=== PATIENT | female | born 1935 | race Caucasian/White ===

== ENCOUNTER 2020-07-05 23:05 | Inpatient (IN) | payer MEDICARE, SELFPAY ==
[2020-07-11 05:00] VITALS: BMI 34.4
[2020-07-12] VITALS (9 sets, daily range): BP systolic 122–130; BP diastolic 47–83; PULSE 73–87; RESP 12–17; TEMP 36.8–37.1; O2SAT 93–99
[2020-07-12] MEDS: HYDROmorphone HCl 1 MG/ML SYRINGE IVPUSH ×5 (00:20→18:45)
[2020-07-12] MEDS: Levothyroxine Sodium 150 MCG TABLET PO (05:44)
[2020-07-12 05:48] LABS: MANUAL DIFF FLAG NO
[2020-07-12 05:50] LABS: Basophils Percent Auto 0.3 % (0-2); Eosinophils Absolute Auto 0.2 X10*3/uL (0.0-0.4); Eosinophils Percent Auto 2.3 % (0-4); Hematocrit 24.6 % (37-47); Hemoglobin 7.5 g/dl (12.0-16.0); Imm Gran Abs Auto 0.03 X10*3/uL (0.00-0.03); Imm Gran Pct Auto 0.5 % (0.0-0.4); Lymphocytes Absolute Auto 1.3 X10*3/uL (1.2-4.9); Lymphocytes Percent Auto 19.7 % (20-40); Mean Corpuscular HGB Conc 30.5 g/dl (31.0-35.0); Mean Corpuscular Hemoglobin 27.9 pg (27.0-33.0); Mean Corpuscular Volume 91.4 fL (80-98); Mean Platelet Volume 8.3 fL (9.4-12.3); Monocytes Absolute Auto 0.7 X10*3/uL (0.1-1.2); Monocytes Percent Auto 10.7 % (2-11); Neutrophils Absolute Auto 4.3 X10*3/uL (2.0-8.3); Neutrophils Percent Auto 66.5 % (45-73); Platelet Count 199 X10*3/uL (160-400); Red Blood Count 2.69 X10*6/uL (4.20-5.50); Red Cell Distribution Width 14.3 % (11.0-16.0); White Blood Count 6.5 X10*3/uL (4.8-10.8)
--- NOTE | 2020-07-12 06:09 | PC.NURSE ---
Pt A&Ox4, vague/forgetful at times, easily re-oriented. Afebrile. NSR on tele, HR 70-80s. At approx 2300, PAF on tele, HR 130s. Pt denied any S/S. Converted back to NSR on own. SBP WNL. Pain improving per pt to RLE. Medicated per emar. DSG to RLE C/D/I. Repositioned on L side for comfort. Inct of urine. Bathed this AM. On air loss bed.
[2020-07-12 06:16] LABS: Anion Gap 10 (12-20); Blood Urea Nitrogen 17 mg/dL (9-16); Calcium 7.9 mg/dL (8.4-10.2); Carbon Dioxide 28 mmol/L (22-29); Chloride 101 mmol/L (96-108); Creatinine Clr Calc Pharmacy 51.9; Estimated Glomerular Filt Rate 57; Glucose Fasting 94 mg/dL (60-99); Sodium 135 mmol/L (135-145)
[2020-07-12] MEDS: 0.9 % Sodium Chloride Flush 3 ML SYRINGE 2 ML IVFLUSH ×2 (07:27→14:27)
[2020-07-12 07:44] LABS: Glucose, Whole Blood 90 mg/dL (60-115)
[2020-07-12] MEDS: Ferrous Sulfate 324 MG TABLET.DR PO ×2 (09:36→17:35)
[2020-07-12] MEDS: Amiodarone HCL 200 MG TABLET PO (09:37)
[2020-07-12] MEDS: Apixaban 5 MG TABLET PO ×2 (09:38→21:52)
[2020-07-12] MEDS: Gabapentin 100 MG CAPSULE PO ×2 (09:38→21:51)
[2020-07-12] MEDS: Lidocaine 4 % Patch ADH..PATCH 1 PATCH TRANSDERMA (09:39)
[2020-07-12] MEDS: polyethylene glycoL 3350 17 GM POWD.PACK PO (09:39)
[2020-07-12] MEDS: Docusate Sodium 100 MG CAPSULE PO (09:39)
--- NOTE | 2020-07-12 09:49 | P.PNIM_ITS ---
Subjective Subjective Date of Service: 07/12/20 Interval History: RLE still present but improved after increase in dilaudid Cardiovascular Cardiovascular: Reports no additional cardiovascular complaints Respiratory Respiratory: Reports no additional respiratory complaints Physical Exam Vital Signs and I&O and Narrative: Vital Signs and I&O: Vital Signs Temp 98.5 F 07/12/20 07:38 Pulse 87 07/12/20 09:37 Resp 17 07/12/20 07:38 BP 127/83 07/12/20 09:37 Pulse Ox 96 07/12/20 07:38 Intake & Output 07/11/20 07/12/20 07/12/20 18:59 06:59 18:59 Intake Total 120 / 120 0 / 0 Balance 120 / 120 0 / 0 Intake: Intake, Oral Phan unt 120 / 120 0 / 0 Other: Number of Incont inent Voids 1 Body Mass Index 34.4 Const: General: no acute distress and alert Orientation/consciousness: patient oriented x3 Resp: Auscultation: clear to auscultation bilaterally Cardio: Heart sounds: S1 normal heart sound present and S2 normal heart sound present GI: Palpation (GI): nontender Neuro: General: patient oriented x3 Psych: Affect: normal affect Objective Data Current Medications Generic Name Dose Route Start Last Admin Trade Name Freq PRN Reason Stop Dose Admin Acetaminophen 650 mg 07/12/20 00:00 Acetaminophen 325 Mg Tablet PO Q6H PRN Pain, Moderate (Pain Scale 4-6 Amiodarone HCl 200 mg 07/12/20 09:00 07/12/20 09:37 Amiodarone Hcl 200 Mg Tablet PO 200 mg DAILY LISANDRA Administration Apixaban 5 mg 07/12/20 09:00 07/12/20 09:38 Apixaban 5 Mg Tablet PO 5 mg BID LISANDRA Administration Bisacodyl 10 mg 07/12/20 00:00 Bisacodyl 10 Mg Supp.Rect WI Q3D PRN Constipation Docusate Sodium 100 mg 07/12/20 09:00 07/12/20 09:39 Docusate Sodium 100 Mg Capsule PO 100 mg DAILY LISANDRA Administration Ferrous Sulfate 324 mg 07/12/20 08:30 07/12/20 09:36 Ferrous Sulfate 324 Mg Tablet.Dr PO 324 mg BIDPC LISANDRA Administration Gabapentin 100 mg 07/12/20 09:00 07/12/20 09:38 Gabapentin 100 Mg Capsule PO 100 mg BID LISANDRA Administration Hydromorphone HCl 1 mg 07/12/20 00:00 07/12/20 07:26 Hydromorphone Hcl 1 Mg/Ml Syringe IVPUSH 1 mg Q3H PRN Administration Pain, Severe (Pain Scale 7-10) Meropenem 1 gm/ Sodium 100 mls @ 100 mls/hr 07/12/20 11:00 Chloride IV Q12H LISANDRA Levothyroxine Sodium 150 mcg 07/12/20 06:00 07/12/20 05:44 Levothyroxine Sodium 150 Mcg Tablet PO 150 mcg DAILY@0600 [facility] Administration Lidocaine 1 patch 07/12/20 09:00 07/12/20 09:39 Lidocaine 4 % Patch Adh..Patch TRANSDERMA 1 patch DAILY [facility] Administration Protocol Magnesium Hydroxide 30 ml 07/12/20 00:00 Milk Of Magnesia 30 Ml Oral.Susp PO DAILY PRN Constipation Oxycodone HCl 7.5 mg 07/12/20 00:00 Oxycodone Hcl Immed Release 5 Mg Tablet PO Q4H PRN Pain, Severe (Pain Scale 7-10) Oxycodone HCl 5 mg 07/12/20 00:00 Oxycodone Hcl Immed Release 5 Mg Tablet PO Q4H PRN Pain, Moderate (Pain Scale 4-6 Pharmacy Consult 1 each 07/11/20 05:52 Consult Rx Vancomycin Dosing MISCELLANE 07/18/20 05:51 DAILY PRN Consult order Polyethylene Glycol 17 gm 07/12/20 09:00 07/12/20 09:39 Polyethylene Glycol 3350 17 Gm Powd.Pack PO 17 gm DAILY [facility] Administration Senna 8.6 mg 07/12/20 00:00 Sennosides 8.6 Mg Tablet PO BEDTIME PRN Constipation Sodium Chloride 2 ml 07/12/20 00:00 07/12/20 07:27 0.9 % Sodium Chloride Flush 3 Ml Syringe IVFLUSH 2 ml QSHIFT [facility] Administration Labs CBC & Chem 7: 07/12/20 05:35 07/12/20 05:35 Labs: Laboratory Results - last 24 hr 07/12/20 07/12/20 07/12/20 05:35 05:35 07:33 MCV 91.4 MCH 27.9 MCHC 30.5 L RDW 14.3 Plt Count 199 MPV 8.3 L Immature Gran % (Auto) 0.5 H Neut % (Auto) 66.5 Lymph % (Auto) 19.7 L [place] % (Auto) 10.7 Eos % (Auto) 2.3 Baso % (Auto) 0.3 Neut # (Auto) 4.3 Lymph # (Auto) 1.3 [place] # (Auto) 0.7 Eos # (Auto) 0.2 Baso # (Auto) 0.0 Abs Immat Gran (auto) 0.03 Absolute Nucleated RBC 0.000 Nucleated RBC % (auto) 0.0 Anion Gap 10 L Estim Creat Clear Calc 51.9 Estimated GFR 57 POC Glucose 90 Fasting Glucose 94 Calcium 7.9 L
[2020-07-12] MEDS: oxyCODONE HCl Immed Release 5 MG TABLET 7.5 MG PO ×2 (10:55→17:53)
[2020-07-12 11:35] LABS: Glucose, Whole Blood 110 mg/dL (60-115)
--- NOTE | 2020-07-12 12:24 | PM.EVENT ---
Assessment & Plan Assessment & Plan (1) Septic shock: Code(s): A41.9 - Sepsis, unspecified organism; R65.21 - Severe sepsis with septic shock Category: Medical (2) Urinary tract infection due to Proteus: Code(s): N39.0 - Urinary tract infection, site not specified; B96.4 - Proteus (mirabilis) (morganii) as the cause of diseases classified elsewhere Category: Medical (3) PVD (peripheral vascular disease): Comment: full consult dictated. It does not appear to be an acute vascular event. Appears to be more neurologic in nature. We will peripherally follow with you Code(s): I73.9 - Peripheral vascular disease, unspecified Category: Medical (4) Paroxysmal atrial fibrillation: Code(s): I48.0 - Paroxysmal atrial fibrillation Category: Medical
--- NOTE | 2020-07-12 12:47 | MHC.CM.PN ---
Patient remains in ICU. Per Dr Vigil, discharge is not anticipated today. Anticipate patient will return to [facility] with a PICC via [facility] when medically stable. Continue to monitor for d/c needs.
[2020-07-12 17:02] LABS: Glucose, Whole Blood 88 mg/dL (60-115)
--- NOTE | 2020-07-12 18:05 | PC.NURSE ---
S/E [id number]: AFEBRILE. VSS. INTENSE PAIN (7-9 OUT OF 10) TO RIGHT LEG THROUGHOUT THE DAY, MANAGED WITH ROTATION OF PRN DILAUDID IV AND OXYCODONE PO. Q2H REPO, PILLOWS, BARRIER CREAM, AND WEDGES. DR. COPE BEDSIDE TO ASSESS.
[2020-07-12] MEDS: oxyCODONE HCl Immed Release 5 MG TABLET PO (21:51)
[2020-07-12 22:03] LABS: Glucose, Whole Blood 90 mg/dL (60-115)
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
[2020-07-13] VITALS (11 sets, daily range): BP systolic 117–157; BP diastolic 43–69; PULSE 72–82; RESP 13–22; TEMP 36.7–37.1; O2SAT 95–99; BMI 34.2
[2020-07-13] MEDS: HYDROmorphone HCl 1 MG/ML SYRINGE IVPUSH ×3 (00:20→22:41)
[2020-07-13] MEDS: 0.9 % Sodium Chloride Flush 3 ML SYRINGE 2 ML IVFLUSH ×3 (00:22→15:47)
[2020-07-13] MEDS: Levothyroxine Sodium 150 MCG TABLET PO (05:25)
[2020-07-13] MEDS: oxyCODONE HCl Immed Release 5 MG TABLET PO ×3 (05:25→21:54)
[2020-07-13 06:26] LABS: MANUAL DIFF FLAG NO
[2020-07-13 06:31] LABS: Basophils Percent Auto 0.3 % (0-2); Eosinophils Absolute Auto 0.2 X10*3/uL (0.0-0.4); Eosinophils Percent Auto 2.1 % (0-4); Hematocrit 24.3 % (37-47); Hemoglobin 7.4 g/dl (12.0-16.0); Imm Gran Abs Auto 0.02 X10*3/uL (0.00-0.03); Imm Gran Pct Auto 0.3 % (0.0-0.4); Lymphocytes Absolute Auto 1.1 X10*3/uL (1.2-4.9); Lymphocytes Percent Auto 14.9 % (20-40); Mean Corpuscular HGB Conc 30.5 g/dl (31.0-35.0); Mean Corpuscular Hemoglobin 27.6 pg (27.0-33.0); Mean Corpuscular Volume 90.7 fL (80-98); Mean Platelet Volume 8.9 fL (9.4-12.3); Monocytes Absolute Auto 0.7 X10*3/uL (0.1-1.2); Monocytes Percent Auto 9.6 % (2-11); Neutrophils Absolute Auto 5.2 X10*3/uL (2.0-8.3); Neutrophils Percent Auto 72.8 % (45-73); Platelet Count 233 X10*3/uL (160-400); Red Blood Count 2.68 X10*6/uL (4.20-5.50); Red Cell Distribution Width 14.2 % (11.0-16.0); White Blood Count 7.2 X10*3/uL (4.8-10.8)
[2020-07-13 07:03] LABS: Anion Gap 10 (12-20); Blood Urea Nitrogen 18 mg/dL (9-16); Calcium 7.8 mg/dL (8.4-10.2); Carbon Dioxide 27 mmol/L (22-29); Chloride 101 mmol/L (96-108); Creatinine Clr Calc Pharmacy 53.4; Estimated Glomerular Filt Rate 60; Glucose Fasting 88 mg/dL (60-99); Sodium 134 mmol/L (135-145)
[2020-07-13 07:34] LABS: Glucose, Whole Blood 94 mg/dL (60-115)
[2020-07-13] MEDS: Lidocaine 4 % Patch ADH..PATCH 1 PATCH TRANSDERMA (09:03)
[2020-07-13] MEDS: polyethylene glycoL 3350 17 GM POWD.PACK PO (09:03)
[2020-07-13] MEDS: Apixaban 5 MG TABLET PO ×2 (09:04→20:18)
[2020-07-13] MEDS: Docusate Sodium 100 MG CAPSULE PO (09:04)
[2020-07-13] MEDS: Ferrous Sulfate 324 MG TABLET.DR PO ×2 (09:04→18:14)
[2020-07-13] MEDS: Gabapentin 100 MG CAPSULE PO ×2 (09:04→20:18)
[2020-07-13] MEDS: Amiodarone HCL 200 MG TABLET PO (09:05)
[2020-07-13] MEDS: Acetaminophen 325 MG TABLET 650 MG PO (09:50)
--- NOTE | 2020-07-13 11:34 | MHC.CLN ---
F/U PO INTAKE IMPROVED TO 75% (07/12-07/13) DIET Rx: 1800 2GM NA LOW K+ LOW PHOS-APPROPRIATE WILL RE-START JOHANN TO PROMOTE WOUND HEALING FOLLOWING
[2020-07-13 12:14] LABS: Glucose, Whole Blood 86 mg/dL (60-115)
--- NOTE | 2020-07-13 12:17 | HO.PM.IMPN ---
Subjective Subjective Date of Service: 07/12/20 Interval History: RLE still present but improved after increase in dilaudid (07/12/20 note) Physical Exam Vital Signs and I&O and Narrative: Vital Signs and I&O: Vital Signs Temp 98.7 F 07/13/20 08:00 Pulse 82 07/13/20 11:07 Resp 14 07/13/20 08:00 BP 136/43 L 07/13/20 11:07 Pulse Ox 96 07/13/20 08:00 Intake & Output 07/12/20 07/13/20 07/13/20 18:59 06:59 18:59 Intake Total 820 / 1040 220 / 1040 120 / 120 Output Total 100 / 100 Balance 720 / 940 220 / 940 120 / 120 Urine Output (Aver age ml/kg/hr) 0.09 0.09 0.09 Weight 96.162 kg Intake: Intake, Oral [facility] unt 720 / 840 120 / 840 120 / 120 Intake, IV Amoun t 100 / 200 100 / 200 Meropenem 1 gm In 0.9 % Sodium 100 / 200 100 / 200 Chloride 100 m l @ 100 mls/hr IV Q12H [facility] Rx#:H [id number] Output: Output, Urine Am ount 100 / 100 Other: Breakfast % Eate n 100% 75% Lunch % Eaten 100% Dinner % Eaten 75% Number of Incont inent Voids 1 2 Urine Bedpan Urine Color Concentrated Pale Yellow Body Mass Index 34.2 Const: General: no acute distress and alert Orientation/consciousness: patient oriented x3 Resp: Auscultation: clear to auscultation bilaterally Cardio: Heart sounds: S1 normal heart sound present and S2 normal heart sound present GI: Palpation (GI): nontender Neuro: General: patient oriented x3 Psych: Affect: normal affect Objective Data Current Medications Generic Name Dose Route Start Last Admin Trade Name Freq PRN Reason Stop Dose Admin Acetaminophen 650 mg 07/12/20 00:00 07/13/20 09:50 Acetaminophen 325 Mg Tablet PO 650 mg Q6H PRN Administration Pain, Moderate (Pain Scale 4-6 Amiodarone HCl 200 mg 07/12/20 09:00 07/13/20 09:05 Amiodarone Hcl 200 Mg Tablet PO 200 mg DAILY LISANDRA Administration Apixaban 5 mg 07/12/20 09:00 07/13/20 09:04 Apixaban 5 Mg Tablet PO 5 mg BID LISANDRA Administration Bisacodyl 10 mg 07/12/20 00:00 Bisacodyl 10 Mg Supp.Rect [place] Q3D PRN Constipation Docusate Sodium 100 mg 07/12/20 09:00 07/13/20 09:04 Docusate Sodium 100 Mg Capsule PO 100 mg DAILY LISANDRA Administration Ferrous Sulfate 324 mg 07/12/20 08:30 07/13/20 09:04 Ferrous Sulfate 324 Mg Tablet.Dr PO 324 mg BIDPC LISANDRA Administration Gabapentin 100 mg 07/12/20 09:00 07/13/20 09:04 Gabapentin 100 Mg Capsule PO 100 mg BID [facility] Administration Hydromorphone HCl 1 mg 07/12/20 00:00 07/13/20 09:50 Hydromorphone Hcl 1 Mg/Ml Syringe IVPUSH 1 mg Q3H PRN Administration Pain, Severe (Pain Scale 7-10) Hydromorphone HCl 2 mg 07/13/20 11:14 Hydromorphone Hcl 2 Mg Tablet PO Q3H PRN pain Meropenem 1 gm/ Sodium 100 mls @ 100 mls/hr 07/12/20 11:00 07/13/20 11:11 Chloride IV 100 mls/hr Q12H [facility] Administration Levothyroxine Sodium 150 mcg 07/12/20 06:00 07/13/20 05:25 Levothyroxine Sodium 150 Mcg Tablet PO 150 mcg DAILY@0600 [facility] Administration Lidocaine 1 patch 07/12/20 09:00 07/13/20 09:03 Lidocaine 4 % Patch Adh..Patch TRANSDERMA 1 patch DAILY [facility] Administration Protocol Magnesium Hydroxide 30 ml 07/12/20 00:00 Milk Of Magnesia 30 Ml Oral.Susp PO DAILY PRN Constipation Oxycodone HCl 7.5 mg 07/12/20 00:00 07/12/20 17:53 Oxycodone Hcl Immed Release 5 Mg Tablet PO 7.5 mg Q4H PRN Administration Pain, Severe (Pain Scale 7-10) Oxycodone HCl 5 mg 07/12/20 00:00 07/13/20 09:13 Oxycodone Hcl Immed Release 5 Mg Tablet PO 5 mg Q4H PRN Administration Pain, Moderate (Pain Scale 4-6 Pharmacy Consult 1 each 07/11/20 05:52 Consult Rx Vancomycin Dosing MISCELLANE 07/18/20 05:51 DAILY PRN Consult order Polyethylene Glycol 17 gm 07/12/20 09:00 07/13/20 09:03 Polyethylene Glycol 3350 17 Gm Powd.Pack PO 17 gm DAILY LISANDRA Administration Senna 8.6 mg 07/12/20 00:00 Sennosides 8.6 Mg Tablet PO BEDTIME PRN Constipation Sodium Chloride 2 ml 07/12/20 00:00 07/13/20 09:03 0.9 % Sodium Chloride Flush 3 Ml Syringe IVFLUSH 2 ml QSHIFT LISANDRA Administration Labs CBC & Chem 7: 07/13/20 05:40 07/13/20 05:40 Labs: Laboratory Results - last 24 hr 07/12/20 07/12/20 07/13/20 16:58 21:59 05:40 MCV 90.7 MCH 27.6 MCHC 30.5 L RDW 14.2 Plt Count 233 MPV 8.9 L Immature Gran % (Auto) 0.3 Neut % (Auto) 72.8 Lymph % (Auto) 14.9 L [place] % (Auto) 9.6 Eos % (Auto) 2.1 Baso % (Auto) 0.3 Neut # (Auto) 5.2 Lymph # (Auto) 1.1 L [place] # (Auto) 0.7 Eos # (Auto) 0.2 Baso # (Auto) 0.0 Abs Immat Gran (auto) 0.02 Absolute Nucleated RBC 0.000 Nucleated RBC % (auto) 0.0 Anion Gap Estim Creat Clear Calc Estimated GFR POC Glucose 88 90 Fasting Glucose Calcium 07/13/20 07/13/20 07/13/20 05:40 07:31 12:10 MCV MCH MCHC RDW Plt Count MPV Immature Gran % (Auto) Neut % (Auto) Lymph % (Auto) [place] % (Auto) Eos % (Auto) Baso % (Auto) Neut # (Auto) Lymph # (Auto) [place] # (Auto) Eos # (Auto) Baso # (Auto) Abs Immat Gran (auto) Absolute Nucleated RBC Nucleated RBC % (auto) Anion Gap 10 L Estim Creat Clear Calc 53.4 Estimated GFR 60 POC Glucose 94 86 Fasting Glucose 88 Calcium 7.8 L Assessment and Plan (1) Septic shock: Status: Acute (2) Urinary tract infection due to Proteus: Status: Acute (3) PVD (peripheral vascular disease): Problem details: full consult dictated. It does not appear to be an acute vascular event. Appears to be more neurologic in nature. 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 septic shock poa due to Proteus ESBL UTI septic shock resolved Continue treatment with meropenem D 04/24 s/p PICC line severe RLE pain increased dilaudid to 1mg q3h prn, has improved pain, was able to sleep venous us negative for dvt, arterial duplex positive for PVD vascular appreciated, no intervention, pain likely radicular Acute kidney injury Hyperkalemia Had 1 urgent dialysis session at time of presentation Dialysis catheter removed Resolved Paroxysmal atrial fibrillation now sinus rhythm, started on amiodarone with good response Continue amiodarone Continue Eliquis Right-sided weakness Chronic Related to previous spinal cord tumor resection To go back to rehab facility Right lower extremity wound follow up wound care, vascular chronic anemia - likely inflammatory Hemoglobin has been stable between 7 and 8 Has low iron stores Start iron supplement p.o. DVT PPX Eliquis
--- NOTE | 2020-07-13 12:20 | HO.PM.IMPN ---
Subjective Subjective Date of Service: 07/13/20 Interval History: pain improved Physical Exam Vital Signs and I&O and Narrative: Vital Signs and I&O: Vital Signs Temp 98.7 F 07/13/20 08:00 Pulse 82 07/13/20 11:07 Resp 14 07/13/20 08:00 BP 136/43 L 07/13/20 11:07 Pulse Ox 96 07/13/20 08:00 Intake & Output 07/12/20 07/13/20 07/13/20 18:59 06:59 18:59 Intake Total 820 / 1040 220 / 1040 220 / 220 Output Total 100 / 100 Balance 720 / 940 220 / 940 220 / 220 Urine Output (Aver age ml/kg/hr) 0.09 0.09 0.09 Weight 96.162 kg Intake: Intake, Oral Phan unt 720 / 840 120 / 840 120 / 120 Intake, IV Amoun t 100 / 200 100 / 200 100 / 100 Meropenem 1 gm In 0.9 % Sodium 100 / 200 100 / 200 100 / 100 Chloride 100 m l @ 100 mls/hr IV Q12H [facility] Rx#:H [id number] Output: Output, Urine Am ount 100 / 100 Other: Breakfast % Eate n 100% 75% Lunch % Eaten 100% Dinner % Eaten 75% Number of Incont inent Voids 1 2 Urine Bedpan Urine Color Concentrated Pale Yellow Body Mass Index 34.2 Const: General: no acute distress and alert Orientation/consciousness: patient oriented x3 Resp: Auscultation: clear to auscultation bilaterally Cardio: Heart sounds: S1 normal heart sound present and S2 normal heart sound present GI: Palpation (GI): nontender Neuro: General: patient oriented x3 Psych: Affect: normal affect Objective Data Current Medications Generic Name Dose Route Start Last Admin Trade Name Freq PRN Reason Stop Dose Admin Acetaminophen 650 mg 07/12/20 00:00 07/13/20 09:50 Acetaminophen 325 Mg Tablet PO 650 mg Q6H PRN Administration Pain, Moderate (Pain Scale 4-6 Amiodarone HCl 200 mg 07/12/20 09:00 07/13/20 09:05 Amiodarone Hcl 200 Mg Tablet PO 200 mg DAILY LISANDRA Administration Apixaban 5 mg 07/12/20 09:00 07/13/20 09:04 Apixaban 5 Mg Tablet PO 5 mg BID LISANDRA Administration Bisacodyl 10 mg 07/12/20 00:00 Bisacodyl 10 Mg Supp.Rect TN Q3D PRN Constipation Docusate Sodium 100 mg 07/12/20 09:00 07/13/20 09:04 Docusate Sodium 100 Mg Capsule PO 100 mg DAILY LISANDRA Administration Ferrous Sulfate 324 mg 07/12/20 08:30 07/13/20 09:04 Ferrous Sulfate 324 Mg Tablet.Dr PO 324 mg BIDPC LISANDRA Administration Gabapentin 100 mg 07/12/20 09:00 07/13/20 09:04 Gabapentin 100 Mg Capsule PO 100 mg BID [facility] Administration Hydromorphone HCl 1 mg 07/12/20 00:00 07/13/20 09:50 Hydromorphone Hcl 1 Mg/Ml Syringe IVPUSH 1 mg Q3H PRN Administration Pain, Severe (Pain Scale 7-10) Hydromorphone HCl 2 mg 07/13/20 11:14 Hydromorphone Hcl 2 Mg Tablet PO Q3H PRN pain Meropenem 1 gm/ Sodium 100 mls @ 100 mls/hr 07/12/20 11:00 07/13/20 12:18 Chloride IV Infused Q12H [facility] Infusion Levothyroxine Sodium 150 mcg 07/12/20 06:00 07/13/20 05:25 Levothyroxine Sodium 150 Mcg Tablet PO 150 mcg DAILY@0600 [facility] Administration Lidocaine 1 patch 07/12/20 09:00 07/13/20 09:03 Lidocaine 4 % Patch Adh..Patch TRANSDERMA 1 patch DAILY [facility] Administration Protocol Magnesium Hydroxide 30 ml 07/12/20 00:00 Milk Of Magnesia 30 Ml Oral.Susp PO DAILY PRN Constipation Oxycodone HCl 7.5 mg 07/12/20 00:00 07/12/20 17:53 Oxycodone Hcl Immed Release 5 Mg Tablet PO 7.5 mg Q4H PRN Administration Pain, Severe (Pain Scale 7-10) Oxycodone HCl 5 mg 07/12/20 00:00 07/13/20 09:13 Oxycodone Hcl Immed Release 5 Mg Tablet PO 5 mg Q4H PRN Administration Pain, Moderate (Pain Scale 4-6 Pharmacy Consult 1 each 07/11/20 05:52 Consult Rx Vancomycin Dosing MISCELLANE 07/18/20 05:51 DAILY PRN Consult order Polyethylene Glycol 17 gm 07/12/20 09:00 07/13/20 09:03 Polyethylene Glycol 3350 17 Gm Powd.Pack PO 17 gm DAILY LISANDRA Administration Senna 8.6 mg 07/12/20 00:00 Sennosides 8.6 Mg Tablet PO BEDTIME PRN Constipation Sodium Chloride 2 ml 07/12/20 00:00 07/13/20 09:03 0.9 % Sodium Chloride Flush 3 Ml Syringe IVFLUSH 2 ml QSHIFT LISANDRA Administration Labs CBC & Chem 7: 07/13/20 05:40 07/13/20 05:40 Labs: Laboratory Results - last 24 hr 07/12/20 07/12/20 07/13/20 16:58 21:59 05:40 MCV 90.7 MCH 27.6 MCHC 30.5 L RDW 14.2 Plt Count 233 MPV 8.9 L Immature Gran % (Auto) 0.3 Neut % (Auto) 72.8 Lymph % (Auto) 14.9 L [place] % (Auto) 9.6 Eos % (Auto) 2.1 Baso % (Auto) 0.3 Neut # (Auto) 5.2 Lymph # (Auto) 1.1 L [place] # (Auto) 0.7 Eos # (Auto) 0.2 Baso # (Auto) 0.0 Abs Immat Gran (auto) 0.02 Absolute Nucleated RBC 0.000 Nucleated RBC % (auto) 0.0 Anion Gap Estim Creat Clear Calc Estimated GFR POC Glucose 88 90 Fasting Glucose Calcium 07/13/20 07/13/20 07/13/20 05:40 07:31 12:10 MCV MCH MCHC RDW Plt Count MPV Immature Gran % (Auto) Neut % (Auto) Lymph % (Auto) [place] % (Auto) Eos % (Auto) Baso % (Auto) Neut # (Auto) Lymph # (Auto) [place] # (Auto) Eos # (Auto) Baso # (Auto) Abs Immat Gran (auto) Absolute Nucleated RBC Nucleated RBC % (auto) Anion Gap 10 L Estim Creat Clear Calc 53.4 Estimated GFR 60 POC Glucose 94 86 Fasting Glucose 88 Calcium 7.8 L Assessment and Plan (1) Septic shock: Status: Acute (2) Urinary tract infection due to Proteus: Status: Acute (3) PVD (peripheral vascular disease): Problem details: full consult dictated. It does not appear to be an acute vascular event. Appears to be more neurologic in nature. 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 septic shock poa due to Proteus ESBL UTI septic shock resolved Continue treatment with meropenem D 05/25 s/p PICC line severe RLE pain increased dilaudid to 1mg q3h prn, has improved pain, was able to sleep will try to stick to po only to test outpatient regiment venous us negative for dvt, arterial duplex positive for PVD vascular appreciated, no intervention, pain likely radicular will have surgery eval wounds for possible debridement Acute kidney injury Hyperkalemia Had 1 urgent dialysis session at time of presentation Dialysis catheter removed Resolved Paroxysmal atrial fibrillation now sinus rhythm, started on amiodarone with good response Continue amiodarone Continue Eliquis Right-sided weakness Chronic Related to previous spinal cord tumor resection To go back to rehab facility Right lower extremity wound follow up wound care, vascular chronic anemia - likely inflammatory Hemoglobin has been stable between 7 and 8 Has low iron stores Start iron supplement p.o. DVT PPX Eliquis
--- NOTE | 2020-07-13 12:33 | MHC.CM.ED ---
Patient remains in the ICU. Discharge not anticipated today. Fransico gonzalez. Continue to monitor for d/c needs.
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
[2020-07-13] MEDS: HYDROmorphone HCl 2 MG TABLET PO ×2 (13:52→20:19)
[2020-07-13 17:05] LABS: Glucose, Whole Blood 85 mg/dL (60-115)
--- NOTE | 2020-07-13 18:36 | PC.NURSE ---
S/E [id number]: AFEBRILE. VSS. WORKED WITH PHYSICAL THERAPY TODAY. OOB TO HURD CHAIR. RIGHT LEG DRESSING CHANGED X 2. SURGICAL CONSULT CALLED AND MD BEDSIDE FOR EVAL, SEE SURGICAL NOTE. PRN IV DILAUDID TO BE USED FOR DRESSING CHANGE ONLY PER MD. FAMILY UPDATED BY THIS RN.
--- NOTE | 2020-07-13 20:52 | PC.NURSE ---
perirectal area reddened. right foot in air boot. dsg right lower leg intact. right pedal pulse grossly diminished and located with dopplar
[2020-07-13 22:13] LABS: Glucose, Whole Blood 75 mg/dL (60-115)
[2020-07-14] MEDS: 0.9 % Sodium Chloride Flush 3 ML SYRINGE 2 ML IVFLUSH ×2 (01:23→01:24)
[2020-07-14] MEDS: oxyCODONE HCl Immed Release 5 MG TABLET 7.5 MG PO (02:20)
--- NOTE | 2020-07-14 03:42 | PC.NURSE ---
initially at the start of the shift, pt recumbent in jaimes chair. pt returned to bed with great nursing effort. she is mildly anxious. her sensorium is intact. she has generalized weakness of her lower extremities more so.in the right leg. the right foot is slightly rotated inward and the leg is resistant to rom. foot pulses grossly diminished in right foot. pulses pedal and post tibial pulses located with dopplar. right pedal pulses is faint and difficult to obtain. right foot is warm. pt has experienced pain management issues in which she has c/o of 10/10 right leg pain. as of this time she has been medicated with the following medications oxycodone 5 mg po X1/oxycodone 7.5 mg po x1/dilaudid 2 mg po x1/dilaudid 1 mg ivp x1. at this juncture, pt is asleep and snoring. her complexion is pale. she has pitting edema of her lower legs and pelvis. she has a deep tissue injury the sole of right foot. right lower leg dsg dry/intact. resp effort is regular unlabored. breath sounds cta/diminished. heart s1s2. hemodynamically stable. ecg displays sr. abdomen obese/soft/nontender. incontinent of urine. purewick device placed.
[2020-07-14 04:00] VITALS: BP 160/51; PULSE 84; RESP 14; O2SAT 97
[2020-07-14 05:25] LABS: MANUAL DIFF FLAG NO
[2020-07-14 05:28] LABS: Basophils Percent Auto 0.2 % (0-2); Eosinophils Absolute Auto 0.1 X10*3/uL (0.0-0.4); Hematocrit 23.7 % (37-47); Hemoglobin 7.4 g/dl (12.0-16.0); Imm Gran Abs Auto 0.02 X10*3/uL (0.00-0.03); Imm Gran Pct Auto 0.3 % (0.0-0.4); Lymphocytes Percent Auto 16.3 % (20-40); Mean Corpuscular HGB Conc 31.2 g/dl (31.0-35.0); Mean Corpuscular Hemoglobin 28.6 pg (27.0-33.0); Mean Corpuscular Volume 91.5 fL (80-98); Mean Platelet Volume 8.8 fL (9.4-12.3); Monocytes Absolute Auto 0.6 X10*3/uL (0.1-1.2); Monocytes Percent Auto 9.9 % (2-11); Neutrophils Absolute Auto 4.6 X10*3/uL (2.0-8.3); Neutrophils Percent Auto 71.3 % (45-73); Platelet Count 232 X10*3/uL (160-400); Red Blood Count 2.59 X10*6/uL (4.20-5.50); Red Cell Distribution Width 14.2 % (11.0-16.0); White Blood Count 6.4 X10*3/uL (4.8-10.8)
[2020-07-14 05:49] LABS: Anion Gap 11 (12-20); Blood Urea Nitrogen 20 mg/dL (9-16); Calcium 7.7 mg/dL (8.4-10.2); Carbon Dioxide 26 mmol/L (22-29); Chloride 101 mmol/L (96-108); Creatinine Clr Calc Pharmacy 57.9; Estimated Glomerular Filt Rate > 60; Glucose Fasting 89 mg/dL (60-99); Potassium 3.8 mmol/l (3.3-5.1); Sodium 134 mmol/L (135-145)
[2020-07-14 06:00] VITALS: BMI 35.2
[2020-07-14] MEDS: Levothyroxine Sodium 150 MCG TABLET PO (06:35)
[2020-07-14 06:42] VITALS: BP 117/54; PULSE 78; RESP 20; TEMP 36.7; O2SAT 98
[2020-07-14 08:00] VITALS: BP 132/62; PULSE 74; RESP 20; TEMP 36.2; O2SAT 96
[2020-07-14 08:18] LABS: Glucose, Whole Blood 87 mg/dL (60-115)
[2020-07-14] MEDS: Lidocaine 4 % Patch ADH..PATCH 1 PATCH TRANSDERMA (10:03)
[2020-07-14] MEDS: Apixaban 5 MG TABLET PO (10:09)
[2020-07-14] MEDS: Docusate Sodium 100 MG CAPSULE PO (10:09)
[2020-07-14] MEDS: Gabapentin 100 MG CAPSULE PO (10:09)
[2020-07-14] MEDS: polyethylene glycoL 3350 17 GM POWD.PACK PO (10:09)
[2020-07-14] MEDS: HYDROmorphone HCl 2 MG TABLET PO ×2 (10:10→15:18)
[2020-07-14] MEDS: Ferrous Sulfate 324 MG TABLET.DR PO (10:10)
[2020-07-14] MEDS: Amiodarone HCL 200 MG TABLET PO (10:10)
[2020-07-14 11:25] VITALS: RESP 16
[2020-07-14 11:30] LABS: Glucose, Whole Blood 89 mg/dL (60-115)
[2020-07-14 11:39] VITALS: BP 139/62; PULSE 78; RESP 18; TEMP 36.4; O2SAT 99
--- NOTE | 2020-07-14 11:55 | PM.DS ---
DS: Providers Provider Date of admission: 07/05/20 23:05 Primary care physician: Caio Peck MD Consults: 07/11/20 13:28 Consult to Vascular Surgery Routine Consulting Provider: Michael Rosario Reason for consultation: concern for PVD Has provider been notified: Yes 07/12/20 06:30 Consult to Infectious Diseases Routine Consulting Provider: Ludy King Reason for consultation: New meropenem order 07/13/20 09:39 Consult to General Surgery [place]ine Consulting [place] [facility] [place] [facility] Reason for consultation: leg wounds DS: Diagnosis Discharge Diagnosis (1) Ulcer of right lower leg: Status: Acute (2) Septic shock: Status: Acute (3) Urinary tract infection due to Proteus: Status: Acute (4) PVD (peripheral vascular disease): Status: Acute Problem details: full consult dictated. It does not appear to be an acute vascular event. Appears to be more neurologic in nature. We will peripherally follow with you (5) Paroxysmal atrial fibrillation: Status: Acute (6) ROQUE (acute kidney injury): Status: Acute (7) Hyperkalemia: Status: Acute (8) Radiculopathy: Status: Acute DS: Summary Hospital Course Hospital Course: patient was admitted to ICU for septic shock due to ESBL Proteus UTI she was given carbapenem and sepsis resolved. PICC line was placed and patient will complete 14 days total of carbapenem at nursing [facility]. Course was complicated by severe acute kidney injury with hyperkalemia. Patient required 1 session of hemodialysis. At time of discharge patient's renal function has returned to normal. There are no plans to continue hemodialysis. Patient was also evaluated for right lower extremity wounds. She was seen by wound care, general surgery, vascular surgery. There is currently no indication for debridement. No signs of active infection. She does have some peripheral vascular disease but wounds are mostly from venous stasis. Plan is to continue with local care and follow up outpatient with vascular surgery. Patient does have severe radicular pain. This is generally well controlled at rest but makes it difficult for her to ambulate. She will be started on MS Contin and continue on p.o. Dilaudid as needed. Pain regimen should be adjusted as needed. Course was also complicated by atrial fibrillation. She was started on amiodarone and continued on Eliquis. patient is now feeling better will be discharged to [facility]. Time Spent with Patient Time attestation: Total time spent providing and/or coordinating discharge services: Physical Exam Vital Signs and I&O and Narrative: Vital Signs and I&O: Vital Signs Temp 97.6 F 07/14/20 11:39 Pulse 78 07/14/20 11:39 Resp 18 07/14/20 11:39 BP 139/62 07/14/20 11:39 Pulse Ox 99 07/14/20 11:39 Intake & Output 07/13/20 07/14/20 07/14/20 18:59 06:59 18:59 Intake Total 460 / 920 460 / 920 350 / 350 Balance 460 / 920 460 / 920 350 / 350 Weight 98.883 kg Intake: Intake, Oral Phan unt 360 / 720 360 / 720 350 / 350 Intake, IV Amoun t 100 / 200 100 / 200 Meropenem 1 gm In 0.9 % Sodium 100 / 200 100 / 200 Chloride 100 m l @ 100 mls/hr IV Q12H [facility] Rx#:H [id number] Other: Meal Refused No NPO No Breakfast % Eate n 75% 100% Lunch % Eaten 100% Number of Incont inent Voids 1 1 Number of Unmeas ured Voids 3 Body Mass Index 35.2 Const: General: cooperative, no acute distress and alert Orientation/consciousness: patient oriented x3 Resp: Auscultation: clear to auscultation bilaterally Cardio: Heart sounds: S1 normal heart sound present and S2 normal heart sound present GI: Palpation (GI): nontender Neuro: General: patient oriented x3 Extrem: Other: There is mild deep pink discoloration of the right lower leg extending from the level of the ankle to about 2/[address] to the knee with associated nonpitting edema. There is patchy epithelial loss along the medial and posterior aspect of the right lower leg with associated moderate tenderness. The right foot is warm and capillary refill at the level of the toes is normal but pedal pulses are not palpable. There is discoloration of the subcutaneous tissues of the posteromedial aspect of the heel consistent with pressure injury. Psych: Affect: normal affect DS: Data Data Completed and Pending Labs on day of discharge: Labs from last 24 hours 07/14/20 07/14/20 07/14/20 11:24 07:24 05:13 WBC RBC Hgb Hct MCV MCH MCHC RDW Plt Count MPV Immature Gran % (Auto) Neut % (Auto) Lymph % (Auto) [place] % (Auto) Eos % (Auto) Baso % (Auto) Neut # (Auto) Lymph # (Auto) [place] # (Auto) Eos # (Auto) Baso # (Auto) Abs Immat Gran (auto) Absolute Nucleated RBC Nucleated RBC % (auto) Sodium 134 L Potassium 3.8 Chloride 101 Carbon Dioxide 26 Anion Gap 11 L BUN 20 H Creatinine 0.83 Estim Creat Clear Calc 57.9 Estimated GFR > 60 POC Glucose 89 87 Fasting Glucose 89 Calcium 7.7 L 07/14/20 07/13/20 07/13/20 05:13 22:08 17:02 WBC 6.4 RBC 2.59 L Hgb 7.4 L Hct 23.7 L MCV 91.5 MCH 28.6 MCHC 31.2 RDW 14.2 Plt Count 232 MPV 8.8 L Immature Gran % (Auto) 0.3 Neut % (Auto) 71.3 Lymph % (Auto) 16.3 L [place] % (Auto) 9.9 Eos % (Auto) 2.0 Baso % (Auto) 0.2 Neut # (Auto) 4.6 Lymph # (Auto) 1.0 L [place] # (Auto) 0.6 Eos # (Auto) 0.1 Baso # (Auto) 0.0 Abs Immat Gran (auto) 0.02 Absolute Nucleated RBC 0.000 Nucleated RBC % (auto) 0.0 Sodium Potassium Chloride Carbon Dioxide Anion Gap BUN Creatinine Estim Creat Clear Calc Estimated GFR POC Glucose 75 85 Fasting Glucose Calcium 07/13/20 12:10 WBC RBC Hgb Hct MCV MCH MCHC RDW Plt Count MPV Immature Gran % (Auto) Neut % (Auto) Lymph % (Auto) [place] % (Auto) Eos % (Auto) Baso % (Auto) Neut # (Auto) Lymph # (Auto) [place] # (Auto) Eos # (Auto) Baso # (Auto) Abs Immat Gran (auto) Absolute Nucleated RBC Nucleated RBC % (auto) Sodium Potassium Chloride Carbon Dioxide Anion Gap BUN Creatinine Estim Creat Clear Calc Estimated GFR POC Glucose 86 Fasting Glucose Calcium Discharge Plan Discharge Patient Disposition: Xfer SNF Referrals: MICHELLE MANUEL [Other] (PT WILL DISCHARGE BACK TO [facility] AT 4PM VIA BLS ) Caio Peck MD [Primary Care Provider] - Discharge Medications: New ertapenem 1 gram recon soln 1 g IV Q24H Qty: 5 RF: 0 morphine [MS Contin] 15 mg tablet extended release 15 mg PO Q12H Qty: 30 RF: 0 hydromorphone [Dilaudid] 4 mg tablet 4 mg PO Q6H PRN (Reason: pain) Qty: 30 RF: 0 amiodarone 200 mg Tablet 200 mg PO DAILY Qty: 30 RF: 0 Continued cyanocobalamin (vitamin B-12) [Vitamin B-12] 1,000 mcg Tablet 1,000 mcg PO DAILY RF: 0 citalopram [Celexa] 20 mg Tablet 20 mg PO DAILY RF: 0 bisacodyl [Dulcolax (bisacodyl)] 10 mg Suppository 10 mg IA Q3D PRN (Reason: Constipation) RF: 0 levothyroxine [Synthroid] 150 mcg Tablet 150 mcg PO DAILY RF: 0 docusate sodium [Colace] 100 mg Capsule 100 mg PO DAILY RF: 0 gabapentin [Neurontin] 300 mg Capsule 300 mg PO DAILY@1400 RF: 0 gabapentin [Neurontin] 100 mg Capsule 100 mg PO BID RF: 0 Lactobacillus acidophilus [Acidophilus] Capsule 2,000 mmu cells PO BID RF: 0 Eliquis 5 mg Tablet 5 mg PO BID RF: 0 sennosides [senna] 8.6 mg Tablet 8.6 mg PO BEDTIME PRN (Reason: Constipation) RF: 0 polyethylene glycol 3350 [Miralax] 17 gram Powder In Packet 17 g PO DAILY RF: 0 lidocaine [LMX 4] 4 % Cream 1 applic TOPICAL TU@1000 RF: 0 magnesium hydroxide [Milk of Magnesia] 400 mg/5 mL Suspension 30 ml PO DAILY PRN (Reason: Constipation) RF: 0 calcium carbonate 600 mg calcium (1,500 mg) Tablet 600 mg PO BID RF: 0 cholecalciferol (vitamin D3) 25 mcg (1,000 unit) Tablet 25 mcg PO DAILY RF: 0 Discontinued ertapenem [Invanz] 1 gram Recon Soln 1 g IM Q24H RF: 0 oxycodone 5 mg Capsule 2.5 mg PO Q4H PRN (Reason: Pain (Scale Score 4-6)) RF: 0 oxycodone 7.5 mg Tablet, Oral Only 7.5 mg PO Q4H PRN (Reason: Severe Pain (Scale Score 7-10)) RF: 0 oxycodone 7.5 mg Tablet, Oral Only 7.5 mg PO TU@1000 RF: 0 Discharge Orders: Discharge Order (Routine); Ordered 07/14/20 Ordered By: Ankit Vigil Activity on Discharge: As tolerated Visit Report Forms: Patient Portal Discharge page Care Plan Goals: pain control, wound care Health Concerns: UTI, PVD, venous ulcers, back pain Plan of Treatment: 5 more days of ertapenem, wound care, follow up vascular, adjust pain meds as needed
--- NOTE | 2020-07-14 11:58 | MHC.CM.PN ---
PT WILL DISCHARGE BACK TO [facility] AT 1600 HOURS TODAY VIA BLS
--- NOTE | 2020-07-14 12:26 | MHC.CM.PN ---
Pt will return to [facility] to continue STR today at 1600 hours via BLS. CM contacted pts daughter/HCP, Samantha Saenz ([phone]) who is agreeable to DC plan and time. Second IMM delivered
[2020-07-14] MEDS: Cyanocobalamin (Vitamin B-12) 1,000 MCG TABLET 1000 MCG PO (13:26)
--- NOTE | 2020-07-14 14:17 | PC.NURSE ---
SE AFEBRILE, VSS OOB TO RECLINER VIA AGUSTÍN LIFT. ATE WELL. NO BM INCONTINENT OF URINE. DRESSING TO LLE CHANGED, DISCUSSED WITH SEN MANUEL. PRN DILAUDID GIVEN FOR LEG PAIN. PICC LINE WNL, FLUSHES WITH EASE.
--- NOTE | 2020-07-14 15:08 | PC.NURSE ---
REPORT CALLED TO ROB AT [facility]. PT TO TRANSFER AT 4PM
[2020-07-18 07:27] LABS: Glucose, Whole Blood 75 mg/dL (60-115)
== END 2020-07-14 16:45 | disposition skilled nursing facility (03) | DRG 871 ==
LOC: HO.ICU 07-14 05:45 → HO.IMC 07-14 05:56
PROVIDERS: Admitting Provider Internal Medicine Pulmonary Disease; PCP Family Medicine; Visit Provider Internal Medicine
DX: A41.4 Sepsis due to anaerobes (principal); R65.21 Severe sepsis with septic shock; N39.0 Urinary tract infection, site not specified; N17.9 Acute kidney failure, unspecified; Z16.12 Extended spectrum beta lactamase (ESBL) resistance; G81.91 Hemiplegia, unspecified affecting right dominant side; E87.5 Hyperkalemia; N18.9 Chronic kidney disease, unspecified; B96.4 Proteus (mirabilis) (morganii) as the cause of diseases classified elsewhere; I12.9 Hypertensive chronic kidney disease with stage 1 through stage 4 chronic kidney disease, or unspecified chronic kidney disease; I48.0 Paroxysmal atrial fibrillation; D63.1 Anemia in chronic kidney disease; I70.235 Atherosclerosis of native arteries of right leg with ulceration of other part of foot; L97.512 Non-pressure chronic ulcer of other part of right foot with fat layer exposed; Z99.3 Dependence on wheelchair; Z79.01 Long term (current) use of anticoagulants; Z79.890 Hormone replacement therapy; Z79.891 Long term (current) use of opiate analgesic; Z79.899 Other long term (current) drug therapy
CPT/HCPCS: 36415; 36573; 70450; 71045; 72131; 74176; 80048; 80051; 80076; 81001; 82040; 82550; 82565; 82803; 82947; 83540; 83550; 83605; 83735; 84100; 84484; 84520; 85025; 85027; 85610; 85730; 87040; 87077; 87088; 87186; 90999; 93005; 93926; 93971; 96361; 96365; 96366; 96375; 97110; 97112; 97163; 99291; 99292; C1751; J0282; J0461; J0610; J1170; J1335; J2185; J2370; J3010; J3370; J3475; P9047

== ENCOUNTER 2020-07-16 07:15 | Outpatient (REF) | payer SELFPAY ==
[2020-07-16 07:22] LABS: MANUAL DIFF FLAG NO
[2020-07-16 07:52] LABS: Basophils Percent Auto 0.6 % (0-2); Eosinophils Percent Auto 3.3 % (0-4); Hematocrit 23.8 % (37-47); Hemoglobin 7.2 g/dl (12.0-16.0); Imm Gran Abs Auto 0.02 X10*3/uL (0.00-0.03); Imm Gran Pct Auto 0.4 % (0.0-0.4); Lymphocytes Percent Auto 26.3 % (20-40); Mean Corpuscular HGB Conc 30.3 g/dl (31.0-35.0); Mean Corpuscular Volume 92.6 fL (80-98); Mean Platelet Volume 9.3 fL (9.4-12.3); Monocytes Percent Auto 13.1 % (2-11); Neutrophils Absolute Auto 2.9 X10*3/uL (2.0-8.3); Neutrophils Percent Auto 56.3 % (45-73); Platelet Count 314 X10*3/uL (160-400); Red Blood Count 2.57 X10*6/uL (4.20-5.50); Red Cell Distribution Width 14.4 % (11.0-16.0); White Blood Count 5.2 X10*3/uL (4.8-10.8)
[2020-07-16 07:53] LABS: Eosinophils Absolute Auto 0.2 X10*3/uL (0.0-0.4); Lymphocytes Absolute Auto 1.4 X10*3/uL (1.2-4.9); Monocytes Absolute Auto 0.7 X10*3/uL (0.1-1.2)
[2020-07-16 08:31] LABS: Alanine Aminotransferase 11 U/L (0-31); Albumin Level 2.6 g/dL (3.5-5.0); Alkaline Phosphatase 61 U/L (39-117); Anion Gap 11 (12-20); Aspartate Amino Transferase 14 U/L (5-31); Bilirubin Total 0.4 mg/dL (0.0-1.0); Blood Urea Nitrogen 15 mg/dL (9-16); Calcium 8.1 mg/dL (8.4-10.2); Carbon Dioxide 29 mmol/L (22-29); Chloride 103 mmol/L (96-108); Estimated Glomerular Filt Rate > 60; Glucose Random 75 mg/dL (60-115); Potassium 4.2 mmol/l (3.3-5.1); Sodium 139 mmol/L (135-145); Total Protein 4.8 g/dL (6.5-8.0)
== END 2020-07-16 07:16 | disposition home or self-care (01) ==
LOC: HO.MMNH1L 07:15
PROVIDERS: Visit Provider Family Medicine
DX: I10 Essential (primary) hypertension (principal); A41.9 Sepsis, unspecified organism; I73.9 Peripheral vascular disease, unspecified
CPT/HCPCS: 36415; 80053; 85025

== ENCOUNTER 2020-08-09 06:56 | Outpatient (REF) | payer SELFPAY ==
[2020-08-09 07:46] LABS: Glucose Urine UA NEG (NEG); Leukocyte Esterase Urine TRACE (NEG); Nitrite Urine NEG (NEG); Urine Blood TRACE (NEG); Urine Ketones NEG (NEG); Urine Protein TRACE MG/DL (NEG-TRACE)
[2020-08-09 07:47] LABS: Appearance Urine CLOUDY; Color Urine YELLOW
[2020-08-09 08:39] LABS: Bacteria Urine 3+ /LPF; Squamous Epithelial Cell Urine 1+ /LPF
== END 2020-08-09 06:57 | disposition home or self-care (01) ==
LOC: HO.MMNH3L 06:56
PROVIDERS: Visit Provider Family Medicine
DX: N17.9 Acute kidney failure, unspecified (principal); E11.21 Type 2 diabetes mellitus with diabetic nephropathy; N39.0 Urinary tract infection, site not specified
CPT/HCPCS: 81001; 81003; 87086; 87088; 87186

== ENCOUNTER 2020-10-08 | Outpatient (REF) | payer MEDICARE, SELFPAY ==
[2020-10-08 07:01] LABS: Hematocrit 27.4 % (37-47); Hemoglobin 8.3 g/dl (12.0-16.0); Mean Corpuscular HGB Conc 30.3 g/dl (31.0-35.0); Mean Corpuscular Hemoglobin 25.5 pg (27.0-33.0); Mean Corpuscular Volume 84.3 fL (80-98); Mean Platelet Volume 10.3 fL (9.4-12.3); Platelet Count 281 X10*3/uL (160-400); Red Blood Count 3.25 X10*6/uL (4.20-5.50); Red Cell Distribution Width 15.8 % (11.0-16.0); White Blood Count 5.9 X10*3/uL (4.8-10.8)
[2020-10-08 07:10] LABS: Anion Gap 11 (12-20); Blood Urea Nitrogen 23 mg/dL (9-16); Calcium 8.4 mg/dL (8.4-10.2); Carbon Dioxide 30 mmol/L (22-29); Chloride 102 mmol/L (96-108); Estimated Glomerular Filt Rate 42; Glucose Random 90 mg/dL (60-115); Potassium 4.3 mmol/l (3.3-5.1); Sodium 139 mmol/L (135-145)
== END 2020-10-08 00:01 | disposition home or self-care (01) ==
LOC: HO.MMNH1L
PROVIDERS: Visit Provider Family Medicine
DX: N17.9 Acute kidney failure, unspecified (principal); E87.1 Hypo-osmolality and hyponatremia; E11.21 Type 2 diabetes mellitus with diabetic nephropathy
CPT/HCPCS: 36415; 80048; 85027

== ENCOUNTER 2020-10-15 | Outpatient (REF) | payer MEDICARE, SELFPAY ==
[2020-10-15 07:56] LABS: Hematocrit 27.3 % (37-47); Hemoglobin 7.9 g/dl (12.0-16.0); Mean Corpuscular HGB Conc 28.9 g/dl (31.0-35.0); Mean Corpuscular Hemoglobin 24.8 pg (27.0-33.0); Mean Corpuscular Volume 85.6 fL (80-98); Mean Platelet Volume 10.4 fL (9.4-12.3); Platelet Count 320 X10*3/uL (160-400); Red Blood Count 3.19 X10*6/uL (4.20-5.50); Red Cell Distribution Width 15.9 % (11.0-16.0); White Blood Count 5.6 X10*3/uL (4.8-10.8)
[2020-10-15 08:28] LABS: Anion Gap 10 (12-20); Blood Urea Nitrogen 15 mg/dL (9-16); Calcium 8.1 mg/dL (8.4-10.2); Carbon Dioxide 33 mmol/L (22-29); Chloride 99 mmol/L (96-108); Estimated Glomerular Filt Rate 55; Glucose Random 82 mg/dL (60-115); Potassium 4.1 mmol/l (3.3-5.1); Sodium 138 mmol/L (135-145)
== END 2020-10-15 00:01 ==
LOC: HO.MMNH1L
PROVIDERS: Visit Provider Family Medicine
DX: N17.9 Acute kidney failure, unspecified (principal); E87.1 Hypo-osmolality and hyponatremia; E11.21 Type 2 diabetes mellitus with diabetic nephropathy
CPT/HCPCS: 36415; 80048; 85027

== ENCOUNTER 2020-10-22 | Outpatient (REF) | payer MEDICARE, SELFPAY ==
[2020-10-22 07:37] LABS: Hematocrit 28.3 % (37-47); Hemoglobin 8.3 g/dl (12.0-16.0); Mean Corpuscular HGB Conc 29.3 g/dl (31.0-35.0); Mean Corpuscular Hemoglobin 25.2 pg (27.0-33.0); Mean Platelet Volume 9.7 fL (9.4-12.3); Platelet Count 420 X10*3/uL (160-400); Red Blood Count 3.29 X10*6/uL (4.20-5.50); Red Cell Distribution Width 16.4 % (11.0-16.0); White Blood Count 5.6 X10*3/uL (4.8-10.8)
[2020-10-22 07:57] LABS: Anion Gap 12 (12-20); Blood Urea Nitrogen 16 mg/dL (9-16); Calcium 8.4 mg/dL (8.4-10.2); Carbon Dioxide 32 mmol/L (22-29); Chloride 101 mmol/L (96-108); Estimated Glomerular Filt Rate 55; Glucose Random 82 mg/dL (60-115); Potassium 4.4 mmol/l (3.3-5.1); Sodium 141 mmol/L (135-145)
== END 2020-10-22 00:01 ==
LOC: HO.MMNH1L
PROVIDERS: Visit Provider Family Medicine
DX: N17.9 Acute kidney failure, unspecified (principal); E87.1 Hypo-osmolality and hyponatremia; E11.21 Type 2 diabetes mellitus with diabetic nephropathy
CPT/HCPCS: 36415; 80048; 85027

== ENCOUNTER → 2020-10-23 11:29 | Outpatient (BNVA) | payer MEDICARE, SELFPAY | PROVIDERS: PCP Family Medicine; Visit Provider Surgery Vascular Surgery | DX: I73.9 Peripheral vascular disease, unspecified (principal) | CPT/HCPCS: 99212 ==

== ENCOUNTER 2020-10-29 | Outpatient (REF) | payer MEDICARE, SELFPAY ==
[2020-10-29 07:48] LABS: Hematocrit 27.1 % (37-47); Mean Corpuscular HGB Conc 29.5 g/dl (31.0-35.0); Mean Corpuscular Hemoglobin 25.2 pg (27.0-33.0); Mean Corpuscular Volume 85.5 fL (80-98); Mean Platelet Volume 9.9 fL (9.4-12.3); Platelet Count 325 X10*3/uL (160-400); Red Blood Count 3.17 X10*6/uL (4.20-5.50); Red Cell Distribution Width 16.9 % (11.0-16.0); White Blood Count 6.1 X10*3/uL (4.8-10.8)
[2020-10-29 07:56] LABS: Anion Gap 11 (12-20); Blood Urea Nitrogen 26 mg/dL (9-16); Calcium 8.1 mg/dL (8.4-10.2); Carbon Dioxide 29 mmol/L (22-29); Chloride 102 mmol/L (96-108); Estimated Glomerular Filt Rate 52; Glucose Random 92 mg/dL (60-115); Potassium 3.9 mmol/l (3.3-5.1); Sodium 138 mmol/L (135-145)
== END 2020-10-29 00:01 | disposition home or self-care (01) ==
LOC: HO.MMNH1L
PROVIDERS: Visit Provider Family Medicine
DX: N17.9 Acute kidney failure, unspecified (principal); E87.1 Hypo-osmolality and hyponatremia; E11.21 Type 2 diabetes mellitus with diabetic nephropathy
CPT/HCPCS: 36415; 80048; 85027

== ENCOUNTER 2020-10-30 14:09 | Outpatient (REF) | payer MEDICARE, SELFPAY ==
--- NOTE | 2020-10-30 14:14 | US_ITS ---
EXAMINATION: NONINVASIVE ASSESSMENT OF THE ARTERIES OF BOTH LOWER EXTREMITIES WITH ANKLE PRESSURE MEASUREMENTS, ANKLE BRACHIAL INDICES, PVR MEASUREMENTS AND BILATERAL LOWER EXTREMITY DUPLEX. CLINICAL INFORMATION: TECHNIQUE: Ankle pressure measurements, ankle brachial indices and PVR tracings were obtained of the lower extremity arterial system bilaterally. In addition, duplex Doppler techniques with wave form analysis and measurement of velocities in the common femoral, profunda femoral, superficial femoral, popliteal and tibial arteries was performed. The study was performed only at rest. COMPARISON: None FINDINGS: NONINVASIVE ASSESSMENT OF THE ARTERIES OF BOTH LOWER EXTREMITIES WITH ABIs: RIGHT LEG: Right ankle-brachial index: Unable to be obtained due to overlying dressing. Right ankle pressures: Not obtained PVR (ankle): Not obtained LEFT LEG: Ankle-brachial index: 1.46 Pressures: PT Not obtained DP 200 PVR (ankle): Abnormal KOFFI Reference: - >0.97-1.25 = normal - no significant arterial disease - 0.75-0.96 = mild peripheral arterial disease - 0.5-0.74 = moderate peripheral arterial disease - <0.50 = severe peripheral arterial disease BILATERAL LOWER EXTREMITY DUPLEX ULTRASOUND: RIGHT LEG: Common femoral artery: 143 cm/s, Diastolic flow reversal: Yes Profunda femoris artery: 213 cm/s, Diastolic flow reversal: Yes Superficial femoral artery (proximal): 134 cm/s, Diastolic flow reversal: Yes Superficial femoral artery (mid): 156 cm/s, Diastolic flow reversal: No Superficial femoral artery (distal): 182 cm/s, Diastolic flow reversal: No Popliteal artery: 115 cm/s, Diastolic flow reversal: No Posterior tibial artery: 42 cm/s, Diastolic flow reversal: No LEFT LEG: Common femoral artery: 41 cm/s, Diastolic flow reversal: Yes Profunda femoris artery: 62 cm/s, Diastolic flow reversal: No Superficial femoral artery (proximal): 98 cm/s, Diastolic flow reversal: No Superficial femoral artery (mid): 123 cm/s, Diastolic flow reversal: Yes Superficial femoral artery (distal): 11 cm/s, Diastolic flow reversal: Yes Popliteal artery: 152 cm/s, Diastolic flow reversal: No Posterior tibial artery: 59 cm/s, Diastolic flow reversal: No US/US arterial duplex LE BI IMPRESSION: RIGHT LEG: KOFFI not obtained due to overlying dressing. Moderate mid/distal SFA stenosis and severe popliteal stenosis. LEFT LEG: Mild common femoral and popliteal stenosis. Consider CTA runoff for further evaluation if clinically indicated.
== END 2020-10-30 14:10 | disposition home or self-care (01) ==
LOC: HO.US 14:09
PROVIDERS: Visit Provider Surgery Vascular Surgery
DX: I70.213 Atherosclerosis of native arteries of extremities with intermittent claudication, bilateral legs (principal)
CPT/HCPCS: 93923; 93925

== ENCOUNTER → 2020-11-01 13:26 | Outpatient (BNVA) | payer MEDICARE, SELFPAY | PROVIDERS: PCP Family Medicine; Visit Provider Surgery Vascular Surgery | DX: I73.9 Peripheral vascular disease, unspecified (principal) | CPT/HCPCS: 99212 ==

== ENCOUNTER 2020-11-05 | Outpatient (REF) | payer MEDICARE, SELFPAY ==
[2020-11-05 07:38] LABS: Hematocrit 27.9 % (37-47); Hemoglobin 8.2 g/dl (12.0-16.0); Mean Corpuscular HGB Conc 29.4 g/dl (31.0-35.0); Mean Corpuscular Hemoglobin 25.2 pg (27.0-33.0); Mean Corpuscular Volume 85.6 fL (80-98); Mean Platelet Volume 10.7 fL (9.4-12.3); Platelet Count 287 X10*3/uL (160-400); Red Blood Count 3.26 X10*6/uL (4.20-5.50); Red Cell Distribution Width 17.3 % (11.0-16.0); White Blood Count 5.3 X10*3/uL (4.8-10.8)
[2020-11-05 08:05] LABS: Anion Gap 11 (12-20); Blood Urea Nitrogen 19 mg/dL (9-16); Calcium 8.2 mg/dL (8.4-10.2); Carbon Dioxide 30 mmol/L (22-29); Chloride 102 mmol/L (96-108); Estimated Glomerular Filt Rate 55; Glucose Random 84 mg/dL (60-115); Potassium 3.9 mmol/l (3.3-5.1); Sodium 139 mmol/L (135-145)
== END 2020-11-05 00:01 | disposition home or self-care (01) ==
LOC: HO.MMNH1L
PROVIDERS: Visit Provider Family Medicine
DX: Z13.89 Encounter for screening for other disorder (principal)
CPT/HCPCS: 36415; 80048; 85027

== ENCOUNTER 2020-11-05 11:19 | Inpatient (IN) | payer MEDICARE, SELFPAY ==
[2020-11-05 07:39] VITALS: BMI 28.6
[2020-11-05 08:10] LABS: MANUAL DIFF FLAG NO
[2020-11-05 08:11] VITALS: BP 127/65; PULSE 68; RESP 18; TEMP 36.8; O2SAT 98
[2020-11-05 08:15] LABS: Basophils Percent Auto 0.4 % (0-2); Eosinophils Absolute Auto 0.2 X10*3/uL (0.0-0.4); Eosinophils Percent Auto 3.4 % (0-4); Hematocrit 29.5 % (37-47); Hemoglobin 8.7 g/dl (12.0-16.0); Imm Gran Abs Auto 0.01 X10*3/uL (0.00-0.03); Imm Gran Pct Auto 0.2 % (0.0-0.4); Lymphocytes Absolute Auto 1.6 X10*3/uL (1.2-4.9); Mean Corpuscular HGB Conc 29.5 g/dl (31.0-35.0); Mean Corpuscular Hemoglobin 25.4 pg (27.0-33.0); Mean Platelet Volume 10.3 fL (9.4-12.3); Monocytes Absolute Auto 0.5 X10*3/uL (0.1-1.2); Monocytes Percent Auto 9.4 % (2-11); Neutrophils Absolute Auto 2.9 X10*3/uL (2.0-8.3); Neutrophils Percent Auto 55.6 % (45-73); Platelet Count 315 X10*3/uL (160-400); Red Blood Count 3.43 X10*6/uL (4.20-5.50); Red Cell Distribution Width 17.4 % (11.0-16.0); White Blood Count 5.2 X10*3/uL (4.8-10.8)
[2020-11-05 08:19] LABS: INTERNATIONAL NORM RATIO 1.4 (0.9-1.1); Prothrombin Time 16.5 SEC (10.8-13.0)
[2020-11-05 08:47] LABS: Anion Gap 11 (12-20); Blood Urea Nitrogen 19 mg/dL (9-16); Calcium 8.4 mg/dL (8.4-10.2); Carbon Dioxide 30 mmol/L (22-29); Chloride 101 mmol/L (96-108); Creatinine Clr Calc Pharmacy 46.4; Estimated Glomerular Filt Rate 54; Glucose Random 93 mg/dL (60-115); Potassium 4.3 mmol/l (3.3-5.1); Sodium 138 mmol/L (135-145)
[2020-11-05] MEDS: iohexoL 300 MG/ML 100 ML INFUS..BTL 150 ML IV (11:48)
[2020-11-05] MEDS: Lidocaine HCl 1 % MPF 5 ML VIAL 10 ML SUBCUT (11:49)
[2020-11-05] MEDS: oxyCODONE HCl Immed Release 5 MG TABLET PO ×2 (13:07→19:41)
[2020-11-05] MEDS: Acetaminophen 325 MG TABLET 650 MG PO ×2 (13:08→19:41)
--- NOTE | 2020-11-05 13:26 | OP_ITS ---
SURGEON: Michael Rosario MD INDICATIONS: Niru is an 85-year-old female, who had a long medical history, had been in the hospital for [facility] in June, has had a nonhealing ulcer of that right foot and then been treated at a facility. She now presents to us for endovascular intervention. Risks, benefits, and complications of the procedure were discussed in detail with the patient and the patient's daughter, they understood and consented. PREOPERATIVE DIAGNOSIS: POSTOPERATIVE DIAGNOSIS: PROCEDURE PERFORMED: ESTIMATED BLOOD LOSS: Minimal. COMPLICATIONS: ANESTHESIA: Local with moderate conscious sedation performed by va for a total of 84 minutes. ASSISTANTS: SPECIMENS: None. PREPROCEDURE DIAGNOSIS: Atherosclerosis with nonhealing right lower extremity ulceration. POSTPROCEDURE DIAGNOSIS: Atherosclerosis with nonhealing right lower extremity ulceration. PROCEDURES PERFORMED: 1. Ultrasound-guided left common femoral access. 2. Aortogram with right lower extremity runoff. 3. Angioplasty of right popliteal artery. DESCRIPTION OF PROCEDURE: The patient was brought to the angiography suite, prior to which a time-out was called for patient identification and site verification. Bilateral groins were prepped and draped in standard surgical fashion. Under ultrasound guidance, left common femoral was accessed with micropuncture needle, wire, and subsequently 4-Danish sheath. Flush catheter was brought up to the level of the renals. Aortogram was then undertaken. We then brought it down to the iliacs. Iliacs were subsequently imaged and we brought the catheter up and over into the right SFA, through which runoff study was then undertaken. Once this was accomplished, we identified a total occlusion at the P1 to P2 segment of the popliteal. It took some manipulation, but we went through with a 0.035 Glidewire Advantage. We subsequently had to downsize to 0.014 Glidewire Advantage and we were able to traverse this lesion. We confirmed this true lumen with a 0.018 catheter. We then inserted a 0.018 wire to maintain location and we then upsized to 0.035 catheter and subsequently am 0.035 wire. Once this was in place, we placed an up-and-over 6-Danish sheath, 5000 units of systemic heparin was administered. After 5 minutes of circulation time, we angioplastied the right lower extremity with a 5 x 100 balloon, required 2 subsequent insufflations. We then brought in a drug-coated balloon, which was a 5 x 150 drug-coated balloon. This was brought into position and under 3 minutes and insufflated for a total of 3 minutes in duration. Once this was accomplished, completion angiogram demonstrated excellent result. Catheter, wire, sheath were brought to the ipsilateral side. StarClose closure device was then deployed. At the end of the case, sponge, needle, and instrument counts were correct. The patient tolerated the procedure well, returned to Recovery with stable vitals. DRAINS: None. MD KRISTIE Liao/RANDELL / [id number]
[2020-11-05 13:33] LABS: COVID-19 Test Negative (Negative)
--- NOTE | 2020-11-05 14:51 | HP_ITS ---
DATE OF SERVICE: 11/05/2020 REASON FOR ADMISSION: 1. Nonhealing right heel ulcer. 2. Intractable pain. HISTORY OF PRESENT ILLNESS: An 85-year-old female well known to us from a prior admission from June to July of 2020. At that time, she was admitted for acute hyperkalemia, had undergone emergent dialysis, was in the ICU for an extended period of time. She actually recovered fairly nicely from that point. She was then at rehab facility and she presented as an outpatient for evaluation regarding her nonhealing ulcer. She was found to have significant peripheral vascular disease. She underwent endovascular intervention. The heel ulcer was noted to have an odor to it and she was in a fair amount of pain. The decision was subsequently made to admit her. PAST MEDICAL HISTORY: Significant for prior history of renal failure, cellulitis of the right lower extremity, dysphagia, hypothyroidism, major depressive disorder, muscle wasting and atrophy, urinary retention, hypertension, hyperlipidemia, malignant neoplasm of the frontal lobe, prior spinal tumor and neuromuscular dysfunction. PAST SURGICAL HISTORY: Tumor resection. MEDICATION LIST: Reviewed per nursing MAR. ALLERGIES: ALLOPURINOL, PANTOPRAZOLE, PRAVASTATIN, ROSUVASTATIN, AND SIMVASTATIN. SOCIAL HISTORY: Nonsmoker, nondrinker in a rehab facility. FAMILY HISTORY: No history of advanced coronary artery disease or peripheral vascular disease. REVIEW OF SYSTEMS: 13-point review was performed. At the current time, denies any headache, dizziness, nausea, vomiting, diarrhea, or shortness of breath. She does have this continued right lower extremity pain. Post endovascular intervention, she continues to have pain, but it does appear to improve somewhat. PHYSICAL EXAMINATION: VITAL SIGNS: Afebrile, vitals stable. HEAD AND NECK: Demonstrates no bruits. CHEST: Moving air bilaterally. CARDIAC: Positive for S1 and S2. ABDOMEN: Soft. UPPER EXTREMITIES: Good radial and ulnar pulses. LOWER EXTREMITIES: DP signals. NEUROLOGIC: II through XII grossly intact. PSYCH: Mood and affect appear within normal limits. SKIN: Bilateral heel ulceration, right side significant necrotic tissue with foul odor and some cellulitis associated with it. IMAGING: Angiographic images were re-reviewed and did have a plasty of the popliteal that appears to be fairly good. IMPRESSION: Peripheral vascular disease with nonhealing ulcer. There is concern of infection of that heel. I have started her on Ancef. In addition, she has intractable pain. We will try to get that in better control as this may be more neurologic in nature. She will be admitted to the medical floor subsequently treated. I have requested Orthopedics' assistance in her care in addition to medicine team evaluation. I have started her on Ancef. In addition, we will restart anticoagulation once she is stable from a procedural standpoint. She may require debridement of that right foot within the next few days. Thank you for the assistance of the other teams. MD KRISTIE Liao/RANDELL / [phone]
[2020-11-05 15:07] VITALS: BP 140/63; PULSE 67; RESP 18; TEMP 37.2; O2SAT 98
--- NOTE | 2020-11-05 16:11 | PM.IMCN ---
History of Present Illness Data of Consult Service Date: 11/05/20 Requesting physician: Michael Rosario Primary Care Provider: Unknown Physician HPI Reason for consult: Medical management This is an 85-year-old female history of atrial fibrillation, peripheral vascular disease with nonhealing right foot wound. She has been following with Dr. Rosario as an outpatient. Today she presented for endovascular intervention and was noted to have an odor to her heel ulcer and therefore the decision was made to admit her to the hospital. The hospitalists were asked to see her in consultation for medical management. The patient is resting in bed comfortably in no acute distress. She reports increasing pain in her leg and foot. Review of Systems Review of Systems: Yes all other systems are reviewed and are negative Constitutional: Constitutional: Denies chills and Denies fever(s) Cardiovascular: Cardiovascular: Denies chest pain Respiratory: Respiratory: Denies cough Gastrointestinal: Gastrointestinal: Denies abdominal pain [facility] Medical History (Updated 11/05/20 @ 16:44 by MICHAEL Bay) Chronic indwelling Velez catheter Frequent falls Hypothyroidism Kidney failure Muscular atrophy Paroxysmal atrial fibrillation PVD (peripheral vascular disease) Spinal cord tumor UTI (urinary tract infection) Surgical History History of appendectomy History of hysterectomy Social History Housing: Correction Do you presently have visiting nurse or other home services: No Smoking Status: Never smoker Use of substances other than those prescribed or required for medical reasons: No Have you been hit, kicked, punched, or otherwise hurt by someone within the past year? If so, by whom?: No Do you feel safe in your current relationship?: Yes Is there a partner from a previous relationship who is making you feel unsafe now?: No Are you made to feel afraid or neglected: No Advance Directives: Yes Advance Directives Information Provided: Yes Advance Directives on File: No Advance Directives Date on File: 10/14/03 Do you have thoughts of harming others: None Do you have a plan to hurt others: No Plan Recently lost weight without trying: Yes Meds Allergies Allergy/AdvReac Type Severity Reaction Status Date / Time No Known Allergies Allergy Verified 11/01/20 13:35 Home Medications Medication Instructions Recorded Confirmed Type bisacodyl [Dulcolax (bisacodyl)] 10 mg [place] Q3D PRN 07/11/20 11/05/20 History calcium carbonate 600 mg PO BID 07/11/20 11/05/20 History cholecalciferol (vitamin D3) 25 mcg PO DAILY 07/11/20 11/05/20 History citalopram [Celexa] 20 mg PO DAILY 07/11/20 11/05/20 History cyanocobalamin (vitamin B-12) 1,000 mcg PO DAILY 07/11/20 11/05/20 History [Vitamin B-12] docusate sodium [Colace] 100 mg PO DAILY 07/11/20 11/05/20 History gabapentin [Neurontin] 100 mg PO BID 07/11/20 11/05/20 History gabapentin [Neurontin] 300 mg PO DAILY@1400 07/11/20 11/05/20 History levothyroxine [Synthroid] 150 mcg PO DAILY@0630 07/11/20 11/05/20 History polyethylene glycol 3350 [Miralax] 17 g PO DAILY 07/11/20 11/05/20 History sennosides [senna] 8.6 mg PO BEDTIME 07/11/20 11/05/20 History baclofen 10 mg tablet 5 mg PO BID 10/23/20 11/05/20 History acetaminophen 650 mg PO Q6H PRN 11/05/20 11/05/20 History apixaban 5 mg PO BID 11/05/20 11/05/20 History cadexomer iodine [Iodosorb] 1 ea TOPICAL DAILY 11/05/20 11/05/20 History fluticasone propionate [Flonase] 1 spray INTRANASAL BID 11/05/20 11/05/20 History hydromorphone [Dilaudid] 4 mg PO DAILY PRN 11/05/20 11/05/20 History hydromorphone [Dilaudid] 4 mg PO Q12H PRN 11/05/20 11/05/20 History magnesium hydroxide [Milk of 30 ml PO Q24H PRN 11/05/20 11/05/20 History Magnesia] sodium phosphates [Fleet Enema] 118 ml NJ Q72H PRN 11/05/20 11/05/20 History Physical Exam Vital Signs and Narrative: Vital Signs: Last Vital Signs Temp 98.9 F 11/05/20 15:07 Pulse 67 11/05/20 15:07 Resp 18 11/05/20 15:07 BP 140/63 H 11/05/20 15:07 Pulse Ox 98 11/05/20 15:07 Body Mass Index 28.6 Const: Other: hard of hearing General: alert and awake Nutritional Appearance: well nourished Orientation/consciousness: patient oriented x3 HENMT: Head: Yes normocephalic and Yes atraumatic Eyes: Sclerae: sclerae normal Chest: Chest palpation & inspection: normal inspection of the chest Resp: Effort & Inspection: normal respiratory effort and no respiratory distress Auscultation: clear to auscultation bilaterally Cardio: Rate: regular rate Rhythm: regular rhythm GI: Palpation (GI): Soft to palpation and nontender Skin: General skin exam: no rashes or lesions noted Neuro: General: patient oriented x3 Cranial nerves: Yes CN's II-XII intact bilaterally and Yes Bilaterally intact EOM present Extrem: Other: right heel with stage 3-4 ulcer, malodorous Results Labs CBC and Chem 7: 11/05/20 07:54 11/05/20 07:54 Labs: Laboratory Results - last 24 hr 11/05/20 11/05/20 11/05/20 07:54 07:54 07:54 MCV 86.0 MCH 25.4 L MCHC 29.5 L RDW 17.4 H Plt Count 315 MPV 10.3 Immature Gran % (Auto) 0.2 Neut % (Auto) 55.6 Lymph % (Auto) 31.0 [place] % (Auto) 9.4 Eos % (Auto) 3.4 Baso % (Auto) 0.4 Lymph # (Auto) 1.6 [place] # (Auto) 0.5 Eos # (Auto) 0.2 Baso # (Auto) 0.0 Abs Immat Gran (auto) 0.01 Absolute Neuts (auto) 2.9 Absolute Nucleated RBC 0.000 Nucleated RBC % (auto) 0.0 PT 16.5 H INR 1.4 H APTT 41.0 H Anion Gap 11 L Estim Creat Clear Calc 46.4 Estimated GFR 54 Random Glucose 93 Calcium 8.4 COVID-19 ([facility]) COVID-19 Clin Com 01/25/21 12:51 MCV MCH MCHC RDW Plt Count MPV Immature Gran % (Auto) Neut % (Auto) Lymph % (Auto) [place] % (Auto) Eos % (Auto) Baso % (Auto) Lymph # (Auto) [place] # (Auto) Eos # (Auto) Baso # (Auto) Abs Immat Gran (auto) Absolute Neuts (auto) Absolute Nucleated RBC Nucleated RBC % (auto) PT INR APTT Anion Gap Estim Creat Clear Calc Estimated GFR Random Glucose Calcium COVID-19 ([facility]) Negative COVID-19 Clin Com See Note Assessment and Plan (1) Paroxysmal atrial fibrillation: Status: Acute Is an 85-year-old female with history of peripheral vascular disease and nonhealing right foot ulcer admitted for further management right foot ulcer on ancef no sepsis management per vascular surgery Atrial fibrillation Resume Anticoagulation when safe from surgical perspective Continue amiodarone Mood Continue Celexa anemia h/h at baseline chronic pain on gabapendin home pain meds on hold while on IV narcotics continue bowel regimen Hypothyroidism Continue Synthroid Thank you for allowing us to participate in the care of this patient. we will follow along with you This case was discussed with Dr. Vigil
[2020-11-05 19:00] VITALS: BP 125/60; PULSE 68; RESP 16; TEMP 36.9; O2SAT 97
[2020-11-05] MEDS: Sodium Chloride 0.45 % 1,000 ML 80 ML IVCONT (19:36)
[2020-11-05] MEDS: Gabapentin 100 MG CAPSULE PO (19:41)
[2020-11-05] MEDS: Sennosides 8.6 MG TABLET PO (19:43)
[2020-11-05] MEDS: Fluticasone Propionate Nasal 16 GM SPRAY 1 SPRAY NOSTRIL-B (20:30)
[2020-11-05 23:00] VITALS: BP 141/62; PULSE 61; RESP 18; TEMP 36.4; O2SAT 98
[2020-11-06] VITALS (7 sets, daily range): BP systolic 120–147; BP diastolic 57–82; PULSE 63–71; RESP 16–19; TEMP 36.4–36.9; O2SAT 96–100; BMI 28.6
--- NOTE | 2020-11-06 | XR_ITS ---
EXAMINATION: XR HIP, RIGHT CLINICAL INFORMATION: Right hip pain. COMPARISON: None TECHNIQUE: Two views of the right hip. FINDINGS: Mild right hip degenerative joint changes are seen. There is no acute fracture or dislocation. The right hemipelvis is intact. The soft tissues are unremarkable. Moderate to severe arteriosclerosis is seen. Residual oral contrast is seen within the urinary bladder. XR/XR hip RT w PEL1V IMPRESSION: Mild right hip osteoarthritis. No acute fracture.
[2020-11-06] MEDS: Levothyroxine Sodium 150 MCG TABLET PO (05:41)
[2020-11-06 06:18] LABS: MANUAL DIFF FLAG NO
[2020-11-06 06:49] LABS: Basophils Percent Auto 0.5 % (0-2); Eosinophils Absolute Auto 0.2 X10*3/uL (0.0-0.4); Eosinophils Percent Auto 3.4 % (0-4); Hematocrit 28.3 % (37-47); Hemoglobin 8.2 g/dl (12.0-16.0); Imm Gran Abs Auto 0.02 X10*3/uL (0.00-0.03); Imm Gran Pct Auto 0.4 % (0.0-0.4); Lymphocytes Absolute Auto 1.3 X10*3/uL (1.2-4.9); Lymphocytes Percent Auto 22.8 % (20-40); Mean Corpuscular Hemoglobin 25.2 pg (27.0-33.0); Mean Corpuscular Volume 86.8 fL (80-98); Mean Platelet Volume 10.3 fL (9.4-12.3); Monocytes Absolute Auto 0.5 X10*3/uL (0.1-1.2); Monocytes Percent Auto 9.4 % (2-11); Neutrophils Absolute Auto 3.5 X10*3/uL (2.0-8.3); Neutrophils Percent Auto 63.5 % (45-73); Platelet Count 262 X10*3/uL (160-400); Red Blood Count 3.26 X10*6/uL (4.20-5.50); Red Cell Distribution Width 17.4 % (11.0-16.0); White Blood Count 5.5 X10*3/uL (4.8-10.8)
[2020-11-06 06:51] LABS: Anion Gap 12 (12-20); Blood Urea Nitrogen 21 mg/dL (9-16); Calcium 8.3 mg/dL (8.4-10.2); Carbon Dioxide 27 mmol/L (22-29); Chloride 103 mmol/L (96-108); Estimated Glomerular Filt Rate 59; Glucose Random 94 mg/dL (60-115); Potassium 3.6 mmol/l (3.3-5.1); Sodium 138 mmol/L (135-145)
[2020-11-06 07:00] LABS: INTERNATIONAL NORM RATIO 1.2 (0.9-1.1); Prothrombin Time 13.7 SEC (10.8-13.0)
[2020-11-06] MEDS: Escitalopram Oxalate 10 MG TABLET PO (09:40)
[2020-11-06] MEDS: Cholecalciferol (Vitamin D3) 25 MCG TABLET PO (09:41)
[2020-11-06] MEDS: Amiodarone HCL 200 MG TABLET PO (09:41)
[2020-11-06] MEDS: 0.9 % Sodium Chloride Flush 3 ML SYRINGE IVFLUSH ×3 (09:41→21:40)
[2020-11-06] MEDS: Cyanocobalamin (Vitamin B-12) 1,000 MCG TABLET 1000 MCG PO (09:41)
[2020-11-06] MEDS: Fluticasone Propionate Nasal 16 GM SPRAY 1 SPRAY NOSTRIL-B (09:42)
[2020-11-06] MEDS: Acetaminophen 325 MG TABLET 650 MG PO (10:25)
[2020-11-06] MEDS: oxyCODONE HCl Immed Release 5 MG TABLET PO ×3 (10:25→20:08)
--- NOTE | 2020-11-06 12:35 | MHC.CM.PN ---
PER DAUGHTER PT IS ACTIVE WITH [facility] FOR WOUND CARE AND RECEIVES P4 TO 5 DAY A WEEK [employer] [facility]RU [facility] PT ALSO SES A WOUND DR AT [facility] DC PLAN IS HOME WITH RESUMPTION OF SAME PT TO BE TRANSSPORTED HOME BY FAMILY
--- NOTE | 2020-11-06 13:17 | P.PNVS_ITS ---
Subjective Subjective Date of Service: 11/06/20 Patient reports: no new complaints, feels better and pain is less Interval history: 85-year-old female who is postprocedure day 1 status post endovascular intervention. She was admitted due to intractable pain and foul odor from the right heel ulcer. She had undergone right lower extremity SFA and popliteal plasty with a drug coated balloon. Appears to be doing significantly better. She states that she has been able to move her feet which she was unable to do in the past. Pain has decreased since admission. She is tolerating a diet. In much better spirits today. Physical Exam Vital Signs: Vital Signs: Last Vital Signs Temp 98.4 F 11/06/20 11:00 Pulse 66 11/06/20 11:00 Resp 18 11/06/20 11:00 BP 120/60 11/06/20 11:00 Pulse Ox 100 11/06/20 11:00 Body Mass Index 28.6 Const: General: cooperative, healthy appearing and no acute distress Orientation/consciousness: oriented to person, oriented to place and oriented to time HENMT: Head: Yes normal to inspection Neck: Carotids: no bruits Chest: Chest palpation & inspection: normal inspection of the chest Resp: Effort & Inspection: normal respiratory effort and able to speak in complete sentences Auscultation: clear to auscultation bilaterally Cardio: Rate: regular rate Heart sounds: S1 normal heart sound present and S2 normal heart sound present Peripheral pulses: dorsalis pedis present (Bilateral DP signals) GI: Inspection: Yes normal to inspection Skin: General skin exam: no rashes or lesions noted Wounds: wounds noted (Right and left heel) Neuro: General: oriented to person, oriented to place, oriented to time and CN's II-XI intact bilaterally Extrem: General: Yes normal to inspection, Yes full ROM and Yes no clubbing, cyanosis or edema Psych: Appearance: grossly normal and well kempt Speech and movement: Normal speech and movement present Affect: normal affect Progress Note: A&P Assessment and plan (1) PAD (peripheral artery disease): Status: Acute Assessment and Plan: Patient has done extremely well status post endovascular intervention. Will restart apixaban tonight. Continue local wound care and antibiotics for now. She may need debridement of that right heel. Will continue medical management for now. Await Ortho eval. Thank you to the hospitalist team for their assistance in this patient's care. Fall Risk Details Current Medications: Current Medications Generic Name Dose Route Start Last Admin Trade Name Freq PRN Reason Stop Dose Admin Acetaminophen 650 mg 11/05/20 11:21 11/06/20 10:25 Acetaminophen 325 Mg Tablet PO 650 mg Q6H PRN Administration Pain, Mild (Pain Scale 1-3) Amiodarone HCl 200 mg 11/06/20 09:00 11/06/20 09:41 Amiodarone Hcl 200 Mg Tablet PO 200 mg DAILY LISANDRA Administration Apixaban 5 mg 11/06/20 21:00 Apixaban 5 Mg Tablet PO BID LISANDRA Bisacodyl 10 mg 11/05/20 16:02 Bisacodyl 10 Mg Supp.Rect OR Q3D PRN Constipation Calcium Carbonate 500 mg 11/05/20 21:00 11/06/20 09:41 Calcium Carbonate 500 Mg Tablet PO 500 mg BID LISANDRA Administration Cyanocobalamin 1,000 mcg 11/06/20 09:00 11/06/20 09:41 Cyanocobalamin (Vitamin B-12) 1,000 Mcg Tablet PO 1,000 mcg DAILY [facility] Administration Docusate Sodium 100 mg 11/06/20 09:00 11/06/20 09:42 Docusate Sodium 100 Mg Capsule PO Not Given DAILY [facility] Escitalopram Oxalate 10 mg 11/06/20 09:00 11/06/20 09:40 Escitalopram Oxalate 10 Mg Tablet PO 10 mg DAILY [facility] Administration Fluticasone Propionate 1 spray 11/05/20 21:00 11/06/20 09:42 Fluticasone Propionate Nasal 16 Gm [place] NOSTRIL-B 1 spray BID [facility] Administration Gabapentin 100 mg 11/05/20 21:00 11/06/20 09:42 Gabapentin 100 Mg Capsule PO Not Given BID LISANDRA Gabapentin 300 mg 11/06/20 14:00 Gabapentin 300 Mg Capsule PO DAILY@1400 [facility] Cefazolin Sodium 1 gm/ Sodium 50 mls @ 100 mls/hr 11/05/20 11:30 11/06/20 13:12 Chloride IV Infused Q8H [facility] Infusion Levothyroxine Sodium 150 mcg 11/06/20 06:30 11/06/20 05:41 Levothyroxine Sodium 150 Mcg Tablet PO 150 mcg DAILY@0630 [facility] Administration Magnesium Hydroxide 30 ml 11/05/20 16:02 Milk Of Magnesia 30 Ml Oral.Susp PO Q24H PRN Constipation Morphine Sulfate 2 mg 11/05/20 11:21 Morphine Sulfate 2 Mg/Ml Cartridge IVPUSH Q4H PRN Pain, Severe (Pain Scale 7-10) Oxycodone HCl 5 mg 11/05/20 11:21 11/06/20 10:25 Oxycodone Hcl Immed Release 5 Mg Tablet PO 5 mg Q4H PRN Administration Pain, Moderate (Pain Scale 4-6 Polyethylene Glycol 17 gm 11/06/20 09:00 11/06/20 09:42 Polyethylene Glycol 3350 17 Gm Powd.Pack PO Not Given DAILY LISANDRA Senna 8.6 mg 11/05/20 21:00 11/05/20 19:43 Sennosides 8.6 Mg Tablet PO 8.6 mg BEDTIME LISANDRA Administration Sodium Chloride 3 ml 11/05/20 16:00 11/06/20 09:41 0.9 % Sodium Chloride Flush 3 Ml Syringe IVFLUSH 3 ml QSHIFT LISANDRA Administration Vitamin D 25 mcg 11/06/20 09:00 11/06/20 09:41 Cholecalciferol (Vitamin D3) 25 Mcg Tablet PO 25 mcg DAILY LISANDRA Administration Time Spent With Patient Time: Total time spent is greater than 50% in coordination of care (as documented) at patient's floor/unit and/or counseling patient: Time with patient: 25 - 35 minutes
--- NOTE | 2020-11-06 14:59 | P.PNIM_ITS ---
Subjective Subjective Date of Service: 11/06/20 Interval History: Patient seen and examined at bedside, Patient reported pain in foot Constitutional Constitutional: Denies chills and Denies fever(s) Cardiovascular Cardiovascular: Denies chest pain Respiratory Respiratory: Denies cough Gastrointestinal Gastrointestinal: Denies abdominal pain Physical Exam Vital Signs: Vital Signs: Last Vital Signs Temp 98.4 F 11/06/20 11:00 Pulse 66 11/06/20 11:00 Resp 18 11/06/20 11:00 BP 120/60 11/06/20 11:00 Pulse Ox 100 11/06/20 11:00 Body Mass Index 28.6 Const: General: alert and awake Nutritional Appearance: well nourished Orientation/consciousness: patient oriented x3 HENMT: Head: Yes normocephalic and Yes atraumatic Eyes: Sclerae: sclerae normal Chest: Chest palpation & inspection: normal inspection of the chest Resp: Effort & Inspection: normal respiratory effort and no respiratory distress Auscultation: clear to auscultation bilaterally Cardio: Rate: regular rate Rhythm: regular rhythm GI: Palpation (GI): Soft to palpation and nontender Skin: General skin exam: no rashes or lesions noted Neuro: General: patient oriented x3 Cranial nerves: Yes CN's II-XII intact bilaterally and Yes Bilaterally intact EOM present Extrem: Other: right heel with stage 3-4 ulcer, malodorous Objective Data Current Medications Generic Name Dose Route Start Last Admin Trade Name Freq PRN Reason Stop Dose Admin Acetaminophen 650 mg 11/05/20 11:21 11/06/20 10:25 Acetaminophen 325 Mg Tablet PO 650 mg Q6H PRN Administration Pain, Mild (Pain Scale 1-3) Amiodarone HCl 200 mg 11/06/20 09:00 11/06/20 09:41 Amiodarone Hcl 200 Mg Tablet PO 200 mg DAILY LISANDRA Administration Apixaban 5 mg 11/06/20 21:00 Apixaban 5 Mg Tablet PO BID LISANDRA Bisacodyl 10 mg 11/05/20 16:02 Bisacodyl 10 Mg Supp.Rect NE Q3D PRN Constipation Calcium Carbonate 500 mg 11/05/20 21:00 11/06/20 09:41 Calcium Carbonate 500 Mg Tablet PO 500 mg BID LISANDRA Administration Cyanocobalamin 1,000 mcg 11/06/20 09:00 11/06/20 09:41 Cyanocobalamin (Vitamin B-12) 1,000 Mcg Tablet PO 1,000 mcg DAILY [facility] Administration Docusate Sodium 100 mg 11/06/20 09:00 11/06/20 09:42 Docusate Sodium 100 Mg Capsule PO Not Given DAILY [facility] Escitalopram Oxalate 10 mg 11/06/20 09:00 11/06/20 09:40 Escitalopram Oxalate 10 Mg Tablet PO 10 mg DAILY [facility] Administration Fluticasone Propionate 1 spray 11/05/20 21:00 11/06/20 09:42 Fluticasone Propionate Nasal 16 Gm [place] NOSTRIL-B 1 spray BID [facility] Administration Gabapentin 100 mg 11/05/20 21:00 11/06/20 09:42 Gabapentin 100 Mg Capsule PO Not Given BID [facility] Gabapentin 300 mg 11/06/20 14:00 11/06/20 13:37 Gabapentin 300 Mg Capsule PO Not Given DAILY@1400 [facility] Cefazolin Sodium 1 gm/ Sodium 50 mls @ 100 mls/hr 11/05/20 11:30 11/06/20 13:12 Chloride IV Infused Q8H [facility] Infusion Levothyroxine Sodium 150 mcg 11/06/20 06:30 11/06/20 05:41 Levothyroxine Sodium 150 Mcg Tablet PO 150 mcg DAILY@0630 [facility] Administration Magnesium Hydroxide 30 ml 11/05/20 16:02 Milk Of Magnesia 30 Ml Oral.Susp PO Q24H PRN Constipation Morphine Sulfate 2 mg 11/05/20 11:21 Morphine Sulfate 2 Mg/Ml Cartridge IVPUSH Q4H PRN Pain, Severe (Pain Scale 7-10) Oxycodone HCl 5 mg 11/05/20 11:21 11/06/20 10:25 Oxycodone Hcl Immed Release 5 Mg Tablet PO 5 mg Q4H PRN Administration Pain, Moderate (Pain Scale 4-6 Polyethylene Glycol 17 gm 11/06/20 09:00 11/06/20 09:42 Polyethylene Glycol 3350 17 Gm Powd.Pack PO Not Given DAILY [facility] Senna 8.6 mg 11/05/20 21:00 11/05/20 19:43 Sennosides 8.6 Mg Tablet PO 8.6 mg BEDTIME LISANDRA Administration Sodium Chloride 3 ml 11/05/20 16:00 11/06/20 09:41 0.9 % Sodium Chloride Flush 3 Ml Syringe IVFLUSH 3 ml QSHIFT [facility] Administration Vitamin D 25 mcg 11/06/20 09:00 11/06/20 09:41 Cholecalciferol (Vitamin D3) 25 Mcg Tablet PO 25 mcg DAILY LISANDRA Administration Labs CBC & Chem 7: 11/06/20 06:08 11/06/20 06:08 Assessment and Plan (1) Paroxysmal atrial fibrillation: Status: Acute Assessment and Plan: Is an 85-year-old female with history of peripheral vascular disease and nonhealing right foot ulcer admitted for further management right foot ulcer Continue ancef management per vascular surgery Atrial fibrillation Continue amiodarone Eliquis restarted Mood Continue Celexa anemia h/h at baseline chronic pain on gabapendin home pain meds on hold while on IV narcotics continue bowel regimen Hypothyroidism Continue Synthroid DVT prophylaxis Eliquis
--- NOTE | 2020-11-06 15:04 | MHC.CM.PN ---
received call from ebonie espinoza stating that pt left there facility on nov [address]s appt they are waiting to hear from family to see if they will be holding the bed privately
--- NOTE | 2020-11-06 15:31 | MHC.CM.PN ---
CLARIFIED WITH PTS DAUGHTER THAT PT WAS FROM [facility] WHERE SHE HAS BEEN FOR 6 MONTHS ,THE PLAN IS TO RETURN TO [facility] WHEN SHE IS MDCD FROM [facility] [place] ,THE SERVICES MENTIONED WHERE SERCVIES SHE HAD PRIOR TO ADMISSION TO [facility]
--- NOTE | 2020-11-06 16:06 | PM.CNOR ---
History of Present Illness HPI Consult date: 11/06/20 Chief complaint: peripheral vascular disease Narrative: 85 yo female who is currently being treated by Dr Rosario for vascular disease. She states over the past few days she has had pain in the right hip and feels it is due to being inactive and laying on her left side. She states the pain is along the lateral side of her hip. No pain in the joint. She states she has been able to move with hip joint without problems. Denies fever or chills. Review of Systems Review of Systems: Yes all other systems are reviewed and are negative [facility] Past Medical History Medical History (Updated 11/06/20 @ 16:43 by Bryan Hummel PA-C) Chronic indwelling Velez catheter Frequent falls Hypothyroidism Kidney failure Muscular atrophy Paroxysmal atrial fibrillation PVD (peripheral vascular disease) Spinal cord tumor UTI (urinary tract infection) Surgical History Surgical History History of appendectomy History of hysterectomy Social History Social History Housing: [facility] Do you presently have visiting nurse or other home services: No Smoking Status: Never smoker Use of substances other than those prescribed or required for medical reasons: No Currently Displaying Signs/Symptoms of Drug Intoxication Withdrawal: No Have you been hit, kicked, punched, or otherwise hurt by someone within the past year? If so, by whom?: No Do you feel safe in your current relationship?: Yes Is there a partner from a previous relationship who is making you feel unsafe now?: No Are you made to feel afraid or neglected: No Advance Directives: Yes Advance Directives Information Provided: Yes Advance Directives on File: No Advance Directives Date on File: 10/14/03 Do you have thoughts of harming others: None Do you have a plan to hurt others: No Plan Recently lost weight without trying: Yes service: No Meds Allergies Allergy/AdvReac Type Severity Reaction Status Date / Time No Known Allergies Allergy Verified 11/01/20 13:35 Home Medications Medication Instructions Recorded Confirmed Type bisacodyl [Dulcolax (bisacodyl)] 10 mg [place] Q3D PRN 07/11/20 11/05/20 History calcium carbonate 600 mg PO BID 07/11/20 11/05/20 History cholecalciferol (vitamin D3) 25 mcg PO DAILY 07/11/20 11/05/20 History citalopram [Celexa] 20 mg PO DAILY 07/11/20 11/05/20 History cyanocobalamin (vitamin B-12) 1,000 mcg PO DAILY 07/11/20 11/05/20 History [Vitamin B-12] docusate sodium [Colace] 100 mg PO DAILY 07/11/20 11/05/20 History gabapentin [Neurontin] 100 mg PO BID 07/11/20 11/05/20 History gabapentin [Neurontin] 300 mg PO DAILY@1400 07/11/20 11/05/20 History levothyroxine [Synthroid] 150 mcg PO DAILY@0630 07/11/20 11/05/20 History polyethylene glycol 3350 [Miralax] 17 g PO DAILY 07/11/20 11/05/20 History sennosides [senna] 8.6 mg PO BEDTIME 07/11/20 11/05/20 History baclofen 10 mg tablet 5 mg PO BID 10/23/20 11/05/20 History acetaminophen 650 mg PO Q6H PRN 11/05/20 11/05/20 History apixaban 5 mg PO BID 11/05/20 11/05/20 History cadexomer iodine [Iodosorb] 1 ea TOPICAL DAILY 11/05/20 11/05/20 History fluticasone propionate [Flonase] 1 spray INTRANASAL BID 11/05/20 11/05/20 History hydromorphone [Dilaudid] 4 mg PO DAILY PRN 11/05/20 11/05/20 History hydromorphone [Dilaudid] 4 mg PO Q12H PRN 11/05/20 11/05/20 History magnesium hydroxide [Milk of 30 ml PO Q24H PRN 11/05/20 11/05/20 History Magnesia] sodium phosphates [Fleet Enema] 118 ml [place] Q72H PRN 11/05/20 11/05/20 History Physical Exam Vital Signs: Vital Signs: Last Vital Signs Temp 98.4 F 11/06/20 11:00 Pulse 66 11/06/20 11:00 Resp 18 11/06/20 11:00 BP 120/60 11/06/20 11:00 Pulse Ox 100 11/06/20 11:00 Body Mass Index 28.6 Extrem: Other: Right hip skin intact, no open wounds. No redness. No swelling. No tederness along the anterior hip / groin. Tenderness along the trochanteric bursa which extends along the IT band. No pain iwth movement of the hip. Right knee, no erythema or joint effusion Xrays of the right hip: negative for any type of acute of chronic abnormalities. Results Labs Result Diagrams: 11/06/20 06:08 11/06/20 06:08 Labs: Abnormal lab results 11/06/20 11/06/20 11/06/20 Range/Units 06:08 06:08 06:08 RBC 3.26 L (4.20-5.50) X10*6/uL Hgb 8.2 L (12.0-16.0) g/dl Hct 28.3 L (37-47) % MCH 25.2 L (27.0-33.0) pg MCHC 29.0 L (31.0-35.0) g/dl RDW 17.4 H (11.0-16.0) % PT 13.7 H (10.8-13.0) SEC INR 1.2 H (0.9-1.1) BUN 21 H (9-16) mg/dL Calcium 8.3 L (8.4-10.2) mg/dL H & H 11/05/20 11/06/20 Range/Units 07:54 06:08 Hgb 8.7 L 8.2 L (12.0-16.0) g/dl Hct 29.5 L 28.3 L (37-47) % Coagulation 11/05/20 11/06/20 Range/Units 07:54 06:08 INR 1.4 H 1.2 H (0.9-1.1) All other labs normal. Assessment and Plan (1) Bursitis of right hip: Status: Acute 85 yo female with right hip pain. No concerns for acute abnormalities or infective process, no OA. Likely bursitis from deconditioned status. Recommend PT for stretching and strength. F/u prn.
[2020-11-06] MEDS: Apixaban 5 MG TABLET PO (21:39)
[2020-11-06] MEDS: Sennosides 8.6 MG TABLET PO (21:39)
[2020-11-07] MEDS: oxyCODONE HCl Immed Release 5 MG TABLET PO ×2 (01:33→08:45)
[2020-11-07 03:00] VITALS: BP 149/64; PULSE 70; RESP 18; TEMP 37.2; O2SAT 98
[2020-11-07] MEDS: Levothyroxine Sodium 150 MCG TABLET PO (05:33)
[2020-11-07 07:00] VITALS: BP 146/52; PULSE 67; RESP 18; TEMP 36.2; O2SAT 95
[2020-11-07] MEDS: Amiodarone HCL 200 MG TABLET PO (08:44)
[2020-11-07] MEDS: Apixaban 5 MG TABLET PO ×2 (08:44→21:05)
[2020-11-07] MEDS: Cyanocobalamin (Vitamin B-12) 1,000 MCG TABLET 1000 MCG PO (08:44)
[2020-11-07] MEDS: Acetaminophen 325 MG TABLET 650 MG PO (08:44)
[2020-11-07] MEDS: Docusate Sodium 100 MG CAPSULE PO (08:44)
[2020-11-07] MEDS: Cholecalciferol (Vitamin D3) 25 MCG TABLET PO (08:45)
[2020-11-07] MEDS: Escitalopram Oxalate 10 MG TABLET PO (08:45)
[2020-11-07] MEDS: polyethylene glycoL 3350 17 GM POWD.PACK PO (08:45)
[2020-11-07] MEDS: 0.9 % Sodium Chloride Flush 3 ML SYRINGE IVFLUSH ×2 (08:48→17:34)
[2020-11-07 11:00] VITALS: BP 129/59; PULSE 72; RESP 18; TEMP 36.6; O2SAT 98
--- NOTE | 2020-11-07 11:32 | HO.VASCPN ---
Subjective Subjective Date of Service: 11/07/20 Patient reports: no new complaints, feels better and pain is less Interval history: Patient is status post right lower extremity endovascular intervention. Pain appears to be better controlled. She continues to have a right heel ulceration. In general feels better and appears to be in better spirits. She reports that she was able to get our D since night's rest. She continues to have a fair amount right leg pain but not different than previous radiculopathy that is well-known. Physical Exam Vital Signs: Vital Signs: Last Vital Signs Temp 97.9 F 11/07/20 11:00 Pulse 72 11/07/20 11:00 Resp 18 11/07/20 11:00 BP 129/59 L 11/07/20 11:00 Pulse Ox 98 11/07/20 11:00 Body Mass Index 28.6 Const: General: cooperative, healthy appearing and no acute distress Orientation/consciousness: oriented to person, oriented to place and oriented to time HENMT: Head: Yes normal to inspection Neck: Carotids: no bruits Chest: Chest palpation & inspection: normal inspection of the chest Resp: Effort & Inspection: normal respiratory effort and able to speak in complete sentences Auscultation: clear to auscultation bilaterally Cardio: Rate: regular rate Heart sounds: S1 normal heart sound present and S2 normal heart sound present GI: Inspection: Yes normal to inspection Skin: General skin exam: no rashes or lesions noted Wounds: wounds noted (Right heel) Neuro: General: oriented to person, oriented to place, oriented to time and CN's II-XI intact bilaterally Extrem: General: Yes normal to inspection, Yes full ROM and Yes no clubbing, cyanosis or edema Psych: Appearance: grossly normal and well kempt Speech and movement: Normal speech and movement present Affect: normal affect Progress Note: A&P Assessment and plan (1) PAD (peripheral artery disease): Status: Acute Assessment and Plan: Patient is doing well status post right lower extremity endovascular intervention. Will plan for right heel debridement. Risks benefits complications of the procedure discussed in detail with patient. She is in agreement. Thank you for the hospitalist team for their assistance in her care. In addition appreciate Orthopedics evaluation as well. Fall Risk Details Current Medications: Current Medications Generic Name Dose Route Start Last Admin Trade Name Freq PRN Reason Stop Dose Admin Acetaminophen 650 mg 11/05/20 11:21 11/07/20 08:44 Acetaminophen 325 Mg Tablet PO 650 mg Q6H PRN Administration Pain, Mild (Pain Scale 1-3) Amiodarone HCl 200 mg 11/06/20 09:00 11/07/20 08:44 Amiodarone Hcl 200 Mg Tablet PO 200 mg DAILY LISANDRA Administration Apixaban 5 mg 11/06/20 21:00 11/07/20 08:44 Apixaban 5 Mg Tablet PO 5 mg BID [facility] Administration Bisacodyl 10 mg 11/05/20 16:02 Bisacodyl 10 Mg Supp.Rect [place] Q3D PRN Constipation Calcium Carbonate 500 mg 11/05/20 21:00 11/07/20 08:44 Calcium Carbonate 500 Mg Tablet PO 500 mg BID [facility] Administration Cyanocobalamin 1,000 mcg 11/06/20 09:00 11/07/20 08:44 Cyanocobalamin (Vitamin B-12) 1,000 Mcg Tablet PO 1,000 mcg DAILY [facility] Administration Docusate Sodium 100 mg 11/06/20 09:00 11/07/20 08:44 Docusate Sodium 100 Mg Capsule PO 100 mg DAILY [facility] Administration Escitalopram Oxalate 10 mg 11/06/20 09:00 11/07/20 08:45 Escitalopram Oxalate 10 Mg Tablet PO 10 mg DAILY [facility] Administration Fluticasone Propionate 1 spray 11/05/20 21:00 11/07/20 08:45 Fluticasone Propionate Nasal 16 Gm [place] NOSTRIL-B Not Given BID LISANDRA Gabapentin 100 mg 11/05/20 21:00 11/07/20 08:45 Gabapentin 100 Mg Capsule PO Not Given BID [facility] Gabapentin 300 mg 11/06/20 14:00 11/07/20 11:08 Gabapentin 300 Mg Capsule PO Not Given DAILY@1400 [facility] Cefazolin Sodium 1 gm/ Sodium 50 mls @ 100 mls/hr 11/05/20 11:30 11/07/20 11:08 Chloride IV 100 mls/hr Q8H [facility] Administration Levothyroxine Sodium 150 mcg 11/06/20 06:30 11/07/20 05:33 Levothyroxine Sodium 150 Mcg Tablet PO 150 mcg DAILY@0630 [facility] Administration Magnesium Hydroxide 30 ml 11/05/20 16:02 Milk Of Magnesia 30 Ml Oral.Susp PO Q24H PRN Constipation Morphine Sulfate 2 mg 11/05/20 11:21 Morphine Sulfate 2 Mg/Ml Cartridge IVPUSH Q4H PRN Pain, Severe (Pain Scale 7-10) Oxycodone HCl 5 mg 11/05/20 11:21 11/07/20 08:45 Oxycodone Hcl Immed Release 5 Mg Tablet PO 5 mg Q4H PRN Administration Pain, Moderate (Pain Scale 4-6 Polyethylene Glycol 17 gm 11/06/20 09:00 11/07/20 08:45 Polyethylene Glycol 3350 17 Gm Powd.Pack PO 17 gm DAILY LISANDRA Administration Senna 8.6 mg 11/05/20 21:00 11/06/20 21:39 Sennosides 8.6 Mg Tablet PO 8.6 mg BEDTIME LISANDRA Administration Sodium Chloride 3 ml 11/05/20 16:00 11/07/20 08:48 0.9 % Sodium Chloride Flush 3 Ml Syringe IVFLUSH 3 ml QSHIFT LISANDRA Administration Vitamin D 25 mcg 11/06/20 09:00 11/07/20 08:45 Cholecalciferol (Vitamin D3) 25 Mcg Tablet PO 25 mcg DAILY LISANDRA Administration Time Spent With Patient Time: Total time spent is greater than 50% in coordination of care (as documented) at patient's floor/unit and/or counseling patient: Time with patient: 15 - 24 minutes
--- NOTE | 2020-11-07 14:33 | HO.PM.IMPN ---
Subjective Subjective Date of Service: 11/07/20 Interval History: seen and examined this AM pain overall better ROS General - no fevers or chills Cardiovascular - no chest pain Respiratory - no shortness of breath or cough Abdominal- no abdominal pain, nausea, vomiting, diarrhea Physical Exam Vital Signs: Vital Signs: Last Vital Signs Temp 97.9 F 11/07/20 11:00 Pulse 72 11/07/20 11:00 Resp 18 11/07/20 11:00 BP 129/59 L 11/07/20 11:00 Pulse Ox 98 11/07/20 11:00 Body Mass Index 28.6 Const: Other: General - no acute distress, appears comfortable Cardiovascular - regular rate and rhythm, S1-S2 Lungs - normal respiratory effort, clear to auscultation bilaterally, no wheezing Abdomen - soft, nontender, no rebound or guarding Extremities - no edema bilaterally Neuro - awake and alert, no focal deficits Skin - RLE heel in dressing Objective Data Current Medications Generic Name Dose Route Start Last Admin Trade Name Freq PRN Reason Stop Dose Admin Acetaminophen 650 mg 11/05/20 11:21 11/07/20 08:44 Acetaminophen 325 Mg Tablet PO 650 mg Q6H PRN Administration Pain, Mild (Pain Scale 1-3) Amiodarone HCl 200 mg 11/06/20 09:00 11/07/20 08:44 Amiodarone Hcl 200 Mg Tablet PO 200 mg DAILY LISANDRA Administration Apixaban 5 mg 11/06/20 21:00 11/07/20 08:44 Apixaban 5 Mg Tablet PO 5 mg BID LISANDRA Administration Bisacodyl 10 mg 11/05/20 16:02 Bisacodyl 10 Mg Supp.Rect [place] Q3D PRN Constipation Calcium Carbonate 500 mg 11/05/20 21:00 11/07/20 08:44 Calcium Carbonate 500 Mg Tablet PO 500 mg BID LISANDRA Administration Cyanocobalamin 1,000 mcg 11/06/20 09:00 11/07/20 08:44 Cyanocobalamin (Vitamin B-12) 1,000 Mcg Tablet PO 1,000 mcg DAILY LISANDRA Administration Docusate Sodium 100 mg 11/06/20 09:00 11/07/20 08:44 Docusate Sodium 100 Mg Capsule PO 100 mg DAILY LISANDRA Administration Escitalopram Oxalate 10 mg 11/06/20 09:00 11/07/20 08:45 Escitalopram Oxalate 10 Mg Tablet PO 10 mg DAILY LISANDRA Administration Fluticasone Propionate 1 spray 11/05/20 21:00 11/07/20 08:45 Fluticasone Propionate Nasal 16 Gm [place] NOSTRIL-B Not Given BID [facility] Gabapentin 100 mg 11/05/20 21:00 11/07/20 08:45 Gabapentin 100 Mg Capsule PO Not Given BID [facility] Gabapentin 300 mg 11/06/20 14:00 11/07/20 11:08 Gabapentin 300 Mg Capsule PO Not Given DAILY@1400 [facility] Cefazolin Sodium 1 gm/ Sodium 50 mls @ 100 mls/hr 11/05/20 11:30 11/07/20 12:28 Chloride IV Infused Q8H [facility] Infusion Levothyroxine Sodium 150 mcg 11/06/20 06:30 11/07/20 05:33 Levothyroxine Sodium 150 Mcg Tablet PO 150 mcg DAILY@0630 [facility] Administration Magnesium Hydroxide 30 ml 11/05/20 16:02 Milk Of Magnesia 30 Ml Oral.Susp PO Q24H PRN Constipation Morphine Sulfate 2 mg 11/05/20 11:21 Morphine Sulfate 2 Mg/Ml Cartridge IVPUSH Q4H PRN Pain, Severe (Pain Scale 7-10) Oxycodone HCl 5 mg 11/05/20 11:21 11/07/20 08:45 Oxycodone Hcl Immed Release 5 Mg Tablet PO 5 mg Q4H PRN Administration Pain, Moderate (Pain Scale 4-6 Polyethylene Glycol 17 gm 11/06/20 09:00 11/07/20 08:45 Polyethylene Glycol 3350 17 Gm Powd.Pack PO 17 gm DAILY [facility] Administration Senna 8.6 mg 11/05/20 21:00 11/06/20 21:39 Sennosides 8.6 Mg Tablet PO 8.6 mg BEDTIME [facility] Administration Sodium Chloride 3 ml 11/05/20 16:00 11/07/20 08:48 0.9 % Sodium Chloride Flush 3 Ml Syringe IVFLUSH 3 ml QSHIFT [facility] Administration Vitamin D 25 mcg 11/06/20 09:00 11/07/20 08:45 Cholecalciferol (Vitamin D3) 25 Mcg Tablet PO 25 mcg DAILY [facility] Administration Labs CBC & Chem 7: 11/06/20 06:08 11/06/20 06:08 Assessment and Plan (1) Ulcer of right lower leg: Status: Acute Assessment and Plan: This is a an 85-year-old female with history of peripheral vascular disease and nonhealing right foot ulcer admitted for further management 1. R foot ulcer empiric ancef plan for debridement tomorrow -- to change antibiotics accordingly after this 2. Atrial fibrillation Continue amiodarone Eliquis 3. Mood Continue Celexa 4. anemia h/h at baseline 5. chronic pain on gabapendin home pain meds on hold while on IV narcotics continue bowel regimen 6. Hypothyroidism Continue Synthroid DVT prophylaxis Eliquis
[2020-11-07 15:00] VITALS: BP 118/50; PULSE 67; RESP 20; TEMP 36.6; O2SAT 97
[2020-11-07 19:00] VITALS: BP 108/53; PULSE 74; RESP 18; TEMP 37.1; O2SAT 96
[2020-11-07] MEDS: Morphine Sulfate 2 MG/ML CARTRIDGE IVPUSH (21:03)
[2020-11-07] MEDS: Sennosides 8.6 MG TABLET PO (21:03)
[2020-11-07] MEDS: Gabapentin 100 MG CAPSULE PO (21:03)
[2020-11-07 23:00] VITALS: BP 149/55; PULSE 75; RESP 18; TEMP 36.9; O2SAT 95
[2020-11-08] VITALS (13 sets, daily range): BP systolic 107–152; BP diastolic 40–65; PULSE 67–75; RESP 12–19; TEMP 36.3–37.6; O2SAT 95–99
[2020-11-08] MEDS: 0.9 % Sodium Chloride Flush 3 ML SYRINGE IVFLUSH ×3 (00:45→14:43)
[2020-11-08] MEDS: Morphine Sulfate 2 MG/ML CARTRIDGE IVPUSH ×3 (04:44→20:55)
[2020-11-08] MEDS: Amiodarone HCL 200 MG TABLET PO (08:45)
[2020-11-08] MEDS: Fluticasone Propionate Nasal 16 GM SPRAY 1 SPRAY NOSTRIL-B (09:00)
--- NOTE | 2020-11-08 11:44 | HO.ANESPROP2 ---
[facility] Past Medical History Medical History Chronic indwelling Velez catheter Frequent falls Hypothyroidism Kidney failure Muscular atrophy Paroxysmal atrial fibrillation PVD (peripheral vascular disease) Spinal cord tumor UTI (urinary tract infection) Surgical History Surgical History History of appendectomy History of hysterectomy Social History Social History Housing: Residential Smoking Status: Never smoker Advance Directives Date on File: 10/14/03 service: No Meds Allergies Allergy/AdvReac Type Severity Reaction Status Date / Time No Known Allergies Allergy Verified 11/01/20 13:35 Home Medications Medication Instructions Recorded Confirmed Type bisacodyl [Dulcolax (bisacodyl)] 10 mg [place] Q3D PRN 07/11/20 11/05/20 History calcium carbonate 600 mg PO BID 07/11/20 11/05/20 History cholecalciferol (vitamin D3) 25 mcg PO DAILY 07/11/20 11/05/20 History citalopram [Celexa] 20 mg PO DAILY 07/11/20 11/05/20 History cyanocobalamin (vitamin B-12) 1,000 mcg PO DAILY 07/11/20 11/05/20 History [Vitamin B-12] docusate sodium [Colace] 100 mg PO DAILY 07/11/20 11/05/20 History gabapentin [Neurontin] 100 mg PO BID 07/11/20 11/05/20 History gabapentin [Neurontin] 300 mg PO DAILY@1400 07/11/20 11/05/20 History levothyroxine [Synthroid] 150 mcg PO DAILY@0630 07/11/20 11/05/20 History polyethylene glycol 3350 [Miralax] 17 g PO DAILY 07/11/20 11/05/20 History sennosides [senna] 8.6 mg PO BEDTIME 07/11/20 11/05/20 History baclofen 10 mg tablet 5 mg PO BID 10/23/20 11/05/20 History acetaminophen 650 mg PO Q6H PRN 11/05/20 11/05/20 History apixaban 5 mg PO BID 11/05/20 11/05/20 History cadexomer iodine [Iodosorb] 1 ea TOPICAL DAILY 11/05/20 11/05/20 History fluticasone propionate [Flonase] 1 spray INTRANASAL BID 11/05/20 11/05/20 History hydromorphone [Dilaudid] 4 mg PO DAILY PRN 11/05/20 11/05/20 History hydromorphone [Dilaudid] 4 mg PO Q12H PRN 11/05/20 11/05/20 History magnesium hydroxide [Milk of 30 ml PO Q24H PRN 11/05/20 11/05/20 History Magnesia] sodium phosphates [Fleet Enema] 118 ml SD Q72H PRN 11/05/20 11/05/20 History Exam Exam Date and Time: November 08, 2020 1144 Height,Weight and Vital Signs: Height 5 ft 7 in Weight 83.007 kg Last Vital Signs Temp 99.7 F 11/08/20 11:16 Pulse 68 11/08/20 11:16 Resp 16 11/08/20 11:16 BP 141/62 H 11/08/20 11:16 Pulse Ox 97 11/08/20 11:16 Pertinent Lab Results Pertinent Lab Results: Laboratory Tests 11/05/20 11/05/20 11/05/20 07:54 07:54 07:54 WBC 5.2 RBC 3.43 L Hgb 8.7 L Hct 29.5 L MCV 86.0 MCH 25.4 L MCHC 29.5 L RDW 17.4 H Plt Count 315 MPV 10.3 Immature Gran % (Auto) 0.2 Neut % (Auto) 55.6 Lymph % (Auto) 31.0 [place] % (Auto) 9.4 Eos % (Auto) 3.4 Baso % (Auto) 0.4 Lymph # (Auto) 1.6 [place] # (Auto) 0.5 Eos # (Auto) 0.2 Baso # (Auto) 0.0 Abs Immat Gran (auto) 0.01 Absolute Neuts (auto) 2.9 Absolute Nucleated RBC 0.000 Nucleated RBC % (auto) 0.0 PT 16.5 H INR 1.4 H APTT 41.0 H Sodium 138 Potassium 4.3 Chloride 101 Carbon Dioxide 30 H Anion Gap 11 L BUN 19 H Creatinine 0.98 Estim Creat Clear Calc 46.4 Estimated GFR 54 Random Glucose 93 Calcium 8.4 COVID-19 ([facility]) COVID-19 Clin Com 11/05/20 11/06/20 11/06/20 12:51 06:08 06:08 WBC 5.5 RBC 3.26 L Hgb 8.2 L Hct 28.3 L MCV 86.8 MCH 25.2 L MCHC 29.0 L RDW 17.4 H Plt Count 262 MPV 10.3 Immature Gran % (Auto) 0.4 Neut % (Auto) 63.5 Lymph % (Auto) 22.8 [place] % (Auto) 9.4 Eos % (Auto) 3.4 Baso % (Auto) 0.5 Lymph # (Auto) 1.3 [place] # (Auto) 0.5 Eos # (Auto) 0.2 Baso # (Auto) 0.0 Abs Immat Gran (auto) 0.02 Absolute Neuts (auto) 3.5 Absolute Nucleated RBC 0.000 Nucleated RBC % (auto) 0.0 PT 13.7 H INR 1.2 H APTT Sodium Potassium Chloride Carbon Dioxide Anion Gap BUN Creatinine Estim Creat Clear Calc Estimated GFR Random Glucose Calcium COVID-19 ([facility]) Negative COVID-19 Clin Com See Note 11/06/20 06:08 WBC RBC Hgb Hct MCV MCH MCHC RDW Plt Count MPV Immature Gran % (Auto) Neut % (Auto) Lymph % (Auto) [place] % (Auto) Eos % (Auto) Baso % (Auto) Lymph # (Auto) [place] # (Auto) Eos # (Auto) Baso # (Auto) Abs Immat Gran (auto) Absolute Neuts (auto) Absolute Nucleated RBC Nucleated RBC % (auto) PT INR APTT Sodium 138 Potassium 3.6 Chloride 103 Carbon Dioxide 27 Anion Gap 12 BUN 21 H Creatinine 0.91 Estim Creat Clear Calc 50.0 Estimated GFR 59 Random Glucose 94 Calcium 8.3 L COVID-19 ([facility]) COVID-19 Clin Com Airway Mallampati Class: II Neck ROM: Limited Denture: Upper Loose/Missing/Broken Teeth: Upper Heart: RRR Lungs: CTA Assessment and Plan Assessment Anesthesia Assessment: Anesthesia Plan Discussed and Chart Reviewed Final Anesthetic Review NPO: Yes ASA Class: III Final Preanesthetic Review: Meds/Allgs Chart Reviewed, Consent Obtained/Reviewed and Anes Risks/Benef Reviewed Patient Risk: Intermediate Procedure Risk: Low Anesthetic Plan Anesthetic Plan: GA Disposition: Standard PACU
[2020-11-08] MEDS: 0.9 % Sodium Chloride 500 ML 20 ML IVCONT (12:08)
--- NOTE | 2020-11-08 13:24 | PM.OP ---
Brief Operative Note Date of Service: 11/08/20 Pre-op diagnosis: Nonhealing right heel ulcer Post-op diagnosis: same Procedure: Right heel debridement and placement of wound VAC Surgeon: Michael Rosario MD Anesthesia: GLMA Estimated blood loss (mL): 10 Pathology: none sent Condition: stable Disposition: PACU
--- NOTE | 2020-11-08 13:34 | W.PM.OPN ---
Operative Note Operative Note Date of Service: 11/08/20 Narrative: Preoperative diagnosis: Nonhealing right heel ulceration Postoperative diagnosis: Same Procedure: 1. Excisional debridement of right heel into muscle 2. Wound VAC placement Surgeon: Marlene Pediatric Oncologist: None Anesthesia: General Specimens: None Drains: None Estimated blood loss: Minimal Indications: 85-year-old female with history of peripheral vascular disease has a nonhealing right heel ulceration. It has necrosis and foul odor associated with it. She has undergone endovascular intervention. She is now for debridement. Risks benefits complications were discussed in detail with the patient she understood and consented. Procedure in detail: Patient was taken to the operating room prior to which timeout was called for patient identification and site verification. right heel was prepped and draped in the standard surgical fashion. Using 15 blade Metzenbaum scissors and pickups this was debrided. An excisional debridement was done and we went into muscle. Preprocedure measurement was 5 x 5.5 x 0.2 cm, postprocedure measurement was 5.2 x 5.7 x 0.2 cm. Once this was accomplished adequate hemostasis was achieved with electrocautery. Wound was irrigated thoroughly. Wound VAC was placed on continuous with negative 125 mm of mercury. Patient was returned to recovery with stable vitals.
--- NOTE | 2020-11-08 13:38 | MHC.CM.PN ---
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
--- NOTE | 2020-11-08 13:50 | HO.PM.IMPN ---
Subjective Subjective Date of Service: 11/08/20 Interval History: seen and examined this AM prior to OR feels the same, had severe pain yesterday evening but controlled this AM ROS General - no fevers or chills Cardiovascular - no chest pain Respiratory - no shortness of breath or cough Abdominal- no abdominal pain, nausea, vomiting, diarrhea Physical Exam Vital Signs: Vital Signs: Last Vital Signs Temp 97.8 F 11/08/20 13:05 Pulse 68 11/08/20 13:20 Resp 16 11/08/20 13:20 BP 143/56 H 11/08/20 13:20 Pulse Ox 96 11/08/20 13:20 Body Mass Index 28.6 Const: Other: General - no acute distress, appears comfortable Cardiovascular - regular rate and rhythm, S1-S2 Lungs - normal respiratory effort, clear to auscultation bilaterally, no wheezing Abdomen - soft, nontender, no rebound or guarding Extremities - no edema bilaterally Neuro - awake and alert, no focal deficits Skin - RLE heel in dressing Objective Data Current Medications Generic Name Dose Route Start Last Admin Trade Name Freq PRN Reason Stop Dose Admin Acetaminophen 650 mg 11/05/20 11:21 11/07/20 08:44 Acetaminophen 325 Mg Tablet PO 650 mg Q6H PRN Administration Pain, Mild (Pain Scale 1-3) Amiodarone HCl 200 mg 11/06/20 09:00 11/08/20 08:45 Amiodarone Hcl 200 Mg Tablet PO 200 mg DAILY [facility] Administration Apixaban 5 mg 11/06/20 21:00 11/08/20 08:46 Apixaban 5 Mg Tablet PO Not Given BID LISANDRA Bisacodyl 10 mg 11/05/20 16:02 Bisacodyl 10 Mg Supp.Rect SD Q3D PRN Constipation Calcium Carbonate 500 mg 11/05/20 21:00 11/08/20 08:46 Calcium Carbonate 500 Mg Tablet PO Not Given BID [facility] Cyanocobalamin 1,000 mcg 11/06/20 09:00 11/08/20 08:46 Cyanocobalamin (Vitamin B-12) 1,000 Mcg Tablet PO Not Given DAILY [facility] Docusate Sodium 100 mg 11/06/20 09:00 11/08/20 08:46 Docusate Sodium 100 Mg Capsule PO Not Given DAILY [facility] Escitalopram Oxalate 10 mg 11/06/20 09:00 11/08/20 08:46 Escitalopram Oxalate 10 Mg Tablet PO Not Given DAILY [facility] Fentanyl 25 mcg 11/08/20 11:59 Fentanyl Citrate/Pf 100 Mcg/2 Ml Vial IVPUSH Q5M PRN Pain, Moderate (Pain Scale 4-6 Fluticasone Propionate 1 spray 11/05/20 21:00 11/08/20 09:00 Fluticasone Propionate Nasal 16 Gm [place] NOSTRIL-B 1 spray BID LISANDRA Administration Gabapentin 100 mg 11/05/20 21:00 11/08/20 08:46 Gabapentin 100 Mg Capsule PO Not Given BID [facility] Gabapentin 300 mg 11/06/20 14:00 11/07/20 11:08 Gabapentin 300 Mg Capsule PO Not Given DAILY@1400 [facility] Cefazolin Sodium 1 gm/ Sodium 50 mls @ 100 mls/hr 11/05/20 11:30 11/08/20 11:45 Chloride IV 100 mls/hr Q8H LISANDRA Administration Sodium Chloride 500 mls @ 20 mls/hr 11/08/20 12:00 11/08/20 12:08 Ns IVCONT 20 mls/hr .Q24H LISANDRA Administration Levothyroxine Sodium 150 mcg 11/06/20 06:30 11/08/20 06:08 Levothyroxine Sodium 150 Mcg Tablet PO Not Given DAILY@0630 [facility] Magnesium Hydroxide 30 ml 11/05/20 16:02 Milk Of Magnesia 30 Ml Oral.Susp PO Q24H PRN Constipation Morphine Sulfate 2 mg 11/05/20 11:21 11/08/20 09:00 Morphine Sulfate 2 Mg/Ml Cartridge IVPUSH 2 mg Q4H PRN Administration Pain, Severe (Pain Scale 7-10) Oxycodone HCl 5 mg 11/05/20 11:21 11/07/20 08:45 Oxycodone Hcl Immed Release 5 Mg Tablet PO 5 mg Q4H PRN Administration Pain, Moderate (Pain Scale 4-6 Oxycodone HCl 5 mg 11/08/20 11:59 Oxycodone Hcl Immed Release 5 Mg Tablet PO ONCE PRN Pain, Severe (Pain Scale 7-10) Polyethylene Glycol 17 gm 11/06/20 09:00 11/08/20 09:07 Polyethylene Glycol 3350 17 Gm Powd.Pack PO Not Given DAILY [facility] Senna 8.6 mg 11/05/20 21:00 11/07/20 21:03 Sennosides 8.6 Mg Tablet PO 8.6 mg BEDTIME LISANDRA Administration Sodium Chloride 3 ml 11/05/20 16:00 11/08/20 08:46 0.9 % Sodium Chloride Flush 3 Ml Syringe IVFLUSH 3 ml QSHIFT LISANDRA Administration Vitamin D 25 mcg 11/06/20 09:00 11/08/20 08:46 Cholecalciferol (Vitamin D3) 25 Mcg Tablet PO Not Given DAILY [facility] Labs CBC & Chem 7: 11/06/20 06:08 11/06/20 06:08 Assessment and Plan (1) Ulcer of right lower leg: Status: Acute Assessment and Plan: This is a an 85-year-old female with history of peripheral vascular disease and nonhealing right foot ulcer admitted for further management 1. R foot ulcer empiric ancef plan for I&D in the OR today. antibiotics TBD pending OR findings - ? need for broader coverage 2. Atrial fibrillation Continue amiodarone Eliquis 3. Mood Continue Celexa 4. anemia h/h at baseline 5. chronic pain on gabapendin home pain meds on hold while on IV narcotics continue bowel regimen 6. Hypothyroidism Continue Synthroid DVT prophylaxis Eliquis will follow along
[2020-11-08] MEDS: Apixaban 5 MG TABLET PO (20:47)
[2020-11-08] MEDS: Gabapentin 100 MG CAPSULE PO (20:47)
[2020-11-08] MEDS: Sennosides 8.6 MG TABLET PO (20:47)
[2020-11-09] VITALS (7 sets, daily range): BP systolic 121–155; BP diastolic 48–70; PULSE 62–78; RESP 15–19; TEMP 36.4–37; O2SAT 97–100
[2020-11-09] MEDS: 0.9 % Sodium Chloride Flush 3 ML SYRINGE IVFLUSH ×4 (01:01→21:15)
[2020-11-09] MEDS: Levothyroxine Sodium 150 MCG TABLET PO (05:46)
[2020-11-09] MEDS: Escitalopram Oxalate 10 MG TABLET PO (08:50)
[2020-11-09] MEDS: Cholecalciferol (Vitamin D3) 25 MCG TABLET PO (08:51)
[2020-11-09] MEDS: Apixaban 5 MG TABLET PO ×2 (08:51→21:14)
[2020-11-09] MEDS: Docusate Sodium 100 MG CAPSULE PO (08:51)
[2020-11-09] MEDS: Morphine Sulfate 2 MG/ML CARTRIDGE IVPUSH ×3 (08:51→21:14)
[2020-11-09] MEDS: Amiodarone HCL 200 MG TABLET PO (08:51)
[2020-11-09] MEDS: polyethylene glycoL 3350 17 GM POWD.PACK PO (08:52)
[2020-11-09] MEDS: Fluticasone Propionate Nasal 16 GM SPRAY 1 SPRAY NOSTRIL-B ×2 (08:54→21:23)
[2020-11-09] MEDS: Cyanocobalamin (Vitamin B-12) 1,000 MCG TABLET 1000 MCG PO (08:58)
--- NOTE | 2020-11-09 08:58 | HO.VASCPN ---
Subjective Subjective Date of Service: 11/09/20 Patient reports: no new complaints, feels better and pain is less Interval history: Patient is postop day 1 status post right heel debridement and wound VAC placement. Earlier this week she had endovascular intervention with good results. It appears that her pain in the right lower extremity has improved somewhat. She is tolerating a diet. Her only complaint this morning was constipation. Overnight apparently wound VAC lost suction and Tegaderm was used for reinforcement. Other than that was having no significant issues. In general in good spirits this morning Physical Exam Vital Signs: Vital Signs: Last Vital Signs Temp 98.6 F 11/09/20 07:00 Pulse 71 11/09/20 07:00 Resp 18 11/09/20 07:00 BP 155/65 H 11/09/20 07:00 Pulse Ox 97 11/09/20 07:00 Body Mass Index 28.6 Const: General: cooperative, healthy appearing and no acute distress Orientation/consciousness: oriented to person, oriented to place and oriented to time HENMT: Head: Yes normal to inspection Neck: Carotids: no bruits Chest: Chest palpation & inspection: normal inspection of the chest Resp: Effort & Inspection: normal respiratory effort and able to speak in complete sentences Auscultation: clear to auscultation bilaterally Cardio: Rate: regular rate Heart sounds: S1 normal heart sound present and S2 normal heart sound present GI: Inspection: Yes normal to inspection Skin: General skin exam: no rashes or lesions noted Wounds: wounds noted (Right heel wound VAC intact) Neuro: General: oriented to person, oriented to place, oriented to time and CN's II-XI intact bilaterally Extrem: General: Yes normal to inspection, Yes full ROM and Yes no clubbing, cyanosis or edema Psych: Appearance: grossly normal and well kempt Speech and movement: Normal speech and movement present Affect: normal affect Progress Note: A&P Assessment and plan (1) Ulcer of right lower leg: Status: Acute Assessment and Plan: Patient appears to be doing significantly better. Will plan for dressing change and VAC removal on Thursday. Will maintain antibiotics for now as there was significant necrotic material in that right heel. If stable possible discharge to rehab on Thursday. Plan was discussed with patient and she is in agreement. Also discussed with the hospitalist team as well. Thank you for allowing us to assist in this patient's care. Fall Risk Details Current Medications: Current Medications Generic Name Dose Route Start Last Admin Trade Name Freq PRN Reason Stop Dose Admin Acetaminophen 650 mg 11/05/20 11:21 11/07/20 08:44 Acetaminophen 325 Mg Tablet PO 650 mg Q6H PRN Administration Pain, Mild (Pain Scale 1-3) Amiodarone HCl 200 mg 11/06/20 09:00 11/09/20 08:51 Amiodarone Hcl 200 Mg Tablet PO 200 mg DAILY [facility] Administration Apixaban 5 mg 11/06/20 21:00 11/09/20 08:51 Apixaban 5 Mg Tablet PO 5 mg BID LISANDRA Administration Bisacodyl 10 mg 11/05/20 16:02 Bisacodyl 10 Mg Supp.Rect [place] Q3D PRN Constipation Calcium Carbonate 500 mg 11/05/20 21:00 11/09/20 08:51 Calcium Carbonate 500 Mg Tablet PO 500 mg BID [facility] Administration Cyanocobalamin 1,000 mcg 11/06/20 09:00 11/08/20 08:46 Cyanocobalamin (Vitamin B-12) 1,000 Mcg Tablet PO Not Given DAILY [facility] Docusate Sodium 100 mg 11/06/20 09:00 11/09/20 08:51 Docusate Sodium 100 Mg Capsule PO 100 mg DAILY [facility] Administration Escitalopram Oxalate 10 mg 11/06/20 09:00 11/09/20 08:50 Escitalopram Oxalate 10 Mg Tablet PO 10 mg DAILY [facility] Administration Fentanyl 25 mcg 11/08/20 11:59 Fentanyl Citrate/Pf 100 Mcg/2 Ml Vial IVPUSH Q5M PRN Pain, Moderate (Pain Scale 4-6 Fluticasone Propionate 1 spray 11/05/20 21:00 11/09/20 08:54 Fluticasone Propionate Nasal 16 Gm [place] NOSTRIL-B 1 spray BID [facility] Administration Gabapentin 100 mg 11/05/20 21:00 11/09/20 08:57 Gabapentin 100 Mg Capsule PO Not Given BID [facility] Gabapentin 300 mg 11/06/20 14:00 11/08/20 14:46 Gabapentin 300 Mg Capsule PO Not Given DAILY@1400 [facility] Cefazolin Sodium 1 gm/ Sodium 50 mls @ 100 mls/hr 11/05/20 11:30 11/09/20 04:55 Chloride IV Infused Q8H [facility] Infusion Sodium Chloride 500 mls @ 20 mls/hr 11/08/20 12:00 11/08/20 12:08 Ns IVCONT 20 mls/hr .Q24H LISANDRA Administration Levothyroxine Sodium 150 mcg 11/06/20 06:30 11/09/20 05:46 Levothyroxine Sodium 150 Mcg Tablet PO 150 mcg DAILY@0630 [facility] Administration Magnesium Hydroxide 30 ml 11/05/20 16:02 Milk Of Magnesia 30 Ml Oral.Susp PO Q24H PRN Constipation Morphine Sulfate 2 mg 11/05/20 11:21 11/09/20 08:51 Morphine Sulfate 2 Mg/Ml Cartridge IVPUSH 2 mg Q4H PRN Administration Pain, Severe (Pain Scale 7-10) Oxycodone HCl 5 mg 11/05/20 11:21 11/07/20 08:45 Oxycodone Hcl Immed Release 5 Mg Tablet PO 5 mg Q4H PRN Administration Pain, Moderate (Pain Scale 4-6 Oxycodone HCl 5 mg 11/08/20 11:59 Oxycodone Hcl Immed Release 5 Mg Tablet PO ONCE PRN Pain, Severe (Pain Scale 7-10) Polyethylene Glycol 17 gm 11/06/20 09:00 11/09/20 08:52 Polyethylene Glycol 3350 17 Gm Powd.Pack PO 17 gm DAILY [facility] Administration Senna 8.6 mg 11/05/20 21:00 11/08/20 20:47 Sennosides 8.6 Mg Tablet PO 8.6 mg BEDTIME LISANDRA Administration Sodium Chloride 3 ml 11/05/20 16:00 11/09/20 08:52 0.9 % Sodium Chloride Flush 3 Ml Syringe IVFLUSH 3 ml QSHIFT LISANDRA Administration Vitamin D 25 mcg 11/06/20 09:00 11/09/20 08:51 Cholecalciferol (Vitamin D3) 25 Mcg Tablet PO 25 mcg DAILY [facility]AN[facility]A Administration Time Spent With Patient Time: Total time spent is greater than 50% in coordination of care (as documented) at patient's floor/unit and/or counseling patient: Time with patient: 15 - 24 minutes
--- NOTE | 2020-11-09 09:26 | HO.POSTANES ---
Post Anesthesia Evaluation Post Anesthesia Evaluation Vital Signs: Vital Signs Temp Pulse Resp BP Pulse Ox 11/09/20 07:00 98.6 F 71 18 155/65 H 97 11/09/20 03:00 97.6 F 78 19 142/70 H 97 11/08/20 23:00 98.4 F 67 18 133/64 97 Anesthesia: General Mental Status: Awake Pain Control: Satisfactory Nausea/Vomiting: None Hydration: Adequate Anesthesia-Related Issues: No Anes. Related Issues
--- NOTE | 2020-11-09 12:08 | HO.PM.IMPN ---
Subjective Subjective Date of Service: 11/09/20 Interval History: seen and examined this AM foot pain stable reports constipation ROS General - no fevers or chills Cardiovascular - no chest pain Respiratory - no shortness of breath or cough Abdominal- no abdominal pain, nausea, vomiting, diarrhea Physical Exam Vital Signs: Vital Signs: Last Vital Signs Temp 98.1 F 11/09/20 11:00 Pulse 71 11/09/20 11:00 Resp 18 11/09/20 11:00 BP 130/63 11/09/20 11:00 Pulse Ox 99 11/09/20 11:00 Body Mass Index 28.6 Const: Other: General - no acute distress, appears comfortable Cardiovascular - regular rate and rhythm, S1-S2 Lungs - normal respiratory effort, clear to auscultation bilaterally, no wheezing Abdomen - soft, nontender, no rebound or guarding Extremities - no edema bilaterally Neuro - awake and alert, no focal deficits Skin - RLE wound vac in place Objective Data Current Medications Generic Name Dose Route Start Last Admin Trade Name Freq PRN Reason Stop Dose Admin Acetaminophen 650 mg 11/05/20 11:21 11/07/20 08:44 Acetaminophen 325 Mg Tablet PO 650 mg Q6H PRN Administration Pain, Mild (Pain Scale 1-3) Amiodarone HCl 200 mg 11/06/20 09:00 11/09/20 08:51 Amiodarone Hcl 200 Mg Tablet PO 200 mg DAILY [facility]AN[facility]A Administration Apixaban 5 mg 11/06/20 21:00 11/09/20 08:51 Apixaban 5 Mg Tablet PO 5 mg BID LISANDRA Administration Bisacodyl 10 mg 11/05/20 16:02 Bisacodyl 10 Mg Supp.Rect SC Q3D PRN Constipation Calcium Carbonate 500 mg 11/05/20 21:00 11/09/20 08:51 Calcium Carbonate 500 Mg Tablet PO 500 mg BID LISANDRA Administration Cyanocobalamin 1,000 mcg 11/06/20 09:00 11/09/20 08:58 Cyanocobalamin (Vitamin B-12) 1,000 Mcg Tablet PO 1,000 mcg DAILY [facility]AN[facility]A Administration Docusate Sodium 100 mg 11/06/20 09:00 11/09/20 08:51 Docusate Sodium 100 Mg Capsule PO 100 mg DAILY [facility] Administration Escitalopram Oxalate 10 mg 11/06/20 09:00 11/09/20 08:50 Escitalopram Oxalate 10 Mg Tablet PO 10 mg DAILY [facility] Administration Fentanyl 25 mcg 11/08/20 11:59 Fentanyl Citrate/Pf 100 Mcg/2 Ml Vial IVPUSH Q5M PRN Pain, Moderate (Pain Scale 4-6 Fluticasone Propionate 1 spray 11/05/20 21:00 11/09/20 08:54 Fluticasone Propionate Nasal 16 Gm [place] NOSTRIL-B 1 spray BID LISANDRA Administration Gabapentin 100 mg 11/05/20 21:00 11/09/20 08:57 Gabapentin 100 Mg Capsule PO Not Given BID LISANDRA Gabapentin 300 mg 11/06/20 14:00 11/08/20 14:46 Gabapentin 300 Mg Capsule PO Not Given DAILY@1400 [facility] Cefazolin Sodium 1 gm/ Sodium 50 mls @ 100 mls/hr 11/05/20 11:30 11/09/20 11:36 Chloride IV 100 mls/hr Q8H LISANDRA Administration Sodium Chloride 500 mls @ 20 mls/hr 11/08/20 12:00 11/08/20 12:08 Ns IVCONT 20 mls/hr .Q24H LISANDRA Administration Levothyroxine Sodium 150 mcg 11/06/20 06:30 11/09/20 05:46 Levothyroxine Sodium 150 Mcg Tablet PO 150 mcg DAILY@0630 [facility] Administration Magnesium Hydroxide 30 ml 11/05/20 16:02 Milk Of Magnesia 30 Ml Oral.Susp PO Q24H PRN Constipation Morphine Sulfate 2 mg 11/05/20 11:21 11/09/20 08:51 Morphine Sulfate 2 Mg/Ml Cartridge IVPUSH 2 mg Q4H PRN Administration Pain, Severe (Pain Scale 7-10) Oxycodone HCl 5 mg 11/05/20 11:21 11/07/20 08:45 Oxycodone Hcl Immed Release 5 Mg Tablet PO 5 mg Q4H PRN Administration Pain, Moderate (Pain Scale 4-6 Oxycodone HCl 5 mg 11/08/20 11:59 Oxycodone Hcl Immed Release 5 Mg Tablet PO ONCE PRN Pain, Severe (Pain Scale 7-10) Polyethylene Glycol 17 gm 11/06/20 09:00 11/09/20 08:52 Polyethylene Glycol 3350 17 Gm Powd.Pack PO 17 gm DAILY [facility] Administration Senna 8.6 mg 11/05/20 21:00 11/08/20 20:47 Sennosides 8.6 Mg Tablet PO 8.6 mg BEDTIME LISANDRA Administration Sodium Chloride 3 ml 11/05/20 16:00 11/09/20 08:52 0.9 % Sodium Chloride Flush 3 Ml Syringe IVFLUSH 3 ml QSHIFT LISANDRA Administration Vitamin D 25 mcg 11/06/20 09:00 11/09/20 08:51 Cholecalciferol (Vitamin D3) 25 Mcg Tablet PO 25 mcg DAILY [facility] Administration Labs CBC & Chem 7: 11/06/20 06:08 11/06/20 06:08 Assessment and Plan (1) Ulcer of right lower leg: Status: Acute Assessment and Plan: This is a an 85-year-old female with history of peripheral vascular disease and nonhealing right foot ulcer admitted for further management 1. R foot infected ulcer kefzol cultures negative to date wound vac 2. Atrial fibrillation Continue amiodarone Eliquis 3. Mood Continue Celexa 4. anemia h/h at baseline 5. chronic pain on gabapendin home pain meds on hold while on IV narcotics continue bowel regimen 6. Hypothyroidism Continue Synthroid DVT prophylaxis Eliquis will follow along
--- NOTE | 2020-11-09 13:05 | MHC.CM.PN ---
Addendum entered by Zora Miranda 11/09/20 13:28: ,WITH UPDATE, TELEPHONE CALL TO PATIENTS DAUGHTER MARYCARMEN MOTT Original Note: NURSE COLLAR TURNER NOTE ELECTRONIC MEDICAL RECORD REVIEWED ALONG WITH CASE DISCUSSED WITH STAFF NURSE. PER VASCULAR SURGEON PATIENT WITH [employer] WOUND VAC IN PLACE ON RIGHT HEEL AT THIS TIME IT IS NOT SURE WHETHER SHE WILL BE DISCHARGED WITH THIS OR NOT, AND PLANS TO REMAIN IN THE HOSPITAL AND BE MONITORED TILL THURSDAY ., PER DOCUMENTATION PATIENT WITH LEFT HEEL WOUND TYPE PRESSURE INJURY STAGE 111 WITH FOAM DRESSING APPLIED ON 11/08 WENT TO THE FOR SURGICAL DEBRIDEMENT OF RIGHT HEEL AND PLACEMENT OF WOUND VAC RIGHT HEEL STAGE 4 PATIENT IS ON A AIR LOSS BED , OXYGEN NEEDED , RECEIVING IV MORPHINE Q4HRS PRN AND TRANSITIONING TO [facility] OXYCODONE HCL IR DISCHARGE PLAN TO RETURN BACK TO THE [facility] WHERE SHE RESIDES (PER SURGEON NOT SURE IF PATIENT WILL NEED WOUND VAC AT DISCHARGE OR NOT , ANTICIPATE HERE IN THE HOSPITAL THROUGH THE WEEKEND TRANSPORTATION [facility]IA [facility]
[2020-11-09] MEDS: Sennosides 8.6 MG TABLET PO (21:14)
[2020-11-10 03:00] VITALS: BP 132/74; PULSE 69; RESP 16; TEMP 36.6; O2SAT 94
[2020-11-10] MEDS: Morphine Sulfate 2 MG/ML CARTRIDGE IVPUSH ×3 (03:25→20:10)
[2020-11-10] MEDS: Levothyroxine Sodium 150 MCG TABLET PO (06:34)
[2020-11-10 07:00] VITALS: BP 168/71; PULSE 68; RESP 17; TEMP 35.9; O2SAT 97
--- NOTE | 2020-11-10 08:53 | P.PNIM_ITS ---
Subjective Subjective Date of Service: 11/10/20 Interval History: seen and examined this AM pain better still reports constipation ROS General - no fevers or chills Cardiovascular - no chest pain Respiratory - no shortness of breath or cough Abdominal- no abdominal pain, nausea, vomiting, diarrhea; +constipatoin Physical Exam Vital Signs: Vital Signs: Last Vital Signs Temp 96.7 F L 11/10/20 07:00 Pulse 68 11/10/20 07:00 Resp 17 11/10/20 07:00 BP 168/71 H 11/10/20 07:00 Pulse Ox 97 11/10/20 07:00 Body Mass Index 28.6 Const: Other: General - no acute distress, appears comfortable Cardiovascular - regular rate and rhythm, S1-S2 Lungs - normal respiratory effort, clear to auscultation bilaterally, no wheezing Abdomen - soft, nontender, no rebound or guarding Extremities - no edema bilaterally Neuro - awake and alert, no focal deficits Skin - RLE wound vac in place Objective Data Current Medications Generic Name Dose Route Start Last Admin Trade Name Freq PRN Reason Stop Dose Admin Acetaminophen 650 mg 11/05/20 11:21 11/07/20 08:44 Acetaminophen 325 Mg Tablet PO 650 mg Q6H PRN Administration Pain, Mild (Pain Scale 1-3) Amiodarone HCl 200 mg 11/06/20 09:00 11/09/20 08:51 Amiodarone Hcl 200 Mg Tablet PO 200 mg DAILY [facility] Administration Apixaban 5 mg 11/06/20 21:00 11/09/20 21:14 Apixaban 5 Mg Tablet PO 5 mg BID LISANDRA Administration Bisacodyl 10 mg 11/05/20 16:02 Bisacodyl 10 Mg Supp.Rect [place] Q3D PRN Constipation Calcium Carbonate 500 mg 11/05/20 21:00 11/09/20 21:14 Calcium Carbonate 500 Mg Tablet PO 500 mg BID LISANDRA Administration Cyanocobalamin 1,000 mcg 11/06/20 09:00 11/09/20 08:58 Cyanocobalamin (Vitamin B-12) 1,000 Mcg Tablet PO 1,000 mcg DAILY [facility] Administration Docusate Sodium 100 mg 11/06/20 09:00 11/09/20 08:51 Docusate Sodium 100 Mg Capsule PO 100 mg DAILY [facility] Administration Escitalopram Oxalate 10 mg 11/06/20 09:00 11/09/20 08:50 Escitalopram Oxalate 10 Mg Tablet PO 10 mg DAILY [facility] Administration Fentanyl 25 mcg 11/08/20 11:59 Fentanyl Citrate/Pf 100 Mcg/2 Ml Vial IVPUSH Q5M PRN Pain, Moderate (Pain Scale 4-6 Fluticasone Propionate 1 spray 11/05/20 21:00 11/09/20 21:23 Fluticasone Propionate Nasal 16 Gm [place] NOSTRIL-B 1 spray BID LISANDRA Administration Gabapentin 100 mg 11/05/20 21:00 11/10/20 03:13 Gabapentin 100 Mg Capsule PO Not Given BID LISANDRA Gabapentin 300 mg 11/06/20 14:00 11/09/20 14:56 Gabapentin 300 Mg Capsule PO Not Given DAILY@1400 [facility] Cefazolin Sodium 1 gm/ Sodium 50 mls @ 100 mls/hr 11/05/20 11:30 11/10/20 04:01 Chloride IV Infused Q8H [facility] Infusion Lactulose 20 gm 11/10/20 08:49 Lactulose 20 Gm/30 Ml Solution PO 11/10/20 08:50 ONCE ONE Levothyroxine Sodium 150 mcg 11/06/20 06:30 11/10/20 06:34 Levothyroxine Sodium 150 Mcg Tablet PO 150 mcg DAILY@0630 [facility] Administration Magnesium Hydroxide 30 ml 11/05/20 16:02 Milk Of Magnesia 30 Ml Oral.Susp PO Q24H PRN Constipation Morphine Sulfate 2 mg 11/05/20 11:21 11/10/20 03:25 Morphine Sulfate 2 Mg/Ml Cartridge IVPUSH 2 mg Q4H PRN Administration Pain, Severe (Pain Scale 7-10) Oxycodone HCl 5 mg 11/05/20 11:21 11/07/20 08:45 Oxycodone Hcl Immed Release 5 Mg Tablet PO 5 mg Q4H PRN Administration Pain, Moderate (Pain Scale 4-6 Oxycodone HCl 5 mg 11/08/20 11:59 Oxycodone Hcl Immed Release 5 Mg Tablet PO ONCE PRN Pain, Severe (Pain Scale 7-10) Polyethylene Glycol 17 gm 11/06/20 09:00 11/09/20 08:52 Polyethylene Glycol 3350 17 Gm Powd.Pack PO 17 gm DAILY [facility] Administration Senna 8.6 mg 11/05/20 21:00 11/09/20 21:14 Sennosides 8.6 Mg Tablet PO 8.6 mg BEDTIME LISANDRA Administration Sodium Chloride 3 ml 11/05/20 16:00 11/09/20 21:15 0.9 % Sodium Chloride Flush 3 Ml Syringe IVFLUSH 3 ml QSHIFT LISANDRA Administration Vitamin D 25 mcg 11/06/20 09:00 11/09/20 08:51 Cholecalciferol (Vitamin D3) 25 Mcg Tablet PO 25 mcg DAILY [facility] Administration Labs CBC & Chem 7: 11/06/20 06:08 11/06/20 06:08 Assessment and Plan (1) Ulcer of right lower leg: Status: Acute Assessment and Plan: This is a an 85-year-old female with history of peripheral vascular disease and nonhealing right foot ulcer admitted for further management 1. R foot infected ulcer kefzol cultures negative to date wound vac 2. Atrial fibrillation Continue amiodarone Eliquis 3. Mood Continue Celexa 4. anemia h/h at baseline 5. chronic pain on gabapendin home pain meds on hold while on IV narcotics continue bowel regimen 6. Hypothyroidism Continue Synthroid 7. constipation bowel regime DVT prophylaxis Eliquis
[2020-11-10] MEDS: Docusate Sodium 100 MG CAPSULE PO (10:27)
[2020-11-10] MEDS: Escitalopram Oxalate 10 MG TABLET PO (10:27)
[2020-11-10] MEDS: 0.9 % Sodium Chloride Flush 3 ML SYRINGE IVFLUSH ×3 (10:27→20:25)
[2020-11-10] MEDS: Lactulose 20 GM/30 ML SOLUTION PO (10:27)
[2020-11-10] MEDS: Apixaban 5 MG TABLET PO ×2 (10:28→20:10)
[2020-11-10] MEDS: Amiodarone HCL 200 MG TABLET PO (10:28)
[2020-11-10] MEDS: Cyanocobalamin (Vitamin B-12) 1,000 MCG TABLET 1000 MCG PO (10:28)
[2020-11-10] MEDS: polyethylene glycoL 3350 17 GM POWD.PACK PO (10:29)
[2020-11-10] MEDS: Cholecalciferol (Vitamin D3) 25 MCG TABLET PO (10:29)
[2020-11-10 11:00] VITALS: BP 169/80; PULSE 65; RESP 17; TEMP 36.6; O2SAT 100
[2020-11-10 15:00] VITALS: BP 163/79; PULSE 66; RESP 16; TEMP 36.8; O2SAT 100
[2020-11-10 19:00] VITALS: BP 169/82; PULSE 69; RESP 18; TEMP 36.4; O2SAT 98
[2020-11-10] MEDS: Sennosides 8.6 MG TABLET PO (20:10)
[2020-11-10] MEDS: Fluticasone Propionate Nasal 16 GM SPRAY 1 SPRAY NOSTRIL-B (20:10)
[2020-11-10] MEDS: oxyCODONE HCl Immed Release 5 MG TABLET PO (21:57)
[2020-11-10 23:00] VITALS: BP 141/68; PULSE 71; RESP 16; TEMP 36.6; O2SAT 100
[2020-11-11] VITALS (7 sets, daily range): BP systolic 119–163; BP diastolic 61–94; PULSE 66–70; RESP 16–18; TEMP 36–37.1; O2SAT 96–100
[2020-11-11] MEDS: Morphine Sulfate 2 MG/ML CARTRIDGE IVPUSH ×2 (00:34→21:57)
[2020-11-11] MEDS: Levothyroxine Sodium 150 MCG TABLET PO (06:28)
[2020-11-11] MEDS: Apixaban 5 MG TABLET PO ×2 (08:15→20:30)
[2020-11-11] MEDS: Cyanocobalamin (Vitamin B-12) 1,000 MCG TABLET 1000 MCG PO (08:15)
[2020-11-11] MEDS: Cholecalciferol (Vitamin D3) 25 MCG TABLET PO (08:15)
[2020-11-11] MEDS: oxyCODONE HCl Immed Release 5 MG TABLET PO ×3 (08:15→20:31)
[2020-11-11] MEDS: Docusate Sodium 100 MG CAPSULE PO (08:15)
[2020-11-11] MEDS: Amiodarone HCL 200 MG TABLET PO (08:15)
[2020-11-11] MEDS: Escitalopram Oxalate 10 MG TABLET PO (08:15)
[2020-11-11] MEDS: 0.9 % Sodium Chloride Flush 3 ML SYRINGE IVFLUSH ×3 (08:16→22:58)
[2020-11-11] MEDS: Fluticasone Propionate Nasal 16 GM SPRAY 1 SPRAY NOSTRIL-B ×2 (08:18→21:00)
--- NOTE | 2020-11-11 11:30 | HO.PM.IMPN ---
Subjective Subjective Date of Service: 11/11/20 Interval History: seen and examined this AM feeling well no constipation, moved hes bowels ROS General - no fevers or chills Cardiovascular - no chest pain Respiratory - no shortness of breath or cough Abdominal- no abdominal pain, nausea, vomiting, diarrhea; +constipatoin Physical Exam Vital Signs: Vital Signs: Last Vital Signs Temp 96.9 F 11/11/20 07:00 Pulse 66 11/11/20 08:15 Resp 18 11/11/20 07:00 BP 140/66 H 11/11/20 08:15 Pulse Ox 100 11/11/20 07:00 Body Mass Index 28.6 Const: Other: General - no acute distress, appears comfortable Cardiovascular - regular rate and rhythm, S1-S2 Lungs - normal respiratory effort, clear to auscultation bilaterally, no wheezing Abdomen - soft, nontender, no rebound or guarding Extremities - no edema bilaterally Neuro - awake and alert, no focal deficits Skin - RLE wound vac in place Objective Data Current Medications Generic Name Dose Route Start Last Admin Trade Name Danieq PRN Reason Stop Dose Admin Acetaminophen 650 mg 11/05/20 11:21 11/07/20 08:44 Acetaminophen 325 Mg Tablet PO 650 mg Q6H PRN Administration Pain, Mild (Pain Scale 1-3) Amiodarone HCl 200 mg 11/06/20 09:00 11/11/20 08:15 Amiodarone Hcl 200 Mg Tablet PO 200 mg DAILY LISANDRA Administration Apixaban 5 mg 11/06/20 21:00 11/11/20 08:15 Apixaban 5 Mg Tablet PO 5 mg BID LISANDRA Administration Bisacodyl 10 mg 11/05/20 16:02 Bisacodyl 10 Mg Supp.Rect MO Q3D PRN Constipation Calcium Carbonate 500 mg 11/05/20 21:00 11/11/20 08:15 Calcium Carbonate 500 Mg Tablet PO 500 mg BID LISANDRA Administration Cyanocobalamin 1,000 mcg 11/06/20 09:00 11/11/20 08:15 Cyanocobalamin (Vitamin B-12) 1,000 Mcg Tablet PO 1,000 mcg DAILY LISANDRA Administration Docusate Sodium 100 mg 11/06/20 09:00 11/11/20 08:15 Docusate Sodium 100 Mg Capsule PO 100 mg DAILY LISANDRA Administration Escitalopram Oxalate 10 mg 11/06/20 09:00 11/11/20 08:15 Escitalopram Oxalate 10 Mg Tablet PO 10 mg DAILY [facility] Administration Fluticasone Propionate 1 spray 11/05/20 21:00 11/11/20 08:18 Fluticasone Propionate Nasal 16 Gm [place] NOSTRIL-B 1 spray BID LISANDRA Administration Gabapentin 100 mg 11/05/20 21:00 11/11/20 08:14 Gabapentin 100 Mg Capsule PO Not Given BID LISANDRA Gabapentin 300 mg 11/06/20 14:00 11/10/20 13:13 Gabapentin 300 Mg Capsule PO Not Given DAILY@1400 [facility] Cefazolin Sodium 1 gm/ Sodium 50 mls @ 100 mls/hr 11/05/20 11:30 11/11/20 11:11 Chloride IV 100 mls/hr Q8H LISANDRA Administration Levothyroxine Sodium 150 mcg 11/06/20 06:30 11/11/20 06:28 Levothyroxine Sodium 150 Mcg Tablet PO 150 mcg DAILY@0630 [facility] Administration Magnesium Hydroxide 30 ml 11/05/20 16:02 Milk Of Magnesia 30 Ml Oral.Susp PO Q24H PRN Constipation Morphine Sulfate 2 mg 11/10/20 13:22 11/11/20 00:34 Morphine Sulfate 2 Mg/Ml Cartridge IVPUSH 2 mg Q4H PRN Administration Pain, Severe (Pain Scale 7-10) Oxycodone HCl 5 mg 11/10/20 13:21 11/11/20 08:15 Oxycodone Hcl Immed Release 5 Mg Tablet PO 5 mg Q4H PRN Administration Pain, Moderate (Pain Scale 4-6 Polyethylene Glycol 17 gm 11/06/20 09:00 11/11/20 08:15 Polyethylene Glycol 3350 17 Gm Powd.Pack PO Not Given DAILY [facility] Senna 8.6 mg 11/05/20 21:00 11/10/20 20:10 Sennosides 8.6 Mg Tablet PO 8.6 mg BEDTIME [facility] Administration Sodium Chloride 3 ml 11/05/20 16:00 11/11/20 08:16 0.9 % Sodium Chloride Flush 3 Ml Syringe IVFLUSH 3 ml QSHIFT [facility] Administration Vitamin D 25 mcg 11/06/20 09:00 11/11/20 08:15 Cholecalciferol (Vitamin D3) 25 Mcg Tablet PO 25 mcg DAILY [facility] Administration Labs CBC & Chem 7: 11/06/20 06:08 11/06/20 06:08 Assessment and Plan (1) Ulcer of right lower leg: Status: Acute Assessment and Plan: This is a an 85-year-old female with history of peripheral vascular disease and nonhealing right foot ulcer admitted for further management 1. R foot infected ulcer kefzol - can do keflex / doxy upon d/c cultures negative to date wound vac remainder of mgmt per vascular 2. Atrial fibrillation Continue amiodarone Eliquis 3. Mood Continue Celexa 4. anemia h/h at baseline 5. chronic pain on gabapendin home pain meds on hold while on IV narcotics continue bowel regimen 6. Hypothyroidism Continue Synthroid 7. constipation bowel regime DVT prophylaxis Eliquis will follow as needed
[2020-11-11] MEDS: Sennosides 8.6 MG TABLET PO (20:30)
[2020-11-12] VITALS (7 sets, daily range): BP systolic 139–159; BP diastolic 51–80; PULSE 66–71; RESP 16–20; TEMP 35.9–36.8; O2SAT 95–99
[2020-11-12] MEDS: Levothyroxine Sodium 150 MCG TABLET PO (06:09)
[2020-11-12] MEDS: Apixaban 5 MG TABLET PO ×2 (09:31→21:15)
[2020-11-12] MEDS: Cholecalciferol (Vitamin D3) 25 MCG TABLET PO (09:31)
[2020-11-12] MEDS: Cyanocobalamin (Vitamin B-12) 1,000 MCG TABLET 1000 MCG PO (09:32)
[2020-11-12] MEDS: oxyCODONE HCl Immed Release 5 MG TABLET PO ×3 (09:32→18:39)
[2020-11-12] MEDS: Escitalopram Oxalate 10 MG TABLET PO (09:32)
[2020-11-12] MEDS: Amiodarone HCL 200 MG TABLET PO (09:32)
[2020-11-12] MEDS: 0.9 % Sodium Chloride Flush 3 ML SYRINGE IVFLUSH ×3 (09:33→21:15)
[2020-11-12] MEDS: Fluticasone Propionate Nasal 16 GM SPRAY 1 SPRAY NOSTRIL-B ×2 (09:38→21:16)
--- NOTE | 2020-11-12 12:00 | P.PNIM_ITS ---
Subjective Subjective Date of Service: 11/12/20 Interval History: seen and examined this AM feels good ROS General - no fevers or chills Cardiovascular - no chest pain Respiratory - no shortness of breath or cough Abdominal- no abdominal pain, nausea, vomiting, diarrhea; +constipatoin Physical Exam Vital Signs: Vital Signs: Last Vital Signs Temp 96.8 F 11/12/20 11:37 Pulse 67 11/12/20 11:37 Resp 19 11/12/20 11:37 BP 155/70 H 11/12/20 11:37 Pulse Ox 96 11/12/20 11:37 Body Mass Index 28.6 Const: Other: General - no acute distress, appears comfortable Cardiovascular - regular rate and rhythm, S1-S2 Lungs - normal respiratory effort, clear to auscultation bilaterally, no wheezing Abdomen - soft, nontender, no rebound or guarding Extremities - no edema bilaterally Neuro - awake and alert, no focal deficits Skin - RLE wound vac in place Objective Data Current Medications Generic Name Dose Route Start Last Admin Trade Name Freq PRN Reason Stop Dose Admin Acetaminophen 650 mg 11/05/20 11:21 11/07/20 08:44 Acetaminophen 325 Mg Tablet PO 650 mg Q6H PRN Administration Pain, Mild (Pain Scale 1-3) Amiodarone HCl 200 mg 11/06/20 09:00 11/12/20 09:32 Amiodarone Hcl 200 Mg Tablet PO 200 mg DAILY LISANDRA Administration Apixaban 5 mg 11/06/20 21:00 11/12/20 09:31 Apixaban 5 Mg Tablet PO 5 mg BID LISANDRA Administration Bisacodyl 10 mg 11/05/20 16:02 Bisacodyl 10 Mg Supp.Rect [place] Q3D PRN Constipation Calcium Carbonate 500 mg 11/05/20 21:00 11/12/20 09:31 Calcium Carbonate 500 Mg Tablet PO 500 mg BID LISANDRA Administration Cyanocobalamin 1,000 mcg 11/06/20 09:00 11/12/20 09:32 Cyanocobalamin (Vitamin B-12) 1,000 Mcg Tablet PO 1,000 mcg DAILY LISANDRA Administration Docusate Sodium 100 mg 11/06/20 09:00 11/12/20 09:34 Docusate Sodium 100 Mg Capsule PO Not Given DAILY LISANDRA Escitalopram Oxalate 10 mg 11/06/20 09:00 11/12/20 09:32 Escitalopram Oxalate 10 Mg Tablet PO 10 mg DAILY [facility] Administration Fluticasone Propionate 1 spray 11/05/20 21:00 11/12/20 09:38 Fluticasone Propionate Nasal 16 Gm [place] NOSTRIL-B 1 spray BID LISANDRA Administration Gabapentin 100 mg 11/05/20 21:00 11/12/20 09:35 Gabapentin 100 Mg Capsule PO Not Given BID LISANDRA Gabapentin 300 mg 11/06/20 14:00 11/11/20 13:39 Gabapentin 300 Mg Capsule PO Not Given DAILY@1400 [facility] Levothyroxine Sodium 150 mcg 11/06/20 06:30 11/12/20 06:09 Levothyroxine Sodium 150 Mcg Tablet PO 150 mcg DAILY@0630 [facility] Administration Magnesium Hydroxide 30 ml 11/05/20 16:02 Milk Of Magnesia 30 Ml Oral.Susp PO Q24H PRN Constipation Morphine Sulfate 2 mg 11/10/20 13:22 11/11/20 21:57 Morphine Sulfate 2 Mg/Ml Cartridge IVPUSH 2 mg Q4H PRN Administration Pain, Severe (Pain Scale 7-10) Oxycodone HCl 5 mg 11/10/20 13:21 11/12/20 09:32 Oxycodone Hcl Immed Release 5 Mg Tablet PO 5 mg Q4H PRN Administration Pain, Moderate (Pain Scale 4-6 Polyethylene Glycol 17 gm 11/06/20 09:00 11/12/20 09:34 Polyethylene Glycol 3350 17 Gm Powd.Pack PO Not Given DAILY [facility] Senna 8.6 mg 11/05/20 21:00 11/11/20 20:30 Sennosides 8.6 Mg Tablet PO 8.6 mg BEDTIME [facility] Administration Sodium Chloride 3 ml 11/05/20 16:00 11/12/20 09:33 0.9 % Sodium Chloride Flush 3 Ml Syringe IVFLUSH 3 ml QSHIFT [facility] Administration Vitamin D 25 mcg 11/06/20 09:00 11/12/20 09:31 Cholecalciferol (Vitamin D3) 25 Mcg Tablet PO 25 mcg DAILY [facility] Administration Labs CBC & Chem 7: 11/06/20 06:08 11/06/20 06:08 Assessment and Plan (1) Ulcer of right lower leg: Status: Acute Assessment and Plan: This is a an 85-year-old female with history of peripheral vascular disease and nonhealing right foot ulcer admitted for further management 1. R foot infected ulcer can change to keflex/doxy for another 7-10d upon d/c cultures negative to date wound vac remainder of mgmt per vascular 2. Atrial fibrillation Continue amiodarone Eliquis 3. Mood Continue Celexa 4. anemia h/h at baseline 5. chronic pain on gabapendin home pain meds on hold while on IV narcotics continue bowel regimen 6. Hypothyroidism Continue Synthroid 7. constipation bowel regime DVT prophylaxis Eliquis medically stable, will sign off. please reconsult if needed. thank you.
--- NOTE | 2020-11-12 14:02 | MHC.CM.NN ---
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 patient is to have her wound dressing changed and anticipate remova of the wound vac per documentation , also plan is to tchange iv antibiotics to oral ., posible return back to [facility] today or tomorrow discharge garcía return to [facility] half-way faciltiy and to be transprted via [facility] when discharged
--- NOTE | 2020-11-12 15:34 | MHC.CLN ---
F/U 75-100% PO DIET RX: REGULAR-APPROPRIATE RECOMMEND RESTARTING JOHANN AND ENSURE TO SUPPORT WOUND HEALING FOLLOWING
--- NOTE | 2020-11-12 17:37 | HO.VASCPN ---
Subjective Subjective Date of Service: 11/12/20 Patient reports: no new complaints and feels better Interval history: Patient seen and examined. No events over the weekend. In general feels in good spirits. Pain very well controlled. No issues. Is eager to be transferred back to the rehab facility. Physical Exam Vital Signs: Vital Signs: Last Vital Signs Temp 97.3 F 11/12/20 15:58 Pulse 67 11/12/20 15:58 Resp 20 11/12/20 15:58 BP 139/61 11/12/20 15:58 Pulse Ox 99 11/12/20 15:58 Body Mass Index 28.6 Const: General: cooperative, healthy appearing and no acute distress Orientation/consciousness: oriented to person, oriented to place and oriented to time HENMT: Head: Yes normal to inspection Neck: Carotids: no bruits Chest: Chest palpation & inspection: normal inspection of the chest Resp: Effort & Inspection: normal respiratory effort and able to speak in complete sentences Auscultation: clear to auscultation bilaterally Cardio: Rate: regular rate Heart sounds: S1 normal heart sound present and S2 normal heart sound present GI: Inspection: Yes normal to inspection Skin: General skin exam: no rashes or lesions noted Wounds: wounds noted (Right heel wound VAC intact) Neuro: General: oriented to person, oriented to place, oriented to time and CN's II-XI intact bilaterally Extrem: General: Yes normal to inspection, Yes full ROM and Yes no clubbing, cyanosis or edema Psych: Appearance: grossly normal and well kempt Speech and movement: Normal speech and movement present Affect: normal affect Progress Note: A&P Assessment and plan (1) Ulcer of right lower leg: Status: Acute Assessment and Plan: Patient doing extremely well with wound VAC. Will plan for dressing change for tomorrow. If it appears to be doing relatively well will plan for transfer to rehab facility weather permitting. Continue antibiotics for now. We will reassess need tomorrow as we change dressing. Thank you to the hospitalist teams for their assistance in her care. Fall Risk Details Current Medications: Current Medications Generic Name Dose Route Start Last Admin Trade Name Freq PRN Reason Stop Dose Admin Acetaminophen 650 mg 11/05/20 11:21 11/07/20 08:44 Acetaminophen 325 Mg Tablet PO 650 mg Q6H PRN Administration Pain, Mild (Pain Scale 1-3) Amiodarone HCl 200 mg 11/06/20 09:00 11/12/20 09:32 Amiodarone Hcl 200 Mg Tablet PO 200 mg DAILY [facility] Administration Apixaban 5 mg 11/06/20 21:00 11/12/20 09:31 Apixaban 5 Mg Tablet PO 5 mg BID [facility] Administration Bisacodyl 10 mg 11/05/20 16:02 Bisacodyl 10 Mg Supp.Rect NE Q3D PRN Constipation Calcium Carbonate 500 mg 11/05/20 21:00 11/12/20 09:31 Calcium Carbonate 500 Mg Tablet PO 500 mg BID [facility] Administration Cyanocobalamin 1,000 mcg 11/06/20 09:00 11/12/20 09:32 Cyanocobalamin (Vitamin B-12) 1,000 Mcg Tablet PO 1,000 mcg DAILY [facility] Administration Docusate Sodium 100 mg 11/06/20 09:00 11/12/20 09:34 Docusate Sodium 100 Mg Capsule PO Not Given DAILY [facility] Escitalopram Oxalate 10 mg 11/06/20 09:00 11/12/20 09:32 Escitalopram Oxalate 10 Mg Tablet PO 10 mg DAILY [facility] Administration Fluticasone Propionate 1 spray 11/05/20 21:00 11/12/20 09:38 Fluticasone Propionate Nasal 16 Gm [place] NOSTRIL-B 1 spray BID [facility] Administration Gabapentin 100 mg 11/05/20 21:00 11/12/20 09:35 Gabapentin 100 Mg Capsule PO Not Given BID [facility] Gabapentin 300 mg 11/06/20 14:00 11/12/20 13:33 Gabapentin 300 Mg Capsule PO Not Given DAILY@1400 [facility] Levothyroxine Sodium 150 mcg 11/06/20 06:30 11/12/20 06:09 Levothyroxine Sodium 150 Mcg Tablet PO 150 mcg DAILY@0630 [facility] Administration Magnesium Hydroxide 30 ml 11/05/20 16:02 Milk Of Magnesia 30 Ml Oral.Susp PO Q24H PRN Constipation Morphine Sulfate 2 mg 11/10/20 13:22 11/11/20 21:57 Morphine Sulfate 2 Mg/Ml Cartridge IVPUSH 2 mg Q4H PRN Administration Pain, Severe (Pain Scale 7-10) Oxycodone HCl 5 mg 11/10/20 13:21 11/12/20 13:39 Oxycodone Hcl Immed Release 5 Mg Tablet PO 5 mg Q4H PRN Administration Pain, Moderate (Pain Scale 4-6 Polyethylene Glycol 17 gm 11/06/20 09:00 11/12/20 09:34 Polyethylene Glycol 3350 17 Gm Powd.Pack PO Not Given DAILY LISANDRA Senna 8.6 mg 11/05/20 21:00 11/11/20 20:30 Sennosides 8.6 Mg Tablet PO 8.6 mg BEDTIME LISANDRA Administration Sodium Chloride 3 ml 11/05/20 16:00 11/12/20 09:33 0.9 % Sodium Chloride Flush 3 Ml Syringe IVFLUSH 3 ml QSHIFT LISANDRA Administration Vitamin D 25 mcg 11/06/20 09:00 11/12/20 09:31 Cholecalciferol (Vitamin D3) 25 Mcg Tablet PO 25 mcg DAILY LISANDRA Administration Time Spent With Patient Time: Total time spent is greater than 50% in coordination of care (as documented) at patient's floor/unit and/or counseling patient: Time with patient: 15 - 24 minutes
[2020-11-12] MEDS: Gabapentin 100 MG CAPSULE PO (21:15)
[2020-11-12] MEDS: Sennosides 8.6 MG TABLET PO (21:15)
[2020-11-13 03:28] VITALS: BP 155/67; PULSE 67; RESP 18; TEMP 36.8; O2SAT 96
[2020-11-13] MEDS: Levothyroxine Sodium 150 MCG TABLET PO (05:37)
[2020-11-13 07:59] VITALS: BP 170/78; PULSE 69; RESP 18; TEMP 37.2; O2SAT 97
--- NOTE | 2020-11-13 10:04 | PM.DS ---
DS: Providers Provider Date of Service: 11/13/20 Date of admission: 11/05/20 11:19 Primary care physician: Unknown Physician Consults: 11/05/20 11:21 Consult to Hospitalist Routine Consulting Provider: Hospitalist Reason for consultation: med management DS: Diagnosis Discharge Diagnosis (1) Ulcer of right lower leg: Status: Acute DS: Medications Discharge Medications Home Medications: Home Medications Medication Instructions Recorded Confirmed bisacodyl [Dulcolax (bisacodyl)] 10 mg [place] Q3D PRN 07/11/20 11/05/20 calcium carbonate 600 mg PO BID 07/11/20 11/05/20 cholecalciferol (vitamin D3) 25 mcg PO DAILY 07/11/20 11/05/20 citalopram [Celexa] 20 mg PO DAILY 07/11/20 11/05/20 cyanocobalamin (vitamin B-12) 1,000 mcg PO DAILY 07/11/20 11/05/20 [Vitamin B-12] docusate sodium [Colace] 100 mg PO DAILY 07/11/20 11/05/20 gabapentin [Neurontin] 100 mg PO BID 07/11/20 11/05/20 gabapentin [Neurontin] 300 mg PO DAILY@1400 07/11/20 11/05/20 levothyroxine [Synthroid] 150 mcg PO DAILY@0630 07/11/20 11/05/20 polyethylene glycol 3350 [Miralax] 17 g PO DAILY 07/11/20 11/05/20 sennosides [senna] 8.6 mg PO BEDTIME 07/11/20 11/05/20 baclofen 10 mg tablet 5 mg PO BID 10/23/20 11/05/20 Fleet Enema 118 ml MA Q72H PRN 11/05/20 11/05/20 Iodosorb 1 ea TOPICAL DAILY 11/05/20 11/05/20 acetaminophen 650 mg PO Q6H PRN 11/05/20 11/05/20 apixaban 5 mg PO BID 11/05/20 11/05/20 fluticasone propionate 1 spray INTRANASAL BID 11/05/20 11/05/20 hydromorphone [Dilaudid] 4 mg PO DAILY PRN 11/05/20 11/05/20 hydromorphone [Dilaudid] 4 mg PO Q12H PRN 11/05/20 11/05/20 magnesium hydroxide [Milk of 30 ml PO Q24H PRN 11/05/20 11/05/20 Magnesia] Previous Rx's Medication Instructions Recorded amiodarone 200 mg PO DAILY #30 tab 07/14/20 DS: Summary Hospital Course Hospital Course: Patient underwent right lower extremity popliteal angioplasty on 11/05 as an elective outpatient. Upon admission it was noted that she had an odor and discharge on the right heel. She was admitted and subsequently started on antibiotics. She underwent local wound care. She was subsequently debrided in the operating room and had a wound VAC placed. She has done well relative to that. There was also concern regarding her pain. She had an orthopedic consult which only noted bursitis. 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 Right heel dressing was changed and wound VAC was removed. It was looking extremely clean and bleeding extremely well. She was stable for discharge. Time Spent with Patient Time attestation: Total time spent providing and/or coordinating discharge services: Discharge coordination time: Greater than 30 minutes Physical Exam Vital Signs: Vital Signs: Last Vital Signs Temp 98.9 F 11/13/20 07:59 Pulse 69 11/13/20 07:59 Resp 18 11/13/20 07:59 BP 170/78 H 11/13/20 07:59 Pulse Ox 97 11/13/20 07:59 Body Mass Index 28.6 Const: General: cooperative, healthy appearing and no acute distress Orientation/consciousness: oriented to person, oriented to place and oriented to time HENMT: Head: Yes normal to inspection Neck: Carotids: no bruits Chest: Chest palpation & inspection: normal inspection of the chest Resp: Effort & Inspection: normal respiratory effort and able to speak in complete sentences Auscultation: clear to auscultation bilaterally Cardio: Rate: regular rate Heart sounds: S1 normal heart sound present and S2 normal heart sound present GI: Inspection: Yes normal to inspection Skin: General skin exam: no rashes or lesions noted Wounds: wounds noted (Right heel, left heel, right pretibial) Neuro: General: oriented to person, oriented to place, oriented to time and CN's II-XI intact bilaterally Extrem: General: Yes normal to inspection, Yes full ROM and Yes no clubbing, cyanosis or edema Psych: Appearance: grossly normal and well kempt Speech and movement: Normal speech and movement present Affect: normal affect DS: Data Data Completed and Pending Completed studies during hospitalization [Text1]: Procedures Insertion of Infusion Device into Superior Vena Cava, Percutaneous Approach (07/05/20) Introduction of Vasopressor into Peripheral Vein, Percutaneous Approach (07/05/20) Performance of Urinary Filtration, Intermittent, Less than 6 Hours Per Day (07/05/20) Ultrasonography of Superior Vena Cava, Guidance (07/05/20) Labs on day of discharge: Laboratory Tests 11/05/20 11/05/20 11/05/20 07:54 07:54 07:54 WBC 5.2 RBC 3.43 L Hgb 8.7 L Hct 29.5 L MCV 86.0 MCH 25.4 L MCHC 29.5 L RDW 17.4 H Plt Count 315 MPV 10.3 Immature Gran % (Auto) 0.2 Neut % (Auto) 55.6 Lymph % (Auto) 31.0 [place] % (Auto) 9.4 Eos % (Auto) 3.4 Baso % (Auto) 0.4 Lymph # (Auto) 1.6 [place] # (Auto) 0.5 Eos # (Auto) 0.2 Baso # (Auto) 0.0 Abs Immat Gran (auto) 0.01 Absolute Neuts (auto) 2.9 Absolute Nucleated RBC 0.000 Nucleated RBC % (auto) 0.0 PT 16.5 H INR 1.4 H APTT 41.0 H Sodium 138 Potassium 4.3 Chloride 101 Carbon Dioxide 30 H Anion Gap 11 L BUN 19 H Creatinine 0.98 Estim Creat Clear Calc 46.4 Estimated GFR 54 Random Glucose 93 Calcium 8.4 COVID-19 ([facility]) COVID-19 Clin Com 11/05/20 11/06/20 11/06/20 12:51 06:08 06:08 WBC 5.5 RBC 3.26 L Hgb 8.2 L Hct 28.3 L MCV 86.8 MCH 25.2 L MCHC 29.0 L RDW 17.4 H Plt Count 262 MPV 10.3 Immature Gran % (Auto) 0.4 Neut % (Auto) 63.5 Lymph % (Auto) 22.8 [place] % (Auto) 9.4 Eos % (Auto) 3.4 Baso % (Auto) 0.5 Lymph # (Auto) 1.3 [place] # (Auto) 0.5 Eos # (Auto) 0.2 Baso # (Auto) 0.0 Abs Immat Gran (auto) 0.02 Absolute Neuts (auto) 3.5 Absolute Nucleated RBC 0.000 Nucleated RBC % (auto) 0.0 PT 13.7 H INR 1.2 H APTT Sodium Potassium Chloride Carbon Dioxide Anion Gap BUN Creatinine Estim Creat Clear Calc Estimated GFR Random Glucose Calcium COVID-19 ([facility]) Negative COVID-19 Clin Com See Note 11/06/20 06:08 WBC RBC Hgb Hct MCV MCH MCHC RDW Plt Count MPV Immature Gran % (Auto) Neut % (Auto) Lymph % (Auto) [place] % (Auto) Eos % (Auto) Baso % (Auto) Lymph # (Auto) [place] # (Auto) Eos # (Auto) Baso # (Auto) Abs Immat Gran (auto) Absolute Neuts (auto) Absolute Nucleated RBC Nucleated RBC % (auto) PT INR APTT Sodium 138 Potassium 3.6 Chloride 103 Carbon Dioxide 27 Anion Gap 12 BUN 21 H Creatinine 0.91 Estim Creat Clear Calc 50.0 Estimated GFR 59 Random Glucose 94 Calcium 8.3 L COVID-19 ([facility]) COVID-19 Clin Com Discharge Plan Discharge Patient Disposition: Xfer SNF Referrals: [facility] [Outside] - 1 Day (DISCHARGED TO [facility] WHERE PATIENT RESIDED TO BE TRANSFERRED VIA [facility] ) Physician,Unknown [Primary Care Provider] - Discharge Medications: Continued cyanocobalamin (vitamin B-12) [Vitamin B-12] 1,000 mcg Tablet 1,000 mcg PO DAILY RF: 0 citalopram [Celexa] 20 mg Tablet 20 mg PO DAILY RF: 0 bisacodyl [Dulcolax (bisacodyl)] 10 mg Suppository 10 mg MA Q3D PRN (Reason: Constipation) RF: 0 levothyroxine [Synthroid] 150 mcg Tablet 150 mcg PO DAILY@0630 RF: 0 docusate sodium [Colace] 100 mg Capsule 100 mg PO DAILY RF: 0 gabapentin [Neurontin] 300 mg Capsule 300 mg PO DAILY@1400 RF: 0 gabapentin [Neurontin] 100 mg Capsule 100 mg PO BID RF: 0 sennosides [senna] 8.6 mg Tablet 8.6 mg PO BEDTIME RF: 0 polyethylene glycol 3350 [Miralax] 17 gram Powder In Packet 17 g PO DAILY RF: 0 calcium carbonate 600 mg calcium (1,500 mg) Tablet 600 mg PO BID RF: 0 cholecalciferol (vitamin D3) 25 mcg (1,000 unit) Tablet 25 mcg PO DAILY RF: 0 amiodarone 200 mg Tablet 200 mg PO DAILY Qty: 30 RF: 0 Iodosorb 0.9 % Gel 1 ea TOPICAL DAILY RF: 0 fluticasone propionate 50 mcg/actuation [place],Suspension 1 spray INTRANASAL BID RF: 0 apixaban 5 mg Tablet 5 mg PO BID RF: 0 acetaminophen 325 mg Tablet 650 mg PO Q6H PRN (Reason: Pain (Scale Score 4-6)) RF: 0 hydromorphone [Dilaudid] 4 mg tablet 4 mg PO Q12H PRN (Reason: Pain (Scale Score 7-10)) RF: 0 magnesium hydroxide [Milk of Magnesia] 400 mg/5 mL Suspension 30 ml PO Q24H PRN (Reason: Constipation) RF: 0 Fleet Enema 19-7 gram/118 mL Enema 118 ml MA Q72H PRN (Reason: Constipation) RF: 0 hydromorphone [Dilaudid] 4 mg Tablet 4 mg PO DAILY PRN (Reason: wound MD visit) RF: 0 Discharge Orders: Discharge Order (Routine); Ordered 11/13/20 Ordered By: Michael Rosario Diet: regular diet Activity on Discharge: As tolerated Stand Alone Forms: Patient Portal Discharge page Activity Restrictions/Additional Instructions: 1.Please continue local wound care per Dr. Barajas 2.Wound care includes foam dressings to bilateral heel with Kerlix wrap right pretibial surface will need xeroform with Kerlix wrap this is to be changed daily. 3. Please obtain air loss mattress Care Plan Goals: Heal right leg ulcer Health Concerns: Peripheral vascular disease Plan of Treatment: Status post endovascular intervention, surveillance follow-up Local wound care per facility
[2020-11-13] MEDS: Cholecalciferol (Vitamin D3) 25 MCG TABLET PO (10:14)
[2020-11-13] MEDS: Escitalopram Oxalate 10 MG TABLET PO (10:14)
[2020-11-13] MEDS: Docusate Sodium 100 MG CAPSULE PO (10:14)
[2020-11-13 10:15] VITALS: BP 170/78; PULSE 69
[2020-11-13] MEDS: Amiodarone HCL 200 MG TABLET PO (10:15)
[2020-11-13] MEDS: polyethylene glycoL 3350 17 GM POWD.PACK PO (10:15)
[2020-11-13] MEDS: Apixaban 5 MG TABLET PO (10:15)
[2020-11-13] MEDS: Cyanocobalamin (Vitamin B-12) 1,000 MCG TABLET 1000 MCG PO (10:15)
[2020-11-13] MEDS: oxyCODONE HCl Immed Release 5 MG TABLET PO ×2 (10:21→14:11)
[2020-11-13] MEDS: 0.9 % Sodium Chloride Flush 3 ML SYRINGE IVFLUSH (10:22)
[2020-11-13] MEDS: Fluticasone Propionate Nasal 16 GM SPRAY 1 SPRAY NOSTRIL-B (10:22)
[2020-11-13 12:00] VITALS: BP 150/68; PULSE 65; RESP 18; TEMP 36.9; O2SAT 100
--- NOTE | 2020-11-13 12:20 | MHC.CM.PN ---
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 electronic medical record reviewed along with case discussed on multiple disciplinary rounds case discussed with staff nurse , on multiple disciplinary meeting, and vascuar patient dressing changed and wound vac removed , patient to be discharged back [facility] discharge plan [facility] 2pm via [facility] goi surgeon, informed patient of discharge and time and also call to her daughter terrell armos [phone] all paperwork completed and staff nurse and unti social secretary aware confirmation of transport time with liason at [facility] and [facility] updat imm given 11/12/20
--- NOTE | 2020-11-13 12:30 | HO.PM.IMPN ---
Subjective Subjective Date of Service: 11/13/20 Interval History: Seen in f/u for med consult, doing well and has no acute complaint ROS General - no fevers or chills Cardiovascular - no chest pain Respiratory - no shortness of breath or cough Abdominal- no abdominal pain, nausea, vomiting, diarrhea; +constipatoin Physical Exam Vital Signs: Vital Signs: Last Vital Signs Temp 98.4 F 11/13/20 12:00 Pulse 65 11/13/20 12:00 Resp 18 11/13/20 12:00 BP 150/68 H 11/13/20 12:00 Pulse Ox 100 11/13/20 12:00 Body Mass Index 28.6 Const: Other: General - no acute distress, appears comfortable Cardiovascular - regular rate and rhythm, S1-S2 Lungs - normal respiratory effort, clear to auscultation bilaterally, no wheezing Abdomen - soft, nontender, no rebound or guarding Extremities - no edema bilaterally Neuro - awake and alert, no focal deficits Skin - RLE wound vac in place Objective Data Current Medications Generic Name Dose Route Start Last Admin Trade Name Danieq PRN Reason Stop Dose Admin Acetaminophen 650 mg 11/05/20 11:21 11/07/20 08:44 Acetaminophen 325 Mg Tablet PO 650 mg Q6H PRN Administration Pain, Mild (Pain Scale 1-3) Amiodarone HCl 200 mg 11/06/20 09:00 11/13/20 10:15 Amiodarone Hcl 200 Mg Tablet PO 200 mg DAILY LISANDRA Administration Apixaban 5 mg 11/06/20 21:00 11/13/20 10:15 Apixaban 5 Mg Tablet PO 5 mg BID LISANDRA Administration Bisacodyl 10 mg 11/05/20 16:02 Bisacodyl 10 Mg Supp.Rect [place] Q3D PRN Constipation Calcium Carbonate 500 mg 11/05/20 21:00 11/13/20 10:14 Calcium Carbonate 500 Mg Tablet PO 500 mg BID LISANDRA Administration Cyanocobalamin 1,000 mcg 11/06/20 09:00 11/13/20 10:15 Cyanocobalamin (Vitamin B-12) 1,000 Mcg Tablet PO 1,000 mcg DAILY LISANDRA Administration Docusate Sodium 100 mg 11/06/20 09:00 11/13/20 10:14 Docusate Sodium 100 Mg Capsule PO 100 mg DAILY LISANDRA Administration Escitalopram Oxalate 10 mg 11/06/20 09:00 11/13/20 10:14 Escitalopram Oxalate 10 Mg Tablet PO 10 mg DAILY [facility] Administration Fluticasone Propionate 1 spray 11/05/20 21:00 11/13/20 10:22 Fluticasone Propionate Nasal 16 Gm [place] NOSTRIL-B 1 spray BID LISANDRA Administration Gabapentin 100 mg 11/05/20 21:00 11/13/20 10:15 Gabapentin 100 Mg Capsule PO Not Given BID [facility] Gabapentin 300 mg 11/06/20 14:00 11/12/20 13:33 Gabapentin 300 Mg Capsule PO Not Given DAILY@1400 [facility] Levothyroxine Sodium 150 mcg 11/06/20 06:30 11/13/20 05:37 Levothyroxine Sodium 150 Mcg Tablet PO 150 mcg DAILY@0630 [facility] Administration Magnesium Hydroxide 30 ml 11/05/20 16:02 Milk Of Magnesia 30 Ml Oral.Susp PO Q24H PRN Constipation Morphine Sulfate 2 mg 11/10/20 13:22 11/11/20 21:57 Morphine Sulfate 2 Mg/Ml Cartridge IVPUSH 2 mg Q4H PRN Administration Pain, Severe (Pain Scale 7-10) Oxycodone HCl 5 mg 11/10/20 13:21 11/13/20 10:21 Oxycodone Hcl Immed Release 5 Mg Tablet PO 5 mg Q4H PRN Administration Pain, Moderate (Pain Scale 4-6 Polyethylene Glycol 17 gm 11/06/20 09:00 11/13/20 10:15 Polyethylene Glycol 3350 17 Gm Powd.Pack PO 17 gm DAILY [facility] Administration Senna 8.6 mg 11/05/20 21:00 11/12/20 21:15 Sennosides 8.6 Mg Tablet PO 8.6 mg BEDTIME LISANDRA Administration Sodium Chloride 3 ml 11/05/20 16:00 11/13/20 10:22 0.9 % Sodium Chloride Flush 3 Ml Syringe IVFLUSH 3 ml QSHIFT [facility] Administration Vitamin D 25 mcg 11/06/20 09:00 11/13/20 10:14 Cholecalciferol (Vitamin D3) 25 Mcg Tablet PO 25 mcg DAILY [facility] Administration Labs CBC & Chem 7: 11/06/20 06:08 11/06/20 06:08 Assessment and Plan (1) Ulcer of right lower leg: Status: Acute Assessment and Plan: This is a an 85-year-old female with history of peripheral vascular disease and nonhealing right foot ulcer admitted for further management 1. R foot infected ulcer can change to PO Doxy and Keflex at dc cultures negative to date wound vac remainder of mgmt per vascular 2. Atrial fibrillation Continue amiodarone Eliquis 3. Mood Continue Celexa 4. anemia h/h at baseline 5. chronic pain on gabapendin home pain meds on hold while on IV narcotics continue bowel regimen 6. Hypothyroidism Continue Synthroid 7. constipation bowel regime DVT prophylaxis Eliquis medically stable, will sign off. please reconsult if needed. thank you.
[2020-11-13 13:22] LABS: COVID-19 Test Negative (Negative)
== END 2020-11-13 14:15 | disposition skilled nursing facility (03) | DRG 254 ==
LOC: HO.S3 11:48
PROVIDERS: Internal Medicine; Physician Assistant Medical; Admitting Provider Surgery Vascular Surgery; PCP Family Medicine; Visit Provider Surgery Vascular Surgery
PROC: 047M3Z1 Dilation of Right Popliteal Artery using Drug-Coated Balloon, Percutaneous Approach (ICD-10-PCS; principal; 2020-11-05 09:00)
PROC: 0KBV0ZZ Excision of Right Foot Muscle, Open Approach (ICD-10-PCS; principal; 2020-11-08 12:00)
DX: I70.234 Atherosclerosis of native arteries of right leg with ulceration of heel and midfoot (principal); L97.419 Non-pressure chronic ulcer of right heel and midfoot with unspecified severity; M70.71 Other bursitis of hip, right hip; D64.9 Anemia, unspecified; I48.0 Paroxysmal atrial fibrillation; K59.00 Constipation, unspecified; Z86.16 Personal history of COVID-19; E03.9 Hypothyroidism, unspecified; Z20.822 Contact with and (suspected) exposure to COVID-19; Z79.01 Long term (current) use of anticoagulants; Z79.890 Hormone replacement therapy; Z79.899 Other long term (current) drug therapy
CPT/HCPCS: 36415; 37224; 73502; 76942; 80048; 85025; 85027; 85610; 85730; 87635; 99152; 99153; C1725; C1760; C1769; C1887; C2623; J0690; J1100; J2250; J2270; J2405; J3010; Q9967

== ENCOUNTER → 2020-11-22 11:25 | Outpatient (BNVA) | payer MEDICARE, SELFPAY | PROVIDERS: PCP Family Medicine; Visit Provider Surgery Vascular Surgery | DX: I73.9 Peripheral vascular disease, unspecified (principal) | CPT/HCPCS: 99212 ==

== ENCOUNTER 2021-01-15 02:44 | Outpatient (REF) | payer SELFPAY ==
[2021-01-15 07:23] LABS: Hematocrit 34.7 % (37-47); Hemoglobin 10.2 g/dl (12.0-16.0); Mean Corpuscular HGB Conc 29.4 g/dl (31.0-35.0); Mean Corpuscular Hemoglobin 26.4 pg (27.0-33.0); Mean Corpuscular Volume 89.9 fL (80-98); Mean Platelet Volume 11.1 fL (9.4-12.3); Platelet Count 208 X10*3/uL (160-400); Red Blood Count 3.86 X10*6/uL (4.20-5.50); Red Cell Distribution Width 17.2 % (11.0-16.0); White Blood Count 4.7 X10*3/uL (4.8-10.8)
[2021-01-15 07:28] LABS: Anion Gap 10 (12-20); Blood Urea Nitrogen 37 mg/dL (9-16); Calcium 8.4 mg/dL (8.4-10.2); Carbon Dioxide 32 mmol/L (22-29); Chloride 104 mmol/L (96-108); Estimated Glomerular Filt Rate 55; Glucose Random 86 mg/dL (60-115); Potassium 4.3 mmol/L (3.3-5.1); Sodium 142 mmol/L (135-145)
== END 2021-01-15 02:45 | disposition home or self-care (01) ==
LOC: HO.MMNH3L 02:44
PROVIDERS: Visit Provider Family Medicine
DX: M62.511 Muscle wasting and atrophy, not elsewhere classified, right shoulder (principal); L03.115 Cellulitis of right lower limb; E87.1 Hypo-osmolality and hyponatremia
CPT/HCPCS: 36415; 80048; 85027

== ENCOUNTER 2021-02-12 12:22 | Outpatient (REF) | payer MEDICARE, SELFPAY ==
--- NOTE | ~2021-02-12 | US_ITS ---
EXAMINATION: COLOR-FLOW DUPLEX IMAGING OF THE BILATERAL LOWER EXTREMITY ARTERIAL SYSTEM. VELOCITY MEASUREMENTS THROUGHOUT THE FEMORAL ARTERIES WITH ANKLE-BRACHIAL PERIPHERAL ARTERIAL TESTING. CLINICAL INFORMATION: This is an 85-year-old female with history of right popliteal angioplasty. Peripheral arterial disease. Interventional Radiologist: Pranav Reaves M.D., F.S.I.R., F.A.C.R. RIGHT FEMORAL RUNOFF VELOCITIES: The right common femoral artery measures 187 cm/s and monophasic. The right profunda femoral artery is 187 cm/s and is biphasic. Right proximal superficial femoral artery measures 172 cm/s and monophasic. Mid superficial femoral artery is 168 cm/s and monophasic. Distal right superficial femoral artery measures 229 cm/s and is monophasic. Right popliteal velocity measures 103 cm/s and is monophasic. The posterior tibial artery velocity measures 20 cm/s and was monophasic. The right ankle-brachial index is 1.26. The systolic pressure was greater than 200 mmHg in the ankle. LEFT FEMORAL RUNOFF VELOCITIES: The left common femoral artery measures 130 cm/s and monophasic. The left profunda femoral artery is 136 cm/s and is monophasic. Left proximal superficial femoral artery measures 97 cm/s and biphasic. Mid superficial femoral artery is 167 cm/s and biphasic. Distal left superficial femoral artery measures 130 cm/s and is biphasic. Left popliteal velocity measures 130 cm/s and is biphasic. The posterior tibial artery velocity measures 153 cm/s and was biphasic. The left ankle-brachial index is 1.26. Arrhythmias were demonstrated during the examination on the duplex portion of the study. The systolic pressure was greater than 200 mmHg in the ankle. US/US KOFFI complete IMPRESSION: 1. Abnormal peripheral arterial testing 2. There is an elevated velocity in the distal right superficial femoral artery and likely a hemodynamically significant stenosis present. 3. The ankle-brachial indices are within normal limits but are unreliable likely due to elevated pressures and calcified vessels.
--- NOTE | ~2021-02-12 | US_ITS ---
EXAMINATION: COLOR-FLOW DUPLEX IMAGING OF THE BILATERAL LOWER EXTREMITY ARTERIAL SYSTEM. VELOCITY MEASUREMENTS THROUGHOUT THE FEMORAL ARTERIES WITH ANKLE-BRACHIAL PERIPHERAL ARTERIAL TESTING. CLINICAL INFORMATION: This is an 85-year-old female with history of right popliteal angioplasty. Peripheral arterial disease. Interventional Radiologist: Pranav Reaves M.D., F.S.I.R., F.A.C.R. RIGHT FEMORAL RUNOFF VELOCITIES: The right common femoral artery measures 187 cm/s and monophasic. The right profunda femoral artery is 187 cm/s and is biphasic. Right proximal superficial femoral artery measures 172 cm/s and monophasic. Mid superficial femoral artery is 168 cm/s and monophasic. Distal right superficial femoral artery measures 229 cm/s and is monophasic. Right popliteal velocity measures 103 cm/s and is monophasic. The posterior tibial artery velocity measures 20 cm/s and was monophasic. The right ankle-brachial index is 1.26. The systolic pressure was greater than 200 mmHg in the ankle. LEFT FEMORAL RUNOFF VELOCITIES: The left common femoral artery measures 130 cm/s and monophasic. The left profunda femoral artery is 136 cm/s and is monophasic. Left proximal superficial femoral artery measures 97 cm/s and biphasic. Mid superficial femoral artery is 167 cm/s and biphasic. Distal left superficial femoral artery measures 130 cm/s and is biphasic. Left popliteal velocity measures 130 cm/s and is biphasic. The posterior tibial artery velocity measures 153 cm/s and was biphasic. The left ankle-brachial index is 1.26. Arrhythmias were demonstrated during the examination on the duplex portion of the study. The systolic pressure was greater than 200 mmHg in the ankle. US/US arterial duplex LE BI IMPRESSION: 1. Abnormal peripheral arterial testing 2. There is an elevated velocity in the distal right superficial femoral artery and likely a hemodynamically significant stenosis present. 3. The ankle-brachial indices are within normal limits but are unreliable likely due to elevated pressures and calcified vessels.
== END 2021-02-12 12:23 | disposition home or self-care (01) ==
LOC: HO.US 12:22
PROVIDERS: Visit Provider Surgery Vascular Surgery
DX: I70.213 Atherosclerosis of native arteries of extremities with intermittent claudication, bilateral legs (principal); Z98.62 Peripheral vascular angioplasty status
CPT/HCPCS: 93923; 93925

== ENCOUNTER → 2021-02-19 13:14 | Outpatient (BNVA) | payer MEDICARE, SELFPAY | PROVIDERS: PCP Family Medicine; Visit Provider Surgery Vascular Surgery | DX: I73.9 Peripheral vascular disease, unspecified (principal) | CPT/HCPCS: 99212 ==

== ENCOUNTER → 2021-03-12 13:28 | Outpatient (BNVA) | payer MEDICARE, SELFPAY | PROVIDERS: PCP Family Medicine; Visit Provider Surgery Vascular Surgery | DX: I73.9 Peripheral vascular disease, unspecified (principal) | CPT/HCPCS: 99212 ==

== ENCOUNTER → 2021-07-09 09:27 | Outpatient (BNVA) | payer MEDICARE, SELFPAY | PROVIDERS: PCP Family Medicine; Visit Provider Surgery Vascular Surgery | DX: I73.9 Peripheral vascular disease, unspecified (principal) | CPT/HCPCS: 99212 ==

== ENCOUNTER 2021-10-08 10:19 | Outpatient (REF) | payer MEDICARE, SELFPAY ==
--- NOTE | ~2021-10-08 | US_ITS ---
EXAMINATION: NONINVASIVE ASSESSMENT OF THE ARTERIES OF BOTH LOWER EXTREMITIES WITH ANKLE PRESSURE MEASUREMENTS, ANKLE BRACHIAL INDICES, PVR MEASUREMENTS AND BILATERAL LOWER EXTREMITY DUPLEX. CLINICAL INFORMATION: Peripheral arterial disease. Post right popliteal artery angioplasty on 11/05/2020. TECHNIQUE: Ankle pressure measurements, ankle brachial indices and PVR tracings were obtained of the lower extremity arterial system bilaterally. In addition, duplex Doppler techniques with wave form analysis and measurement of velocities in the common femoral, profunda femoral, superficial femoral, popliteal and tibial arteries was performed. The study was performed only at rest. COMPARISON: None. FINDINGS: NONINVASIVE ASSESSMENT OF THE ARTERIES OF BOTH LOWER EXTREMITIES WITH ABIs: RIGHT LEG: Ankle-brachial index: 0.89 (unreliable and likely artificially elevated due to vessel noncompressibility). Right ankle pressures: 200 mmHg PVR (ankle): Normal amplitude, loss of dicrotic notch. LEFT LEG: Ankle-brachial index: 0.89 Pressures: PT 200 mmHg DP 200 mmHg PVR (ankle): Normal amplitude, loss of dicrotic notch. KOFFI Reference: - >0.97-1.25 = normal - no significant arterial disease - 0.75-0.96 = mild peripheral arterial disease - 0.5-0.74 = moderate peripheral arterial disease - <0.50 = severe peripheral arterial disease BILATERAL LOWER EXTREMITY DUPLEX ULTRASOUND: RIGHT LEG: Common femoral artery: 195 cm/s, Diastolic flow reversal: No Profunda femoris artery: 194 cm/s, Diastolic flow reversal: No Superficial femoral artery (proximal): 337 cm/s, Diastolic flow reversal: No Superficial femoral artery (mid): 220 cm/s, Diastolic flow reversal: No Superficial femoral artery (distal): 220 cm/s, Diastolic flow reversal: No Popliteal artery: 82 cm/s, Diastolic flow reversal: No Posterior tibial artery: Not visualized. LEFT LEG: Common femoral artery: 129 cm/s, Diastolic flow reversal: Yes Profunda femoris artery: 103 cm/s, Diastolic flow reversal: No Superficial femoral artery (proximal): 96 cm/s, Diastolic flow reversal: No Superficial femoral artery (mid): 82 cm/s, Diastolic flow reversal: Yes Superficial femoral artery (distal): 117 cm/s, Diastolic flow reversal: Yes Popliteal artery: 90 cm/s, Diastolic flow reversal: Yes Posterior tibial artery: 99 cm/s, Diastolic flow reversal: No US/US arterial duplex LE BI IMPRESSION: RIGHT LEG: KOFFI 0.89 though likely artificially elevated due to vessel noncompressibility. Moderate, hemodynamically significant stenosis of the right SFA. LEFT LEG: KOFFI 0.89 though likely artificially elevated due to vessel noncompressibility. Duplex evaluation reveals no hemodynamically significant outflow stenosis.
== END 2021-10-08 10:20 | disposition home or self-care (01) ==
LOC: HO.US 10:19
PROVIDERS: PCP Family Medicine; Visit Provider Surgery Vascular Surgery
DX: I73.9 Peripheral vascular disease, unspecified (principal)
CPT/HCPCS: 93923; 93925

== ENCOUNTER → 2021-10-15 09:55 | Outpatient (BNVA) | payer MEDICARE, SELFPAY | PROVIDERS: PCP Family Medicine; Visit Provider Surgery Vascular Surgery | DX: I73.9 Peripheral vascular disease, unspecified (principal) | CPT/HCPCS: 99212 ==

== ENCOUNTER → 2024-09-01 10:46 | Outpatient (REF) | payer MEDICARE, SELFPAY ==
--- NOTE | 2024-09-01 10:52 | CA_ITS ---
Transthoracic Echocardiogram Patient (Last, First, Middle): Niru Baird M Gender: Female Date of : 1935 Age: 89 Procedure Date: 09/01/2024 Procedure Type: Transthoracic Echocardiogram Location: OP Height: 172.72 cm Weight: 90.72 kg BSA: 2.04 m2 Heart Rate: 56 bpm BP: 140 / 60 mmHg Cutter Apprentice Hand: SB Referring MD: Kalina Colon MD Nerve Specialist: Tien Tubbs MD Symptoms: R06.00 DYSPNEA SOB AT REST NEW ONSET PAROXYXMAL NOCTURNAL DYSPNEA Study Quality: Fair ECG Rhythm: Bradycardia Conclusions: - 1. Normal LV ejection fraction of 60 65% with grade 2 diastolic dysfunction 2. Moderately dilated left atrium 3. Calcific aortic and mitral valve changes noted with normal cardiac valvular Dopplers 4. RV systolic pressure could not be accurately determine due to indeterminate right atrial pressures 5. Upper limits of normal ascending aortic size Findings Left Ventricle Normal left ventricular size and systolic function. There is mildly increased left ventricular wall thickness. The visually estimated ejection fraction is between 65-70%. Spectral Doppler is indicative of a pseudonormal filling pattern. Elevated left atrial and left ventricular end-diastolic pressures. E/E prime ratio is >15, consistent with elevated filling pressures. Evidence suggests grade II (moderate) diastolic dysfunction. Right Ventricle Normal right ventricular cavity size and systolic function. Atria The left atrium is moderately dilated. Interatrial shunt cannot be excluded. The right atrium was not well visualized. Aortic Valve There is mild calcification of the aortic valve. There is no aortic valve stenosis. There is no aortic valve regurgitation. Mitral Valve There is mild anterior and posterior mitral leaflet thickening. There is mild mitral annular calcification. There is trace mitral valve regurgitation. There is no mitral valve stenosis. Pulmonic Valve The pulmonic valve is likely normal. There is trace to mild pulmonic valve regurgitation. Tricuspid Valve Likely normal tricuspid valve structure and function. There is mild tricuspid valve regurgitation. Indeterminate right atrial pressure. Great Vessels The pulmonary artery was not well visualized. Small plaque is seen in the sino tubular ridge. Venous The inferior vena cava was not well visualized. Pericardium/Pleural The pericardium was not well visualized. Prior Study Comparison No prior study available for comparison. Measurements 2D Linear Measurements IVSd: 1.27 0.6-0.9/0.6-1.0 cm LVIDd: 4.82 3.9-5.3/4.2-5.9 cm LVIDd Index: 2.36 2.4-3.2/2.2-3.1 cm/m2 LVIDs: 3.40 2.0-3.6 cm LVPWd: 1.07 0.7-1.1 cm LA Diam: 3.90 2.7-3.8/3.0-4.0 cm LAIDs Index: 1.91 1.5-2.3 cm/m2 LV Mass: 265.28 67-162/88-224 g LV Mass Index: 130.04 43-95/49-115 g/m2 LVOT Diam: 2.30 3.0+(-)1.3 cm 2D Systolic Function EF 4C: 63.30 >55% EF 2C: 68.10 >55% EF BiP: 67.20 >55% Mitral Valve MV Pk E: 0.96 MV PK A: 0.86 MV Decel Time: 180.00 E/A: 1.10 E'Lateral: 4.87 E'Medial: 3.44 E/E' Med: 28.00 E/E' Lat: 19.80 PHT: 53.00 MVA PHT: 4.15 Decel [place]: 5.37 Aortic Valve AoV Pk [place]: 1.28 AoV Pk Grad: 7.00 TATY: 2.83 LVOT LVOT Pk [place]: 0.90 LVOT Mn [place]: 0.64 LVOT VTI: 0.23 LVOT Pk Grad: 3.00 LVOT Mn Grad: 2.00 LVOT Diam: 2.30 LVOT Area: 4.15 Diastolic Function MV Pk E: 0.96 MV Pk A: 0.86 E/A: 1.10 E'Medial: 3.44 E/E' Med: 28.00 E' Laterial: 4.87 E/E' Lat: 19.80 Right Ventricle TAPSE (mm): 19.30 TVS' Maldonado: 12.10 Tricuspid Valve TR Pk [place]: 3.20 TR Pk Grad: 41.00 RA Press: 8.00 Great Vessels Aorta Sinus of Valsalva: 3.30 2.0-3.5 cm Ao Asc: 3.60 2.1-3.4 cm Pulmonary Valve PV Pk Maldonado: 1.01 Peak PV Grad: 4.00 Updated in Other Vendor System with Status of Final Tien Tubbs MD electronically signed on 09/02/2024 3:45:17 PM with status of Final
== END ==
LOC: HO.CARD 10:46
PROVIDERS: PCP Family Medicine; Visit Provider Family Medicine
DX: R06.00 Dyspnea, unspecified (principal)
CPT/HCPCS: 93306

== ENCOUNTER → 2024-09-01 10:52 | Outpatient (BNV) | payer MEDICARE, SELFPAY | PROVIDERS: PCP Family Medicine; Visit Provider Internal Medicine Cardiovascular Disease | DX: I36.1 Nonrheumatic tricuspid (valve) insufficiency (principal); I37.1 Nonrheumatic pulmonary valve insufficiency; I34.81 Nonrheumatic mitral (valve) annulus calcification; I35.8 Other nonrheumatic aortic valve disorders | CPT/HCPCS: 93306 ==

== ENCOUNTER 2024-11-01 10:10 | Outpatient (RCR) | payer MEDICARE, SELFPAY | END 2024-12-05 13:42 | disposition other institution (70) | LOC: HO.WCC 10:10 | PROVIDERS: PCP Family Medicine; Visit Provider Surgery | DX: I87.331 Chronic venous hypertension (idiopathic) with ulcer and inflammation of right lower extremity (principal); L89.613 Pressure ulcer of right heel, stage 3; L12.0 Bullous pemphigoid; I10 Essential (primary) hypertension; G62.9 Polyneuropathy, unspecified; Z79.01 Long term (current) use of anticoagulants; Z79.2 Long term (current) use of antibiotics; Z79.52 Long term (current) use of systemic steroids; Z79.899 Other long term (current) drug therapy; Z99.3 Dependence on wheelchair | CPT/HCPCS: 97597; 99213 ==

== ENCOUNTER 2024-12-04 13:04 | Inpatient (IN) | payer MEDICARE, SELFPAY ==
--- NOTE | ~2024-12-04 | XR_ITS ---
CLINICAL HISTORY: SOB 1 view chest x-ray Comparison: CR - CHEST 1 VIEW - 07/05/20 23:45 EDT Findings: Moderate patchy airspace opacity within the right upper lung, right lower lung, and left mid lung. Normal size heart. No acute fracture. Periarticular osteophyte formation at the acromioclavicular and glenohumeral joints, indicating osteoarthritis. IMPRESSION: 1. Multifocal bilateral pneumonia. Continued plain film follow-up is recommended to ensure resolution, and to exclude underlying neoplasm. This document has been electronically signed by: Adele Vicente MD on 12/04/2024 14:13:19
--- NOTE | ~2024-12-04 | US_ITS ---
CLINICAL HISTORY: edema right arm Right upper extremity duplex venous Doppler Comparison: None Technique: Grayscale/color and duplex doppler sonographic evaluation of the venous system within right upper extremity. Findings: Right upper extremity Internal jugular vein: Patent Subclavian vein: Patent Axillary vein: Patent Brachial, basilic and cephalic veins: Patent. There is a IV within the right cephalic vein Ulnar and radial veins: Ulnar veins were not seen. Radial vein is patent Soft tissues: No focal abnormality Impression: 1. Negative for right upper extremity occlusive thrombus. 2. No soft tissue abnormalities. This document has been electronically signed by: Antwon Cruz MD on 12/06/2024 11:14:08
[2024-12-04 13:12] VITALS: BP 180/86; BP 197/70; PULSE 57; PULSE 60; RESP 20; O2SAT 96; O2SAT 98; BMI 38.4
[2024-12-04] MEDS: Oxymetazoline HCl 0.05 % Nasal 15 ML SPRAY 2 SPRAY NOSTRIL-B (13:21)
[2024-12-04] MEDS: Silver Nitrate Applicator STICK..EA. 1 APPL TOPICAL (13:21)
--- NOTE | 2024-12-04 13:37 | ED_ITS ---
History of Present Illness General Chief Complaint: Epistaxis Stated Complaint: NOSEBLEED X1HR,+THINNERS,COUGH,BP 180/78 PER EMS Time Seen by Provider: 12/04/24 13:15 Source: patient and EMS Mode of arrival: EMS Limitations: no limitations History of Present Illness HPI Narrative: 89-year-old female on Eliquis presented for evaluation of right nostril epistaxis started about 1 hour ago, patient declined any trauma or injury to nose, no prior episode of epistaxis in the past. Patient was complaining of shortness of breath since last night that is more with exertion, +cough with clear sputum. Patient normally lives home by herself. Related Data Home Medications ?Medication ?Instructions ?Recorded ?Confirmed cyanocobalamin (vitamin B-12) 1,000 mcg PO DAILY 07/11/20 12/04/24 1,000 mcg tablet (Vitamin B-12) docusate sodium 100 mg capsule 100 mg PO DAILY PRN Constipation 07/11/20 12/04/24 (Colace) apixaban 5 mg tablet 5 mg PO BID 11/05/20 12/04/24 carvedilol 3.125 mg tablet 3.125 mg PO BID blood pressure 12/04/24 12/04/24 doxycycline hyclate 100 mg tablet 100 mg PO BIDWM 12/04/24 12/04/24 furosemide 20 mg tablet 20 mg PO DAILY 12/04/24 12/04/24 levothyroxine 175 mcg tablet 175 mcg PO DAILY@0600 12/04/24 12/04/24 olmesartan 40 mg tablet 40 mg PO DAILY blood pressure 12/04/24 12/04/24 prednisone 5 mg tablet 12.5 mg PO Q2D 12/04/24 12/04/24 verapamil 120 mg tablet,extended 120 mg PO DAILY 12/04/24 12/04/24 release Previous Rx's ?Medication ?Instructions ?Recorded amiodarone 200 mg tablet 200 mg PO DAILY #30 tabs 07/14/20 Allergies Allergy/AdvReac Type Severity Reaction Status Date / Time No Known Allergies Allergy Unverified 12/04/24 13:17 Review of Systems 2 Review of Systems: All other systems are reviewed and are negative Constitutional: Reports as per HPI and Reports no additional constitutional complaints Eyes: Reports as per HPI and Reports no additional eye complaints Reports system reviewed and no additional complaints, except as documented Cardiovascular: Reports as per HPI and Reports no additional cardiovascular complaints Respiratory: Reports as per HPI and Reports no additional respiratory complaints Gastrointestinal: Reports as per HPI and Reports no additional gastrointestinal complaints Genitourinary: Reports no additional female genitourinary complaints Musculoskeletal: Reports no additional musculoskeletal complaints Skin/Breast: Reports system reviewed and no additional complaints, except as docu Psychiatric: Reports no additional psychiatric complaints Endocrine: Reports no additional endocrine complaints Hematologic/Lymphatic: Reports no additional hematologic/lymphatic complaints Allergic/Immunologic: Reports no additional allergic/immunologic complaints Reports system reviewed and no additional complaints, except as documented and Reports Abnormal speech present [facility] Past Medical History Medical History Hypothyroidism Spinal cord tumor Chronic indwelling Velez catheter Frequent falls UTI (urinary tract infection) Muscular atrophy Kidney failure Paroxysmal atrial fibrillation PVD (peripheral vascular disease) Surgical History History of hysterectomy History of appendectomy Social History Social History Household Members: None Housing: House Do you presently have visiting nurse or other home services: Yes Comment: Pt. sleeping Patient Tobacco Use Status: Never used Tobacco Advance Directives Date on File: 10/14/03 service: No Physical Exam 2 Vital Signs: Vital Signs: Last Vital Signs Temp 98.0 F 12/05/24 19:04 Pulse 66 12/05/24 19:04 Resp 15 12/05/24 19:04 BP 150/62 H 12/05/24 19:04 Pulse Ox 98 12/05/24 19:04 O2 Del Method Room Air 12/05/24 19:04 BMI result Body Mass Index 38.4 Vital signs have been reviewed and appear to be correct. Blood pressure elevated. Heart rate normal. Respiratory rate normal. Temperature normal. Oxygen saturation normal. Appearance: Alert. Oriented X3. No acute distress. Head: Normal external exam. Normocephalic. Atraumatic. No Sanchez signs noted. No raccoon eyes noted Eyes: PERRLA. EOMI. Conjunctiva and sclera normal. Eyelids normal. ENT: Right nostril bleed, thought to be anterior bleed attempt to cauterize with silver nitrate, Afrin, then anterior packing of the right nostril, TM's Normal. Pharynx normal. Uvula midline. Moist mucous membranes. No trismus noted. No drooling noted. No muffled voice noted. Neck: Normal inspection. Neck supple. FROM. No adenopathy. Thyroid Normal. No meningeal signs. No neck mass noted. CVS: Normal heart rate and rhythm. Heart sound normal. No murmurs noted. Pulses normal throughout. Respiratory: No respiratory distress. Painless inspiration. Breath sounds normal. No wheezes/rales/rhonchi noted. Chest nontender. No accessory muscle usage noted or decreased air movement noted. Abdomen: Soft and nontender. Bowel sounds normal in all 4 quadrants. No distention noted. No organomegaly noted. No visible injury noted. Back: No CVA tenderness. Full range of motion noted. Skin: Skin warm and dry. Normal skin color. Normal skin turgor. No rashes/lesions/lacerations noted. Extremities: No lower extremity edema. Extremities exhibit normal range of motion. Extremities nontender. Neuro: Oriented X 3. Cranial nerve exam: II-XII are grossly intact No motor deficit. No sensory deficit. Reflexes normal. Course Reevaluation(s) Reevaluation #1: Right nostril bleeding, s/p anterior packing no active bleeding now. Multilobar pneumonia with no sepsis will treat with ceftriaxone/doxycycline. Will admit. Time: 14:55 Medications Administered Generic Name Dose Route Start Last Admin Trade Name Freq PRN Reason Stop Dose Admin Acetaminophen 650 mg 12/04/24 15:36 12/05/24 04:20 Acetaminophen 325 Mg Tablet PO 650 mg Q6H PRN Administration Pain, Mild 1-3,fever,headache Amiodarone HCl 200 mg 12/05/24 09:00 12/05/24 08:55 Amiodarone Hcl 200 Mg Tablet PO 200 mg DAILY LISANDRA Administration Carvedilol 3.125 mg 12/04/24 21:00 12/05/24 08:55 Carvedilol 3.125 Mg Tablet PO 3.125 mg BID LISANDRA Administration Protocol Ceftriaxone Sodium 1 gm 12/05/24 15:00 12/05/24 16:02 Ceftriaxone Sodium 1 Gm Vial IVPUSH 1 gm Q24H LISANDRA Administration Cyanocobalamin 1,000 mcg 12/05/24 09:00 12/05/24 08:55 Cyanocobalamin (Vitamin B-12) 1,000 Mcg Tablet PO 1,000 mcg DAILY LISANDRA Administration Furosemide 40 mg 12/04/24 15:45 12/05/24 08:54 Furosemide 40 Mg/4 Ml Vial IVPUSH 40 mg DAILY LISANDRA Administration Protocol Doxycycline Hyclate 100 mg/ 250 mls @ 166.67 mls/hr 12/05/24 04:00 12/05/24 16:02 Sodium Chloride IV 166.67 mls/hr Q12H LISANDRA Administration Levothyroxine Sodium 175 mcg 12/05/24 06:00 12/05/24 08:02 Levothyroxine Sodium 175 Mcg Tablet PO Not Given DAILY@0600 LISANDRA Oxycodone HCl 2.5 mg 12/04/24 21:47 12/04/24 22:24 Oxycodone Hcl Immed Release 5 Mg Tablet PO 2.5 mg Q4H PRN Administration Pain, Severe (Pain Scale 7-10) Prednisone 12.5 mg 12/05/24 09:00 12/05/24 10:25 Prednisone 5 Mg Tablet PO 12.5 mg Q2D LISANDRA Administration Sodium Chloride 3 ml 12/04/24 16:00 12/05/24 16:16 0.9 % Sodium Chloride Flush 3 Ml Syringe IVFLUSH 3 ml QSHIFT [facility] Administration Valsartan 160 mg 12/05/24 09:00 12/05/24 10:25 Valsartan 160 Mg Tablet PO 160 mg DAILY LISANDRA Administration Verapamil HCl 120 mg 12/05/24 09:00 12/05/24 10:25 Verapamil Hcl Sr 120 Mg Tablet.Er PO 120 mg DAILY LISANDRA Administration Protocol Discontinued Medications Generic Name Dose Route Start Last Admin Trade Name Freq PRN Reason Stop Dose Admin Ceftriaxone Sodium 1 gm 12/04/24 14:36 12/04/24 15:17 Ceftriaxone Sodium 1 Gm Vial IVPUSH 12/04/24 14:37 1 gm ONCE ONE Administration Hydralazine HCl 5 mg 12/05/24 01:26 12/05/24 01:47 Hydralazine Hcl 20 Mg/Ml Vial IVPUSH 12/05/24 01:27 5 mg ONCE ONE Administration Protocol Acetaminophen 1,000 mg in 100 mls @ 400 mls/hr 12/04/24 13:43 12/04/24 14:02 Ofirmev IV 12/04/24 13:57 Infused ONCE ONE Infusion Doxycycline Hyclate 100 mg/ 250 mls @ 166.67 mls/hr 12/04/24 14:36 12/04/24 16:48 Sodium Chloride IV 12/04/24 16:05 Infused ONCE ONE Infusion Oxymetazoline HCl 2 spray 12/04/24 13:19 12/04/24 13:21 Oxymetazoline Hcl 0.05 % Nasal 15 Ml [place] NOSTRIL-B 12/04/24 13:20 2 spray ONCE ONE Administration Silver Nitrate 1 appl 12/04/24 13:18 12/04/24 13:21 Silver Nitrate Applicator Stick..Ea. TOPICAL 12/04/24 13:19 1 appl ONCE ONE Administration Medical Decision Making Differential Diagnosis Differential Diagnoses: The differential diagnosis associated with the presentation includes (Coagulopathy, severe anemia, CHF, ACS, electrolyte derangement.) Admission/Observation Consideration of admission/observation: Escalation of care including admission/observation considered Consult Healthcare Provider Management of the patient was discussed with: Hospitalist (PA. Beasley) Lab Data MDM Lab Attestation statement: I reviewed the patient's lab results. 12/05/24 05:18 12/05/24 05:18 Labs: Lab Results 12/04/24 12/04/24 12/04/24 Range/Units 13:36 13:39 15:15 WBC 10.8 (4.8-10.8) X10*3/uL RBC 3.40 L (4.20-5.50) X10*6/uL Hgb 9.6 L (12.0-16.0) g/dl Hct 31.1 L (37.0-47.0) % MCV 91.5 (80.0-98.0) fL MCH 28.2 (27.0-33.0) pg MCHC 30.9 L (31.0-35.0) g/dl RDW 15.5 (11.0-16.0) % Plt Count 248 (160-400) X10*3/uL MPV 10.1 (9.4-12.3) fL Immature Gran % (Auto) 0.9 H (0.0-0.4) % Neut % (Auto) 73.4 H (45-73) % Lymph % (Auto) 14.1 L (20-40) % Barron % (Auto) 9.9 (2-11) % Eos % (Auto) 1.5 (0-4) % Baso % (Auto) 0.2 (0-2) % Lymph # (Auto) 1.5 (1.2-4.9) X10*3/uL Barron # (Auto) 1.1 (0.1-1.2) X10*3/uL Eos # (Auto) 0.2 (0.0-0.4) X10*3/uL Baso # (Auto) 0.0 (0.0-0.2) X10*3/uL Abs Immat Gran (auto) 0.10 H (0.00-0.03) X10*3/uL Absolute Neuts (auto) 7.9 (2.0-8.3) x10*3/uL Absolute Nucleated RBC 0.000 (0.0-0.012) X10*3/uL Nucleated RBC % (auto) 0.0 (0.0-0.2) /100WBC PT 17.8 H (10.9-12.4) SEC INR 1.5 H (0.9-1.1) Sodium 141 (135-145) mmol/L Potassium 3.8 (3.3-5.1) mmol/L Chloride 102 (96-108) mmol/L Carbon Dioxide 30 H (22-29) mmol/L Anion Gap 13 (12-20) BUN 19 H (9-16) mg/dL Creatinine 1.08 (0.5-1.4) mg/dL Estim Creat Clear Calc 43.9 Estimated GFR 48 Random Glucose 96 (60-115) mg/dL Lactic Acid 0.9 (0.5-2.0) mmol/L Calcium 8.2 L (8.4-10.2) mg/dL Troponin I High Sens 14.2 (<3.5-17.0) ng/L B-Natriuretic Peptide 975 H (<100) pg/mL Procalcitonin 0.03 ng/mL Influenza Type A (PCR) NEGATIVE (Negative) Influenza Type B (PCR) NEGATIVE (Negative) RSV RNA Qual (PCR) NEGATIVE (Negative) SARS-CoV-2 RNA (RT-PCR) NEGATIVE (Negative) Blood Type O Negative Antibody Screen NEGATIVE Independent Interpretation I performed an independent interpretation of an: Plain X-Ray (Chest:1. Multifocal bilateral pneumonia. Continued plain film follow-up is recommended to ensure resolution, and to exclude underlying neoplasm.) Radiology Impression Discussion of test interpretation with radiology: I have reviewed the radiologist's reading. Procedures Epistaxis Control Time Out Performed: Yes Nostril: Yes right Direct inspection: Yes unable to visualize Direct inspection method: Yes nasal speculum and Yes nasal rhinoscope Clots removed by: Yes blowing nose Epistaxis treatment: Yes silver nitrate cautery and Yes inflatable pack Results of treatment: Yes bleeding controlled Complications: Yes none Discharge Plan Discharge Clinical Impression: Epistaxis, Pneumonia Patient Disposition: Admitted As Inpatient Interventions: Admission Worksheet (ED) Last Done: 12/05/24 10:22 Discharge Date/Time: 12/05/24 10:55
[2024-12-04 13:46] LABS: Basophils Percent Auto 0.2 % (0-2); Eosinophils Absolute Auto 0.2 X10*3/uL (0.0-0.4); Eosinophils Percent Auto 1.5 % (0-4); Hematocrit 31.1 % (37.0-47.0); Hemoglobin 9.6 g/dl (12.0-16.0); Imm Gran Pct Auto 0.9 % (0.0-0.4); Lymphocytes Absolute Auto 1.5 X10*3/uL (1.2-4.9); Lymphocytes Percent Auto 14.1 % (20-40); MANUAL DIFF FLAG NO; Mean Corpuscular HGB Conc 30.9 g/dl (31.0-35.0); Mean Corpuscular Hemoglobin 28.2 pg (27.0-33.0); Mean Corpuscular Volume 91.5 fL (80.0-98.0); Mean Platelet Volume 10.1 fL (9.4-12.3); Monocytes Absolute Auto 1.1 X10*3/uL (0.1-1.2); Monocytes Percent Auto 9.9 % (2-11); Neutrophils Absolute Auto 7.9 x10*3/uL (2.0-8.3); Neutrophils Percent Auto 73.4 % (45-73); Platelet Count 248 X10*3/uL (160-400); Red Cell Distribution Width 15.5 % (11.0-16.0); White Blood Count 10.8 X10*3/uL (4.8-10.8)
[2024-12-04] MEDS: Acetaminophen 1,000 MG/100 ML PIGGYBACK 400 MG IV (13:49)
[2024-12-04 13:52] LABS: INTERNATIONAL NORM RATIO 1.5 (0.9-1.1); Prothrombin Time 17.8 SEC (10.9-12.4)
[2024-12-04 14:05] LABS: Anion Gap 13 (12-20); Blood Urea Nitrogen 19 mg/dL (9-16); Calcium 8.2 mg/dL (8.4-10.2); Carbon Dioxide 30 mmol/L (22-29); Chloride 102 mmol/L (96-108); Creatinine Clr Calc Pharmacy 43.9; Estimated Glomerular Filt Rate 48; Glucose Random 96 mg/dL (60-115); Potassium 3.8 mmol/L (3.3-5.1); Sodium 141 mmol/L (135-145)
[2024-12-04 14:08] VITALS: BP 185/66; PULSE 60; RESP 16; TEMP 36.6; O2SAT 96
[2024-12-04 14:13] LABS: Troponin-I High Sensitivity 14.2 ng/L (<3.5-17.0)
[2024-12-04 15:00] LABS: B Type Natriuretic Peptide 975 pg/mL (<100)
[2024-12-04] MEDS: cefTRIAXone sodium 1 GM VIAL IVPUSH (15:17)
[2024-12-04] MEDS: Doxycycline Hyclate 100 MG in 0.9 % Sodium Chloride 250 ML 166.67 MG IV (15:18)
--- NOTE | 2024-12-04 15:47 | PM.IMHP ---
History of Present Illness Date of Service: 12/04/24 Attending physician on admission: Des Bueno Chief Complaint: epistaxis This is in 89-year-old female who presented to the emergency department due to epistaxis. Her bloody nose began approximately 1 hour prior to arrival. She was unsuccessful with stopping the bleeding at home so she called 911 and was brought to the hospital for evaluation. In the emergency department she received topical silver nitrate, Afrin followed by rhino rocket placement and her epistaxis resolved. On arrival her blood pressure was elevated. Lab work was unremarkable but chest x-ray showed concern over multifocal pneumonia. She received IV ceftriaxone and IV doxycycline. Her oxygen saturations remained stable in the mid 90s on room air. She reported an episode of shortness of breath the other day and then again today. She does not ambulate at baseline, uses a wheelchair to get around. She denies fever, chills, recent sick contacts. She has mild intermittent cough. Review of Systems Review of Systems: Yes all other systems are reviewed and are negative Constitutional: Constitutional: Denies chills and Denies fever(s) Cardiovascular: Cardiovascular: Denies chest pain, Denies palpitations and Denies dyspnea Respiratory: Respiratory: Denies dyspnea and Denies wheezing Gastrointestinal: Gastrointestinal: Denies abdominal pain, Denies nausea and Denies vomiting Endocrine: Endocrine: Denies palpitations Allergic/Immunologic: Allergic/Immunologic: Denies wheezing [facility] Medical History Hypothyroidism Spinal cord tumor Chronic indwelling Velez catheter Frequent falls UTI (urinary tract infection) Muscular atrophy Kidney failure Paroxysmal atrial fibrillation PVD (peripheral vascular disease) Surgical History History of hysterectomy History of appendectomy Social History Housing: Assisted Do you presently have visiting nurse or other home services: No Comment: Pt. sleeping Smoked in Last 30 Days: No Use of substances other than those prescribed or required for medical reasons: No Advance Directives: No Advance Directives Information Provided: No Advance Directives Date on File: 10/14/03 Do you have a plan to hurt others: No Plan service: No Meds Allergies Allergy/AdvReac Type Severity Reaction Status Date / Time No Known Allergies Allergy Unverified 12/04/24 13:17 Active Medications: Current Medications Acetaminophen (Acetaminophen 325 Mg Tablet) 650 mg PO Q6H PRN PRN Reason: Pain, Mild 1-3,fever,headache Calcium Carbonate (Calcium Carbonate 750 Mg Tab.Chew) 750 mg PO Q4H PRN PRN Reason: Heartburn Furosemide (Furosemide 40 Mg/4 Ml Vial) 40 mg IVPUSH DAILY [facility]; Protocol Doxycycline Hyclate 100 mg/ (Sodium Chloride) 250 mls @ 166.67 mls/hr IV ONCE ONE Stop: 12/04/24 16:05 Last Admin: 12/04/24 15:18 Dose: 166.67 mls/hr Magnesium Hydroxide (Milk Of Magnesia 30 Ml Oral.Susp) 30 ml PO DAILY PRN PRN Reason: Constipation Melatonin (Melatonin 3 Mg Tablet) 6 mg PO BEDTIME PRN PRN Reason: Insomnia Sodium Chloride (0.9 % Sodium Chloride Flush 3 Ml Syringe) 3 ml IVFLUSH QSHIFT [facility] Home Medications ?Medication ?Instructions ?Recorded ?Confirmed ?Last Taken ?Type cyanocobalamin (vitamin B-12) 1,000 mcg PO DAILY 07/11/20 12/04/24 12/04/24 09:00 History 1,000 mcg tablet (Vitamin B-12) docusate sodium 100 mg capsule 100 mg PO DAILY PRN Constipation 07/11/20 12/04/24 Unknown History (Colace) apixaban 5 mg tablet 5 mg PO BID 11/05/20 12/04/24 12/04/24 09:00 History carvedilol 3.125 mg tablet 3.125 mg PO BID blood pressure 12/04/24 12/04/24 12/04/24 09:00 History doxycycline hyclate 100 mg tablet 100 mg PO BIDWM 12/04/24 12/04/24 12/04/24 09:00 History furosemide 20 mg tablet 20 mg PO DAILY 12/04/24 12/04/24 12/04/24 09:00 History levothyroxine 175 mcg tablet 175 mcg PO DAILY@0600 12/04/24 12/04/24 12/04/24 06:00 History olmesartan 40 mg tablet 40 mg PO DAILY blood pressure 12/04/24 12/04/24 12/04/24 09:00 History prednisone 5 mg tablet 12.5 mg PO Q2D 12/04/24 12/04/24 12/03/24 History verapamil 120 mg tablet,extended 120 mg PO DAILY 12/04/24 12/04/24 12/04/24 09:00 History release Physical Exam Vital Signs and Narrative: Vital Signs: Last Vital Signs Temp 97.9 F 12/04/24 14:08 Pulse 60 12/04/24 14:08 Resp 16 12/04/24 14:08 BP 185/66 H 12/04/24 14:08 Pulse Ox 96 12/04/24 14:08 O2 Del Method Room Air 12/04/24 14:08 BMI result Body Mass Index 38.4 Const: General: cooperative, comfortable, no acute distress, alert and awake Nutritional Appearance: obese Orientation/consciousness: patient oriented x3 Resp: Effort & Inspection: normal respiratory effort, able to speak in complete sentences, no respiratory distress and no use of accessory muscles Cardio: Rate: regular rate GI: Inspection: Yes obesity Palpation (GI): Soft to palpation Skin: Other: b/l LE skin wounds; RLE brace; per patient too hard to get too wounds right now Neuro: General: patient oriented x3 Extrem: Other: b/l 3+ pitting edema Results Labs 12/04/24 13:36 12/04/24 13:36 Labs: Laboratory Results - last 24 hr 12/04/24 12/04/24 13:36 13:39 MCV 91.5 MCH 28.2 MCHC 30.9 L RDW 15.5 Plt Count 248 MPV 10.1 Immature Gran % (Auto) 0.9 H Neut % (Auto) 73.4 H Lymph % (Auto) 14.1 L Gregory % (Auto) 9.9 Eos % (Auto) 1.5 Baso % (Auto) 0.2 Lymph # (Auto) 1.5 Gregory # (Auto) 1.1 Eos # (Auto) 0.2 Baso # (Auto) 0.0 Abs Immat Gran (auto) 0.10 H Absolute Neuts (auto) 7.9 Absolute Nucleated RBC 0.000 Nucleated RBC % (auto) 0.0 PT 17.8 H INR 1.5 H Anion Gap 13 Estim Creat Clear Calc 43.9 Estimated GFR 48 Random Glucose 96 Calcium 8.2 L B-Natriuretic Peptide 975 H Blood Type O Negative Antibody Screen NEGATIVE Assessment and Plan (1) Epistaxis: Status: Acute (2) Pneumonia: Status: Acute Plan This is an 89-year-old female with history of atrial fibrillation, DVT on Eliquis, PVD, chronic wounds of b/l LE, chronic anemia, hypothyroidism who initially presented to the emergency department due to epistaxis found to have multifocal pneumonia versus CHF Possible multifocal pneumonia versus CHF Chest x-ray report reading multifocal pneumonia however patient does not have white count, fever or significant cough We will cover with empiric antibiotics for now Check procalcitonin BNP elevated, bilateral lower extremity edema, reports taking Lasix at home for leg edema but denies history of CHF. Unclear baseline for BNP We will check echocardiogram, start IV Lasix low sodium diet monitor Is&Os no hypoxia chronic LE wounds due to PVD/immobility wheelchair bound at baseline does not follow with wound care at this time - [facility] wound care is unable to accommodate her b/c she can't get up on the exam table. she has an appointment scheduled at a different wound care clinic on admission was unable to visualize leg wounds per pt preference wound care evaluation no evidence of sepsis acute epistaxis due to elevated bp and eliquis hold eliquis cover with abx as above due to rhino rocket will need removal of rhino rocket in 3-4 days (if d/c can return to ED or go to PCP for removal) Uncontrolled hypertension Has improved to the 160s, we will give Lasix as above and monitor blood pressure closely Patient reports her blood pressure has been well controlled but gets elevated when she is nervous continue baseline verapamil, formulary equivalent for olmesartan, carvedilol paraoxysmal atrial fibrillation continue amiodarone hold eliquis Hypothyroidism Continue Synthroid Bullous pemphigoid continue prednisone chronic normocytic anemia H/H near baseline some acute blood loss due to epistaxis, unable to quantify if significant blood loss follow CBC DVT prophylaxis - can't have mechanical devices due to leg wounds; eliquis on hold code status - DNR/DNI Patient requires ongoing inpatient stay for management of multifocal pneumonia versus acute CHF with need for IV antibiotics, IV diuretics, echocardiogram and possible specialist evaluation Quality Stroke Does the patient have a stroke diagnosis?: No VTE Prior VTE?: No VTE Risk Level:: Medical - moderate - high VTE Device Contraindication: Treatment Not Indicated VTE Drug Contraindication: N/A - Med Ordered
[2024-12-04 15:59] LABS: Lactic Acid 0.9 mmol/L (0.5-2.0)
[2024-12-04 16:00] LABS: Influenza A PCR NEGATIVE (Negative); Influenza B PCR NEGATIVE (Negative); Resp Syncy Virus RNA Qual PCR NEGATIVE (Negative); SARS COV2 PCR INHOUSE NEGATIVE (Negative)
--- NOTE | 2024-12-04 16:02 | PHA.MEDREC ---
Pharmacy Consult ? Medication Reconciliation Pharmacy has completed the medication reconciliation. Spoke to pt to confirm meds. Per pt, no longer taking calcium, citalopram, vitamin d, flonase, gabapentin, and triamcinolone.
[2024-12-04 16:21] VITALS: BP 165/80; PULSE 60; RESP 16; O2SAT 94
[2024-12-04 16:49] VITALS: BP 155/100
[2024-12-04 16:49] LABS: Procalcitonin 0.03 ng/mL
[2024-12-04] MEDS: Furosemide 40 MG/4 ML VIAL IVPUSH (16:49)
[2024-12-04 19:51] VITALS: BP 178/55; PULSE 54; RESP 16; TEMP 36.8; O2SAT 95
[2024-12-04 21:43] VITALS: BP 183/60; PULSE 57
[2024-12-04] MEDS: oxyCODONE HCl Immed Release 5 MG TABLET 2.5 MG PO (22:24)
[2024-12-05] VITALS (11 sets, daily range): BP systolic 147–200; BP diastolic 49–76; PULSE 59–71; RESP 13–22; TEMP 36.3–36.7; O2SAT 95–99; BMI 38.4
[2024-12-05] MEDS: hydrALAZINE HCl 20 MG/ML VIAL 5 MG IVPUSH (01:47)
[2024-12-05] MEDS: Doxycycline Hyclate 100 MG in 0.9 % Sodium Chloride 250 ML 166.67 MG IV ×2 (04:08→16:02)
[2024-12-05] MEDS: Acetaminophen 325 MG TABLET 650 MG PO ×2 (04:20→20:47)
[2024-12-05 05:24] LABS: Hematocrit 28.8 % (37.0-47.0); Hemoglobin 9.2 g/dl (12.0-16.0); Mean Corpuscular HGB Conc 31.9 g/dl (31.0-35.0); Mean Corpuscular Hemoglobin 28.8 pg (27.0-33.0); Mean Platelet Volume 10.9 fL (9.4-12.3); Platelet Count 224 X10*3/uL (160-400); Red Cell Distribution Width 15.4 % (11.0-16.0); White Blood Count 10.2 X10*3/uL (4.8-10.8)
[2024-12-05 05:38] LABS: Anion Gap 13 (12-20); Blood Urea Nitrogen 18 mg/dL (9-16); Calcium 7.8 mg/dL (8.4-10.2); Carbon Dioxide 28 mmol/L (22-29); Chloride 102 mmol/L (96-108); Creatinine Clr Calc Pharmacy 39.1; Estimated Glomerular Filt Rate 42; Glucose Random 91 mg/dL (60-115); Potassium 3.8 mmol/L (3.3-5.1); Sodium 139 mmol/L (135-145)
--- NOTE | 2024-12-05 07:00 | CA_ITS ---
Transthoracic Echocardiogram Patient (Last, First, Middle): Niru Baird M Gender: Female Date of : 1935 Age: 89 Procedure Date: 12/05/2024 Procedure Type: Transthoracic Echocardiogram Location: E Height: 167. cm Weight: 107.5 kg BSA: 2.14 m2 Heart Rate: 65 bpm BP: 182 / 72 mmHg Creosoting Engineer: JOHANNY Referring MD: Sophia RODRIGUEZ Symptoms: elevated BP ?chf Study Quality: Technically Difficult. No IV available ECG Rhythm: Sinus Conclusions: - The left ventricular systolic function is normal. The calculated ejection fraction is 57% by biplane method. - No obvious valvular pathology seen on this study. Findings Left Ventricle Normal left ventricular cavity size. There is mildly increased left ventricular wall thickness. The left ventricular systolic function is normal. The calculated ejection fraction is 57% by biplane method. There is no evidence of regional wall motion abnormalities. Evidence suggests grade I (mild) diastolic dysfunction. Right Ventricle Normal right ventricular cavity size and systolic function. Atria The left atrium is mildly dilated. The right atrium is normal in size. Aortic Valve There is a normal trileaflet aortic valve. There is mild calcification of the aortic valve. There is no aortic valve stenosis. There is no aortic valve regurgitation. Mitral Valve There is mild mitral annular calcification. There is no mitral valve regurgitation. There is no mitral valve stenosis. Pulmonic Valve The pulmonic valve is likely normal. Tricuspid Valve There is trace tricuspid valve regurgitation. There is no evidence of pulmonary hypertension. Great Vessels The asc aorta is normal in size. Venous The inferior vena cava is normal in size and collapses less than 50% with inspiration. Pericardium/Pleural There is a trivial pericardial effusion. Prior Study Comparison No significant change compared to prior study dated: 09/01/2024. Recommendations, Care & Conclusions No obvious valvular pathology seen on this study. Measurements 2D Linear Measurements IVSd: 1.05 0.6-0.9/0.6-1.0 cm LVIDd: 5.09 3.9-5.3/4.2-5.9 cm LVIDd Index: 2.38 2.4-3.2/2.2-3.1 cm/m2 LVIDs: 2.58 2.0-3.6 cm LVPWd: 1.07 0.7-1.1 cm LA Diam: 4.10 2.7-3.8/3.0-4.0 cm LAIDs Index: 1.92 1.5-2.3 cm/m2 LV Mass: 252.65 67-162/88-224 g LV Mass Index: 118.06 43-95/49-115 g/m2 LVOT Diam: 2.10 3.0+(-)1.3 cm 2D Systolic Function EF 4C: 59.30 >55% EF 2C: 60.20 >55% EF BiP: 57.20 >55% Mitral Valve MV Pk E: 0.71 MV PK A: 0.98 MV Decel Time: 191.00 E/A: 0.70 E'Lateral: 5.66 E'Medial: 3.70 E/E' Med: 19.10 E/E' Lat: 12.50 PHT: 56.00 MVA PHT: 3.93 Decel [place]: 3.70 Aortic Valve AoV Pk Maldonado: 1.52 AoV Mn Maldonado: 0.92 AoV VTI: 0.34 AoV Pk Grad: 9.00 Aov Mn Grad: 4.00 TATY Cont.VTI: 2.61 LVOT LVOT Pk Maldonado: 1.00 LVOT Mn Maldonado: 0.70 LVOT VTI: 0.25 LVOT Pk Grad: 4.00 LVOT Mn Grad: 2.00 LVOT Diam: 2.10 LVOT Area: 3.46 Diastolic Function MV Pk E: 0.71 MV Pk A: 0.98 E/A: 0.70 E'Medial: 3.70 E/E' Med: 19.10 E' Laterial: 5.66 E/E' Lat: 12.50 Right Ventricle TAPSE (mm): 20.30 TVS' Maldonado: 13.50 Tricuspid Valve TR Pk Maldonado: 0.91 TR Pk Grad: 3.00 Great Vessels Aorta Sinus of Valsalva: 3.20 2.0-3.5 cm Ao Asc: 3.50 2.1-3.4 cm Pulmonary Valve PV Pk Maldonado: 1.02 Peak PV Grad: 4.00 Updated in Other Vendor System with Status of Final Sal Parker MD electronically signed on 12/05/2024 4:27:27 PM with status of Final
[2024-12-05] MEDS: Furosemide 40 MG/4 ML VIAL IVPUSH (08:54)
[2024-12-05] MEDS: Amiodarone HCL 200 MG TABLET PO (08:55)
[2024-12-05] MEDS: Cyanocobalamin (Vitamin B-12) 1,000 MCG TABLET 1000 MCG PO (08:55)
[2024-12-05] MEDS: carvediloL 3.125 MG TABLET PO ×2 (08:55→20:48)
[2024-12-05] MEDS: 0.9 % Sodium Chloride Flush 3 ML SYRINGE IVFLUSH ×3 (08:55→20:49)
--- NOTE | 2024-12-05 09:08 | PC.NURSE ---
pt c/o R arm pain, proximal worse than distal area. arm slightly more warm than left arm, no obvious erythema. +pitting edema. Beena RODRIGUEZ at bedside, informed of pts concerns.
[2024-12-05] MEDS: Valsartan 160 MG TABLET PO (10:25)
[2024-12-05] MEDS: VerapamiL HCL SR 120 MG TABLET.ER PO (10:25)
[2024-12-05] MEDS: predniSONE 5 MG TABLET 12.5 MG PO (10:25)
--- NOTE | 2024-12-05 12:55 | HO.SKINPHOTO ---
Location: Left breast fold. Category: Stage: Length: Width: Depth: cm Location: Left heel Category: Stage: Length: Width: Depth: cm Location: Right heel Category: Stage: Length: Width: Depth: cm Location: Left lateral calf Category: Stage: Length: Width: Depth: cm Location: Right lateral calf. Category: Stage: Length: Width: Depth: cm Location: Right gluteal fold. Category: Stage: Length: Width: Depth: cm Location: Coccyx Category: Stage: Length: Width: Depth: cm
--- NOTE | 2024-12-05 13:22 | P.PNIM_ITS ---
Subjective Subjective Date of Service: 12/05/24 Review of Systems Follow up CHF, epistaxis no pain left arm swelling Physical Exam 2 Vital Signs: Vital Signs: Last Vital Signs Temp 97.3 F 12/05/24 11:24 Pulse 65 12/05/24 11:24 Resp 18 12/05/24 11:24 BP 147/70 H 12/05/24 11:24 Pulse Ox 98 12/05/24 11:24 O2 Del Method Room Air 12/05/24 11:24 BMI result Body Mass Index 38.4 Appearing in no acute distress Right nare rhonorocket Right arm dependant edema lung sounds are clear to auscultation heart regular rate rhythm, clear S1, S2 positive bowel sounds, abdomen is soft, nontender neuro patient is alert x3, no focal deficits Objective Data Active Medications Acetaminophen (Acetaminophen 325 Mg Tablet) 650 mg PO Q6H PRN PRN Reason: Pain, Mild 1-3,fever,headache Last Admin: 12/05/24 04:20 Dose: 650 mg Documented By: RODRIGO Amiodarone HCl (Amiodarone Hcl 200 Mg Tablet) 200 mg PO DAILY [facility] Last Admin: 12/05/24 08:55 Dose: 200 mg Documented By: PRAVIN Calcium Carbonate (Calcium Carbonate 750 Mg Tab.Chew) 750 mg PO Q4H PRN PRN Reason: Heartburn Carvedilol (Carvedilol 3.125 Mg Tablet) 3.125 mg PO BID [facility]; Protocol Last Admin: 12/05/24 08:55 Dose: 3.125 mg Documented By: PRAVIN Ceftriaxone Sodium (Ceftriaxone Sodium 1 Gm Vial) 1 gm IVPUSH Q24H [facility] Cyanocobalamin (Cyanocobalamin (Vitamin B-12) 1,000 Mcg Tablet) 1,000 mcg PO DAILY [facility] Last Admin: 12/05/24 08:55 Dose: 1,000 mcg Documented By: PRAVIN Docusate Sodium (Docusate Sodium 100 Mg Capsule) 100 mg PO DAILY PRN PRN Reason: Constipation Furosemide (Furosemide 40 Mg/4 Ml Vial) 40 mg IVPUSH DAILY [facility]; Protocol Last Admin: 12/05/24 08:54 Dose: 40 mg Documented By: PRAVIN Doxycycline Hyclate 100 mg/ (Sodium Chloride) 250 mls @ 166.67 mls/hr IV Q12H [facility] Last Infusion: 12/05/24 05:58 Dose: Infused Documented By: RODRIGO Levothyroxine Sodium (Levothyroxine Sodium 175 Mcg Tablet) 175 mcg PO DAILY@0600 [facility] Last Admin: 12/05/24 08:02 Dose: Not Given Documented By: PRAVIN Non-Admin Reason: Med Not Available Magnesium Hydroxide (Milk Of Magnesia 30 Ml Oral.Susp) 30 ml PO DAILY PRN PRN Reason: Constipation Melatonin (Melatonin 3 Mg Tablet) 6 mg PO BEDTIME PRN PRN Reason: Insomnia Oxycodone HCl (Oxycodone Hcl Immed Release 5 Mg Tablet) 2.5 mg PO Q4H PRN PRN Reason: Pain, Severe (Pain Scale 7-10) Last Admin: 12/04/24 22:24 Dose: 2.5 mg Documented By: VENITA Prednisone (Prednisone 5 Mg Tablet) 12.5 mg PO Q2D [facility] Last Admin: 12/05/24 10:25 Dose: 12.5 mg Documented By: PRAVIN Sodium Chloride (0.9 % Sodium Chloride Flush 3 Ml Syringe) 3 ml IVFLUSH QSHIFT [facility] Last Admin: 12/05/24 08:55 Dose: 3 ml Documented By: PRAVIN Valsartan (Valsartan 160 Mg Tablet) 160 mg PO DAILY [facility] Last Admin: 12/05/24 10:25 Dose: 160 mg Documented By: PRAVIN Verapamil HCl (Verapamil Hcl Sr 120 Mg Tablet.Er) 120 mg PO DAILY [facility]; Protocol Last Admin: 12/05/24 10:25 Dose: 120 mg Documented By: PRAVIN Labs 12/05/24 05:18 12/05/24 05:18 Labs: Laboratory Results - last 24 hr 12/04/24 12/04/24 12/04/24 13:36 13:39 15:15 MCV 91.5 MCH 28.2 MCHC 30.9 L RDW 15.5 Plt Count 248 MPV 10.1 Immature Gran % (Auto) 0.9 H Neut % (Auto) 73.4 H Lymph % (Auto) 14.1 L [place] % (Auto) 9.9 Eos % (Auto) 1.5 Baso % (Auto) 0.2 Lymph # (Auto) 1.5 [place] # (Auto) 1.1 Eos # (Auto) 0.2 Baso # (Auto) 0.0 Abs Immat Gran (auto) 0.10 H Absolute Neuts (auto) 7.9 Absolute Nucleated RBC 0.000 Nucleated RBC % (auto) 0.0 PT 17.8 H INR 1.5 H Anion Gap 13 Estim Creat Clear Calc 43.9 Estimated GFR 48 Random Glucose 96 Lactic Acid 0.9 Calcium 8.2 L B-Natriuretic Peptide 975 H Procalcitonin 0.03 Influenza Type A (PCR) NEGATIVE Influenza Type B (PCR) NEGATIVE RSV RNA Qual (PCR) NEGATIVE SARS-CoV-2 RNA (RT-PCR) NEGATIVE Blood Type O Negative Antibody Screen NEGATIVE 12/05/24 05:18 MCV 90.0 MCH 28.8 MCHC 31.9 RDW 15.4 Plt Count 224 MPV 10.9 Immature Gran % (Auto) Neut % (Auto) Lymph % (Auto) [place] % (Auto) Eos % (Auto) Baso % (Auto) Lymph # (Auto) [place] # (Auto) Eos # (Auto) Baso # (Auto) Abs Immat Gran (auto) Absolute Neuts (auto) Absolute Nucleated RBC 0.000 Nucleated RBC % (auto) 0.0 PT INR Anion Gap 13 Estim Creat Clear Calc 39.1 Estimated GFR 42 Random Glucose 91 Lactic Acid Calcium 7.8 L B-Natriuretic Peptide Procalcitonin Influenza Type A (PCR) Influenza Type B (PCR) RSV RNA Qual (PCR) SARS-CoV-2 RNA (RT-PCR) Blood Type Antibody Screen Assessment and Plan (1) Epistaxis: Status: Acute Plan 89-year-old female with history of atrial fibrillation, DVT on Eliquis, PVD, chronic wounds of b/l LE, chronic anemia, hypothyroidism who initially presented to the emergency department due to epistaxis found to have multifocal pneumonia versus CHF Right arm dependant edema mild pitting elevate less likely DVT but obtain Doppler us Possible multifocal pneumonia versus CHF Chest x-ray report reading multifocal pneumonia however patient does not have white count, fever or significant cough empiric antibiotics for now normal procalcitonin BNP elevated, bilateral lower extremity edema, reports taking Lasix at home for leg edema but denies history of CHF. Unclear baseline for BNP echocardiogram continue IV Lasix low sodium diet monitor Is&Os no hypoxia Chronic LE wounds due to PVD/immobility wheelchair bound at baseline does not follow with wound care at this time - [facility] [place] wound care is unable to accommodate her b/c she can't get up on the exam table. she has an appointment scheduled at a different wound care clinic on admission was unable to visualize leg wounds per pt preference wound care nurse evaluation pending no evidence of sepsis Acute epistaxis due to elevated bp and eliquis hold eliquis cover with abx as above due to rhino rocket will need removal of rhino rocket in 3-4 days (if d/c can return to ED or go to PCP for removal) Uncontrolled hypertension Has improved to the 160s Patient reports her blood pressure has been well controlled but gets elevated when she is nervous continue baseline verapamil, formulary equivalent for olmesartan, carvedilol Paroxysmal atrial fibrillation continue amiodarone hold eliquis Hypothyroidism Continue Synthroid Bullous pemphigoid continue prednisone chronic normocytic anemia H/H near baseline some acute blood loss due to epistaxis, unable to quantify if significant blood loss follow CBC DVT prophylaxis - can't have mechanical devices due to leg wounds; eliquis on hold code status - DNR/DNI Quality Stroke Does the patient have a stroke diagnosis?: No VTE Prior VTE?: No VTE Risk Level:: Medical - moderate - high VTE Device Contraindication: Treatment Not Indicated VTE Drug Contraindication: N/A - Med Ordered
--- NOTE | 2024-12-05 15:18 | MHC.CLN ---
NUTRITION CONSULT FOR SKIN INTEGRITY. LIBERALIZED DIET FROM 2 GRAM SODIUM TO REGULAR DUE TO ADVANCED AGE. SKIN WITH OPEN AREAS TO BILATERAL HEELS. ADDING ENSURE MAX BID TO PROMOTE SKIN INTEGRITY. SUPPLEMENT PROVIDES 300 KCALS, 60 G PROTEIN. FOLLOW FOR PO INTAKE AND SKIN INTEGRITY. SEE CLINICAL NUTRITION ASSESSMENT 12/05/24.
[2024-12-05] MEDS: cefTRIAXone sodium 1 GM VIAL IVPUSH (16:02)
--- NOTE | 2024-12-05 17:45 | PC.NURSE ---
Patient's IV access is positional with infusion. MAR marked doxycycline as infusion complete, however medication is still running. Patient's arm repositioned with a pillow and education provided regarding maintaining arm in position to prevent downstream occlusions from occurring. Patient verbalized understanding.
[2024-12-05] MEDS: Docusate Sodium 100 MG CAPSULE PO (20:49)
[2024-12-06 03:28] VITALS: BP 142/64; PULSE 64; RESP 16; TEMP 36.1; O2SAT 93
[2024-12-06] MEDS: Doxycycline Hyclate 100 MG in 0.9 % Sodium Chloride 250 ML 166.67 MG IV ×2 (04:09→15:31)
[2024-12-06 06:48] LABS: Anion Gap 12 (12-20); Blood Urea Nitrogen 19 mg/dL (9-16); Carbon Dioxide 31 mmol/L (22-29); Chloride 102 mmol/L (96-108); Creatinine Clr Calc Pharmacy 43.1; Estimated Glomerular Filt Rate 47; Glucose Random 100 mg/dL (60-115); Potassium 3.5 mmol/L (3.3-5.1); Sodium 141 mmol/L (135-145)
[2024-12-06 06:52] LABS: B Type Natriuretic Peptide 684 pg/mL (<100)
[2024-12-06 07:53] VITALS: BP 135/60; PULSE 63; RESP 18; TEMP 36.6; O2SAT 96
[2024-12-06] MEDS: carvediloL 3.125 MG TABLET PO ×2 (08:45→20:19)
[2024-12-06] MEDS: Amiodarone HCL 200 MG TABLET PO (08:45)
[2024-12-06] MEDS: Levothyroxine Sodium 175 MCG TABLET PO (08:45)
[2024-12-06] MEDS: Valsartan 160 MG TABLET PO (08:45)
[2024-12-06] MEDS: VerapamiL HCL SR 120 MG TABLET.ER PO (08:45)
[2024-12-06] MEDS: Cyanocobalamin (Vitamin B-12) 1,000 MCG TABLET 1000 MCG PO (08:45)
[2024-12-06] MEDS: Furosemide 40 MG/4 ML VIAL IVPUSH (08:46)
--- NOTE | 2024-12-06 08:54 | P.PNIM_ITS ---
Subjective Subjective Date of Service: 12/06/24 Review of Systems Follow up CHF, epistaxis no pain left arm swelling Physical Exam 2 Vital Signs: Vital Signs: Last Vital Signs Temp 97.8 F 12/06/24 07:53 Pulse 63 12/06/24 07:53 Resp 18 12/06/24 07:53 BP 135/60 12/06/24 07:53 Pulse Ox 96 12/06/24 07:53 O2 Del Method Room Air 12/06/24 07:53 BMI result Body Mass Index 38.4 Appearing in no acute distress lung sounds are clear to auscultation heart regular rate rhythm, clear S1, S2 positive bowel sounds, abdomen is soft, nontender neuro patient is alert x3, no focal deficits Objective Data Active Medications Acetaminophen (Acetaminophen 325 Mg Tablet) 650 mg PO Q6H PRN PRN Reason: Pain, Mild 1-3,fever,headache Last Admin: 12/05/24 20:47 Dose: 650 mg Documented By: LAXMI Amiodarone HCl (Amiodarone Hcl 200 Mg Tablet) 200 mg PO DAILY [facility] Last Admin: 12/05/24 08:55 Dose: 200 mg Documented By: PRAVIN Calcium Carbonate (Calcium Carbonate 750 Mg Tab.Chew) 750 mg PO Q4H PRN PRN Reason: Heartburn Carvedilol (Carvedilol 3.125 Mg Tablet) 3.125 mg PO BID [facility]; Protocol Last Admin: 12/05/24 20:48 Dose: 3.125 mg Documented By: LAXMI Ceftriaxone Sodium (Ceftriaxone Sodium 1 Gm Vial) 1 gm IVPUSH Q24H [facility] Last Admin: 12/05/24 16:02 Dose: 1 gm Documented By: RAFA Cyanocobalamin (Cyanocobalamin (Vitamin B-12) 1,000 Mcg Tablet) 1,000 mcg PO DAILY [facility] Last Admin: 12/05/24 08:55 Dose: 1,000 mcg Documented By: PRAVIN Docusate Sodium (Docusate Sodium 100 Mg Capsule) 100 mg PO DAILY PRN PRN Reason: Constipation Last Admin: 12/05/24 20:49 Dose: 100 mg Documented By: LAXMI Furosemide (Furosemide 40 Mg/4 Ml Vial) 40 mg IVPUSH DAILY [facility]; Protocol Last Admin: 12/05/24 08:54 Dose: 40 mg Documented By: PRAVIN Doxycycline Hyclate 100 mg/ (Sodium Chloride) 250 mls @ 166.67 mls/hr IV Q12H [facility] Last Infusion: 12/06/24 05:53 Dose: Infused Documented By: GEREMIAS Levothyroxine Sodium (Levothyroxine Sodium 175 Mcg Tablet) 175 mcg PO DAILY@0600 [facility] Last Admin: 12/05/24 08:02 Dose: Not Given Documented By: PRAVIN Non-Admin Reason: Med Not Available Magnesium Hydroxide (Milk Of Magnesia 30 Ml Oral.Susp) 30 ml PO DAILY PRN PRN Reason: Constipation Melatonin (Melatonin 3 Mg Tablet) 6 mg PO BEDTIME PRN PRN Reason: Insomnia Oxycodone HCl (Oxycodone Hcl Immed Release 5 Mg Tablet) 2.5 mg PO Q4H PRN PRN Reason: Pain, Severe (Pain Scale 7-10) Last Admin: 12/04/24 22:24 Dose: 2.5 mg Documented By: VENITA Prednisone (Prednisone 5 Mg Tablet) 12.5 mg PO Q2D [facility] Last Admin: 12/05/24 10:25 Dose: 12.5 mg Documented By: PRAVIN Sodium Chloride (0.9 % Sodium Chloride Flush 3 Ml Syringe) 3 ml IVFLUSH QSHIFT [facility] Last Admin: 12/05/24 20:49 Dose: 3 ml Documented By: LAXMI Valsartan (Valsartan 160 Mg Tablet) 160 mg PO DAILY [facility] Last Admin: 12/05/24 10:25 Dose: 160 mg Documented By: PRAVIN Verapamil HCl (Verapamil Hcl Sr 120 Mg Tablet.Er) 120 mg PO DAILY [facility]; Protocol Last Admin: 12/05/24 10:25 Dose: 120 mg Documented By: PRAVIN Labs 12/05/24 05:18 12/06/24 05:51 Labs: Laboratory Results - last 24 hr 12/06/24 05:51 Anion Gap 12 Estim Creat Clear Calc 43.1 Estimated GFR 47 Random Glucose 100 Calcium 8.0 L B-Natriuretic Peptide 684 H Microbiology Microbiology Results: Microbiology 12/04/24 15:15 Blood Culture - Preliminary Blood - Venous No growth after 24 hours. 12/04/24 15:15 Blood Culture - Preliminary Blood - Venous Assessment and Plan (1) Epistaxis: Status: Acute Plan 89-year-old female with history of atrial fibrillation, DVT on Eliquis, PVD, chronic wounds of b/l LE, chronic anemia, hypothyroidism who initially presented to the emergency department due to epistaxis found to have multifocal pneumonia versus CHF Right arm dependant edema mild pitting elevate Doppler us neg for DVT Possible multifocal pneumonia versus CHF Chest x-ray report reading multifocal pneumonia however patient does not have white count, fever or significant cough empiric antibiotics for now normal procalcitonin BNP elevated, bilateral lower extremity edema, reports taking Lasix at home for leg edema but denies history of CHF. Unclear baseline for BNP echocardiogram EF 57% no rwma continue IV Lasix low sodium diet monitor Is&Os no hypoxia Chronic LE wounds due to PVD/immobility wheelchair bound at baseline does not follow with wound care at this time - [facility] wound care is unable to accommodate her b/c she can't get up on the exam table. she has an appointment scheduled at a different wound care clinic wound care nurse evaluation pending no evidence of sepsis Acute epistaxis due to elevated bp and eliquis hold eliquis cover with abx as above due to rhino rocket rhino rocket remove tomorrow Uncontrolled hypertension Patient reports her blood pressure has been well controlled but gets elevated when she is nervous continue baseline verapamil, formulary equivalent for olmesartan, carvedilol Paroxysmal atrial fibrillation continue amiodarone hold eliquis Hypothyroidism Continue Synthroid Bullous pemphigoid continue prednisone Chronic normocytic anemia H/H near baseline some acute blood loss due to epistaxis, unable to quantify if significant blood loss follow CBC DVT prophylaxis - can't have mechanical devices due to leg wounds; eliquis on hold code status - DNR/DNI Quality Stroke Does the patient have a stroke diagnosis?: No VTE Prior VTE?: No VTE Risk Level:: Medical - moderate - high VTE Device Contraindication: Treatment Not Indicated VTE Drug Contraindication: N/A - Med Ordered
[2024-12-06] MEDS: 0.9 % Sodium Chloride Flush 3 ML SYRINGE IVFLUSH ×2 (09:05→17:49)
[2024-12-06] MEDS: Acetaminophen 325 MG TABLET 650 MG PO ×2 (13:34→20:20)
[2024-12-06] MEDS: cefTRIAXone sodium 1 GM VIAL IVPUSH (14:47)
[2024-12-06 15:21] VITALS: BP 116/53; PULSE 62; RESP 18; TEMP 36.9; O2SAT 95
--- NOTE | 2024-12-06 17:38 | HO.WOUND ---
Wound Consult: Initial 89yr old?female admitted to [facility] on 12/04/24 - See progress notes and H&P for detailed history.? Wound consult placed for Bilateral Heels, Left ischium and coccyx.? Patient agreeable to assessment and photo documentation.? Patient reports she lives at home alone with services. She reports independent baseline. She reports she has a VNA nurse that treats her wounds several times a week. she was noted to be in bed with a hard plastic brace to the right lower leg and foot. The brace did appear to be off loading her heel however there were several other areas of pressure noted. recommend not wearing while in bed at this time. Patient was placed in heel protector boot after dressing changes were completed. Coccyx Etiology: Unstageable Pressure Injury ??Present on Admission Wound Bed: adherent yellow slough Drainage / Odor: yellow drainage no odor Edges: ? rolled Hanny wound: MASD ? No Induration, Fluctuance or Warmth noted Pain: pain reported Goals of Treatment: ? 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 rolled Hanny wound: ?dark red dry tissue No Induration, Fluctuance or Warmth noted Pain: pain reported Goals of Treatment: ? Durafiber for moisture management Right Heel Etiology: Stage 4 pressure injury -??Present on Admission Wound Bed: full thickness tissue loss - bone not exposed by only covered by thin veil of tissue - pale pink with yellow slough noted Drainage / Odor: schafer drainage mild odor Edges: ? rolled Hanny wound: ?dark red dry tissue No Induration, Fluctuance or Warmth noted Pain: pain reported Goals of Treatment: ? Durafiber for moisture management Right Posterior leg Etiology: ?Stage 2 Pressure injury - suspect device related - brace for leg ?Present on Admission Wound Bed: red pink moist wound bed wit scattered areas of dark pigmentation noted - see photo uploaded to chart Drainage / Odor: yellow mild odor noted Edges: ? irregular Hanny wound: ? Dry flaking tissue with dark red pigmentation No Induration, Fluctuance or Warmth noted Pain: pain reported Goals of Treatment: ? Durafiber for moisture management Left Ischium Etiology:Unstageable Pressure injury ??Present on Admission Wound Bed: adherent yellow slough Drainage / Odor: yellow no odor Edges: ? irregular Hanny wound: MASD with friction ? No Induration, Fluctuance or Warmth noted Pain: denies Goals of Treatment: ? TRiad and foam dressing to treat and protect Recommendations: 1. Turn and Reposition every 2 hours and as needed for patient comfort.? Use pillows or wedges to support off loading positions. 2. Off Load all bony prominences with use of pillows and heel boots if needed.? Apply Preventative foams where needed. ? 3. Monitor for incontinence and moisture control, use barrier creams when needed for prevention and treatment. 4. Provide adequate and supplemental nutrition.? 5. Order low air loss mattress. 6. When applicable maintain blood glucose levels per Providers order. 7. Bilateral Heels and Right Posterior leg - Elevate heels off of bed surface with heel protector boots. Cleanse with Ns moist gauze, Pat dry. Apply barrier cream to periwound. Cover wound bed with Durafiber AG, dry gauze, ABD oad and wrap. Change every other day. 8. Left Ischium and Coccyx - Off Load Pressure with Q2 hr turns and use of pillows - Cleanse with PH balance spray or wipes, pat dry. ?Apply thin layer of Triad to wound bed. Do not remove all of paste between applications as this may cause further skin damage.? Cover with foam dressing to aid in off loading and protection from friction. Change every 5 days and PRN. Re-consult wound care Nurse for wound deterioration or wound changes.
[2024-12-06 20:00] VITALS: PULSE 63; RESP 18; TEMP 36.9; O2SAT 97
[2024-12-06 20:19] VITALS: BP 170/81; PULSE 65
[2024-12-07 03:07] VITALS: BP 167/73; PULSE 61; RESP 17; TEMP 36.7; O2SAT 96
[2024-12-07] MEDS: Doxycycline Hyclate 100 MG in 0.9 % Sodium Chloride 250 ML 166.67 MG IV (03:11)
[2024-12-07] MEDS: Levothyroxine Sodium 175 MCG TABLET PO (05:19)
[2024-12-07] MEDS: 0.9 % Sodium Chloride Flush 3 ML SYRINGE IVFLUSH (05:19)
[2024-12-07 07:40] VITALS: BP 132/60; PULSE 59; RESP 16; TEMP 36.8; O2SAT 97
[2024-12-07 08:19] VITALS: PULSE 62
[2024-12-07] MEDS: Acetaminophen 325 MG TABLET 650 MG PO ×2 (08:19→21:09)
[2024-12-07] MEDS: carvediloL 3.125 MG TABLET PO ×2 (08:19→21:09)
[2024-12-07] MEDS: Valsartan 160 MG TABLET PO (08:19)
[2024-12-07] MEDS: VerapamiL HCL SR 120 MG TABLET.ER PO (08:19)
[2024-12-07] MEDS: Amiodarone HCL 200 MG TABLET PO (08:19)
[2024-12-07] MEDS: Furosemide 40 MG/4 ML VIAL IVPUSH (08:19)
[2024-12-07] MEDS: Cyanocobalamin (Vitamin B-12) 1,000 MCG TABLET 1000 MCG PO (08:19)
[2024-12-07] MEDS: predniSONE 5 MG TABLET 12.5 MG PO (08:24)
--- NOTE | 2024-12-07 10:58 | P.PNIM_ITS ---
Subjective Subjective Date of Service: 12/07/24 Review of Systems Follow up CHF, epistaxis no pain left arm swelling Physical Exam 2 Vital Signs: Vital Signs: Last Vital Signs Temp 98.3 F 12/07/24 07:40 Pulse 62 12/07/24 08:19 Resp 16 12/07/24 07:40 BP 132/60 12/07/24 07:40 Pulse Ox 97 12/07/24 07:40 O2 Del Method Room Air 12/07/24 07:40 BMI result Body Mass Index 38.4 Appearing in no acute distress rhinorocket lung sounds are clear to auscultation heart regular rate rhythm, clear S1, S2 positive bowel sounds, abdomen is soft, nontender neuro patient is alert x3, no focal deficits Objective Data Active Medications Acetaminophen (Acetaminophen 325 Mg Tablet) 650 mg PO Q6H PRN PRN Reason: Pain, Mild 1-3,fever,headache Last Admin: 12/07/24 08:19 Dose: 650 mg Documented By: DARIUS Amiodarone HCl (Amiodarone Hcl 200 Mg Tablet) 200 mg PO DAILY [facility] Last Admin: 12/07/24 08:19 Dose: 200 mg Documented By: DARIUS Calcium Carbonate (Calcium Carbonate 750 Mg Tab.Chew) 750 mg PO Q4H PRN PRN Reason: Heartburn Carvedilol (Carvedilol 3.125 Mg Tablet) 3.125 mg PO BID [facility]; Protocol Last Admin: 12/07/24 08:19 Dose: 3.125 mg Documented By: DARIUS Ceftriaxone Sodium (Ceftriaxone Sodium 1 Gm Vial) 1 gm IVPUSH Q24H [facility] Last Admin: 12/06/24 14:47 Dose: 1 gm Documented By: LEIF Cyanocobalamin (Cyanocobalamin (Vitamin B-12) 1,000 Mcg Tablet) 1,000 mcg PO DAILY [facility] Last Admin: 12/07/24 08:19 Dose: 1,000 mcg Documented By: DARIUS Docusate Sodium (Docusate Sodium 100 Mg Capsule) 100 mg PO DAILY PRN PRN Reason: Constipation Last Admin: 12/05/24 20:49 Dose: 100 mg Documented By: LAXMI Furosemide (Furosemide 40 Mg/4 Ml Vial) 40 mg IVPUSH DAILY [facility]; Protocol Last Admin: 02/26/25 08:19 Dose: 40 mg Documented By: DARIUS Doxycycline Hyclate 100 mg/ (Sodium Chloride) 250 mls @ 166.67 mls/hr IV Q12H [facility] Last Infusion: 12/07/24 04:45 Dose: Infused Documented By: LAXMI Levothyroxine Sodium (Levothyroxine Sodium 175 Mcg Tablet) 175 mcg PO DAILY@0600 [facility] Last Admin: 12/07/24 05:19 Dose: 175 mcg Documented By: LAXMI Magnesium Hydroxide (Milk Of Magnesia 30 Ml Oral.Susp) 30 ml PO DAILY PRN PRN Reason: Constipation Melatonin (Melatonin 3 Mg Tablet) 6 mg PO BEDTIME PRN PRN Reason: Insomnia Oxycodone HCl (Oxycodone Hcl Immed Release 5 Mg Tablet) 2.5 mg PO Q4H PRN PRN Reason: Pain, Severe (Pain Scale 7-10) Last Admin: 12/04/24 22:24 Dose: 2.5 mg Documented By: VENITA Prednisone (Prednisone 5 Mg Tablet) 12.5 mg PO Q2D [facility] Last Admin: 12/07/24 08:24 Dose: 12.5 mg Documented By: DARIUS Sodium Chloride (0.9 % Sodium Chloride Flush 3 Ml Syringe) 3 ml IVFLUSH QSHIFT [facility] Last Admin: 12/07/24 07:25 Dose: Not Given Documented By: DARIUS Non-Admin Reason: Previously Administered Valsartan (Valsartan 160 Mg Tablet) 160 mg PO DAILY [facility] Last Admin: 12/07/24 08:19 Dose: 160 mg Documented By: DARIUS Verapamil HCl (Verapamil Hcl Sr 120 Mg Tablet.Er) 120 mg PO DAILY [facility]; Protocol Last Admin: 12/07/24 08:19 Dose: 120 mg Documented By: DARIUS Labs 12/05/24 05:18 12/06/24 05:51 Microbiology Microbiology Results: Microbiology 12/04/24 15:15 Blood Culture - Preliminary Blood - Venous No growth after 48 hours. 12/04/24 15:15 Blood Culture - Preliminary Blood - Venous No growth after 24 hours. Assessment and Plan (1) Epistaxis: Status: Acute Plan 89-year-old female with history of atrial fibrillation, DVT on Eliquis, PVD, chronic wounds of b/l LE, chronic anemia, hypothyroidism who initially presented to the emergency department due to epistaxis found to have multifocal pneumonia versus CHF Acute epistaxis due to elevated bp and eliquis hold eliquis cover with abx as above due to rhino rocket rhino rocket removed today, no bleeding Right arm dependant edema mild pitting elevate Doppler us neg for DVT Possible multifocal pneumonia versus CHF Chest x-ray report reading multifocal pneumonia however patient does not have white count, fever or significant cough empiric antibiotics for now normal procalcitonin BNP elevated, bilateral lower extremity edema, reports taking Lasix at home for leg edema but denies history of CHF. Unclear baseline for BNP echocardiogram EF 57% no rwma continue IV Lasix low sodium diet monitor Is&Os no hypoxia Chronic LE wounds due to PVD/immobility wheelchair bound at baseline does not follow with wound care at this time - [facility] [place] unable to accommodate her b/c she can't get up on the exam table. she has an appointment scheduled at a different wound care clinic wound care nurse evaluation>coccyx, left heel, right heel, right posterior leg, left ischium. See wound care note no evidence of sepsis Uncontrolled hypertension Patient reports her blood pressure has been well controlled but gets elevated when she is nervous continue baseline verapamil, formulary equivalent for olmesartan, carvedilol Paroxysmal atrial fibrillation continue amiodarone hold eliquis Hypothyroidism Continue Synthroid Bullous pemphigoid continue prednisone Chronic normocytic anemia H/H near baseline some acute blood loss due to epistaxis, unable to quantify if significant blood loss follow CBC DVT prophylaxis - can't have mechanical devices due to leg wounds; eliquis on hold code status - DNR/DNI Quality Stroke Does the patient have a stroke diagnosis?: No VTE Prior VTE?: No VTE Risk Level:: Medical - moderate - high VTE Device Contraindication: Treatment Not Indicated VTE Drug Contraindication: N/A - Med Ordered
--- NOTE | 2024-12-07 11:20 | MHC.CLN ---
F/U LIBERALIZED DIET FROM 2 GRAM SODIUM TO REGULAR DUE TO ADVANCED AGE. SEE WOUND NURSE ASSESSMENT FOR PRESSURE INJURIES. 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 ENSURE MAX BID ADDED TO PROMOTE SKIN INTEGRITY. SUPPLEMENT PROVIDES 300 KCALS, 60 G PROTEIN. VARIABLE INTAKE, 50-100%. FOLLOW FOR PO INTAKE AND WOUND HEALING.
--- NOTE | 2024-12-07 11:23 | MHC.CM.PN ---
Addendum entered by Sulma Bejarano 12/07/24 16:13: DC is on hold today. [facility] The Provider is stopping Eliquis and starting Coumadin. [facility] has been notified of the medication change. Original Note: IMM 12/05/24 Per MD rounds Discharge is planned for later today. She will have the Rhino rocket removed today prior to discharge. DP Resumption of [facility]. Patient will have private transport home.
[2024-12-07] MEDS: cefTRIAXone sodium 1 GM VIAL IVPUSH (14:21)
[2024-12-07 15:14] VITALS: BP 140/52; PULSE 53; RESP 18; TEMP 37; O2SAT 99
[2024-12-07] MEDS: Doxycycline Monohydrate 100 MG CAPSULE PO (15:38)
--- NOTE | 2024-12-07 18:39 | PC.NURSE ---
ACCOUNTING TEACHER updated family at bedside. Dressing changes performed this shift. otherwise no acute events
[2024-12-07 19:12] VITALS: BP 120/59; PULSE 50; RESP 18; TEMP 36.4; O2SAT 96
[2024-12-07 21:09] VITALS: BP 120/59; PULSE 50
[2024-12-08] MEDS: 0.9 % Sodium Chloride Flush 3 ML SYRINGE IVFLUSH ×2 (00:19→07:47)
[2024-12-08 03:31] VITALS: BP 129/59; PULSE 60; RESP 18; TEMP 36.6; O2SAT 93
[2024-12-08] MEDS: Doxycycline Monohydrate 100 MG CAPSULE PO (03:50)
[2024-12-08] MEDS: Levothyroxine Sodium 175 MCG TABLET PO (06:35)
[2024-12-08 07:26] VITALS: BP 144/80; PULSE 60; RESP 18; TEMP 36.3; O2SAT 95
[2024-12-08] MEDS: Cyanocobalamin (Vitamin B-12) 1,000 MCG TABLET 1000 MCG PO (07:43)
[2024-12-08] MEDS: VerapamiL HCL SR 120 MG TABLET.ER PO (07:43)
[2024-12-08] MEDS: Valsartan 160 MG TABLET PO (07:44)
[2024-12-08] MEDS: carvediloL 3.125 MG TABLET PO (07:44)
[2024-12-08] MEDS: Amiodarone HCL 200 MG TABLET PO (07:44)
--- NOTE | 2024-12-08 10:42 | P.DS_ITS ---
DS: Providers Provider Date of Service: 12/08/24 Date of admission: 12/04/24 15:36 Date of discharge: 12/08/24 Primary care physician: Kalina Colon MD Consults: 12/04/24 15:58 Consult to Wound Care Routine Reason for consultation: BLE, coccyx, right gluteal fold, left breast fold. Attending physician on discharge: Parag Fierro Discharging clinician: Sophia Beasley DS: Diagnosis Discharge Diagnosis (1) Epistaxis: Status: Acute DS: Summary Hospital Course Hospital Course: From H&P on the day of admission This is in 89-year-old female who presented to the emergency department due to epistaxis. Her bloody nose began approximately 1 hour prior to arrival. She was unsuccessful with stopping the bleeding at home so she called 911 and was brought to the hospital for evaluation. In the emergency department she received topical silver nitrate, Afrin followed by rhino rocket placement and her epistaxis resolved. On arrival her blood pressure was elevated. Lab work was unremarkable but chest x-ray showed concern over multifocal pneumonia. She received IV ceftriaxone and IV doxycycline. Her oxygen saturations remained stable in the mid 90s on room air. She reported an episode of shortness of breath the other day and then again today. She does not ambulate at baseline, uses a wheelchair to get around. She denies fever, chills, recent sick contacts. She has mild intermittent cough. Acute epistaxis Likely due to elevated bp and eliquis. Eliquis held during admission. cover with abx as above due to rhino rocket rhino rocket removed 12/07, no further bleeding. can resume eliquis on discharge. has been talking with PCP about possibly changing Possible multifocal pneumonia versus CHF Chest x-ray report reading multifocal pneumonia however patient does not have white count, fever or significant cough. Treated empirically with ceftriaxone and doxycycline. procalcitonin was low at 0.03. BNP was elevated, patient denies history of CHF, but previous echo from last year showing diastolic dysfunction. repeat echocardiogram EF 57% no rwma did show diastolic disfunction with prese rved EF. She was treated with IV lasix and leg edema improved significantly. No hypoxia during hospitalization. Will increase lasix to 40 daily. will need outpatient follow up. Doppler us negative for RUE clot. 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 she has an appointment scheduled at a different wound care clinic. she was seen by the wound care nurse who gave wound care recommendations. continue local wound care upon discharge Uncontrolled hypertension Patient reports her blood pressure has been well controlled but gets elevated when she is nervous, may have also been elevated due to fluid overload. continue baseline verapamil, formulary equivalent for olmesartan, carvedilol, overall blood pressure improved. paroxysmal afib pt reports fox for eliquis has been increased. she has been talking to PCP about possibly changing to coumadin for anticoagulation. Unclear why this valdes ge has not yet been made therefore we will defer to outpatient provider. discussed with patient and she is in agreement. Time Attestation Discharge Coordination Time (in mins): 36 Quality: Safe Use of Opioids Does Pt have an Active Cancer Diagnosis on the Problem List?: No Quality: Stroke Does the patient have a stroke diagnosis?: No Physical Exam Vital Signs: Vital Signs: Last Vital Signs Temp 97.3 F 12/08/24 07:26 Pulse 60 12/08/24 07:26 Resp 18 12/08/24 07:26 BP 144/80 H 12/08/24 07:26 Pulse Ox 95 12/08/24 07:26 O2 Del Method Room Air 12/08/24 07:26 BMI result Body Mass Index 38.4 Const: General: cooperative, comfortable, no acute distress, alert and awake Nutritional Appearance: obese Orientation/consciousness: patient oriented x3 Resp: Effort & Inspection: normal respiratory effort, able to speak in complete sentences, no respiratory distress and no use of accessory muscles Cardio: Rate: regular rate GI: Inspection: No distended Palpation (GI): Soft to palpation and nontender Neuro: General: patient oriented x3, moves all extremities and CN's II-XI intact bilaterally DS: Data Data Completed and Pending Completed studies during hospitalization [Text1]: Procedures Dilation of Right Popliteal Artery using Drug-Coated Balloon, Percutaneous Approach (11/05/20) Excision of Right Foot Muscle, Open Approach (01/25/21) Insertion of Infusion Device into Superior Vena Cava, Percutaneous Approach (07/05/20) Introduction of Vasopressor into Peripheral Vein, Percutaneous Approach (07/05/20) Performance of Urinary Filtration, Intermittent, Less than 6 Hours Per Day (07/05/20) Ultrasonography of Superior Vena Cava, Guidance (07/05/20) Labs on day of discharge: Preliminary micro results at discharge 12/04/24 15:15 Blood Culture - Preliminary Blood - Venous No growth after 48 hours. 12/04/24 15:15 Blood Culture - Preliminary Blood - Venous No growth after 48 hours. Discharge Plan Discharge Anticipated Discharge Date/Time: 12/08/24 11:15 Patient Disposition: Home Health Service Discharge Diagnosis: Epistaxis Right arm dependent edema Multifocal pneumonia HFpEF Referrals: Chase DALTON [Other] - 1 Week (Resume Home services.) Kalina Moore MD [Primary Care Provider] - 1 Week Discharge Medications: New doxycycline monohydrate 100 mg Capsule 100 mg PO Q12H Qty: 4 0RF cefuroxime axetil 500 mg tablet 500 mg PO BID Qty: 4 0RF furosemide [Lasix] 40 mg tablet 40 mg PO DAILY 90 Days Qty: 90 0RF Continued cyanocobalamin (vitamin B-12) [Vitamin B-12] 1,000 mcg Tablet 1,000 mcg PO DAILY docusate sodium [Colace] 100 mg Capsule 100 mg PO DAILY PRN (Reason: Constipation) amiodarone 200 mg Tablet 200 mg PO DAILY Qty: 30 0RF apixaban 5 mg Tablet 5 mg PO BID verapamil 120 mg tablet extended release 120 mg PO DAILY levothyroxine 175 mcg tablet 175 mcg PO DAILY@0600 prednisone 5 mg tablet 12.5 mg PO Q2D carvedilol 3.125 mg tablet 3.125 mg PO BID olmesartan 40 mg tablet 40 mg PO DAILY Discontinued furosemide 20 mg tablet 20 mg PO DAILY doxycycline hyclate 100 mg tablet 100 mg PO BIDWM Discharge Orders: Discharge Order (Routine); Ordered 12/08/24 Ordered By: Sophia Beasley Diet: Advance to usual diet Activity on Discharge: As tolerated Stand Alone Forms: Patient Portal Discharge page Print Language: Pashto Other Ambulatory Orders: Basic Metabolic Panel (Routine) Timeframe: 1 Week Facility: [facility] - Location: Laboratory Ordered By: Sophia L Gale Care Plan Goals: Wound care Recommendations: 1. Turn and Reposition every 2 hours and as needed for patient comfort.? Use pillows or wedges to support off loading positions. 2. Off Load all bony prominences with use of pillows and heel boots if needed.? Apply Preventative foams where needed. ? 3. Monitor for incontinence and moisture control, use barrier creams when needed for prevention and treatment. 4. Provide adequate and supplemental nutrition.? 5. Order low air loss mattress 6. When applicable maintain blood glucose levels per Providers order. 7. Bilateral Heels and Right Posterior leg - Elevate heels off of bed surface with heel protector boots. Cleanse with Ns moist gauze, Pat dry. Apply barrier cream to periwound. Cover wound bed with Durafiber AG, dry gauze, ABD oad and wrap. Change every other day. 8. Left Ischium and Coccyx - Off Load Pressure with Q2 hr turns and use of pillows - Cleanse with PH balance spray or wipes, pat dry. ?Apply thin layer of Triad to wound bed. Do not remove all of paste between applications as this may cause further skin damage.? Cover with foam dressing to aid in off loading and protection from friction. Change every 5 days and PRN. Health Concerns: Epistaxis Right arm dependent edema Multifocal pneumonia HFpEF Plan of Treatment: recommend increase of lasix to 40 daily - follow BMP next week can discuss changing eliquis to coumadin with PCP wound care as above - reschedule outpatient appointment with wound care clinic call to schedule follow up appointment with PCP Take all medications as prescribed recommend repeat imaging of lungs to ensure resolution of infection Assessment: See discharge summary
[2024-12-08 13:03] VITALS: BP 148/66; PULSE 53; RESP 20; TEMP 36.5; O2SAT 94
== END 2024-12-08 15:03 | disposition home health service (06) | DRG 193 ==
LOC: HO.ED 15:01 → HO.EDOVER 15:49 → HO.S3 12-05 09:54
PROVIDERS: Nurse Practitioner Acute Care; Admitting Provider Physician Assistant Medical; Emergency Provider Emergency Medicine; PCP Family Medicine; Visit Provider Physician Assistant Medical
DX: J18.9 Pneumonia, unspecified organism (principal); I50.31 Acute diastolic (congestive) heart failure; D68.32 Hemorrhagic disorder due to extrinsic circulating anticoagulants; L12.0 Bullous pemphigoid; D62 Acute posthemorrhagic anemia; R04.0 Epistaxis; T45.515A Adverse effect of anticoagulants, initial encounter; I48.0 Paroxysmal atrial fibrillation; R60.9 Edema, unspecified; E03.9 Hypothyroidism, unspecified; Z20.822 Contact with and (suspected) exposure to COVID-19; Z99.3 Dependence on wheelchair; Z79.01 Long term (current) use of anticoagulants; Z79.52 Long term (current) use of systemic steroids; Z79.890 Hormone replacement therapy; Z79.899 Other long term (current) drug therapy
CPT/HCPCS: 0241U; 36415; 71045; 80048; 83605; 83880; 84145; 84484; 85025; 85027; 85610; 86850; 86900; 86901; 87040; 93306; 93971; 97162; 99285; J0131; J0360; J0696; J1940; Q9957

== ENCOUNTER 2024-12-04 15:36 | Outpatient (BNV) | payer MEDICARE, SELFPAY | END 2024-12-05 07:00 | PROVIDERS: Admitting Provider Physician Assistant Medical; Emergency Provider Emergency Medicine; PCP Family Medicine; Visit Provider Internal Medicine | DX: I35.1 Nonrheumatic aortic (valve) insufficiency (principal); I34.0 Nonrheumatic mitral (valve) insufficiency; I31.39 Other pericardial effusion (noninflammatory) | CPT/HCPCS: 93306 ==

== ENCOUNTER → 2024-12-04 15:36 | Outpatient (BNV) | payer MEDICARE, SELFPAY | PROVIDERS: Admitting Provider Physician Assistant Medical; Emergency Provider Emergency Medicine; PCP Family Medicine; Visit Provider Physician Assistant Medical | DX: R04.0 Epistaxis (principal) | CPT/HCPCS: 99223; 99232 ==

== ENCOUNTER 2024-12-17 07:37 | Inpatient (IN) | payer MEDICARE, SELFPAY ==
[2024-12-17] VITALS (10 sets, daily range): BP systolic 109–198; BP diastolic 48–80; PULSE 57–65; RESP 14–24; TEMP 36.4–36.7; O2SAT 95–99; BMI 43.1
--- NOTE | ~2024-12-17 | US_ITS ---
CLINICAL HISTORY: RLE extremity discolored, decreased sensation Arterial duplex ultrasound right lower extremity Comparison: 10/30/2020 Findings: Waveforms are monophasic throughout. The peroneal and posterior tibial arteries are not imaged due to inability to position limb. No aneurysm or complete occlusion identified. Elevated velocities within the SFA at multiple levels consistent with multifocal stenosis, the most pronounced distally, with severe stenosis. IMPRESSION: Monophasic waveforms throughout. Multifocal stenosis involving the SFA, most pronounced distally. The posterior tibial and peroneal arteries are not imaged. This document has been electronically signed by: Papito Loaiza MD on 12/17/2024 10:02:49
--- NOTE | ~2024-12-17 | XR_ITS ---
CLINICAL HISTORY: sob 1 view chest x-ray Comparison: CR - XR CHEST 1V - 12/04/24 13:55 EST Findings: Persistent patchy airspace opacities most pronounced within the right upper lobe. No significant effusion. Cardiac and mediastinal contours are stable No acute fracture. IMPRESSION: Persistent airspace opacities most pronounced within the right upper lobe This document has been electronically signed by: Papito Loaiza MD on 12/17/2024 11:00:36
--- NOTE | 2024-12-17 08:13 | ED_ITS ---
HPI - General Adult General Chief complaint: Wound/Laceration Stated complaint: LAC T-1,+THINNER PER EMS Time Seen by Provider: 12/17/24 08:10 Source: patient Mode of arrival: ambulatory Limitations: no limitations History of Present Illness ED Provider: MICHAEL Joseph HPI narrative: This is a 89-year-old female presenting with laceration to right anterior larson that has been bleeding for the past few days. Patient reports that her home health nurse scraped her leg while transferring her on a [place]. She reports since then she has had intermittent bleeding to the right lower extremity. Patient does report that she is on Eliquis. She also reports that she has multiple wounds that her nurse has been trying to treat however has been unsuccessful. She has been trying to get into wound care without success. She denies chest pain, shortness breath, nausea, vomiting, abdominal pain, headache, vision changes, dizziness, weakness, fevers, chills. Related Data Home Medications ?Medication ?Instructions ?Recorded ?Confirmed cyanocobalamin (vitamin B-12) 1,000 mcg PO DAILY 07/11/20 12/17/24 1,000 mcg tablet (Vitamin B-12) docusate sodium 100 mg capsule 100 mg PO DAILY PRN Constipation 07/11/20 12/17/24 (Colace) apixaban 5 mg tablet 5 mg PO BID 11/05/20 12/17/24 carvedilol 3.125 mg tablet 3.125 mg PO BID blood pressure 12/04/24 12/17/24 levothyroxine 175 mcg tablet 175 mcg PO DAILY@0600 12/04/24 12/17/24 olmesartan 40 mg tablet 40 mg PO DAILY blood pressure 12/04/24 12/17/24 prednisone 5 mg tablet 12.5 mg PO Q2D 12/04/24 12/17/24 verapamil 120 mg tablet,extended 120 mg PO DAILY 12/04/24 12/17/24 release azathioprine 50 mg tablet 50 mg PO DAILY 12/17/24 12/17/24 cholecalciferol (vitamin D3) 50 50 mcg PO DAILY 12/17/24 12/17/24 mcg (2,000 unit) capsule (Vitamin D3) citalopram 20 mg tablet 20 mg PO DAILY 12/17/24 furosemide 20 mg tablet 20 mg PO DAILY 03/08/25 03/08/25 Previous Rx's ?Medication ?Instructions ?Recorded amiodarone 200 mg tablet 200 mg PO DAILY #30 tabs 07/14/20 Allergies Allergy/AdvReac Type Severity Reaction Status Date / Time No Known Allergies Allergy Unverified 12/17/24 08:16 Review of Systems 2 Review of Systems: Yes all other systems are reviewed and are negative [facility] Past Medical History Attestation statement: The following information was validated with the patient. Source: old records reviewed and nursing notes reviewed Medical History Hypothyroidism Spinal cord tumor Chronic indwelling Velez catheter Frequent falls UTI (urinary tract infection) Muscular atrophy Kidney failure Paroxysmal atrial fibrillation PVD (peripheral vascular disease) Surgical History History of hysterectomy History of appendectomy Social History Social History Household Members: None Housing: House Do you presently have visiting nurse or other home services: Yes Comment: Pt. sleeping Patient Tobacco Use Status: Never used Tobacco Advance Directives: No Advance Directives Information Provided: Yes Advance Directives Date on File: 10/14/03 service: No Physical Exam ED Vital Signs: Vital Signs - 24 hr 12/17/24 08:13 12/17/24 11:21 12/17/24 15:12 Temperature 97.6 F 98.0 F 97.6 F Pulse Rate 59 60 61 Respiratory Rate 16 18 14 Blood Pressure 109/54 L 156/52 H 158/61 H Pulse Oximetry 95 96 Oxygen Delivery Method Room Air Room Air 12/17/24 15:29 12/17/24 17:59 Temperature 97.5 F 97.6 F Pulse Rate 57 Respiratory Rate 16 Blood Pressure 148/66 H Pulse Oximetry Oxygen Delivery Method BMI result Body Mass Index 43.1 vss Appearance: Alert.? Oriented X3.? No acute distress.? Head: Normocephalic, atraumatic, no step-offs or deformities Eyes: Pupils equal, round and reactive to light.? CVS: Normal heart rate and rhythm.? Pulses normal.? Respiratory: No respiratory distress.? Breath sounds normal.? Abdomen: Soft and nontender.? Skin: Skin warm and dry.? Normal skin color.? Normal skin turgor.? +multiple wounds throughout body Extremities: No lower extremity edema.? No calf ttp. Global weakness Back: No midline tenderness, no C-spine tenderness, full range of motion, no CVA tenderness bilaterally Neuro: Oriented X 3.? No motor deficit.? No sensory deficit. CN 2-12 intact Course Reevaluation(s) Reevaluation #1: Patient's CBC initially with a hemoglobin of 7.7 hematocrit 25.0 slightly lower than her baseline and she is having active bleeding from right lower extremity she is also on Eliquis. 1 unit of packed red blood cells were transfused, patient gave verbal and written consent for transfusion I answered all questions. Chemistry with elevated BUN and creatinine likely secondary to poor p.o. intake/dehydration will encourage p.o. fluids patient has history of elevated BNP and she just got a transfusion therefore will hold on IV fluids. Troponin flat nonischemic EKG. No chest pain or shortness of breath. I reassessed wound it is no longer bleeding, Surgicel dressing was applied overlying the right anterior larson, initially patient was bleeding through multiple dressings however after applying Surgicel bleeding was controlled and the wound is no longer bleeding. UA pending Time: 16:12 Reevaluation #2: UA + patient would benifit from admission at this time. Time: 17:41 Reevaluation #3: Rectal temperature done and rectal exam no av blood however will send down an OBS for further analysis. Plan is hospital admission Medications Administered Discontinued Medications Generic Name Dose Route Start Last Admin Trade Name Freq PRN Reason Stop Dose Admin Lidocaine/Epinephrine 20 ml 12/17/24 12:46 12/17/24 16:32 Lidocaine Hcl 2%/Epi 1:100,000 20 Ml Vial INFILTRATI 12/17/24 12:47 Not Given ONCE ONE Medical Decision Making Medical Decision Making [facility] Narrative: [id number] 89 year old female presents w/ laceration to right lower extremity since yesterday PE multiple pressure sores images in chart. There is a skin tear/abrasion to the right anterior larson that is actively oozing with blood. Hx and pe concerning for skin tear w/ abrasion that is not repairable and actively bleeding. Will rule out acute blood loss anemia although unlikely. Will also rule out metabolic derangements. No signs of osteomyelitis. There is a discoloration noted to the right anterior larson it is purplish, will rule out arterial occlusion. Plan imaging, labs. Differential Diagnosis Differential Diagnoses: The differential diagnosis associated with the presentation includes (Hx and pe concerning for skin tear w/ abrasion that is not repairable and actively bleeding. Will rule out acute blood loss anemia although unlikely. Will also rule out metabolic derangements. No signs of osteomyelitis. There is a discoloration noted to the right anterior larson it is purplish, wi) Admission/Observation Consideration of admission/observation: Escalation of care including admission/observation considered (possible ) Consult Healthcare Provider Management of the patient was discussed with: Sales Technician Lab Data MDM Lab Attestation statement: I reviewed the patient's lab results. 12/17/24 17:32 12/17/24 17:32 Labs: Lab Results 12/17/24 12/17/24 12/17/24 Range/Units 08:57 12:38 13:58 WBC 8.5 9.8 (4.8-10.8) X10*3/uL RBC 2.68 L 2.82 L (4.20-5.50) X10*6/uL Hgb 7.7 L 8.1 L (12.0-16.0) g/dl Hct 25.0 L 26.2 L (37.0-47.0) % MCV 93.3 92.9 (80.0-98.0) fL MCH 28.7 28.7 (27.0-33.0) pg MCHC 30.8 L 30.9 L (31.0-35.0) g/dl RDW 16.5 H 16.5 H (11.0-16.0) % Plt Count 240 280 (160-400) X10*3/uL MPV 9.6 9.7 (9.4-12.3) fL Immature Gran % (Auto) 0.6 H 0.6 H (0.0-0.4) % Neut % (Auto) 72.0 69.0 (45-73) % Lymph % (Auto) 16.0 L 16.2 L (20-40) % [place] % (Auto) 7.9 9.6 (2-11) % Eos % (Auto) 3.1 4.2 H (0-4) % Baso % (Auto) 0.4 0.4 (0-2) % Lymph # (Auto) 1.4 1.6 (1.2-4.9) X10*3/uL [place] # (Auto) 0.7 0.9 (0.1-1.2) X10*3/uL Eos # (Auto) 0.3 0.4 (0.0-0.4) X10*3/uL Baso # (Auto) 0.0 0.0 (0.0-0.2) X10*3/uL Abs Immat Gran (auto) 0.05 H 0.06 H (0.00-0.03) X10*3/uL Absolute Neuts (auto) 6.1 6.8 (2.0-8.3) x10*3/uL Absolute Nucleated RBC 0.000 0.000 (0.0-0.012) X10*3/uL Nucleated RBC % (auto) 0.0 0.0 (0.0-0.2) /100WBC PT 15.2 H (10.9-12.4) SEC INR 1.3 H (0.9-1.1) Sodium 142 (135-145) mmol/L Potassium 4.5 D (3.3-5.1) mmol/L Chloride 106 (96-108) mmol/L Carbon Dioxide 32 H (22-29) mmol/L Anion Gap 9 L (12-20) BUN 31 H (9-16) mg/dL Creatinine 1.27 (0.5-1.4) mg/dL Estim Creat Clear Calc 37.1 Estimated GFR 40 Random Glucose 95 (60-115) mg/dL Calcium 8.1 L (8.4-10.2) mg/dL Magnesium 1.9 (1.6-2.6) mg/dL Total Bilirubin 0.4 (0.0-1.0) mg/dL AST 14 (5-31) U/L ALT 13 (0-31) U/L Alkaline Phosphatase 81 (39-117) U/L Troponin I High Sens 14.8 15.0 (<3.5-17.0) ng/L Total Protein 5.5 L (6.5-8.0) g/dL Albumin 2.4 L (3.5-5.0) g/dL Urine Color Urine Appearance Urine pH (5.0-9.0) Ur Specific [place] (1.005-1.025) Urine Protein (Neg-Trace) mg/dL Urine Glucose (UA) (Negative) mg/dL Urine Ketones (Negative) mg/dL Urine Blood (Negative) Urine Nitrite (Negative) Ur Leukocyte Esterase (Negative) Urine RBC (0-2) /HPF Urine WBC (0-5) /HPF Ur Squamous Epith Cells (0-2) /HPF Urine Bacteria (None Seen) Hyaline Casts (0-2) /LPF Blood Type O Negative Antibody Screen NEGATIVE Crossmatch See Detail 12/17/24 12/17/24 Range/Units 17:21 17:32 WBC 9.2 (4.8-10.8) X10*3/uL RBC 3.08 L (4.20-5.50) X10*6/uL Hgb 8.7 L (12.0-16.0) g/dl Hct 28.4 L (37.0-47.0) % MCV 92.2 (80.0-98.0) fL MCH 28.2 (27.0-33.0) pg MCHC 30.6 L (31.0-35.0) g/dl RDW 16.8 H (11.0-16.0) % Plt Count 258 (160-400) X10*3/uL MPV 10.2 (9.4-12.3) fL Immature Gran % (Auto) 0.4 (0.0-0.4) % Neut % (Auto) 67.3 (45-73) % Lymph % (Auto) 17.2 L (20-40) % [place] % (Auto) 9.9 (2-11) % Eos % (Auto) 4.9 H (0-4) % Baso % (Auto) 0.3 (0-2) % Lymph # (Auto) 1.6 (1.2-4.9) X10*3/uL [place] # (Auto) 0.9 (0.1-1.2) X10*3/uL Eos # (Auto) 0.5 H (0.0-0.4) X10*3/uL Baso # (Auto) 0.0 (0.0-0.2) X10*3/uL Abs Immat Gran (auto) 0.04 H (0.00-0.03) X10*3/uL Absolute Neuts (auto) 6.2 (2.0-8.3) x10*3/uL Absolute Nucleated RBC 0.000 (0.0-0.012) X10*3/uL Nucleated RBC % (auto) 0.0 (0.0-0.2) /100WBC PT (10.9-12.4) SEC INR (0.9-1.1) Sodium 141 (135-145) mmol/L Potassium 4.1 (3.3-5.1) mmol/L Chloride 107 (96-108) mmol/L Carbon Dioxide 29 (22-29) mmol/L Anion Gap 9 L (12-20) BUN 29 H (9-16) mg/dL Creatinine 1.10 (0.5-1.4) mg/dL Estim Creat Clear Calc 42.8 Estimated GFR 47 Random Glucose 102 (60-115) mg/dL Calcium 8.0 L (8.4-10.2) mg/dL Magnesium (1.6-2.6) mg/dL Total Bilirubin 0.5 (0.0-1.0) mg/dL AST 15 (5-31) U/L ALT 16 (0-31) U/L Alkaline Phosphatase 82 (39-117) U/L Troponin I High Sens (<3.5-17.0) ng/L Total Protein 5.6 L (6.5-8.0) g/dL Albumin 2.4 L (3.5-5.0) g/dL Urine Color Yellow Urine Appearance Cloudy Urine pH 6.0 (5.0-9.0) Ur Specific [place] 1.020 (1.005-1.025) Urine Protein 30 (1+) H (Neg-Trace) mg/dL Urine Glucose (UA) Negative (Negative) mg/dL Urine Ketones Negative (Negative) mg/dL Urine Blood Negative (Negative) Urine Nitrite Positive H (Negative) Ur Leukocyte Esterase Small (1+) H (Negative) Urine RBC 0-2 (0-2) /HPF Urine WBC 11-20 H (0-5) /HPF Ur Squamous Epith Cells 3-5 (0-2) /HPF Urine Bacteria 2+ (None Seen) Hyaline Casts 0-2 (0-2) /LPF Blood Type Antibody Screen Crossmatch Critical Care Time Critical Care Time Critical Care Time: Yes Total Critical Care Time: 35 Attestation: I attest to this time spent taking care of the patient, obtaining history, physical, reviewing labs, imaging, treatment of patients condition +/- specialist/hospitalist consult Discharge Plan Discharge Clinical Impression: Skin tear of right lower leg without complication, Anemia, UTI (urinary tract infection) Patient Disposition: Admitted As Inpatient Print Language: Romanian
--- NOTE | 2024-12-17 08:14 | ECG_ITS ---
Test Reason : FALL Blood Pressure : */* mmHG Vent. Rate : 60 BPM Atrial Rate : 60 BPM P-R Int : 160 ms QRS Dur : 98 ms QT Int : 422 ms P-R-T Axes : 119 7 58 degrees QTcB Int : 422 ms Normal sinus rhythm with sinus arrhythmia Cannot rule out Anterior infarct (cited on or before 05-Jul-2020) Abnormal ECG When compared with ECG of 06-Jul-2020 07:46, Sinus rhythm has replaced Atrial fibrillation Vent. rate has decreased by 52 bpm Nonspecific T wave abnormality no longer evident in Inferior leads Referred By: Jyotsna Joseph Electronically Signed By: EDISON GAR MD
--- OUTSIDE RECORDS SUMMARY | 2024-12-17 08:28 | XMS_ITS ---
Author Organization [facility] Care Team Providers Care Tank Farm Attendant Name Role Phone Caio Peck Unavailable Unavailable Raquel Tenorio Unavailable Unavailable Raquel Schuler Unavailable Unavailable Allergies and adverse reactions Code CodeSystem Substance Reaction Severity StartDate Concern Status 97471 RXNORM Simvastatin Nausea (code- 511527378, SNOMED CT) Moderate 06/08/2020 active 160481 RXNORM Rosuvastatin Nausea (code- 792038448, SNOMED CT) Moderate 06/08/2020 active 96752 RXNORM Pravastatin Nausea (code- 914559278, SNOMED CT) Moderate 06/08/2020 active 78550 RXNORM Pantoprazole Nausea (code- 285426668, SNOMED CT) Moderate 06/08/2020 active 519 RXNORM Allopurinol Nausea (code- 505338416, SNOMED CT) Moderate 06/08/2020 active Care Team Name Role Address Phone Organization Raphael Peck PCP [address], [place], [address], [facility] (Office): : [facility] 11/13/2020 - 01/22/2021 Raquel Tenorio Attending Physician [facility] 11/13/2020 - 01/22/2021 Raquel Schuler Attending Physician [address], [place], [address], [place] (Office): [facility] 11/13/2020 - 01/22/2021 Immunizations Immunization Status Vaccine Details Vaccine Code CodeSystem Date Notes Influenza completed Influenza, split virus, trivalent, injectable, contains preservative lotNumber: [id number] expiry: 04/10/2021 Mfg: seqirus Given 0.5 ml Right Deltoid intramuscularly 141 CVX created date: 0 consent date: 0 administe red date: 0 Influenza completed Influenza, split virus, trivalent, injectable, contains preservative 141 CVX created date: 0 administe red date: 9 TB 2 Step Mantoux Skin Test completed tuberculin skin test; unspecified formulation lotNumber: [id number] expiry: 05/08/2022 Mfg: [employer] Given 0.1 ml Right Forearm intradermally Step 1 of Multi-step with next step required 98 CVX created date: 0 consent date: 0 administe red date: 0 TB 2 Step Mantoux Skin Test completed tuberculin skin test; unspecified formulation lotNumber: [id number] expiry: 03/02/2022 Mfg: PAR pharmaceutical Given 0.1 ml Right Forearm intradermally Step 1 of Multi-step with next step required 98 CVX created date: 0 consent date: 0 administe red date: 0 PCV13 (Pneumococcal Conjugate)Vacci ne completed pneumococcal conjugate vaccine, 13 valent 133 CVX created date: 0 administe red date: 0 alan Garcia SARS-COV-2 (COVID-19) completed Given intramuscularly Step 2 of Multi-step with next step required created date: 1 consent date: 1 administe red date: 1 second vaccination receive [id number] SARS-COV-2 (COVID-19) completed Step 1 of Multi-step with next step required created date: 1 consent date: 1 administe red date: 0 Pfizer - [id number] Mental Status Section Date Assessment Total Score Description 01/22/2021 BIMS 15 cognitively int act CAM 0 No delirium ind icated PHQ-9 00 01/03/2021 BIMS 14 cognitively int act CAM 0 No delirium ind icated PHQ-9 00 Problems Problem # Description Date of onset Resolved Date Code CodeSystem Concern Status 1 MALIGNANT NEOPLASM OF SPINAL CORD 11/13/[address] active 2 OTHER BURSITIS OF HIP, RIGHT HIP 11/13/[address] active 3 PERSONAL HISTORY OF COVID-19 11/13/[address] active 4 COVID-19 09/12/20 20 11/12/[address] completed 5 PERIPHERAL VASCULAR DISEASE, UNSPECIFIED 07/15/[address] active 6 PROTEUS (MIRABILIS) (MORGANII) THE CAUSE OF DISEASES CLASSIFIED ELSEWHERE 07/15/[address] active 7 SEPSIS, UNSPECIFIED ORGANISM 07/15/[address] active 8 SEVERE SEPSIS WITH SEPTIC SHOCK 07/15/[address] active 9 URINARY TRACT INFECTION, SITE NOT SPECIFIED 07/15/[address] active 10 ACUTE KIDNEY FAILURE, UNSPECIFIED 06/09/[address] active 11 BURN OF UNSPECIFIED DEGREE OF RIGHT LOWER LEG, SUBSEQUENT ENCOUNTER 06/09/[address] active 12 CELLULITIS OF RIGHT LOWER LIMB 06/09/[address] active 13 CUTANEOUS ABSCESS OF RIGHT LOWER LIMB 06/09/[address] active 14 ESSENTIAL (PRIMARY) HYPERTENSION 06/09/[address] active 15 HYPERKALEMIA 06/09/[address] active 16 HYPO-OSMOLALITY AND HYPONATREMIA 06/09/[address] active 17 HYPOTHYROIDISM, UNSPECIFIED 06/09/[address] active 18 LOCALIZED EDEMA 06/09/[address] active 19 MAJOR DEPRESSIVE DISORDER, RECURRENT, UNSPECIFIED 06/09/[address] active 20 NEUROMUSCULAR DYSFUNCTION OF BLADDER, UNSPECIFIED 06/09/[address] active 21 PAIN IN RIGHT LOWER LEG 06/09/[address] active 22 RETENTION OF URINE, UNSPECIFIED 06/09/[address] active 23 TYPE 2 DIABETES MELLITUS WITH DIABETIC NEPHROPATHY 06/09/[address] active 24 UNSPECIFIED ATRIAL FIBRILLATION 06/09/[address] active 25 DYSPHAGIA, OROPHARYNGEAL PHASE 06/08/[address] active 26 MALIGNANT NEOPLASM OF FRONTAL LOBE 06/08/[address] active 27 MUSCLE WASTING AND ATROPHY, NOT ELSEWHERE CLASSIFIED, LEFT SHOULDER 06/08/[address] active 28 MUSCLE WASTING AND ATROPHY, NOT ELSEWHERE CLASSIFIED, RIGHT LOWER LEG 06/08/20 20 07/19/[address] completed 29 MUSCLE WASTING AND ATROPHY, NOT ELSEWHERE CLASSIFIED, RIGHT SHOULDER 06/08/[address] active 30 OTHER MALAISE 06/08/[address] active 31 UNSPECIFIED ABNORMALITIES OF GAIT AND MOBILITY 06/08/[address] active 32 WEAKNESS 06/08/[address] active Reason for Referral No Reasons for Referral Entered Social History Social History Observation Description Start Date End Date Code Code System Current Smoking Status Tobacco smoking consumption unknown 300793776 SNOMED CT Sex Assigned At Female 1935 92378-7 [facility] Vital Signs Code Code System Vitals Name Values and Units Timing Information 9279-1 [facility] Respiratory Rate Value=18.0 Units=/m in 01/22/2021 8310-5 [facility] Body Temperature Value=97.6 Units=?? F 01/22/2021 36216-5 [facility] O2 % BldC Oximetry Value=97.0 Units= % 01/22/2021 46829-3 [facility] Pain Level Value=0.0 01/22/2021 8462-4 [facility] Blood Pressure-Diastolic Value=62 Un its=mmHg 01/21/2021 8480-6 [facility] Blood Pressure-Systolic Lwqau=081 Un its=mmHg 01/21/2021 8867-4 [facility] Heart rate Value=80.0 Units=/min 09/2021 05995-6 [facility] Weight Ahtzw=246.0 Units=Lbs 06/2021 8302-2 [facility] Height Value=67.0 Units=Inches 07/15/2020 2339-0 [facility] Blood Sugar Nuimz=915.0 Units=mg/dL 06/20/2020
--- OUTSIDE RECORDS SUMMARY | 2024-12-17 08:29 | XMS_ITS ---
Author Organization [facility] Care Team Providers Care Supervisor Elementary Education Name Role Phone Lewis Byrd Unavailable Unavailable Lis Taylor Unavailable Unavailable Yanira Mason Unavailable Unavailable Kiersten Collins Unavailable Unavailable Caio Peck Unavailable Unavailable Lulú Velazquez Unavailable Unavailable Levheim, Raquel M Unavailable Unavailable Lilibeth Ramirez S Unavailable Unavailable Samantha Warner R Unavailable Unavailable Sabrina Antoine Unavailable Unavailable Aylin Man Unavailable Unavailable Che Camara Unavailable Unavailable Lucina Cheek Unavailable Unavailable Saida Zimmerman Unavailable Unavailable Allergies and adverse reactions Code CodeSystem Substance Reaction Severity StartDate Concern Status 38807 RXNORM Simvastatin Unknown 10/10/2019 active 380155 RXNORM Rosuvastatin Unknown 10/10/2019 active 69180 RXNORM Pravastatin Unknown 10/10/2019 active 97373 RXNORM Pantoprazole Unknown 10/10/2019 active 519 RXNORM Allopurinol Unknown 10/10/2019 active Care Team Name Role Address Phone Organization Dates Lewis Byrd Attending Physician [address] [place] [address], [phone], [facility] (Office): : [facility] 10/10/2019 - 10/13/2019 Lis Taylor Attending Physician [address] [place] [address], [id number], [facility] (Office): : [facility] 10/10/2019 - 10/13/2019 Yanira Mason Attending Physician [address] [place] [address], [place], [phone], [place] (Office[place] : [facility] 10/10/2019 - 10/13/2019 Kiersten Collins Attending Physician [address] [place] [address], [phone], [place] (Office): : [facility] 10/10/2019 - 10/13/2019 Caio Peck Attending Physician [address] [place] [address], [place], [phone], [facility] (Office): : [facility] 10/10/2019 - 10/13/2019 Lulú Velazquez Attending Physician [address] [place] [address], [place], [address], [place] (Office): : [facility] 10/10/2019 - 10/13/2019 Raquel Schuler Attending Physician [address] [place] [address], [phone], [facility] (Office): : [facility] 10/10/2019 - 10/13/2019 Lilibeth Ramirez Attending Physician [address] [place], [place] [address], [place], [address], [facility] (Office): : [facility] 10/10/2019 - 10/13/2019 Samantha Warner Attending Physician [address] [place] [address] [address], [place], [address], [facility] (Office): : [facility] 10/10/2019 - 10/13/2019 Sabrina Antoine Attending Physician [address] [place] [address], [place], [address], [place] (Office): : [facility] 10/10/2019 - 10/13/2019 Aylin Man Attending Physician [address] [place] [address] [address], [place], [address], [place] (Office): : [facility] 10/10/2019 - 10/13/2019 Che Camara Attending Physician [address] [place] [address], [place], [address], [facility] (Office): : [facility] 10/10/2019 - 10/13/2019 Lucina Cheek Attending Physician [address] [place] [address], [place], [address], [place] (Office): : [facility] 10/10/2019 - 10/13/2019 Saida Zimmerman Attending Physician [address] [place] [address], [place], [address], [facility] (Office): : [facility] 10/10/2019 - 10/13/2019 Immunizations Immunization Status Vaccine Details Vaccine Code CodeSystem Date Notes TB 2 Step Mantoux Skin Test completed tuberculin skin test; purified protein derivative solution, intradermal lotNumber: [id number] expiry: 09/10/2020 Mfg: PAR pharmaceical Given 0.1 ml Right Forearm subcutaneously Step 1 of Multi-step with next step required 96 CVX created date: 10/11/2019 consent date: 10/11/2019 administere d date: 10/11/2019 Mental Status Section Date Assessment Total Score Description 10/13/2019 BIMS 15 cognitively int act CAM 0 No delirium ind icated PHQ-9 06 mild depression Problems Problem # Description Date of onset Resolved Date Code CodeSystem Concern Status 1 UNSPECIFIED ABNORMALITIES OF GAIT AND MOBILITY 10/17/[address] active 2 ACUTE CYSTITIS WITHOUT HEMATURIA 10/10/[address] active 3 CELLULITIS OF RIGHT LOWER LIMB 10/10/[address] active 4 ESSENTIAL (PRIMARY) HYPERTENSION 10/10/[address] active 5 GOUT, UNSPECIFIED 10/10/[address] active 6 HYPOTHYROIDISM, UNSPECIFIED 10/10/[address] active 7 LOCALIZED EDEMA 10/10/[address] active 8 MALIGNANT NEOPLASM OF BRAIN, UNSPECIFIED 10/10/[address] active 9 MONOPLEGIA OF LOWER LIMB AFFECTING UNSPECIFIED SIDE 10/10/[address] active 10 MUSCLE WEAKNESS (GENERALIZED) 10/10/[address] active 11 NEOPLASM OF UNSPECIFIED BEHAVIOR OF ENDOCRINE GLANDS AND OTHER PARTS OF NERVOUS SYSTEM 10/10/[address] active 12 OSTEONECROSIS, UNSPECIFIED 10/10/[address] active 13 OTHER SPECIFIED DISORDERS OF BONE DENSITY AND STRUCTURE, UNSPECIFIED SITE 10/10/[address] active 14 SYSTEMIC INFLAMMATORY RESPONSE SYNDROME (SIRS) OF NON-INFECTIOUS ORIGIN WITHOUT ACUTE ORGAN DYSFUNCTION 10/10/[address] active 15 TYPE 2 DIABETES MELLITUS WITHOUT COMPLICATIONS 10/10/[address] active 16 UNSPECIFIED ATRIAL FIBRILLATION 10/10/[address] active 17 WEAKNESS 10/10/[address] active Reason for Referral No Reasons for Referral Entered Social History Social History Observation Description Start Date End Date Code Code System Current Smoking Status Tobacco smoking consumption unknown 944039973 SNOMED CT Sex Assigned At Female 1935 14418-2 [facility] Vital Signs Code Code System Vitals Name Values and Units Timing Information 07429-2 [facility] Weight Vfqdo=138.0 Units=Lbs 11/2019 8302-2 [facility] Height Value=66.0 Units=Inches 10/13/2019 9279-1 [facility] Respiratory Rate Value=20.0 Units=/m in 10/13/2019 8462-4 [facility] Blood Pressure-Diastolic Value=74 Un its=mmHg 10/13/2019 8480-6 [facility] Blood Pressure-Systolic Wpmyg=482 Un its=mmHg 10/13/2019 8310-5 [facility] Body Temperature Value=98.7 Units=?? F 10/13/2019 8867-4 [facility] Heart rate Value=70.0 Units=/min 11/2019 25357-9 [facility] Pain Level Value=0.0 10/13/2019 36438-7 [facility] O2 % BldC Oximetry Value=95.0 Units= % 10/13/2019
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
--- OUTSIDE RECORDS SUMMARY | 2024-12-17 08:29 | XMS_ITS | Continuity of Care Document ---
Author Organization [facility], , 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 Med. & Rehab Unavailable KALINA GARCIA Primary Care Provide r BERTO CALDERA OTHER BLANCA CHAVIS OTHER ALONDRA COPE Vascular Surgeon GORDON CHERY OTHER [facility] Orthopedist [facility] Urologist [facility] Maintenance And Utilities Supervisor Assessment Encounter Date Assessment Date Assessment LastModified by Organization Details LastModified Time 12/01/2024 12/01/2024 We reviewed your chronic medical conditions and updated your plan for management. Please review instructions below. We have discussed your personal goals and discussed how to reach your goals. Please reach out to us via the Portal or phone if you have questions about your chronic conditions or if you or your caregivers require assistance in meeting your goals. Please visit our website [email or web address] for more patient resources. As part of your care plan, we will help coordinate your ongoing medical needs, arrange for durable medical equipment, renew prescriptions and necessary prior authorizations, facilitate getting referrals and collaborating with specialist, referrals for VNA services. Not available 11/30/2024 14:06:10 Plan of Treatment Reminders Order Date Submit Date Provider Last Modified By Organization Details Last Modified Time Details Appointments Inpatient Follow-Up 2024 10:15A Jillian Hickman MD Not available Not available Not available LAB Follow-Up 2024 08:50A M [facility] Lab Not available Not available Not available Medical Managemen t 30 2024 09:00A M Kalina Hickman MD Not available Not available Not available Lab BMP, serum or plasma 2024 025 [facility], [address], [place], [address], 12/01/2024 15:21:45 Referral None recorded. Procedures None recorded. Surgeries None recorded. Imaging None recorded. Medication Orders None recorded. Patient TargetsNo targets recorded. Patient InstructionsNo instructions recorded. Reason for Referral None Reported. Results Created Date Observation Date Name Description Value Unit Range Abnormal Flag Note LastModifiedBy Organization Detail LastModifiedTime 12/04/1912/04/2024 XR, chest No observ ation record ed. [address], [address], 12/05/2024 17:50:02 12/06/19 25 12/06/2024 US, duple x, venou s, upper extre mity, unila teral No observ ation record ed. [facility] [address] [place], [address], 12/06/2024 21:10:01 Result Notes None recorded. 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 MOY Guthrie, [facility] 6 09:20:42 Anxiety state 787846792 Active MOY Guthrie, [facility] 6 09:20:42 Anxiety state 130549637 Completed 01/05/2012 MOY Guthrie, [facility] 6 09:20:42 Essentia l hyperten ld 86755317 Completed 01/05/2012 MOY Guthrie, [facility] 6 09:20:43 Essentia l hyperten ld 93007964 Active Ana Zamna LPN null, [facility] 6 09:20:43 Joint pain 87526935 Active Ana Zaman LPN null, [facility] 6 09:20:43 Hypothyr oidism 27771288 Active Ana Zaman LPN null, [facility] 6 09:20:42 Gout 31786179 Active Ana Zaman LPN null, [facility] 6 09:20:42 Monopare sis of lower limb 304835240 Active Ana Zaman LPN null, [facility] 6 09:20:42 Osteopen ia 690141115 Active Ana Zaman LPN null, [facility] 6 09:20:43 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 [facility] [place] [facility] 09:[facility] Hemipleg ia 30811404 Active 2012 Ana Zaman LPN null, [facility] 6 09:20:42 Single major depressi ve episode Completed 201312/15/2019 Removal Reason: duplicat e Samantha MOY Hart null, [facility] 0 13:32:16 Opioid dependen ce 64247934 Completed 07/31/2015 Ana Zaman LPN null, [facility] 6 09:20:42 Primary malignan t neoplasm of brain 14077950 Active Ana Zaman LPN null, [facility] 6 09:20:42 Major depressi ve disorder 946328842 Active Ana Zaman LPN null, [facility] 6 09:20:42 Osteonec rosis 471474682 Active 2015 Coded 02/05/20 16 Jossie Krishnan LPN null, [facility] 6 07:42:37 Disorder of connecti ve tissue 670893894 Active 2015 Kalina Hickman MD [address] [place] [address] [place], [address], [facility] 6 08:42:33 Type 2 diabetes mellitus without complica tion 531417208 Completed 201509/11/2021 Removal Reason: PT HAS DM W/RENAL - GFR DONE ON 1 43.6 = YEYO SCORE - UPDATED DX IN PROBLEM LIST Brenda smiley, [facility] 1 14:23:10 Atrial fibrilla tion 80649159 Active 2019 Kalina Hickman MD [address] [place], [place] [address] [place], [address], [facility] 0 11:55:38 COVID-19 125442316 Active 2020 Kalina Hickman MD [address] [place] [address], [place], [address], [facility] 1 08:20:29 Chronic kidney disease stage 3 150680111 Active 2020 LABS 1 GFR 43.6 Brenda Young sherice, [facility] 1 14:16:32 Chronic kidney disease due to type 2 diabetes mellitus 13758281666 8 Active 2020 Brenda Young sherice, [facility] 1 14:19:49 Under care of watch case polisher 977414571 Active 2020 Mercedes medrano RN Mercedes Razo RN null, [facility] 1 15:35:55 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 Samantha Hart LPN null, [facility] 2 10:43:50 Urinary tract infectio us disease 36951410 Active 2021 per [facility] discharg e 04/09/22. Samantha Hart LPN null, [facility] 2 10:44:05 Wound 742449055 Active 2021 nonheali ng wound of right heel - per [facility] discharg e 04/09/22. MOY Blackman, [facility] 2 10:44:42 Sepsis 97551966 Active 2021 per [facility] discharg e 04/09/22. 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 390535067 Active 2022 Kalina Hickman MD [address] [place], [place] [address], [address], [facility] 3 12:24:54 Hypercoa gulabili ty state 49087797 Active 2022 Kalina Hickman MD [address] [place], [place] [address] [place], [address], [facility] 3 06:51:07 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 Kalina Hickman MD [address] [place], [place] [address], [address], [facility] 4 20:09:40 Pressure injury stage IV 8938615199 Active 2023 Kalina Hickman MD [address] [place] [address] [place], [address], [facility] 10:28:04 Pressure injury of sacral region of back 495708531 Active 2024 Kalina Hickman MD [address] [place] [address] [place], [address], [facility] 5 07:43:00 Chronic ulcer of heel 42978666426 122300 Active 2024 Kalina Hickman MD [address] [place] [address], [place], [address], [facility] 5 07:47:51 Problem Notes None recorded. Procedures Surgical History Date Name Laterality Status Provider Name and Address Organization Details Recorded Time 03/24/20 24 Medicare Wellness Visit completed Paty Solano MA [facility] 03/24/2024 08:03:09 12/14/19 24 G2211 completed Kalina Hickman MD [address] [place] [address], [address], [facility] 12/15/2023 18:23:59 05/12/20 23 Wound Care completed Azul Santana RN BSN [facility] 05/12/2023 12:46:34 02/14/20 22 Medicare Wellness Visit completed Paty Solano MA [facility] 02/13/2022 08:20:46 02/14/20 22 Alcohol use screening completed Paty Solano MA [facility] 02/13/2022 08:20:46 02/14/20 22 Cardiovascular disease risk reduction counseling completed Paty Solano MA [facility] 02/13/2022 08:20:46 02/14/20 22 Medicare Risk for Falls Screen completed Paty Solano MA [facility] 02/13/2022 08:47:58 07/05/20 21 Refraction completed Anna Hickey [facility] 07/03/2021 13:46:57 01/25/20 21 Post hospital/SNF follow-up/Transiti onal Care completed Stephanie Venne, [facility] 01/24/2021 10:49:51 03/23/20 20 Wound Care completed Payal Thorne, RN, BSN [facility] 03/23/2020 12:40:54 10/17/19 20 Post hospital/SNF follow-up/Transiti onal Care completed Julia Sandhu [facility] 10/17/2019 10:22:34 06/18/20 18 Medicare Risk for Falls Screen completed Stephanie Johnson [facility] 06/18/2018 13:30:19 06/11/20 17 Medicare Wellness Visit completed Caroline Logan [facility] 06/11/2017 08:01:03 05/23/20 16 Medicare Wellness Visit completed Sophia Hernandes [employer] [facility] 05/23/2016 08:24:30 05/06/20 16 Cataract Surgery completed Kalina Hickman MD [address] [place] [address], [address], [facility] 05/23/2016 08:46:39 04/22/20 16 Cataract Surgery completed Kalina Hickman MD [address] [place], [address], [facility] 05/23/2016 08:46:21 02/09/20 15 Medicare Wellness Visit completed Caroline Logan [facility] 02/08/2015 07:50:35 12/26/19 15 Unna Boot completed Daly Santiago [employer] [facility] 12/25/2014 11:56:43 01/11/20 14 Medicare Wellness Visit completed Caroline Logan [facility] 01/10/2014 08:01:29 06/28/20 13 <strong>Functional </strong> Outcome w/ POC (G8539) completed Marylou Bah Ms, PT [address] [place], [address], [facility] 06/28/2013 11:50:20 05/31/20 13 <strong>Pain</stro ng> Assessment and Follow-up (G8730) completed Marylou Bah Ms, PT [address] [place], [address], [facility] 05/31/2013 08:00:12 05/31/20 13 <strong>Falls</str roby> Risk Assessment - No Risk (1101F) completed Marylou Bah Ms, PT [address] [place], [address], [facility] 05/31/2013 08:00:12 05/31/20 13 <strong>Functional </strong> Outcome - POC Documented Previously (G8942) completed Marylou Bah Ms, PT [address] [place], [address], [facility] 05/31/2013 08:00:12 05/26/20 13 Treatment and Advice completed Maryloukian Bah Ms, PT [address] [place], [address], [facility] 05/26/2013 07:49:55 05/24/20 13 Treatment and Advice completed Maryloukian Bah Ms, PT [address] [place], [address], [facility] 05/24/2013 07:50:50 04/29/20 13 Unna Boot completed Estrellita Shaw, JED [facility] 04/29/2013 09:51:20 04/26/20 13 Current Functional Assessment completed Maryloukian Bellae , PT [address] [place], [address], [facility] 04/26/2013 14:10:01 04/26/20 13 Goal Functional Assessment completed Maryloukian Bellae , PT [address] [place], [address], [facility] 04/26/2013 14:10:01 04/26/20 13 <strong>Pain</stro ng> Assessment - No Pain (G8731) completed Maryloukian Bellae , PT [address] [place], [address], [facility] 04/26/2013 11:06:25 04/26/20 13 <strong>Falls</str roby> Risk Assessment - No Risk (1101F) completed Marylou Bah , PT [address] [place], [address], [facility] 04/26/2013 11:06:25 04/26/20 13 <strong>Functional </strong> Outcome w/ POC (G8539) completed Marylou Bah Ms, PT [address] [place], [address], [facility] 04/26/2013 11:06:25 01/27/20 13 Back Surgery completed Kalina Hickman MD [address] [place], [address], [facility] 02/04/2013 21:05:52 10/08/20 12 Medicare Wellness Visit completed Caroline Logan [facility] 10/08/2012 11:34:04 08/03/20 12 Treatment and Advice completed Marylou Bah Ms, PT [address] [place], [address], [facility] 08/03/2012 08:46:06 04/22/20 12 Treatment and Advice completed Marylou Bah Ms, PT [address] [place], [address], [facility] 04/22/2012 14:50:59 04/20/20 12 Treatment and Advice completed Marylou Bellae Ms, PT [address] [place], [address], [facility] 04/20/2012 13:32:08 04/06/20 12 Treatment and Advice completed Marylou Bah Ms, PT [address] [place], [address], [facility] 04/06/2012 11:46:14 03/30/20 12 Treatment and Advice completed Marylou Bah Ms, PT [address] [place], [address], [facility] 03/30/2012 08:59:52 03/02/20 12 Treatment and Advice completed Marylou Bah Ms, PT [address] [place], [address], [facility] 03/02/2012 10:01:18 02/24/20 12 Treatment and Advice completed Marylou Bah Ms, PT [address] [place], [address], [facility] 02/24/2012 14:09:00 02/17/20 12 Treatment and Advice completed Marylou Bah Ms, PT [address] [place], [address], [facility] 02/17/2012 08:09:04 02/12/20 12 Treatment and Advice completed Marylou Bah Ms, PT [address] [facility] [place], [address], [facility] 02/12/2012 13:14:55 02/10/20 12 Treatment and Advice completed Marylou Bah Ms, PT [address] [facility] [place], [address], [facility] 02/10/2012 13:26:25 01/29/20 12 Treatment and Advice completed Marylou Bah Ms, PT [address] [place], [address], [facility] 01/29/2012 15:36:39 01/27/20 12 Treatment and Advice completed Marylou Bah Ms, PT [address] [place], [address], [facility] 01/27/2012 14:09:14 01/22/20 12 Treatment and Advice completed Marylou Bah Ms, PT [address] [place], [address], [facility] 01/22/2012 13:02:20 01/08/20 12 Treatment and Advice completed Marylou Bah Ms, PT [address] [place], [address], [facility] 01/08/2012 17:43:04 10/12/18 65 Total Hysterectomy completed Brenda Agustin [address] [place], [address], [facility] 11/11/2011 08:39:26 Imaging Results None recorded. Procedure Notes None recorded. Medical Equipment None Reported. Allergies Allergen ID Allergen Name Allergen Category Reaction Reaction Severity Criticality Documentation Date Start Date Code Code System Note Provider Name and Address Organization Details Recorded Time 587127 pantopraz ole medicatio n Not available Not available Not available 11/08/2012 74453 RxNorm cough ing Kalina Hickman MD [address] [facility] [place], [address], [facility] 3 08:02:40 597131 allopurin ol medicatio n itching Not available Not available 12/17/2017 519 RxNorm Kalina Hickman MD [address] [facility] [place], [address], [facility] 8 13:37:28 656873 cefpodoxi me medicatio n hives Not available Not available 03/17/202470751 RxNorm Hope Hernandez RN MSN null, [facility] 4 13:30:09 33958 pravastat in medicatio n other mild Not available 12/09/2011 59617 RxNorm myalg [place] Brenda Agustin [address] [facility] [place], [address], [facility] 2 11:04:56 80547 Crestor medicatio n other mild Not available 12/09/2011 06443 4 RxNorm myalg [place] Brenda Agustin [address] [facility] [place], [address], [facility] 2 11:04:56 06853 simvastat in medicatio n other mild Not available 12/09/2011 78194 RxNorm myalg ias Brenda Agustin [address] [facility] [place], [address], [facility] 2 11:04:56 89972 Lipitor medicatio n other mild Not available 12/09/2011 89167 5 RxNorm myalg [place] Brenda Agustin [address] [facility] [place], [address], [facility] 2 11:04:56 Medications Name Sig Start Date Stop Date Status Note LastModified by Organization Details LastModified Time Prescript ion - New 03/01 completed Not Available Not Available Not Available Prescript ion - Prior Authoriza tion Request 03/01 completed Not Available Not Available Not Available verapamil ER (SR) 120 mg tablet,ex tended release TAKE 1 TABLET BY MOUTH EVERY DAY active Not Available Not Available No t Available Miralax 17 gram oral powder packet Take 1 packet every day by oral route. 05/10 completed Not Available Not Available Not Available losartan 50 mg tablet TAKE 1 AND 1/2 TABLETS BY MOUTH EVERY DAY FOR 90 DAYS. 03/05 completed Pt states she is taking 2 tab once a day (total 100mg) 03/05/23 asd Not Available Not Available Not Available Santyl 250 unit/gram topical ointment 01/23 completed Not Available Not Available Not Available amoxicill in 500 mg capsule TAKE 1 CAPSULE BY MOUTH EVERY 8 HOURS FOR 10 DAYS active Not Available Not Available No t Available furosemid e 40 mg tablet Take 1 tablet every day by oral route for 30 days. 01/23 completed Not Available Not Available Not Available Miralax 17 gram/dose oral powder Take 17 g every day by oral route. 2020 active per 01/22 [facility] med dc list Not Available Not Available Not Available silver sulfadiaz ine 1 % topical cream APPLY A 1/16 INCH (1.5 MM) THICK LAYER TO ENTIRE BURN AREA BY TOPICALR OUTE DAILY 09/17 completed Not Available Not Available Not Available levothyro xine 175 mcg tablet TAKE 1 TABLET BY MOUTH EVERY DAY active Not Available Not Available No t Available Colace 100 mg capsule Take 1 capsule every day by oral route. 2020 active Not Available Not Available Not Avai lable acetamino phen 325 mg tablet Take 2 tablets every 6 hours by oral route as needed. 2023 active dosage should be 1,000mg every 8 hrs per Rupinder sneed rn, 02/14/2021 xrper 01/22 [facility] med dc list. for pain; pt no longer taking/J ML 12/09/24 Not Available Not Available Not Available doxycycli ne hyclate 100 mg capsule TAKE 1 CAPSULE BY MOUTH TWICE A DAY FOR 10 DAYS 02/13 completed Not Available Not Available Not Available cefuroxim e axetil 250 mg tablet Take 1 tablet every 12 hours by oral route as directed for 7 days. 05/24 completed per 05/15 ER med list. for UTI Not Available Not Available Not Available naproxen 375 mg tablet Take 1 tablet every day by oral route for 90 days. 01/23 completed PRN Not Available Not Available Not Available cefpodoxi me 200 mg tablet 03/24 completed Not Available Not Available Not Available cefpodoxi me 100 mg tablet 06/16 completed Not Available Not Available Not Available Coricidin HBP Cough and Cold 4 mg-30 mg tablet Take 1 tablet every 6-8 hours by oral route as needed for 7 days. 01/22 completed Not Available Not Available Not Available amiodaron e 200 mg tablet TAKE 1 TABLET BY MOUTH EVERY DAY active Not Available Not Available No t Available metoprolo l succinate ER 50 mg tablet,ex tended release 24 hr Take 1 tablet every day by oral route for 30 days. 05/12 completed Not Available Not Available Not Available cephalexi n 250 mg capsule TAKE 1 CAPSULE BY MOUTH THREE TIMES A DAY FOR 7 DAYS 06/04 completed Not Available Not Available Not Available hydrocodo ne 5 mg-acetam inophen 325 mg tablet TAKE 1 TABLET EVERY 12 HOURS BY ORAL ROUTE FOR 28 DAYS. 2024 active Not Available Not Available Not Avai lable fluticaso ne propionat e 0.05 % topical cream active Not Available Not Available Not Available senna 8.6 mg tablet Take 1 tablet every day by oral route as needed. active Not Available Not Available No t Available meloxicam 15 mg tablet Take 1 tablet every day by oral route for 30 days. 04/15 completed Not Available Not Available Not Available prednison e 20 mg tablet TAKE 1 TABLET EVERY DAY BY ORAL ROUTE FOR 21 DAYS FOR URTICARI A. active Not Available Not Available No t Available prednison e 5 mg tablet TAKE 4 TABS BY MOUTH EVERY OTHER DAY. active Changed to 12.5 mg QEOD per d/c summary [facility] 12/08/24 JML Not Available Not Available Not Available verapamil ER (SR) 180 mg tablet,ex tended release TAKE 1 TABLET BY MOUTH EVERY DAY active Not Available Not Available No t Available Milk of Magnesia 400 mg/5 mL oral suspensio n Take 30 mL every day by oral route as needed. 03/24 completed per 01/22 [facility] med dc list. taken prn for constipa tion Not Available Not Available Not Available Diflucan 150 mg tablet Take 1 tablet every day by oral route for 1 day. 11/05 completed Not Available Not Available Not Available ciproflox acin 250 mg tablet Take 1 tablet twice a day by oral route for 3 days. 06/13 /2024 completed Not Available Not Available Not Available amlodipin e 5 mg tablet Take 1 tablet every day by oral route for 30 days. active leg and face swelling Not Available Not Available Not Available allopurin ol 100 mg tablet take 1 tablet by mouth once daily 12/17 completed pruritus Not Available Not Available Not Available ciproflox acin 500 mg tablet TAKE 1 TABLET BY MOUTH TWICE A DAY FOR 10 DAYS 01/23 completed Not Available Not Available Not Available sulfameth oxazole 800 mg-trimet hoprim 160 mg tablet TAKE 1 TABLET BY MOUTH TWICE A DAY FOR 10 DAYS 02/13 completed Not Available Not Available Not Available omeprazol e 40 mg capsule,d elayed release Take 1 capsule every day by oral route for 90 days. 03/01 completed Not Available Not Available Not Available tramadol 50 mg tablet TAKE 1 TABLET BY MOUTH THREE TIMES A DAY FOR 7 DAYS 08/15 completed Not Available Not Available Not Available triamcino lone acetonide 0.1 % topical cream APPLY TO AREAS OF RASH ON TRUNK AND BACK TWICE A DAY NEEDED UP TO 14 DAYS PER MONTH active No longer using/JM L 12/09/24 Not Available Not Available Not Available amoxicill in 500 mg tablet Take 1 tablet every 8 hours by oral route for 10 days. 2015 active Not Available Not Available Not Avai lable carvedilo l 3.125 mg tablet TAKE 1 TABLET BY MOUTH TWICE A DAY FOR HYPERTEN LD. active Not Available Not Available No t Available Nexium 20 mg capsule,d elayed release Take 1 capsule every day by oral route. 01/23 completed does not take 0 KRB Not Available Not Available Not Available cefadroxi l 500 mg capsule 12/08 completed Not Available Not Available Not Available losartan 100 mg-hydroc hlorothia zide 25 mg tablet TAKE 1 TABLET DAILY 09/11 completed per [facility] med dc list - not ordered Not taking 05/24/21 as Not Available Not Available Not Available oxycodone -acetamin ophen 5 mg-325 mg tablet TAKE 1 TABLET(S ) TWICE A DAY BY ORAL ROUTE NEEDED FOR 7 DAYS. 01/23 completed Not Available Not Available Not Available citalopra m 20 mg tablet TAKE 1 TABLET BY MOUTH EVERY DAY active Not Available Not Available No t Available lorazepam 0.5 mg tablet take 1-2 tabs about 30-45 min before MRI 01/23 completed Not Available Not Available Not Available cefaclor 250 mg capsule TAKE 1 CAPSULE BY MOUTH EVERY 8 HOURS FOR 5 DAYS 12/13 completed Not Available Not Available Not Available tamsulosi n 0.4 mg capsule active Not Available Not Available Not Available ciproflox acin 0.3 % eye drops INSTILL 4 DROPS TO LEFT EAR TWICE DAILY FOR 7 DAYS 05/10 completed not taking 02/14/2021 xr Not Available Not Available Not Available baclofen 10 mg tablet 05/10 completed not taking 02/14/2021 xr Not Available Not Available Not Available amlodipin e 10 mg tablet Take 1 tablet every day by oral route for 90 days. 04/04 completed Not Available Not Available Not Available hydrocodo ne 7.5 mg-acetam inophen 325 mg tablet Take 1 tablet every 6 hours by oral route as needed. 01/23 completed Not Available Not Available Not Available cephalexi n 500 mg capsule TAKE 1 CAPSULE BY MOUTH THREE TIMES A DAY FOR 7 DAYS 03/05 completed Not Available Not Available Not Available pantopraz ole 40 mg tablet,de layed release Take 1 tablet every day by oral route for 90 days. active pt. wants to switch back to Nexium Not Available Not Available Not Available esomepraz ole magnesium 40 mg capsule,d elayed release TAKE 1 CAPSULE DAILY 06/16 completed pt. stopped taking this due to side effects 03/01/20 19stoppe d takingno t taking 06/16/19 sj Not Available Not Available Not Available levothyro xine 125 mcg tablet Take 1 tablet every day by oral route for 90 days. 05/23 completed Not Available Not Available Not Available bumetanid e 0.5 mg tablet Take 1 tablet twice a day by oral route as needed. 2011 active Not Available Not Available Not Avai lable ranitidin e 150 mg tablet take 1 tablet by mouth once daily every evening active Not Available Not Available No t Available hydrocodo ne 7.5 mg-acetam inophen 750 mg tablet active Not Available Not Available Not Available clotrimaz ole-betam ethasone 1 %-0.05 % topical cream PLEASE SEE ATTACHED FOR DETAILED DIRECTIO NS 12/13 completed Not Available Not Available Not Available Guaifenes in AC 10 mg-100 mg/5 mL oral liquid take 10 millilit ers (2 teaspoon fuls) by mouth every 4 hours if needed for cough active Not Available Not Available No t Available levothyro xine 150 mcg tablet TAKE 1 TABLET DAILY (STOP 125MCG DOSE) 02/18 completed will start 175 mcg Not Available Not Available Not Available losartan 25 mg tablet TAKE 1 TABLET EVERY DAY BY ORAL ROUTE FOR 30 DAYS. 12/30 completed Not Available Not Available Not Available gabapenti n 300 mg capsule TAKE 1 CAPSULE BY MOUTH THREE TIMES A DAY FOR 90 DAYS 09/17 completed Not Available Not Available Not Available bumetanid e 1 mg tablet TAKE 1 TABLET BY MOUTH DAILY FOR 10 DAYS 10/31 completed Not taking 0 LZ Not Available Not Available Not Available ranitidin e 150 mg capsule Take 1 capsule every day by oral route in the evening for 30 days. 07/18 completed Not Available Not Available Not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
--- NOTE | 2024-12-17 08:46 | PC.NURSE ---
Pt coming from home via EMS, pt had a lac/skin tear noted from her dario lift at home, she is a bed bound pt who has care come in to help her. She has multiple wounds noted in charting, pictures taken of all wounds and sent to provider. All wounds cleaned and re dressed/ left open for air. Pt heals propped up on pillows and ochoa boots removed. Lac on leg is currently still oozing at this time. Pt is a/ox4, very [place]. Awaiting further work up at this time
[2024-12-17 09:02] LABS: Basophils Percent Auto 0.4 % (0-2); Eosinophils Absolute Auto 0.3 X10*3/uL (0.0-0.4); Eosinophils Percent Auto 3.1 % (0-4); Hemoglobin 7.7 g/dl (12.0-16.0); Imm Gran Abs Auto 0.05 X10*3/uL (0.00-0.03); Imm Gran Pct Auto 0.6 % (0.0-0.4); Lymphocytes Absolute Auto 1.4 X10*3/uL (1.2-4.9); MANUAL DIFF FLAG NO; Mean Corpuscular HGB Conc 30.8 g/dl (31.0-35.0); Mean Corpuscular Hemoglobin 28.7 pg (27.0-33.0); Mean Corpuscular Volume 93.3 fL (80.0-98.0); Mean Platelet Volume 9.6 fL (9.4-12.3); Monocytes Absolute Auto 0.7 X10*3/uL (0.1-1.2); Monocytes Percent Auto 7.9 % (2-11); Neutrophils Absolute Auto 6.1 x10*3/uL (2.0-8.3); Platelet Count 240 X10*3/uL (160-400); Red Blood Count 2.68 X10*6/uL (4.20-5.50); Red Cell Distribution Width 16.5 % (11.0-16.0); White Blood Count 8.5 X10*3/uL (4.8-10.8)
[2024-12-17 09:08] LABS: INTERNATIONAL NORM RATIO 1.3 (0.9-1.1); Prothrombin Time 15.2 SEC (10.9-12.4)
[2024-12-17 09:19] LABS: Alanine Aminotransferase 13 U/L (0-31); Albumin Level 2.4 g/dL (3.5-5.0); Alkaline Phosphatase 81 U/L (39-117); Anion Gap 9 (12-20); Aspartate Amino Transferase 14 U/L (5-31); Bilirubin Total 0.4 mg/dL (0.0-1.0); Blood Urea Nitrogen 31 mg/dL (9-16); Calcium 8.1 mg/dL (8.4-10.2); Carbon Dioxide 32 mmol/L (22-29); Chloride 106 mmol/L (96-108); Creatinine Clr Calc Pharmacy 37.1; Estimated Glomerular Filt Rate 40; Glucose Random 95 mg/dL (60-115); Magnesium 1.9 mg/dL (1.6-2.6); Potassium 4.5 mmol/L (3.3-5.1); Sodium 142 mmol/L (135-145); Total Protein 5.5 g/dL (6.5-8.0)
[2024-12-17 09:26] LABS: Troponin-I High Sensitivity 14.8 ng/L (<3.5-17.0)
--- NOTE | 2024-12-17 13:20 | PC.NURSE ---
Patient's leg wound continues to bleed through dressings, provider made aware, new surgicel applied, patient's leg w/ conforming gauze/kerlex/chris wraps.
[2024-12-17 14:06] LABS: Basophils Percent Auto 0.4 % (0-2); Eosinophils Absolute Auto 0.4 X10*3/uL (0.0-0.4); Eosinophils Percent Auto 4.2 % (0-4); Hematocrit 26.2 % (37.0-47.0); Hemoglobin 8.1 g/dl (12.0-16.0); Imm Gran Abs Auto 0.06 X10*3/uL (0.00-0.03); Imm Gran Pct Auto 0.6 % (0.0-0.4); Lymphocytes Absolute Auto 1.6 X10*3/uL (1.2-4.9); Lymphocytes Percent Auto 16.2 % (20-40); MANUAL DIFF FLAG NO; Mean Corpuscular HGB Conc 30.9 g/dl (31.0-35.0); Mean Corpuscular Hemoglobin 28.7 pg (27.0-33.0); Mean Corpuscular Volume 92.9 fL (80.0-98.0); Mean Platelet Volume 9.7 fL (9.4-12.3); Monocytes Absolute Auto 0.9 X10*3/uL (0.1-1.2); Monocytes Percent Auto 9.6 % (2-11); Neutrophils Absolute Auto 6.8 x10*3/uL (2.0-8.3); Platelet Count 280 X10*3/uL (160-400); Red Blood Count 2.82 X10*6/uL (4.20-5.50); Red Cell Distribution Width 16.5 % (11.0-16.0); White Blood Count 9.8 X10*3/uL (4.8-10.8)
[2024-12-17 17:32] LABS: Appearance Urine Cloudy; Color Urine Yellow; Glucose Urine UA Negative (Negative); Leukocyte Esterase Urine Small (1+) (Negative); Nitrite Urine Positive (Negative); UMIC TRIGGER UACC YES; Urine Blood Negative (Negative); Urine Ketones Negative (Negative); Urine Protein 30 (1+) mg/dL (Neg-Trace)
[2024-12-17 17:37] LABS: Bacteria Urine 2+ (None Seen); Hyaline Casts Urine 0-2 /LPF (0-2); RBC Urine 0-2 /HPF (0-2); UACC Culture Trigger YES
[2024-12-17 17:38] LABS: MANUAL DIFF FLAG NO
[2024-12-17 17:40] LABS: Basophils Percent Auto 0.3 % (0-2); Eosinophils Absolute Auto 0.5 X10*3/uL (0.0-0.4); Eosinophils Percent Auto 4.9 % (0-4); Hematocrit 28.4 % (37.0-47.0); Hemoglobin 8.7 g/dl (12.0-16.0); Imm Gran Abs Auto 0.04 X10*3/uL (0.00-0.03); Imm Gran Pct Auto 0.4 % (0.0-0.4); Lymphocytes Absolute Auto 1.6 X10*3/uL (1.2-4.9); Lymphocytes Percent Auto 17.2 % (20-40); Mean Corpuscular HGB Conc 30.6 g/dl (31.0-35.0); Mean Corpuscular Hemoglobin 28.2 pg (27.0-33.0); Mean Corpuscular Volume 92.2 fL (80.0-98.0); Mean Platelet Volume 10.2 fL (9.4-12.3); Monocytes Absolute Auto 0.9 X10*3/uL (0.1-1.2); Monocytes Percent Auto 9.9 % (2-11); Neutrophils Absolute Auto 6.2 x10*3/uL (2.0-8.3); Neutrophils Percent Auto 67.3 % (45-73); Platelet Count 258 X10*3/uL (160-400); Red Blood Count 3.08 X10*6/uL (4.20-5.50); Red Cell Distribution Width 16.8 % (11.0-16.0); White Blood Count 9.2 X10*3/uL (4.8-10.8)
[2024-12-17 17:56] LABS: Alanine Aminotransferase 16 U/L (0-31); Albumin Level 2.4 g/dL (3.5-5.0); Alkaline Phosphatase 82 U/L (39-117); Anion Gap 9 (12-20); Aspartate Amino Transferase 15 U/L (5-31); Bilirubin Total 0.5 mg/dL (0.0-1.0); Blood Urea Nitrogen 29 mg/dL (9-16); Carbon Dioxide 29 mmol/L (22-29); Chloride 107 mmol/L (96-108); Creatinine Clr Calc Pharmacy 42.8; Estimated Glomerular Filt Rate 47; Glucose Random 102 mg/dL (60-115); Potassium 4.1 mmol/L (3.3-5.1); Sodium 141 mmol/L (135-145); Total Protein 5.6 g/dL (6.5-8.0)
--- NOTE | 2024-12-17 18:23 | PHA.MEDREC ---
Pharmacy Consult ? Medication Reconciliation Pharmacy has completed the medication reconciliation. Spoke to pt to confirm meds. Per pt, does not take azathioprine (although was recently prescribed 12/16/24 per claim history). Pt states they are taking prednisone 20 mg daily until switching to new agent for their skin and take doxycycline 100 mg BID as well. Pt states they do not take celexa.
[2024-12-17 18:36] LABS: OBS Int Ctl Valid YES; OBS1 POSITIVE (NEGATIVE)
--- NOTE | 2024-12-17 18:56 | PC.NURSE ---
Report taken from Dayanna ADKINS assumed care of pt at this time. Hospitalist at bedside for consult, plan for admission. Will continue to monitor.
[2024-12-17 19:06] LABS: Lactic Acid 0.8 mmol/L (0.5-2.0)
[2024-12-17] MEDS: predniSONE 20 MG TABLET 12.5 MG PO (19:06)
[2024-12-17] MEDS: cefTRIAXone sodium 1 GM VIAL IVPUSH (19:07)
--- NOTE | 2024-12-17 19:13 | P.HPHOSP_ITS ---
History of Present Illness Date of Service: 12/17/24 Attending physician on admission: Leonie King Chief Complaint: Right leg bleeding Pt is an 89-year-old female with a PMH significant for?paroxysmal AFib on Eliquis, PVD, DVT, HTN, hypothyroidism, bullous pemphigoid, chronic normocytic anemia, and hx of spinal tumor excision 20 years ago who presents to the ED with?uncontrollable bleeding from right lower leg wound. Pt lives at home alone, but is chronically wheelchair and bed-bound at baseline. Has not ambulated for the past 3-4 years. Pt has VNA services 3 times week as well as site reliability engineer who stop by 3 times a day to administer care and help with ADLs. Yesterday afternoon pt received a 3 cm laceration to right lower extremity during Emerson transfer into bed. Pt soaked through 4 different dressings and bleeding never fully stopped. Pt continued to ooze blood up through presentation to the ED. in the ED, bleeding was difficult to stop. Skin not amenable to stitching, and hemostasis finally achieved by applying Surgicel and pressure dressing. Pt also complains of mostly left-sided chest pain/discomfort that began earlier today, similar to a burning sensation. Pt does not look at her own stool, but does not remember her site reliability engineer mentioning bright red blood per rectum or dark colored stools. Denies lower extremity pain. No lightheadedness, dizziness. No fever, chills, nausea, vomiting, abdominal pain. Pt with chronic decubitus ulcers secondary to being chronically wheelchair and bed-bound. Is unable to follow up with wound care at [facility] and currently in process of establishing care with a different wound clinic. Of note, pt was recently admitted to the hospital on 12/04-12/08 after presenting to the ED with uncontrolled epistaxis. In the ED pt was tachypneic up to 24 and hypertensive up to 198/72. Labs were significant for H&H 7.7/25.0 (decreased from 9.6/31.1 on 12/04/2024), otherwise grossly unremarkable and around baseline for pt. No leukocytosis. No significant electrolyte abnormalities. Renal function around baseline. Hepatic function WNL. Serial troponins flat at 14.8 in 15.0. UA consistent with UTI. Stool positive for occult blood. CXR with persistent airspace opacities most pronounced within left upper lobe. Right lower extremity arterial duplex with monophasic waveforms throughout, though showing multifocal stenosis involving the SFA. EKG demonstrated normal sinus rhythm without evidence of significant ST elevations or depressions. Pt was treated with ceftriaxone. Pt will be admitted to the hospital for treatment and further evaluation of acute blood loss anemia concerning for GI bleed. Review of Systems 2 Review of Systems: Negative except for that which is stated in the HPI. [facility] Medical History Hypothyroidism Spinal cord tumor Chronic indwelling Velez catheter Frequent falls UTI (urinary tract infection) Muscular atrophy Kidney failure Paroxysmal atrial fibrillation PVD (peripheral vascular disease) Surgical History History of hysterectomy History of appendectomy Social History Household Members: None Housing: House Do you presently have visiting nurse or other home services: Yes Comment: Pt. sleeping Patient Tobacco Use Status: Never used Tobacco Advance Directives: No Advance Directives Information Provided: Yes Advance Directives Date on File: 10/14/03 Nutrition Risks: No Nutritional Risk service: No Meds Allergies Allergy/AdvReac Type Severity Reaction Status Date / Time No Known Allergies Allergy Unverified 12/17/24 08:16 Active Medications: Current Medications Acetaminophen (Acetaminophen 325 Mg Tablet) 650 mg PO Q6H PRN PRN Reason: Pain, Mild 1-3,fever,headache Amiodarone HCl (Amiodarone Hcl 200 Mg Tablet) 200 mg PO DAILY [facility] Apixaban (Apixaban 5 Mg Tablet) 5 mg PO BID [facility] Calcium Carbonate (Calcium Carbonate 750 Mg Tab.Chew) 750 mg PO Q4H PRN PRN Reason: Heartburn Carvedilol (Carvedilol 3.125 Mg Tablet) 3.125 mg PO BID [facility]; Protocol Cefuroxime Axetil (Cefuroxime Axetil 250 Mg Tablet) 250 mg PO BID [facility] Stop: 12/24/24 20:59 Cyanocobalamin (Cyanocobalamin (Vitamin B-12) 1,000 Mcg Tablet) 1,000 mcg PO DAILY [facility] Docusate Sodium (Docusate Sodium 100 Mg Capsule) 100 mg PO DAILY PRN PRN Reason: Constipation Furosemide (Furosemide 20 Mg Tablet) 40 mg PO DAILY [facility]; Protocol Levothyroxine Sodium (Levothyroxine Sodium 175 Mcg Tablet) 175 mcg PO DAILY@0600 [facility] Magnesium Hydroxide (Milk Of Magnesia 30 Ml Oral.Susp) 30 ml PO DAILY PRN PRN Reason: Constipation Melatonin (Melatonin 3 Mg Tablet) 6 mg PO BEDTIME PRN PRN Reason: Insomnia Ondansetron HCl (Ondansetron Hcl 4 Mg/2 Ml Vial) 4 mg IVPUSH Q8H PRN PRN Reason: Nausea and Vomiting Prednisone (Prednisone 20 Mg Tablet) 12.5 mg PO DAILY [facility] Last Admin: 12/17/24 19:06 Dose: 12.5 mg Sodium Chloride (0.9 % Sodium Chloride Flush 3 Ml Syringe) 3 ml IVFLUSH QSHIFT [facility] Valsartan (Valsartan 160 Mg Tablet) 160 mg PO DAILY [facility] Verapamil HCl (Verapamil Hcl Sr 120 Mg Tablet.Er) 120 mg PO DAILY [facility]; Protocol Vitamin D (Cholecalciferol (Vitamin D3) 25 Mcg Tablet) 50 mcg PO DAILY [facility] Home Medications ?Medication ?Instructions ?Recorded ?Confirmed ?Last Taken ?Type cyanocobalamin (vitamin B-12) 1,000 mcg PO DAILY 07/11/20 12/17/24 12/16/24 History 1,000 mcg tablet (Vitamin B-12) docusate sodium 100 mg capsule 100 mg PO DAILY PRN Constipation 07/11/20 12/17/24 Unknown History (Colace) apixaban 5 mg tablet 5 mg PO BID 11/05/20 12/17/24 12/16/24 History carvedilol 3.125 mg tablet 3.125 mg PO BID blood pressure 12/04/24 12/17/24 12/16/24 History levothyroxine 175 mcg tablet 175 mcg PO DAILY@0600 12/04/24 12/17/24 12/16/24 History olmesartan 40 mg tablet 40 mg PO DAILY blood pressure 12/04/24 12/17/24 12/16/24 History prednisone 5 mg tablet 20 mg PO DAILY 12/04/24 12/17/24 12/16/24 History verapamil 120 mg tablet,extended 120 mg PO DAILY 12/04/24 12/17/24 12/16/24 History release cholecalciferol (vitamin D3) 50 50 mcg PO DAILY 12/17/24 12/17/24 12/16/24 History mcg (2,000 unit) capsule (Vitamin D3) doxycycline hyclate 100 mg tablet 100 mg PO BID 12/17/24 12/17/24 12/16/24 History furosemide 40 mg tablet 40 mg PO DAILY 12/17/24 12/17/24 12/16/24 History Physical Exam 2 Vital Signs and Narrative: Vital Signs: Last Vital Signs Temp 97.6 F 12/17/24 18:35 Pulse 59 12/17/24 18:35 Resp 24 H 12/17/24 18:35 BP 198/72 H 12/17/24 18:35 Pulse Ox 96 12/17/24 18:34 O2 Del Method Room Air 12/17/24 18:34 BMI result Body Mass Index 43.1 General: AOx3, no acute distress Resp: CTA bilaterally CVS: S1, S2, RRR GI: +BS, NT, no distention, obese Skin: Multiple decubitus ulcers in various stages on coccyx, thighs, and heels as pictured below. Neuro: Cranial nerves II-XII grossly intact bilaterally. Motor grossly intact bilaterally. Global weakness. Extremities: Lower extremities as pictured below Psych: Appropriate affect Results Labs 12/17/24 17:32 12/17/24 17:32 Labs: Laboratory Results - last 24 hr 12/17/24 12/17/24 12/17/24 08:57 13:58 17:21 MCV 93.3 92.9 MCH 28.7 28.7 MCHC 30.8 L 30.9 L RDW 16.5 H 16.5 H Plt Count 240 280 MPV 9.6 9.7 Immature Gran % (Auto) 0.6 H 0.6 H Neut % (Auto) 72.0 69.0 Lymph % (Auto) 16.0 L 16.2 L [place] % (Auto) 7.9 9.6 Eos % (Auto) 3.1 4.2 H Baso % (Auto) 0.4 0.4 Lymph # (Auto) 1.4 1.6 [place] # (Auto) 0.7 0.9 Eos # (Auto) 0.3 0.4 Baso # (Auto) 0.0 0.0 Abs Immat Gran (auto) 0.05 H 0.06 H Absolute Neuts (auto) 6.1 6.8 Absolute Nucleated RBC 0.000 0.000 Nucleated RBC % (auto) 0.0 0.0 PT 15.2 H INR 1.3 H Anion Gap 9 L Estim Creat Clear Calc 37.1 Estimated GFR 40 Random Glucose 95 Lactic Acid Calcium 8.1 L Magnesium 1.9 Total Bilirubin 0.4 AST 14 ALT 13 Alkaline Phosphatase 81 Total Protein 5.5 L Albumin 2.4 L Urine Color Yellow Urine Appearance Cloudy Urine pH 6.0 Ur Specific [place] 1.020 Urine Protein 30 (1+) H Urine Glucose (UA) Negative Urine Ketones Negative Urine Blood Negative Urine Nitrite Positive H Ur Leukocyte Esterase Small (1+) H Urine RBC 0-2 Urine WBC 11-20 H Ur Squamous Epith Cells 3-5 Urine Bacteria 2+ Hyaline Casts 0-2 Stool Occult Blood Blood Type O Negative Antibody Screen NEGATIVE Crossmatch See Detail 12/17/24 12/17/24 12/17/24 17:32 18:07 18:28 MCV 92.2 MCH 28.2 MCHC 30.6 L RDW 16.8 H Plt Count 258 MPV 10.2 Immature Gran % (Auto) 0.4 Neut % (Auto) 67.3 Lymph % (Auto) 17.2 L [place] % (Auto) 9.9 Eos % (Auto) 4.9 H Baso % (Auto) 0.3 Lymph # (Auto) 1.6 [place] # (Auto) 0.9 Eos # (Auto) 0.5 H Baso # (Auto) 0.0 Abs Immat Gran (auto) 0.04 H Absolute Neuts (auto) 6.2 Absolute Nucleated RBC 0.000 Nucleated RBC % (auto) 0.0 PT INR Anion Gap 9 L Estim Creat Clear Calc 42.8 Estimated GFR 47 Random Glucose 102 Lactic Acid 0.8 Calcium 8.0 L Magnesium Total Bilirubin 0.5 AST 15 ALT 16 Alkaline Phosphatase 82 Total Protein 5.6 L Albumin 2.4 L Urine Color Urine Appearance Urine pH Ur Specific [place] Urine Protein Urine Glucose (UA) Urine Ketones Urine Blood Urine Nitrite Ur Leukocyte Esterase Urine RBC Urine WBC Ur Squamous Epith Cells Urine Bacteria Hyaline Casts Stool Occult Blood POSITIVE Blood Type Antibody Screen Crossmatch Assessment and Plan (1) Acute blood loss anemia: Status: Acute Plan Pt is an 89-year-old female with a PMH significant for?paroxysmal AFib on Eliquis, PVD, DVT, HTN, hypothyroidism, bullous pemphigoid, chronic normocytic anemia, and hx of spinal tumor excision 20 years ago who presents to the ED with?uncontrollable bleeding from right lower leg wound. Pt will be admitted to the hospital for treatment and further evaluation of acute blood loss anemia concerning for GI bleed. Acute blood loss anemia Patient's H&H 7.7/25.0, down from 9 0.6/31.1 on 12/04/2024 Likely multifactorial, right lower extremity bleeding difficult to control since yesterday Also concern for GI bleed: Stool guaiac+, pt with GERD like symptoms since earlier today The pt transfused 1 unit PRBCs in the ED Hold Eliquis GI consult Follow H&H Acute UTI No sepsis Will treat with ceftriaxone, started 12/17/2024 Follow culture Decubitus ulcers Pt with numerous ulcers in various stages Pt positioning Q2h, offload bony prominences, air loss mattress Wound care consult HTN Poorly controlled BP 198/72, will give hydralazine 5mg IV Continue carvedilol, olmesartan, verapamil Paroxysmal AFib Hold Eliquis due to acute blood loss anemia Continue carvedilol Bullous pemphigoid Continue prednisone Hypothyroidism Continue levothyroxine Full Code Attending:?Dr. King DVT Prophylaxis: Pneumatic compression due to acute blood loss anemia Pt will require a hospitalization of at least two nights for treatment of?acute blood loss anemia concerning for GI bleed. Given that hemostasis has been difficult to control on pt, and has been experiencing recurrent bleeds, pt has at risk for significant decline without hospital level care for close H&H monitoring as well as specialist consult to GI for possible upper or lower endoscopies. Quality Stroke Does the patient have a stroke diagnosis?: No VTE Prior VTE?: No VTE Risk Level:: Medical - moderate - high VTE Device Contraindication: N/A - Device Ordered VTE Drug Contraindication: Treatment Not Indicated
--- NOTE | 2024-12-17 19:43 | PC.NURSE ---
Pt admitted, awaiting bed assignment, aware of plan of care. Offers no complaints at this time, will continue to monitor for additional needs.
[2024-12-17] MEDS: hydrALAZINE HCl 20 MG/ML VIAL 5 MG IVPUSH (20:26)
[2024-12-17] MEDS: carvediloL 3.125 MG TABLET PO (20:27)
[2024-12-17] MEDS: cefuroxime axetiL 250 MG TABLET PO (20:27)
[2024-12-18] VITALS (8 sets, daily range): BP systolic 158–198; BP diastolic 64–86; PULSE 52–61; RESP 18–20; TEMP 36.3–36.5; O2SAT 94–97
[2024-12-18] MEDS: 0.9 % Sodium Chloride Flush 3 ML SYRINGE IVFLUSH ×4 (03:03→21:40)
--- NOTE | 2024-12-18 03:05 | PC.NURSE ---
Pt resting in bed eyes closed, skin pwd respirations even unlabored. Purewick in place draining clear concentrated urine. Awaiting bed assignment for admission, aware of plan of care.
[2024-12-18 05:42] LABS: Hematocrit 28.7 % (37.0-47.0); Hemoglobin 9.1 g/dl (12.0-16.0); Mean Corpuscular HGB Conc 31.7 g/dl (31.0-35.0); Mean Corpuscular Hemoglobin 28.5 pg (27.0-33.0); Mean Platelet Volume 10.6 fL (9.4-12.3); Platelet Count 262 X10*3/uL (160-400); Red Blood Count 3.19 X10*6/uL (4.20-5.50); Red Cell Distribution Width 17.1 % (11.0-16.0); White Blood Count 9.2 X10*3/uL (4.8-10.8)
[2024-12-18 05:57] LABS: Anion Gap 11 (12-20); Blood Urea Nitrogen 28 mg/dL (9-16); Calcium 8.3 mg/dL (8.4-10.2); Carbon Dioxide 27 mmol/L (22-29); Chloride 107 mmol/L (96-108); Creatinine Clr Calc Pharmacy 45.3; Estimated Glomerular Filt Rate 50; Glucose Random 113 mg/dL (60-115); Potassium 4.1 mmol/L (3.3-5.1); Sodium 141 mmol/L (135-145)
--- NOTE | 2024-12-18 06:34 | PC.NURSE ---
Pt due for levothyroxine, not available in [facility] pharmacy, waiting med delivery.
--- NOTE | 2024-12-18 06:53 | PC.NURSE ---
Still awaiting levothryoxine from pharmacy. Report given to Nanda ADKINS, pt exits my care at this time.
[2024-12-18] MEDS: Levothyroxine Sodium 175 MCG TABLET PO (07:14)
[2024-12-18] MEDS: Valsartan 160 MG TABLET PO (09:47)
[2024-12-18] MEDS: Cholecalciferol (Vitamin D3) 25 MCG TABLET 50 MCG PO (09:47)
[2024-12-18] MEDS: VerapamiL HCL SR 120 MG TABLET.ER PO (09:47)
[2024-12-18] MEDS: Amiodarone HCL 200 MG TABLET PO (09:47)
[2024-12-18] MEDS: Furosemide 20 MG TABLET 40 MG PO (09:47)
[2024-12-18] MEDS: predniSONE 20 MG TABLET 12.5 MG PO (09:48)
[2024-12-18] MEDS: cefuroxime axetiL 250 MG TABLET PO ×2 (09:48→21:27)
[2024-12-18] MEDS: Cyanocobalamin (Vitamin B-12) 1,000 MCG TABLET 1000 MCG PO (09:49)
[2024-12-18] MEDS: carvediloL 3.125 MG TABLET PO (09:49)
--- NOTE | 2024-12-18 14:14 | HO.PM.IMPN ---
Subjective Subjective Date of Service: 12/18/24 Interval History: seen and evaluated this morning feels better no reported bleeding Hb stable no other events Review of Systems Review of Systems: Yes all other systems are reviewed and are negative Physical Exam Vital Signs: Vital Signs: Last Vital Signs Temp 97.7 F 12/18/24 09:33 Pulse 58 12/18/24 09:33 Resp 18 12/18/24 09:33 BP 168/78 H 12/18/24 11:27 Pulse Ox 96 12/18/24 09:33 O2 Del Method Room Air 12/18/24 09:33 BMI result Body Mass Index 43.1 Const: Other: Constitutional : interactive, not in distress Cardiovascular : no JVP, no lower extremity edema Respiratory : bilateral chest movement, not in resp distress Gastrointestinal: soft, lax, Non tender Skin : Warm, Dry, wound in LE covered with dressing Neurological : Alert & oriented , No focal deficit Objective Data Active Medications Acetaminophen (Acetaminophen 325 Mg Tablet) 650 mg PO Q6H PRN PRN Reason: Pain, Mild 1-3,fever,headache Amiodarone HCl (Amiodarone Hcl 200 Mg Tablet) 200 mg PO DAILY [facility] Last Admin: 12/18/24 09:47 Dose: 200 mg Documented By: SENA Calcium Carbonate (Calcium Carbonate 750 Mg Tab.Chew) 750 mg PO Q4H PRN PRN Reason: Heartburn Carvedilol (Carvedilol 3.125 Mg Tablet) 3.125 mg PO BID [facility]; Protocol Last Admin: 12/18/24 09:49 Dose: 3.125 mg Documented By: SENA Cefuroxime Axetil (Cefuroxime Axetil 250 Mg Tablet) 250 mg PO BID [facility] Stop: 12/24/24 20:59 Last Admin: 12/18/24 09:48 Dose: 250 mg Documented By: SENA Cyanocobalamin (Cyanocobalamin (Vitamin B-12) 1,000 Mcg Tablet) 1,000 mcg PO DAILY [facility] Last Admin: 12/18/24 09:49 Dose: 1,000 mcg Documented By: SENA Docusate Sodium (Docusate Sodium 100 Mg Capsule) 100 mg PO DAILY PRN PRN Reason: Constipation Furosemide (Furosemide 20 Mg Tablet) 40 mg PO DAILY [facility]; Protocol Last Admin: 12/18/24 09:47 Dose: 40 mg Documented By: SENA Levothyroxine Sodium (Levothyroxine Sodium 175 Mcg Tablet) 175 mcg PO DAILY@0600 [facility] Last Admin: 12/18/24 07:14 Dose: 175 mcg Documented By: BRITTANY Magnesium Hydroxide (Milk Of Magnesia 30 Ml Oral.Susp) 30 ml PO DAILY PRN PRN Reason: Constipation Melatonin (Melatonin 3 Mg Tablet) 6 mg PO BEDTIME PRN PRN Reason: Insomnia Ondansetron HCl (Ondansetron Hcl 4 Mg/2 Ml Vial) 4 mg IVPUSH Q8H PRN PRN Reason: Nausea and Vomiting Pantoprazole Sodium (Pantoprazole Sodium 40 Mg/10 Ml Vial) 40 mg IVPUSH BID@0630,1630 [facility] Prednisone (Prednisone 20 Mg Tablet) 12.5 mg PO DAILY [facility] Last Admin: 12/18/24 09:48 Dose: 12.5 mg Documented By: SENA Sodium Chloride (0.9 % Sodium Chloride Flush 3 Ml Syringe) 3 ml IVFLUSH QSHIFT [facility] Last Admin: 12/18/24 07:14 Dose: 3 ml Documented By: BRITTANY Valsartan (Valsartan 160 Mg Tablet) 160 mg PO DAILY [facility] Last Admin: 12/18/24 09:47 Dose: 160 mg Documented By: SENA Verapamil HCl (Verapamil Hcl Sr 120 Mg Tablet.Er) 120 mg PO DAILY [facility]; Protocol Last Admin: 12/18/24 09:47 Dose: 120 mg Documented By: SENA Vitamin D (Cholecalciferol (Vitamin D3) 25 Mcg Tablet) 50 mcg PO DAILY [facility] Last Admin: 12/18/24 09:47 Dose: 50 mcg Documented By: SENA Labs 12/18/24 05:11 12/18/24 05:11 Labs: Laboratory Results - last 24 hr 12/17/24 12/17/24 12/17/24 13:58 17:21 17:32 MCV 92.9 92.2 MCH 28.7 28.2 MCHC 30.9 L 30.6 L RDW 16.5 H 16.8 H Plt Count 280 258 MPV 9.7 10.2 Immature Gran % (Auto) 0.6 H 0.4 Neut % (Auto) 69.0 67.3 Lymph % (Auto) 16.2 L 17.2 L [place] % (Auto) 9.6 9.9 Eos % (Auto) 4.2 H 4.9 H Baso % (Auto) 0.4 0.3 Lymph # (Auto) 1.6 1.6 [place] # (Auto) 0.9 0.9 Eos # (Auto) 0.4 0.5 H Baso # (Auto) 0.0 0.0 Abs Immat Gran (auto) 0.06 H 0.04 H Absolute Neuts (auto) 6.8 6.2 Absolute Nucleated RBC 0.000 0.000 Nucleated RBC % (auto) 0.0 0.0 Anion Gap 9 L Estim Creat Clear Calc 42.8 Estimated GFR 47 Random Glucose 102 Lactic Acid Calcium 8.0 L Total Bilirubin 0.5 AST 15 ALT 16 Alkaline Phosphatase 82 Total Protein 5.6 L Albumin 2.4 L Urine Color Yellow Urine Appearance Cloudy Urine pH 6.0 Ur Specific [place] 1.020 Urine Protein 30 (1+) H Urine Glucose (UA) Negative Urine Ketones Negative Urine Blood Negative Urine Nitrite Positive H Ur Leukocyte Esterase Small (1+) H Urine RBC 0-2 Urine WBC 11-20 H Ur Squamous Epith Cells 3-5 Urine Bacteria 2+ Hyaline Casts 0-2 Stool Occult Blood Blood Type O Negative Antibody Screen NEGATIVE Crossmatch See Detail 12/17/24 12/17/24 12/18/24 18:07 18:28 05:11 MCV 90.0 MCH 28.5 MCHC 31.7 RDW 17.1 H Plt Count 262 MPV 10.6 Immature Gran % (Auto) Neut % (Auto) Lymph % (Auto) [place] % (Auto) Eos % (Auto) Baso % (Auto) Lymph # (Auto) [place] # (Auto) Eos # (Auto) Baso # (Auto) Abs Immat Gran (auto) Absolute Neuts (auto) Absolute Nucleated RBC 0.000 Nucleated RBC % (auto) 0.0 Anion Gap 11 L Estim Creat Clear Calc 45.3 Estimated GFR 50 Random Glucose 113 Lactic Acid 0.8 Calcium 8.3 L Total Bilirubin AST ALT Alkaline Phosphatase Total Protein Albumin Urine Color Urine Appearance Urine pH Ur Specific [place] Urine Protein Urine Glucose (UA) Urine Ketones Urine Blood Urine Nitrite Ur Leukocyte Esterase Urine RBC Urine WBC Ur Squamous Epith Cells Urine Bacteria Hyaline Casts Stool Occult Blood POSITIVE Blood Type Antibody Screen Crossmatch Microbiology Microbiology Results: Microbiology 12/17/24 18:21 Urine Culture - Preliminary Urine clean catch - Clean Catch Midstream Culture in progress. Assessment and Plan (1) Acute blood loss anemia: Status: Acute (2) GI bleed: Status: Acute (3) UTI (urinary tract infection): Status: Acute (4) Anemia: Status: Acute Plan Pt is an 89-year-old female with a PMH significant for?paroxysmal AFib on Eliquis, PVD, DVT, HTN, hypothyroidism, bullous pemphigoid, chronic normocytic anemia, and hx of spinal tumor excision 20 years ago who presents to the ED with?uncontrollable bleeding from right lower leg wound. Pt will be admitted to the hospital for treatment and further evaluation of acute blood loss anemia concerning for GI bleed. Acute blood loss anemia Hb of 9 post 1 unit transfusion multifactorial, right lower extremity bleeding, Positive occult stool Hold Eliquis GI consult, medical management for now bid PPI Follow H&H Acute UTI Continue ceftriaxone, started 12/17/2024 Follow culture Decubitus ulcers Pt with numerous ulcers in various stages Pt positioning Q2h, offload bony prominences, air loss mattress Wound care consult HTN Poorly controlled BP remains elevated Increase carvedilol Continue olmesartan, verapamil Paroxysmal AFib Hold Eliquis due to acute blood loss anemia Continue carvedilol Bullous pemphigoid Continue prednisone Hypothyroidism Continue levothyroxine Full Code DVT Prophylaxis: Pneumatic compression due to acute blood loss anemia Pt will require a hospitalization overnight for treatment of?acute blood loss anemia concerning for GI bleed. Given that hemostasis has been difficult to control on pt, and has been experiencing recurrent bleeds, pt has at risk for significant decline without hospital level care for close H&H monitoring as well as specialist consult to GI Quality Stroke Does the patient have a stroke diagnosis?: No VTE Prior VTE?: No VTE Risk Level:: Medical - moderate - high VTE Device Contraindication: N/A - Device Ordered VTE Drug Contraindication: Treatment Not Indicated
[2024-12-18] MEDS: carvediloL 12.5 MG TABLET PO ×2 (15:08→21:27)
[2024-12-18] MEDS: Pantoprazole Sodium 40 MG/10 ML VIAL IVPUSH (15:08)
[2024-12-19 03:09] VITALS: BP 162/72; PULSE 57; RESP 18; TEMP 36.2; O2SAT 92
[2024-12-19 05:39] LABS: MANUAL DIFF FLAG NO
[2024-12-19 05:41] LABS: Basophils Percent Auto 0.4 % (0-2); Eosinophils Absolute Auto 0.4 X10*3/uL (0.0-0.4); Eosinophils Percent Auto 3.8 % (0-4); Hemoglobin 8.9 g/dl (12.0-16.0); Imm Gran Abs Auto 0.05 X10*3/uL (0.00-0.03); Imm Gran Pct Auto 0.5 % (0.0-0.4); Lymphocytes Absolute Auto 1.5 X10*3/uL (1.2-4.9); Lymphocytes Percent Auto 15.6 % (20-40); Mean Corpuscular HGB Conc 30.7 g/dl (31.0-35.0); Mean Corpuscular Hemoglobin 28.3 pg (27.0-33.0); Mean Corpuscular Volume 92.4 fL (80.0-98.0); Monocytes Percent Auto 10.1 % (2-11); Neutrophils Absolute Auto 6.7 x10*3/uL (2.0-8.3); Neutrophils Percent Auto 69.6 % (45-73); Platelet Count 257 X10*3/uL (160-400); Red Blood Count 3.14 X10*6/uL (4.20-5.50); Red Cell Distribution Width 16.9 % (11.0-16.0); White Blood Count 9.6 X10*3/uL (4.8-10.8)
[2024-12-19] MEDS: Pantoprazole Sodium 40 MG/10 ML VIAL IVPUSH (05:51)
[2024-12-19] MEDS: Levothyroxine Sodium 175 MCG TABLET PO (05:51)
[2024-12-19 06:00] LABS: Anion Gap 11 (12-20); Blood Urea Nitrogen 27 mg/dL (9-16); Calcium 8.4 mg/dL (8.4-10.2); Carbon Dioxide 33 mmol/L (22-29); Chloride 104 mmol/L (96-108); Estimated Glomerular Filt Rate 48; Glucose Random 92 mg/dL (60-115); Potassium 4.5 mmol/L (3.3-5.1); Sodium 143 mmol/L (135-145)
[2024-12-19 07:13] VITALS: BP 138/54; PULSE 52; RESP 18; TEMP 36.9; O2SAT 94
[2024-12-19] MEDS: Cholecalciferol (Vitamin D3) 25 MCG TABLET 50 MCG PO (08:18)
[2024-12-19] MEDS: Valsartan 160 MG TABLET PO (08:18)
[2024-12-19] MEDS: VerapamiL HCL SR 120 MG TABLET.ER PO (08:18)
[2024-12-19] MEDS: cefuroxime axetiL 250 MG TABLET PO (08:18)
[2024-12-19] MEDS: Amiodarone HCL 200 MG TABLET PO (08:18)
[2024-12-19] MEDS: Furosemide 20 MG TABLET 40 MG PO (08:19)
[2024-12-19] MEDS: carvediloL 12.5 MG TABLET PO (08:19)
[2024-12-19] MEDS: Cyanocobalamin (Vitamin B-12) 1,000 MCG TABLET 1000 MCG PO (08:19)
[2024-12-19] MEDS: predniSONE 20 MG TABLET 12.5 MG PO (08:19)
[2024-12-19] MEDS: 0.9 % Sodium Chloride Flush 3 ML SYRINGE IVFLUSH (08:24)
[2024-12-19 08:59] LABS: Iron 28 mcg/dL (30-160); Percent Iron Saturation 20 % (15-50); Total Iron Binding Capacity 142 mcg/dL (228-428); Unsaturated Iron Binding 114 ug/dL
--- NOTE | 2024-12-19 11:15 | P.CNGI_ITS ---
History of Present Illness Data of Consult Service Date: 12/19/24 Requesting physician: Michael Veras Primary Care Provider: Kalina Colon MD HPI Reason for consult: Anemia 89-year-old female with a PMH significant for?paroxysmal AFib on Eliquis, PVD, DVT, HTN, hypothyroidism, bullous pemphigoid, chronic normocytic anemia hx of spinal tumor excision 20 years ago who presented to the ED with bleeding from right lower leg wound. Gastroenterology was consulted for question of GI bleeding causing drop in H/H. Pt is chronically bed bound. She sustained R larson injury at home from dario lift - the open wound bled considerably at home and then in ER before adequate hemostasis was achieved. Of note a week ago pt also had presented to ER with significant epistaxis ongoing >1 hour requiring rhino rocket. Pt does not report any abd pain, N,V. No change in BM as far as she is aware of. No hematemesis. Appetite is good. Seen in the presence of sister who also does not report any GI concerns. Review of Systems 2 Review of Systems: Yes all other systems are reviewed and are negative FOR[facility]LY [facility], [facility] Past Medical History Medical History Hypothyroidism Spinal cord tumor Chronic indwelling Velez catheter Frequent falls UTI (urinary tract infection) Muscular atrophy Kidney failure Paroxysmal atrial fibrillation PVD (peripheral vascular disease) Surgical History Surgical History History of hysterectomy History of appendectomy Social History Social History Household Members: None Housing: House Do you presently have visiting nurse or other home services: Yes Comment: Pt. sleeping Patient Tobacco Use Status: Never used Tobacco Smoked in Last 30 Days: No Patient Interested in Nicotine Replacement: No Patient Given Instructions on How to Stop Smoking: No Second Hand Smoke Exposure: No Use of substances other than those prescribed or required for medical reasons: No Currently Displaying Signs/Symptoms of Drug Intoxication Withdrawal: No Have you been hit, kicked, punched, or otherwise hurt by someone within the past year? If so, by whom?: No Do you feel safe in your current relationship?: Yes Is there a partner from a previous relationship who is making you feel unsafe now?: No Are you made to feel afraid or neglected: No Advance Directives: No Advance Directives Information Provided: Yes Advance Directives on File: Yes Advance Directives Date on File: 10/14/03 Do you have a plan to hurt others: No Plan Recently lost weight without trying: No Eating poorly because of decreased appetite: No Nutrition Risks: No Nutritional Risk Patient : No : No Poor oral hygiene: No service: No Meds Allergies Allergy/AdvReac Type Severity Reaction Status Date / Time No Known Allergies Allergy Unverified 12/17/24 08:16 Active Medications: Current Medications Acetaminophen (Acetaminophen 325 Mg Tablet) 650 mg PO Q6H PRN PRN Reason: Pain, Mild 1-3,fever,headache Amiodarone HCl (Amiodarone Hcl 200 Mg Tablet) 200 mg PO DAILY [facility] Last Admin: 12/19/24 08:18 Dose: 200 mg Calcium Carbonate (Calcium Carbonate 750 Mg Tab.Chew) 750 mg PO Q4H PRN PRN Reason: Heartburn Carvedilol (Carvedilol 12.5 Mg Tablet) 12.5 mg PO BID [facility]; Protocol Last Admin: 12/19/24 08:19 Dose: 12.5 mg Cefuroxime Axetil (Cefuroxime Axetil 250 Mg Tablet) 250 mg PO BID [facility] Stop: 12/24/24 20:59 Last Admin: 12/19/24 08:18 Dose: 250 mg Cyanocobalamin (Cyanocobalamin (Vitamin B-12) 1,000 Mcg Tablet) 1,000 mcg PO DAILY [facility] Last Admin: 12/19/24 08:19 Dose: 1,000 mcg Docusate Sodium (Docusate Sodium 100 Mg Capsule) 100 mg PO DAILY PRN PRN Reason: Constipation Ferrous Sulfate (Ferrous Sulfate 324 Mg Tablet.Dr) 324 mg PO DAILY [facility] Furosemide (Furosemide 20 Mg Tablet) 40 mg PO DAILY [facility]; Protocol Last Admin: 12/19/24 08:19 Dose: 40 mg Levothyroxine Sodium (Levothyroxine Sodium 175 Mcg Tablet) 175 mcg PO DAILY@0600 [facility] Last Admin: 12/19/24 05:51 Dose: 175 mcg Magnesium Hydroxide (Milk Of Magnesia 30 Ml Oral.Susp) 30 ml PO DAILY PRN PRN Reason: Constipation Melatonin (Melatonin 3 Mg Tablet) 6 mg PO BEDTIME PRN PRN Reason: Insomnia Ondansetron HCl (Ondansetron Hcl 4 Mg/2 Ml Vial) 4 mg IVPUSH Q8H PRN PRN Reason: Nausea and Vomiting Pantoprazole Sodium (Pantoprazole Sodium 40 Mg/10 Ml Vial) 40 mg IVPUSH BID@0630,1630 [facility] Last Admin: 12/19/24 05:51 Dose: 40 mg Prednisone (Prednisone 20 Mg Tablet) 12.5 mg PO DAILY [facility] Last Admin: 12/19/24 08:19 Dose: 12.5 mg Sodium Chloride (0.9 % Sodium Chloride Flush 3 Ml Syringe) 3 ml IVFLUSH QSHIFT [facility] Last Admin: 12/19/24 08:24 Dose: 3 ml Valsartan (Valsartan 160 Mg Tablet) 160 mg PO DAILY [facility] Last Admin: 12/19/24 08:18 Dose: 160 mg Verapamil HCl (Verapamil Hcl Sr 120 Mg Tablet.Er) 120 mg PO DAILY [facility]; Protocol Last Admin: 12/19/24 08:18 Dose: 120 mg Vitamin D (Cholecalciferol (Vitamin D3) 25 Mcg Tablet) 50 mcg PO DAILY [facility] Last Admin: 12/19/24 08:18 Dose: 50 mcg Home Medications ?Medication ?Instructions ?Recorded ?Confirmed ?Last Taken ?Type cyanocobalamin (vitamin B-12) 1,000 mcg PO DAILY 07/11/20 12/17/24 12/16/24 History 1,000 mcg tablet (Vitamin B-12) docusate sodium 100 mg capsule 100 mg PO DAILY PRN Constipation 07/11/20 12/17/24 Unknown History (Colace) apixaban 5 mg tablet 5 mg PO BID 11/05/20 12/17/24 12/16/24 History carvedilol 3.125 mg tablet 3.125 mg PO BID blood pressure 12/04/24 12/17/24 12/16/24 History levothyroxine 175 mcg tablet 175 mcg PO DAILY@0600 12/04/24 12/17/24 12/16/24 History olmesartan 40 mg tablet 40 mg PO DAILY blood pressure 12/04/24 12/17/24 12/16/24 History prednisone 5 mg tablet 20 mg PO DAILY 12/04/24 12/17/24 12/16/24 History verapamil 120 mg tablet,extended 120 mg PO DAILY 12/04/24 12/17/24 12/16/24 History release cholecalciferol (vitamin D3) 50 50 mcg PO DAILY 12/17/24 12/17/24 12/16/24 History mcg (2,000 unit) capsule (Vitamin D3) doxycycline hyclate 100 mg tablet 100 mg PO BID 12/17/24 12/17/24 12/16/24 History furosemide 40 mg tablet 40 mg PO DAILY 12/17/24 12/17/24 12/16/24 History Physical Exam 2 Vital Signs: Vital Signs: Last Vital Signs Temp 98.4 F 12/19/24 07:13 Pulse 52 12/19/24 07:13 Resp 18 12/19/24 07:13 BP 138/54 L 12/19/24 07:13 Pulse Ox 94 12/19/24 07:13 O2 Del Method Room Air 12/19/24 07:13 BMI result Body Mass Index 43.1 Elderly female NAD, nonicteric abd soft, nontender, nondistended R larson in dressing with 5 cm underlying echymosis Results Labs 12/19/24 05:20 12/19/24 05:20 Labs: Short CBC 12/19/24 Range/Units 05:20 WBC 9.6 (4.8-10.8) X10*3/uL Hgb 8.9 L (12.0-16.0) g/dl Hct 29.0 L (37.0-47.0) % Plt Count 257 (160-400) X10*3/uL BMP 12/19/24 05:20 Sodium 143 Potassium 4.5 Chloride 104 Carbon Dioxide 33 H BUN 27 H Creatinine 1.07 Calcium 8.4 Microbiology Microbiology Results: Microbiology 12/17/24 18:21 Urine clean catch - Clean Catch Midstream Urine Culture - Final 12/17/24 18:28 Blood - Venous Blood Culture - Preliminary No growth after 24 hours. 12/17/24 18:28 Blood - Venous Blood Culture - Preliminary No growth after 24 hours. Assessment and Plan (1) Acute blood loss anemia: Status: Acute Plan Pt with multiple recent source of overt bleeding including epistaxis and now R leg wound exacerbated by underlying anticoagulation. At present no concern for ongoing GI bleed in the absence of abd pain, hematemesis or melena. Urgent endoscopic evaluation not warranted at this time. Thank you for allowing me to participate in her care. Please do not hesitate to reach out for questions or concerns. Procedures Date of Service Date of Service: 12/19/24
[2024-12-19] MEDS: Ferrous Sulfate 324 MG TABLET.DR PO (12:05)
--- NOTE | 2024-12-19 12:24 | PM.DS ---
DS: Providers Provider Date of Service: 12/19/24 Date of admission: 12/17/24 19:05 Date of discharge: 12/19/24 Primary care physician: Kalina Colon MD Consults: 12/17/24 19:10 Consult to Gastroenterology Routine Consulting Provider: Leslie Bowling Reason for consultation: Stool heme+, on Eliquis, ?GIB 12/17/24 20:07 Consult to Wound Care Routine Reason for consultation: Multiple decubitus ulcers in various stages DS: Diagnosis Discharge Diagnosis (1) Acute blood loss anemia: Status: Acute (2) GI bleed: Status: Acute (3) UTI (urinary tract infection): Status: Acute (4) Anemia: Status: Acute (5) Skin tear of right lower leg without complication: Status: Acute DS: Summary Hospital Course Hospital Course: Admission note HPI Pt is an 89-year-old female with a PMH significant for?paroxysmal AFib on Eliquis, PVD, DVT, HTN, hypothyroidism, bullous pemphigoid, chronic normocytic anemia, and hx of spinal tumor excision 20 years ago who presents to the ED with?uncontrollable bleeding from right lower leg wound. Pt lives at home alone, but is chronically wheelchair and bed-bound at baseline. Has not ambulated for the past 3-4 years. Pt has VNA services 3 times week as well as commercial hvac technician who stop by 3 times a day to administer care and help with ADLs. Yesterday afternoon pt received a 3 cm laceration to right lower extremity during [place] transfer into bed. Pt soaked through 4 different dressings and bleeding never fully stopped. Pt continued to ooze blood up through presentation to the ED. in the ED, bleeding was difficult to stop. Skin not amenable to stitching, and hemostasis finally achieved by applying Surgicel and pressure dressing. Pt also complains of mostly left-sided chest pain/discomfort that began earlier today, similar to a burning sensation. Pt does not look at her own stool, but does not remember her commercial hvac technician mentioning bright red blood per rectum or dark colored stools. Denies lower extremity pain. No lightheadedness, dizziness. No fever, chills, nausea, vomiting, abdominal pain. Pt with chronic decubitus ulcers secondary to being chronically wheelchair and bed-bound. Is unable to follow up with wound care at [facility] and currently in process of establishing care with a different wound clinic. Of note, pt was recently admitted to the hospital on 12/04-12/08 after presenting to the ED with uncontrolled epistaxis. In the ED pt was tachypneic up to 24 and hypertensive up to 198/72. Labs were significant for H&H 7.7/25.0 (decreased from 9.6/31.1 on 12/04/2024), otherwise grossly unremarkable and around baseline for pt. No leukocytosis. No significant electrolyte abnormalities. Renal function around baseline. Hepatic function WNL. Serial troponins flat at 14.8 in 15.0. UA consistent with UTI. Stool positive for occult blood. CXR with persistent airspace opacities most pronounced within left upper lobe. Right lower extremity arterial duplex with monophasic waveforms throughout, though showing multifocal stenosis involving the SFA. EKG demonstrated normal sinus rhythm without evidence of significant ST elevations or depressions. Pt was treated with ceftriaxone. Pt will be admitted to the hospital for treatment and further evaluation of acute blood loss anemia concerning for GI bleed. Hospital course The patient was admitted and treated for: # Acute blood loss anemia with Hb of 7.7 on admission improved to 9 post 1 unit transfusion. The drop is likely multifactorial from right lower extremity bleeding and possible GI source as she has positive occult stool and low iron profile. Started on Iron supplement as she was evaluated by GI who did not feel the need to do any inpatient studies and recommended outpatient follow up and treating her to PPI. To repeat blood test as outpatient. # Acute UTI. Treated with Ceftriaxone, started 12/17/2024. urine culture came back negative. discontinued antibiotics. # Decubitus ulcers. The patient has numerous ulcers in various stages. Placed on scheduled of positioning Q2h, offload bony prominences, air loss mattress. Evaluated by Wound care consult # HTN Poorly controlled as BP remains elevated. To continue olmesartan, verapamil and carvedilol. To start Hydralazine 25 mg tid at discharge and for monitoring at home for any further adjustments. Discharge plan Start Iron supplement Take Daily Pantoprazole for stomach protection wound care at home Repeat blood test next week Follow with Dr Bowling from [facility] Gastroenterology as needed # Topical Wound Care Recommendations: Bilateral Heels and Right lower anterior leg - Elevate heels off of bed surface with heel protector boots. Cleanse with Ns moist gauze, Pat dry. Apply barrier cream to periwound. Cover wound bed with Durafiber AG, dry gauze, ABD pad and wrap. Change every other day. Right Ischium, Inner Thigh and Sacrum - Off Load Pressure with Q2 hr turns and use of pillows - Cleanse with PH balance spray or wipes, pat dry. ?Apply thin layer of Triad to wound bed. Do not remove all of paste between applications as this may cause further skin damage.? Right Leg skin tear - Cleanse with NS moist gauze, pat dry. Apply skin prep to periwound. Cover with xeroform dry gauze, abd pad change every other day when out pt. Be gently with removal to ensure skin flap is not disrupted. Time Attestation Discharge Coordination Time (in mins): 42 Quality: Safe Use of Opioids Does Pt have an Active Cancer Diagnosis on the Problem List?: No Quality: Stroke Does the patient have a stroke diagnosis?: No Physical Exam Vital Signs: Vital Signs: Last Vital Signs Temp 98.4 F 12/19/24 07:13 Pulse 52 12/19/24 07:13 Resp 18 12/19/24 07:13 BP 138/54 L 12/19/24 07:13 Pulse Ox 94 12/19/24 07:13 O2 Del Method Room Air 12/19/24 07:13 BMI result Body Mass Index 43.1 Const: Other: Constitutional : interactive, not in distress Cardiovascular : no JVP, no lower extremity edema Respiratory : bilateral chest movement, not in resp distress Gastrointestinal: soft, lax, Non tender Skin : Warm, Dry, wound in LE covered with dressing , left and right heels pressure injuries, Coccycx pressure injury Neurological : Alert & oriented , No focal deficit DS: Data Data Completed and Pending Completed studies during hospitalization [Text1]: Procedures Control Bleeding in Nasal Mucosa and Soft Tissue, Via Natural or Artificial Opening (12/04/24) Dilation of Right Popliteal Artery using Drug-Coated Balloon, Percutaneous Approach (11/05/20) Excision of Right Foot Muscle, Open Approach (11/05/20) Insertion of Infusion Device into Superior Vena Cava, Percutaneous Approach (07/05/20) Introduction of Vasopressor into Peripheral Vein, Percutaneous Approach (07/05/20) Packing of Nasal Region using Packing Material (12/04/24) Performance of Urinary Filtration, Intermittent, Less than 6 Hours Per Day (07/05/20) Ultrasonography of Superior Vena Cava, Guidance (07/05/20) Labs on day of discharge: Laboratory Results - last 24 hr 12/19/24 05:20 WBC 9.6 RBC 3.14 L Hgb 8.9 L Hct 29.0 L MCV 92.4 MCH 28.3 MCHC 30.7 L RDW 16.9 H Plt Count 257 MPV 10.0 Immature Gran % (Auto) 0.5 H Neut % (Auto) 69.6 Lymph % (Auto) 15.6 L Ritchie % (Auto) 10.1 Eos % (Auto) 3.8 Baso % (Auto) 0.4 Lymph # (Auto) 1.5 Ritchie # (Auto) 1.0 Eos # (Auto) 0.4 Baso # (Auto) 0.0 Abs Immat Gran (auto) 0.05 H Absolute Neuts (auto) 6.7 Absolute Nucleated RBC 0.000 Nucleated RBC % (auto) 0.0 Sodium 143 Potassium 4.5 Chloride 104 Carbon Dioxide 33 H Anion Gap 11 L BUN 27 H Creatinine 1.07 Estim Creat Clear Calc 44.0 Estimated GFR 48 Random Glucose 92 Calcium 8.4 Iron 28 L TIBC 142 L % Saturation 20 Unsat Iron Binding 114 Preliminary micro results at discharge 12/17/24 18:28 Blood Culture - Preliminary Blood - Venous No growth after 24 hours. 12/17/24 18:28 Blood Culture - Preliminary Blood - Venous No growth after 24 hours. Discharge Plan Discharge Anticipated Discharge Date/Time: 12/19/24 12:21 Patient Disposition: Home Health Service Discharge Diagnosis: Skin tear Anemia UTI Referrals: [facility] [Outside] - 1 Week Kalina Moore MD [Primary Care Provider] - 1 Week Discharge Medications: New ferrous sulfate 324 mg (65 mg iron) Tablet,Delayed Release (Dr/Ec) 324 mg PO DAILY Qty: 90 0RF pantoprazole 40 mg tablet,delayed release (DR/EC) 40 mg PO DAILY Qty: 90 0RF Continued cyanocobalamin (vitamin B-12) [Vitamin B-12] 1,000 mcg Tablet 1,000 mcg PO DAILY docusate sodium [Colace] 100 mg Capsule 100 mg PO DAILY PRN (Reason: Constipation) amiodarone 200 mg Tablet 200 mg PO DAILY Qty: 30 0RF apixaban 5 mg Tablet 5 mg PO BID cholecalciferol (vitamin D3) [Vitamin D3] 50 mcg (2,000 unit) Capsule 50 mcg PO DAILY furosemide 40 mg Tablet 40 mg PO DAILY doxycycline hyclate 100 mg tablet 100 mg PO BID verapamil 120 mg tablet extended release 120 mg PO DAILY levothyroxine 175 mcg tablet 175 mcg PO DAILY@0600 prednisone 5 mg tablet 20 mg PO DAILY carvedilol 3.125 mg tablet 3.125 mg PO BID olmesartan 40 mg tablet 40 mg PO DAILY Discharge Orders: Discharge Order (Routine); Ordered 12/19/24 Ordered By: Leonie King Diet: Diabetic diet Activity on Discharge: As tolerated Stand Alone Forms: Patient Portal Discharge page Print Language: Bolivian Other Ambulatory Orders: Complete Blood Count Auto Diff (Routine) Timeframe: 1 Week Facility: [facility] - Location: Laboratory Ordered By: Leonie King Activity Restrictions/Additional Instructions: Topical Wound Care Recommendations: Bilateral Heels and Right lower anterior leg - Elevate heels off of bed surface with heel protector boots. Cleanse with Ns moist gauze, Pat dry. Apply barrier cream to periwound. Cover wound bed with Durafiber AG, dry gauze, ABD pad and wrap. Change every other day. Right Ischium, Inner Thigh and Sacrum - Off Load Pressure with Q2 hr turns and use of pillows - Cleanse with PH balance spray or wipes, pat dry. ?Apply thin layer of Triad to wound bed. Do not remove all of paste between applications as this may cause further skin damage.? Right Leg skin tear - Cleanse with NS moist gauze, pat dry. Apply skin prep to periwound. Cover with xeroform dry gauze, abd pad change every other day when out pt. Be gently with removal to ensure skin flap is not disrupted. Care Plan Goals: Start Iron supplement Take Daily Pantoprazole for stomach protection wound care at home Repeat blood test next week Follow with Dr Bowling from [facility] Gastroenterology as needed Health Concerns: Leg skin tear Anemia Plan of Treatment: Wound care Iron supplement Assessment: as above Patient Instructions: Iron Supplements (By mouth), Pantoprazole (By mouth), Anemia (DC), Skin Tear (GEN) Discharge Date/Time: 12/19/24 16:08
--- NOTE | 2024-12-19 13:27 | MHC.CLN ---
NUTRITION RECEIVED DISCHARGE NOTIFICATION PRIOR TO COMPLETE NUTRITION ASSESSMENT. PATIENT WITH MULTIPLE STAGE II PRESSURE INJURIES. DIET=2 GRAM SODIUM. RECOMMEND ENSURE MAX BID TO PROMOTE WOUND HEALING. SUPPLEMENT PROVIDES 300 KCALS, 60 G PROTEIN. WILL COMPLETE NUTRITION ASSESSMENT IF DISCHARGE POSTPONED.
[2024-12-19] MEDS: Apixaban 5 MG TABLET PO (13:34)
--- NOTE | 2024-12-19 13:39 | P.F2F_ITS ---
Service Date Service Date: 12/19/24 Encounter Date of encounter: 12/19/24 Reasons for Services Signs and symptoms assessed: Pressure wounds Elevated BP readings Reason for correction: wound care (in DC summary ), medication management and teach disease management Homebound: Leaving the home is medically contraindicated at this time without the asist of a device and/or another person due th the listed conditions above and below. Reason homebound: bedbound/chairbound Certification: Based on the above findings, I certify that this patient is confined to the home and needs intermittent correction care, physical therapy and/or speech therapy, or continues to need occupational therapy. The patient is under my care, and I have initiated the establishment of the plan of care. The patient will be followed by a physician who will periodically review the plan of care. Time Spent With Patient Time: Total time managing care of this patient today ____ minutes.
--- NOTE | 2024-12-19 14:16 | MHC.CM.PN ---
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
--- NOTE | 2024-12-19 14:33 | HO.WOUND ---
Wound Consult: Initial 89yr old?female admitted to [facility] [place] on 12/17/24 - See progress notes and H&P for detailed history.? Wound consult placed for Bilateral Heels, Left ischium and coccyx.? Patient agreeable to assessment and photo documentation.? Patient reports she lives at home alone with services. She reports independent baseline. She reports she has a VNA nurse that treats her wounds several times a week. Sacrum Etiology: Stage 2 Pressure Injury ??Present on Admission Wound Bed: red pink wound bed moist tissue Drainage / Odor: none noted Edges: ?irregular Hanny wound: MASD ? No Induration, Fluctuance or Warmth noted Pain: pain reported Goals of Treatment: ? Off load pressure and triad Left heel Etiology: Stage 4 pressure injury -??Present on Admission Wound Bed: full thickness tissue loss - bone not exposed by only covered by thin veil of tissue - pale pink with yellow slough noted Drainage / Odor: schafer drainage no odor Edges: ? rolled Hanny wound: ?pink moist tissue No Induration, Fluctuance or Warmth noted Pain: pain reported Goals of Treatment: ? Durafiber for moisture management Right Heel Etiology: Stage 4 pressure injury -??Present on Admission Wound Bed: full thickness tissue loss - bone not exposed by only covered by thin veil of tissue - pale pink with yellow slough noted Drainage / Odor: schafer drainage mild odor Edges: ? rolled Hanny wound: ?dark red dry tissue No Induration, Fluctuance or Warmth noted Pain: pain reported Goals of Treatment: ? Durafiber for moisture management Right leg Etiology: ?Stage 2 Pressure injury - suspect device related - brace for leg ?Present on Admission Wound Bed: red pink moist wound bed Drainage / Odor: yellow drainage Edges: ? irregular Hanny wound: ? Dry flaking tissue with dark red pigmentation No Induration, Fluctuance or Warmth noted Pain: pain reported Goals of Treatment: ? Durafiber for moisture management Right Ischium Etiology:Unstageable Pressure injury ??Present on Admission Wound Bed: adherent yellow slough Drainage / Odor: yellow no odor Edges: ? irregular Hanny wound: MASD with friction ? No Induration, Fluctuance or Warmth noted Pain: denies Goals of Treatment: ? TRiad and foam dressing to treat and protect Left Inner Thigh - Device related unstageable PI secondary to Breif use at home - patient reports her aids were using briefs that were to small and were pinching her legs - she reports they have since purchased larger briefs. Recommend Triad to the site to allow for moist wound healing. Right Upper Tate - Skin tear - Flap partially re-approximated appears to have small stable hematoma present under flap. Moist wound healing with xeroform. Recommendations: 1. Turn and Reposition every 2 hours and as needed for patient comfort.? Use pillows or wedges to support off loading positions. 2. Off Load all bony prominences with use of pillows and heel boots if needed.? Apply Preventative foams where needed. ? 3. Monitor for incontinence and moisture control, use barrier creams when needed for prevention and treatment. 4. Provide adequate and supplemental nutrition.? 5. Order low air loss mattress. 6. When applicable maintain blood glucose levels per Providers order. 7. Bilateral Heels and Right lower anterior leg - Elevate heels off of bed surface with heel protector boots. Cleanse with Ns moist gauze, Pat dry. Apply barrier cream to periwound. Cover wound bed with Durafiber AG, dry gauze, ABD pad and wrap. Change every other day. 8. Right Ischium, Inner Thigh and Sacrum - Off Load Pressure with Q2 hr turns and use of pillows - Cleanse with PH balance spray or wipes, pat dry. ?Apply thin layer of Triad to wound bed. Do not remove all of paste between applications as this may cause further skin damage.? 9. Right Leg skin tear - Cleanse with NS moist gauze, pat dry. Apply skin prep to periwound. Cover with xeroform dry gauze, abd pad change every other day when out pt. Be gently with removal to ensure skin flap is not disrupted. Re-consult wound care Nurse for wound deterioration or wound changes.
[2024-12-19 15:07] VITALS: BP 161/69; PULSE 47; RESP 18; TEMP 36.9; O2SAT 95
--- NOTE | 2024-12-29 15:29 | P.CDIM_ITS ---
PROVIDER RESPONSE TEXT: To clarify, the appropriate diagnosis supported by the clinical indicators: Hemorrhagic disorder due to extrinsic circulating anticoagulants remains a known or suspected conditi on for this patient QUERY TEXT: PHYSICIAN'S DOCUMENTATION REQUEST Date of Query: 12/29/2024 07:39 AM EDT Patient Name: Niru Baird Admit Date: 12/18/2024 Dear Leonie King MD, A review of the medical record indicates additional documentation may be needed. Please review below and update the documentation accordingly. The purpose of this query is not to question medical judgment, but to ensure the accuracy of the cond itions reported for your patient. The condition of overt bleeding exacerbated by underlying anticoagulation is documented in the record on 12/19/24 in the Gastroenterology consult Clinical Indicators: per GI multiple recent source of overt bleeding including epistaxis and now right leg wound exacerbat ed by anticoagulant patient on Eliquis patient was treated for skin tear right larson with bleeding H&H 7.05/05 and patient received blood transfusion for ABLA. The request is for one of the following: A) Additional documentation to support the condition. Indicate if this is in lieu of what may be cons idered standard criteria, and/or support why the standard criteria may not be present for this patient. Or B) A more appropriate diagnosis, reflecting the patient's condition. Please clarify the documentation : Hemorrhagic disorder due to extrinsic circulating anticoagulants remains a known or suspected conditi on for this patient Hemorrhagic disorder due to extrinsic circulating anticoagulants has been ruled out Other (explain) Clinically unable to determine (explain) Thank you, Merced Garza RN Use of terms such as suspected, likely, concern for, or probable (associated with a specific diagnosi s that is being evaluated, monitored, or treated as if it exists) are acceptable and can be coded in the inpatient se tting, when documented at the time of discharge. Please use your independent medical judgment in providing your response. THIS QUERY IS PART OF THE PERMANENT MEDICAL RECORD
== END 2024-12-19 16:08 | disposition home health service (06) | DRG 604 ==
LOC: HO.ED 17:42 → HO.EDOVER 19:20 → HO.S3 12-18 07:49
PROVIDERS: Physician Assistant; Admitting Provider Student in an Organized Health Care Education/Training Program; Emergency Provider Emergency Medicine; PCP Family Medicine; Visit Provider Student in an Organized Health Care Education/Training Program
DX: S81.811A Laceration without foreign body, right lower leg, initial encounter (principal); L89.614 Pressure ulcer of right heel, stage 4; L89.624 Pressure ulcer of left heel, stage 4; D62 Acute posthemorrhagic anemia; N39.0 Urinary tract infection, site not specified; L12.0 Bullous pemphigoid; D68.32 Hemorrhagic disorder due to extrinsic circulating anticoagulants; K92.2 Gastrointestinal hemorrhage, unspecified; I10 Essential (primary) hypertension; Z74.01 Bed confinement status; T45.515A Adverse effect of anticoagulants, initial encounter; W22.09XA Striking against other stationary object, initial encounter; E03.9 Hypothyroidism, unspecified; I48.0 Paroxysmal atrial fibrillation; L89.152 Pressure ulcer of sacral region, stage 2; Z79.01 Long term (current) use of anticoagulants; Z79.890 Hormone replacement therapy; Z79.899 Other long term (current) drug therapy
CPT/HCPCS: 36415; 71045; 80048; 80053; 81001; 82272; 83540; 83605; 83735; 84484; 85025; 85027; 85610; 86850; 86900; 86901; 86923; 87040; 87086; 93005; 93926; 99285; J0360; J0696; J2470; P9016

== ENCOUNTER → 2024-12-17 08:14 | Outpatient (BNV) | payer MEDICARE, SELFPAY | PROVIDERS: Admitting Provider Student in an Organized Health Care Education/Training Program; Emergency Provider Emergency Medicine; PCP Family Medicine; Visit Provider Internal Medicine Cardiovascular Disease | DX: I49.9 Cardiac arrhythmia, unspecified (principal) | CPT/HCPCS: 93010 ==

== ENCOUNTER → 2024-12-17 08:31 | Outpatient (BNV) | payer MEDICARE, SELFPAY | PROVIDERS: Emergency Provider Emergency Medicine; PCP Family Medicine; Visit Provider Radiology Vascular & Interventional Radiology | DX: L81.9 Disorder of pigmentation, unspecified (principal); R06.02 Shortness of breath; R20.8 Other disturbances of skin sensation | CPT/HCPCS: 71045; 93926 ==

== ENCOUNTER → 2024-12-17 19:05 | Outpatient (BNV) | payer MEDICARE, SELFPAY | PROVIDERS: Admitting Provider Student in an Organized Health Care Education/Training Program; Emergency Provider Emergency Medicine; PCP Family Medicine; Visit Provider Student in an Organized Health Care Education/Training Program | DX: D62 Acute posthemorrhagic anemia (principal); K92.2 Gastrointestinal hemorrhage, unspecified; N39.0 Urinary tract infection, site not specified | CPT/HCPCS: 99223; 99233; G0180 ==

== ENCOUNTER → 2024-12-17 19:05 | Outpatient (BNV) | payer MEDICARE, SELFPAY | PROVIDERS: Admitting Provider Student in an Organized Health Care Education/Training Program; Emergency Provider Emergency Medicine; PCP Family Medicine; Visit Provider Internal Medicine | DX: D62 Acute posthemorrhagic anemia (principal) | CPT/HCPCS: 99222 ==

== ENCOUNTER 2025-03-17 13:22 | Inpatient (IN) | payer MEDICARE, SELFPAY ==
--- NOTE | ~2025-03-17 | US_ITS ---
EXAMINATION: US NONINVASIVE ASSESSMENT OF THE RIGHT LOWER EXTREMITY WITH ARTERIAL DUPLEX CLINICAL INFORMATION: Right foot discoloration. COMPARISON: 12/17/2024. TECHNIQUE: Duplex Doppler techniques with waveform analysis and measurement of velocities in the right common femoral, profunda femoris, superficial femoral, popliteal and tibial arteries were performed. FINDINGS: Atheromatous Plaque: There is moderate to extensive scattered atheromatous plaque identified. RIGHT FEMORAL RUNOFF VELOCITIES: The right common femoral artery measures 128 cm/s and biphasic. (Mild stenosis suggested) The right profunda femoral artery is 148 cm/s and is monophasic. (Moderate stenosis suggested) The right proximal superficial femoral artery measures 111 cm/s and biphasic. The right mid superficial femoral artery is 109 cm/s and biphasic. The right distal right superficial femoral artery measures 271 cm/s and is monophasic. (Severe stenosis suggested) The right popliteal velocity measures 63 cm/s and is monophasic. The right dorsalis pedis artery measures 32 cm/s and is monophasic. As per technologist note, the right posterior tibial artery, and peroneal artery could not be imaged due to inward contraction of the leg. US/US arterial duplex LE RT IMPRESSION: Limited exam due to patient habitus and inward contraction of the right leg. 1. Atheromatous plaque present. 2. Findings suggesting significant peripheral vascular disease of the right lower extremity, with a severe stenosis suggested in the right distal superficial femoral artery. Electronically signed by: Cam Rivas MD 03/17/2025 03:31 PM EDT
--- NOTE | ~2025-03-17 | US_ITS ---
CLINICAL HISTORY: acute elevated LFT, nausea, no vomiting, poor PO US abdomen limited Comparison: None Findings: The study is limited due to body habitus and overlying bowel gas. The visualized pancreas is normal. The aorta and inferior vena cava are normal caliber. The liver is normal in size and mildly increased in echotexture. There is no intrahepatic bile duct dilatation. The common duct is 5 mm in diameter. The gallbladder appears contracted about stones. There is no sonographic Galeas sign. The main portal vein is antegrade. The right kidney is 9.7 cm in length. No ascites. IMPRESSION: Hepatic steatosis. Cholelithiasis without evidence of cholecystitis. Limited exam due to bowel gas and body habitus. This document has been electronically signed by: Papito Loaiza MD on 03/17/2025 18:18:23
--- NOTE | ~2025-03-17 | XR_ITS ---
EXAMINATION: XR ANKLE, RIGHT CLINICAL INFORMATION: abnormal distal fib on XR foot COMPARISON: None available. TECHNIQUE: AP, lateral, and mortise views of the right ankle. FINDINGS: Exam limited by limited patient tolerance for positioning and obliquity, and severe diffuse osteopenia. No gross fracture or dislocation identified. Grossly the mortise is intact and the talar dome is intact. There is diffuse soft tissue venous stasis calcification as well as circumferential soft tissue edema. XR/XR ankle RT min 3V IMPRESSION: No definite fracture right ankle. Diffuse osteopenia. Electronically signed by: Cam Rivas MD 03/17/2025 03:57 PM EDT
--- NOTE | ~2025-03-17 | XR_ITS ---
EXAMINATION: XR FOOT, RIGHT CLINICAL INFORMATION: heel wound COMPARISON: None available. TECHNIQUE: AP, lateral views of the right foot. FINDINGS: There is diffuse osteopenia. There is mild to moderate joint space narrowing in the interphalangeal joints. There is ankylosis of the first metatarsophalangeal joint, probably postsurgical. On lateral, there is overlap of the fibula and posterior tibia likely with Mach effect simulating a fracture. No obvious erosions are evident. XR/XR foot RT 2V IMPRESSION: There is diffuse osteopenia which the limits the exam. If there is clinical concern for osteomyelitis, follow-up with MRI of the hindfoot. Overlap of posterior tibial plafond and distal fibula on the lateral projection probably results in lucency from Mach effect simulating the appearance of a fracture. If there is trauma or concern for fracture, follow-up 3 view right ankle. Ankylosis first MTP joint. Electronically signed by: Ghassan Sousa MD 03/17/2025 03:10 PM EDT
--- NOTE | ~2025-03-17 | CT_ITS ---
CLINICAL HISTORY: interstitial disease on xray, hypoxia, concern for CT chest without contrast Comparison: None Findings: There are relatively mild coronary artery calcifications. The visualized thyroid and mediastinum are unremarkable. There are scattered reticular opacities most significantly in the right upper lobe and bilateral lung bases likely chronic. There is no evidence of honeycombing. There is some mosaic attenuation most suggestive of small airways disease. There is some peribronchial consolidation at both lung bases suggestive of pneumonia. The upper abdomen is unremarkable. There are severe bilateral glenohumeral degenerative changes with destruction of the joint space. There is thoracic kyphosis. IMPRESSION: 1. There are scattered reticular opacities most significantly in the right upper lobe and bilateral lung bases likely chronic. There is no evidence of honeycombing. 2. There is some mosaic attenuation most suggestive of small airways disease. 3. There is some peribronchial consolidation at both lung bases suggestive of pneumonia. This document has been electronically signed by: Meet Cochran MD on 03/18/2025 11:43:26
--- NOTE | ~2025-03-17 | XR_ITS ---
EXAMINATION: XR CHEST 1 VIEW HISTORY: SOB, cough COMPARISON: Comparison is made with the prior examination dated 12/17/2024. FINDINGS: Two AP portable views of the chest performed at 3:34 PM are submitted. There are increased markings in the right upper lobe and in the left mid to lower lung zone. Opacities at the left lung base may be slightly greater than on the prior study. There is no pleural effusion, pneumothorax, or pulmonary vascular congestion. The heart is enlarged. There is degenerative disc disease of the spine. XR/XR chest 1V IMPRESSION: Increased interstitial markings. Possible superimposed pneumonia at the left lung base. Follow-up is recommended. Electronically signed by: Tucker Pickering MD 03/17/2025 03:58 PM EDT
[2025-03-17 13:29] VITALS: BP 144/80; PULSE 56; O2SAT 90
[2025-03-17 13:36] VITALS: PULSE 57; RESP 18; O2SAT 97; BMI 38.2
--- NOTE | 2025-03-17 13:38 | ECG_ITS ---
Test Reason : shortness of breath Blood Pressure : */* mmHG Vent. Rate : 61 BPM Atrial Rate : 61 BPM P-R Int : 174 ms QRS Dur : 104 ms QT Int : 384 ms P-R-T Axes : 42 0 80 degrees QTcB Int : 386 ms Artifact in tracing Normal sinus rhythm Cannot rule out Anterior infarct (cited on or before 05-Jul-2020) Abnormal ECG When compared with ECG of 17-Dec-2024 08:41, No significant change was found Referred By: Magui Chatterjee Electronically Signed By: DARI OLVERA
[2025-03-17 13:44] LABS: Glucose, Whole Blood 126 mg/dL (60-115)
--- NOTE | 2025-03-17 13:56 | ED_ITS ---
HPI - General Adult General Chief complaint: Dyspnea Stated complaint: SOB X 5 DAYS,90%RA,98%4L PER EMS Time Seen by Provider: 03/17/25 13:27 Source: patient and EMS Mode of arrival: EMS Limitations: no limitations History of Present Illness ED Provider: sylvester hernandez np HPI narrative: patient is an 89-year-old female presents emergency department for evaluation, over the past 5 days she has been feeling increasingly more short of breath, she has a history of CHF evidently today she decided to take a double dose of her Lasix; 40 mg, she states that she has been experiencing for urinary output. She is bed-bound, not able to obtain daily weights. Admits to having orthopnea. Has been experiencing increased cough by her account nonproductive the cough sounds very congested. Has some nausea but no vomiting. No diarrhea, endorsing in somewhat constipated having multiple small bowel movements over the past 2 weeks. Denying any urinary symptoms. Reports chronic wounds to the buttock as well as the bilateral heels, following with a wound care center in [facility] for pressure wound states she is not currently on any antibiotics. Right foot is noted to have purple discoloration, varying conflicting history from patient she is told myself at one account that the foot is never purple, then has stated that sometimes it is, she also told my attending that her foot is always purple since she had a DVT. she does endorse having pain to the foot. EMS reported point of care glucose 400, no history of diabetes Related Data Home Medications ?Medication ?Instructions ?Recorded ?Confirmed cyanocobalamin (vitamin B-12) 1,000 mcg PO DAILY 07/11/20 03/17/25 1,000 mcg tablet (Vitamin B-12) docusate sodium 100 mg capsule 100 mg PO DAILY PRN Constipation 07/11/20 03/17/25 (Colace) carvedilol 3.125 mg tablet 3.125 mg PO BID blood pressure 12/04/24 03/17/25 levothyroxine 175 mcg tablet 175 mcg PO DAILY@0600 12/04/24 03/17/25 olmesartan 40 mg tablet 40 mg PO DAILY blood pressure 12/04/24 03/17/25 prednisone 5 mg tablet 20 mg PO Q48H 12/04/24 03/17/25 verapamil 120 mg tablet,extended 120 mg PO DAILY 12/04/24 03/17/25 release cholecalciferol (vitamin D3) 50 50 mcg PO DAILY 12/17/24 03/17/25 mcg (2,000 unit) capsule (Vitamin D3) doxycycline hyclate 100 mg tablet 100 mg PO BID 12/17/24 03/17/25 furosemide 40 mg tablet 40 mg PO DAILY 12/17/24 03/17/25 azathioprine 50 mg tablet 100 mg PO DAILY 03/17/25 03/17/25 citalopram 20 mg tablet 20 mg PO DAILY 03/17/25 03/17/25 furosemide 20 mg tablet 40 mg PO BEDTIME PRN Swelling 03/17/25 03/17/25 pantoprazole 40 mg tablet,delayed 40 mg PO DAILY@0630 03/17/25 03/17/25 release polyethylene glycol 3350 17 17 g PO DAILY PRN Constipation 03/17/25 03/17/25 gram/dose oral powder (Miralax) prednisone 5 mg tablet 5 mg PO Q48H 03/17/25 03/17/25 warfarin 1 mg tablet 1 mg PO DAILY@1800 03/17/25 03/17/25 Previous Rx's ?Medication ?Instructions ?Recorded amiodarone 200 mg tablet 200 mg PO DAILY #30 tabs 07/14/20 Allergies Allergy/AdvReac Type Severity Reaction Status Date / Time No Known Allergies Allergy Unverified 03/17/25 13:36 Review of Systems 2 Review of Systems: Yes all other systems are reviewed and are negative PMFSH Past Medical History Attestation statement: The following information was validated with the patient. Source: old records reviewed Medical History Hypothyroidism Spinal cord tumor Chronic indwelling Velez catheter Frequent falls UTI (urinary tract infection) Muscular atrophy Kidney failure Paroxysmal atrial fibrillation PVD (peripheral vascular disease) Surgical History History of hysterectomy History of appendectomy Social History Social History Household Members: None Housing: House Do you presently have visiting nurse or other home services: Yes ([employer] help) Alcohol intake: former Comment: bedbound Patient Tobacco Use Status: Never used Tobacco Smoked in Last 30 Days: No Second Hand Smoke Exposure: No Use of substances other than those prescribed or required for medical reasons: No Currently Displaying Signs/Symptoms of Drug Intoxication Withdrawal: No Do you feel safe in your current relationship?: No Current Relationship Advance Directives: No Advance Directives Information Provided: Yes Advance Directives Date on File: 10/14/03 Do you have a plan to hurt others: No Plan Recently lost weight without trying: Yes How much weight loss: Unsure Eating poorly because of decreased appetite: No Nutrition screen score: 4 Nutrition Risks: No Nutritional Risk Patient : No : No Poor oral hygiene: No service: No Physical Exam ED Vital Signs: Vital Signs - 24 hr 03/17/25 13:36 03/17/25 15:31 Pulse Rate 57 61 Respiratory Rate 18 18 Blood Pressure 148/31 H Pulse Oximetry 97 99 Oxygen Delivery Method Nasal Cannula Nasal Cannula Oxygen Flow Rate 2 BMI result Body Mass Index 38.2 Appearance: Alert.?Oriented to person, place and time. No acute distress.?Normal affect. Eyes: Pupils equal, round and reactive to light.? ENT: Pharynx normal.?? Neck: Normal inspection.? Neck supple.?? CVS: Heart sounds normal. Normal heart rate and rhythm.? Pulses normal.?? Respiratory: No respiratory distress. congested-sounding cough.? Lung sounds rhonchi in the bilateral apices, diminished at the bilateral bases Abdomen: Soft and non-tender. Normoactive bowel sounds. Skin: Skin warm and dry.? Normal skin color.? right buttock pressure ulcer and right heel pressure ulcer as photos below? Extremities: bilateral lower extremity edema.? No calf ttp? dorsum and toes of the right foot with purple discoloration, blanchable, unable to find Doppler signal DP/PT Neuro: Moves all extremities spontaneously. Sensation intact bilaterally. No focal neuro deficits. Course Reevaluation(s) Reevaluation #1: CBC is without leukocytosis, has a normocytic anemia that does not meet transfusion criteria, no Thrombocytopenia. Mild hyponatremia 132, bicarb elevated at 31 appears chronic in nature, no ROQUE, random glucose of 90. VBG without evidence of acidosis pH 7.4 similar to priors, bicarb 32, pCO2 44 consistent with prior. Elevated LFTs with AST / ALT 407/342 respectively, normal lipase, may be secondary to CHF, benign abdominal examination although she does endorse having nausea and decreased appetite recently, will obtain ultrasound of the abdomen for acute hepatobiliary etiology. BNP is elevated at 694, chest x- ray reveals concerning for pneumonia of the left lung base, increased interstitial markings. I sensitive troponin is slightly elevated at 18.7, ECG revealing normal sinus rhythm with ventricular rate of 61, CYNDEE, QTC 386, no ST- elevation. CRP is elevated at 12.27, ESR of 44, XR of the right foot/heel diffuse osteopenia, radiologist recommendation for MRI hindfoot for further evaluation of osteomyelitis. in addition XR revealing overlap of posterior tibial plafond and distal fibula, possible mach effect versus fracture, she has been bed-bound, uses a Emerson lift for transfer, no reported overt trauma, however with discoloration of the foot as well will obtain XR imaging of the ankle for further evaluation. Reevaluation #2: Ankle XR without evidence of acute fracture. Attempted room air O2 trial with saturation down to 88% anticipating admission to medicine service for hypoxia with possible pneumonia, CHF, concern for possible osteomyelitis of the right heel wound with elevated inflammatory markers, may require MRI with a discretion hospitalist for further evaluation, possible cholecystitis/cholelithiasis who is acute elevation in LFTs. Pending abdominal ultrasound at this time. Time: 16:12 Medications Administered Generic Name Dose Route Start Last Admin Trade Name Freq PRN Reason Stop Dose Admin Acetaminophen 650 mg 03/17/25 17:51 03/20/25 08:49 Acetaminophen 325 Mg Tablet PO 650 mg Q6H PRN Administration Pain, Mild 1-3,fever,headache Azathioprine 100 mg 03/18/25 09:00 03/20/25 08:48 Azathioprine 50 Mg Tablet PO 100 mg DAILY LISANDRA Administration Carvedilol 3.125 mg 03/17/25 21:00 03/20/25 08:47 Carvedilol 3.125 Mg Tablet PO Not Given BID [facility] Protocol Ceftriaxone Sodium 1 gm 03/18/25 14:00 03/19/25 14:08 Ceftriaxone Sodium 1 Gm Vial IVPUSH 1 gm Q24H LISANDRA Administration Cyanocobalamin 1,000 mcg 03/18/25 09:00 03/20/25 08:46 Cyanocobalamin (Vitamin B-12) 1,000 Mcg Tablet PO 1,000 mcg DAILY LISANDRA Administration Doxycycline Monohydrate 100 mg 03/17/25 21:00 03/20/25 08:48 Doxycycline Monohydrate 100 Mg Capsule PO 100 mg BID LISANDRA Administration Escitalopram Oxalate 10 mg 03/17/25 20:00 03/20/25 08:48 Escitalopram Oxalate 10 Mg Tablet PO 10 mg DAILY LISANDRA Administration Furosemide 40 mg 03/18/25 09:00 03/20/25 08:47 Furosemide 40 Mg Tablet PO 40 mg DAILY LISANDRA Administration Protocol Guaifenesin/Dextromethorphan 1 tab 03/18/25 15:31 03/20/25 08:48 Guaifenesin Dm 600/30 1 Tab Tab.Er.12h PO 1 tab BID PRN Administration Cough Levothyroxine Sodium 175 mcg 03/18/25 06:00 03/20/25 06:02 Levothyroxine Sodium 175 Mcg Tablet PO 175 mcg DAILY@0600 LISANDRA Administration Methylprednisolone Sodium Succinate 40 mg 03/17/25 21:00 03/20/25 08:55 Methylprednisolone Sod Succ 40 Mg/Ml Vial IVPUSH 40 mg BID LISANDRA Administration Omeprazole 20 mg 03/18/25 06:30 03/20/25 06:02 Omeprazole 20 Mg Capsule.Dr PO 20 mg DAILY@30 LISANDRA Administration Oxycodone HCl 5 mg 03/19/25 09:52 03/19/25 10:34 Oxycodone Hcl Immed Release 5 Mg Tablet PO 5 mg Q6H PRN Administration Pain, Severe (Pain Scale 7-10) Senna 17.2 mg 03/17/25 21:00 03/19/25 21:05 Sennosides 8.6 Mg Tablet PO 17.2 mg BEDTIME LISANDRA Administration Sodium Chloride 3 ml 03/18/25 00:00 03/20/25 08:55 0.9 % Sodium Chloride Flush 3 Ml Syringe IVFLUSH 3 ml QSHIFT LISANDRA Administration Valsartan 160 mg 03/17/25 20:00 03/20/25 08:50 Valsartan 160 Mg Tablet PO 160 mg DAILY LISANDRA Administration Verapamil HCl 120 mg 03/18/25 09:00 03/20/25 08:46 Verapamil Hcl Sr 120 Mg Tablet.Er PO Not Given DAILY [facility] Protocol Vitamin D 50 mcg 03/18/25 09:00 03/20/25 08:48 Cholecalciferol (Vitamin D3) 25 Mcg Tablet PO 50 mcg DAILY LISANDRA Administration Warfarin Sodium 1 mg 03/17/25 20:00 03/19/25 17:47 Warfarin Sodium 1 Mg Tablet PO 1 mg DAILY@1800 LISANDRA Administration Discontinued Medications Generic Name Dose Route Start Last Admin Trade Name Harlan PRN Reason Stop Dose Admin Ceftriaxone Sodium 1 gm 03/17/25 14:29 03/17/25 15:44 Ceftriaxone Sodium 1 Gm Vial IVPUSH 03/17/25 14:30 1 gm ONCE ONE Administration Medical Decision Making Medical Decision Making [facility] Narrative: patient is an 89-year-old female with past medical history of hypothyroidism ,PVD, paroxysmal atrial fibrillation previously documented to be on Eliquis, by her account she is no longer on Eliquis has been transitioned to warfarin secondary to ?bleeding versus cost? who presents emergency department with chief complaint of shortness of breath over the past 5 days and cough as per HPI. patient physical examination most concerning for pneumonia, viral syndrome versus CHF exacerbation, she is currently afebrile without tachycardia for tachypnea, will cover with ceftriaxone, not currently meeting sepsis criteria will defer fluid bolus until labs have resulted. Prior echocardiogram in November of 2024 with LVEF 57%. Initial EMS report given that patient point of care glucose was 400, no documented history of diabetes, repeated on arrival to the ED with the results of 126, I suspect that there reading was an error, obtaining VBG her respiratory status anyways will additionally obtain beta hydroxybutyrate, shortness of breath may be secondary to DKA though I suspect that is less likely in this case. as soon she has been transition to warfarin by her account, if properly anticoagulated suspect less likely that this would be secondary to pulmonary embolism, pending serum labs at this time. 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 It is unclear whether the ulcer to the left heel has worsened from baseline, will obtain XR to exclude acute osseous abnormality in addition to arterial duplex ultrasound given lack of Doppler signal for DP/ PT and discoloration of the foot with conflicting story as to whether this is chronic or not, she has documented history of PVD. Differential Diagnosis Differential Diagnoses: The differential diagnosis associated with the presentation includes ( see narrative above) Admission/Observation Consideration of admission/observation: Escalation of care including admission/observation considered Lab Data MDM Lab Attestation statement: I reviewed the patient's lab results. ( see course narrative) 03/19/25 10:48 03/19/25 10:48 Labs: Lab Results 03/17/25 03/17/25 03/17/25 Range/Units 13:38 14:16 14:19 WBC 8.2 (4.8-10.8) X10*3/uL RBC 3.18 L (4.20-5.50) X10*6/uL Hgb 9.6 L (12.0-16.0) g/dl Hct 29.0 L (37.0-47.0) % MCV 91.2 (80.0-98.0) fL MCH 30.2 (27.0-33.0) pg MCHC 33.1 (31.0-35.0) g/dl RDW 19.4 H (11.0-16.0) % Plt Count 204 (160-400) X10*3/uL MPV 9.8 (9.4-12.3) fL Immature Gran % (Auto) 0.7 H (0.0-0.4) % Neut % (Auto) 90.2 H (45-73) % Lymph % (Auto) 4.2 L (20-40) % [place] % (Auto) 4.7 (2-11) % Eos % (Auto) 0.1 (0-4) % Baso % (Auto) 0.1 (0-2) % Lymph # (Auto) 0.3 L (1.2-4.9) X10*3/uL [place] # (Auto) 0.4 (0.1-1.2) X10*3/uL Eos # (Auto) 0.0 (0.0-0.4) X10*3/uL Baso # (Auto) 0.0 (0.0-0.2) X10*3/uL Abs Immat Gran (auto) 0.06 H (0.00-0.03) X10*3/uL Absolute Neuts (auto) 7.4 (2.0-8.3) x10*3/uL Absolute Nucleated RBC 0.040 H (0.0-0.012) X10*3/uL Nucleated RBC % (auto) 0.5 H (0.0-0.2) /100WBC Smear Tech's Comments VERIFIED ESR 44 H (0-20) MM/HR PT 22.2 H D (10.9-12.4) SEC INR 1.9 H (0.9-1.1) VBG pH 7.48 H (7.32-7.43) VBG pCO2 44 mmHg VBG pO2 49 mmHg VBG HCO3 32 H (22-26) mmol/L VBG O2 Saturation 75.0 % VBG Base Excess 8.7 mmol/L Sodium 132 L (135-145) mmol/L Potassium 3.5 D (3.3-5.1) mmol/L Chloride 94 L (96-108) mmol/L Carbon Dioxide 31 H (22-29) mmol/L Anion Gap 11 L (12-20) BUN 24 H (9-16) mg/dL Creatinine 1.14 (0.5-1.4) mg/dL Estim Creat Clear Calc 38.6 Estimated GFR 45 POC Glucose 126 H (60-115) mg/dL Random Glucose 90 (60-115) mg/dL Lactic Acid 1.4 (0.5-2.0) mmol/L Calcium 8.3 L (8.4-10.2) mg/dL Magnesium 1.7 (1.6-2.6) mg/dL Total Bilirubin 1.2 H (0.0-1.0) mg/dL AST 407 H (5-31) U/L ALT 342 H (0-31) U/L Alkaline Phosphatase 100 (39-117) U/L Troponin I High Sens 18.7 H (<3.5-17.0) ng/L C-Reactive Protein 12.27 H (< or = 0.50) mg/dL B-Natriuretic Peptide 694 H (<100) pg/mL Total Protein 5.8 L (6.5-8.0) g/dL Albumin 2.9 L (3.5-5.0) g/dL Lipase 10 (8-78) U/L Beta-Hydroxybutyrate 0.36 H (0.02-0.27) mmol/L TSH 0.39 (0.32-4.0) uIU/mL Influenza Type A (PCR) NEGATIVE (Negative) Influenza Type B (PCR) NEGATIVE (Negative) RSV RNA Qual (PCR) NEGATIVE (Negative) SARS-CoV-2 RNA (RT-PCR) NEGATIVE (Negative) Independent Interpretation I performed an independent interpretation of an: Plain X-Ray (See course narrative) Radiology Impression Discussion of test interpretation with radiology: I have reviewed the radiologist's reading. Radiologist Impression: XR/XR foot RT 2V IMPRESSION: There is diffuse osteopenia which the limits the exam. If there is clinical concern for osteomyelitis, follow-up with MRI of the hindfoot. Overlap of posterior tibial plafond and distal fibula on the lateral projection probably results in lucency from Mach effect simulating the appearance of a fracture. If there is trauma or concern for fracture, follow-up 3 view right ankle. Ankylosis first MTP joint. XR/XR ankle RT min 3V IMPRESSION: No definite fracture right ankle. Diffuse osteopenia. XR/XR chest 1V IMPRESSION: Increased interstitial markings. Possible superimposed pneumonia at the left lung base. Follow-up is recommended. US/US arterial duplex LE RT IMPRESSION: Limited exam due to patient habitus and inward contraction of the right leg. 1. Atheromatous plaque present. 2. Findings suggesting significant peripheral vascular disease of the right lower extremity, with a severe stenosis suggested in the right distal superficial femoral artery. Independent Historian Clinical information obtained from an independent historian. History obtained from or confirmed by: EMS External Record Review External record reviewed: Outpatient record Chronic Conditions Patient?s care impacted by: Other ( see narrative above) Critical Care Time Critical Care Time Critical Care Time: Yes Total Critical Care Time: 35 Attestation: Time is exclusive of separately billable procedures. Time includes: direct patient care, patient reassessment, coordination of patient care, interpretation of data (laboratory data, pulse oximetry, arterial blood gases and chest xrays), review of patient's medical records, medical consultation and documentation of patient care. Procedures excluded from critical care time: central intravenous line placement and electrocardiography. Discharge Plan Discharge Clinical Impression: Acute respiratory failure with hypoxia Patient Disposition: Admitted As Inpatient Interventions: Admission Worksheet (ED) Last Done: 03/17/25 19:29 Discharge Date/Time: 03/17/25 20:25
[2025-03-17 14:28] LABS: Basophils Percent Auto 0.1 % (0-2); Eosinophils Percent Auto 0.1 % (0-4); Hemoglobin 9.6 g/dl (12.0-16.0); Imm Gran Abs Auto 0.06 X10*3/uL (0.00-0.03); Imm Gran Pct Auto 0.7 % (0.0-0.4); Lymphocytes Absolute Auto 0.3 X10*3/uL (1.2-4.9); Lymphocytes Percent Auto 4.2 % (20-40); MANUAL DIFF FLAG SCAN; Mean Corpuscular HGB Conc 33.1 g/dl (31.0-35.0); Mean Corpuscular Hemoglobin 30.2 pg (27.0-33.0); Mean Corpuscular Volume 91.2 fL (80.0-98.0); Mean Platelet Volume 9.8 fL (9.4-12.3); Monocytes Absolute Auto 0.4 X10*3/uL (0.1-1.2); Monocytes Percent Auto 4.7 % (2-11); NRBC Pct Auto 0.5 /100WBC (0.0-0.2); Neutrophils Absolute Auto 7.4 x10*3/uL (2.0-8.3); Neutrophils Percent Auto 90.2 % (45-73); Platelet Count 204 X10*3/uL (160-400); Red Blood Count 3.18 X10*6/uL (4.20-5.50); Red Cell Distribution Width 19.4 % (11.0-16.0); SCAN SMEAR FLAG 1; White Blood Count 8.2 X10*3/uL (4.8-10.8)
[2025-03-17 14:34] LABS: VBG Base Excess 8.7 mmol/L; VBG HCO3 32 mmol/L (22-26); VBG pCO2 44 mmHg; VBG pH 7.48 (7.32-7.43); VBG pO2 49 mmHg
[2025-03-17 14:35] LABS: INTERNATIONAL NORM RATIO 1.9 (0.9-1.1); Prothrombin Time 22.2 SEC (10.9-12.4); Venous Blood Gas Refer to POC result
[2025-03-17 14:43] LABS: Alanine Aminotransferase 342 U/L (0-31); Albumin Level 2.9 g/dL (3.5-5.0); Alkaline Phosphatase 100 U/L (39-117); Anion Gap 11 (12-20); Aspartate Amino Transferase 407 U/L (5-31); Beta-Hydroxybutyrate 0.36 mmol/L (0.02-0.27); Bilirubin Total 1.2 mg/dL (0.0-1.0); Blood Urea Nitrogen 24 mg/dL (9-16); Calcium 8.3 mg/dL (8.4-10.2); Carbon Dioxide 31 mmol/L (22-29); Chloride 94 mmol/L (96-108); Creatinine Clr Calc Pharmacy 38.6; Estimated Glomerular Filt Rate 45; Glucose Random 90 mg/dL (60-115); Lipase 10 U/L (8-78); Magnesium 1.7 mg/dL (1.6-2.6); Potassium 3.5 mmol/L (3.3-5.1); Sodium 132 mmol/L (135-145); Total Protein 5.8 g/dL (6.5-8.0)
[2025-03-17 14:46] LABS: B Type Natriuretic Peptide 694 pg/mL (<100); Troponin-I High Sensitivity 18.7 ng/L (<3.5-17.0)
[2025-03-17 14:50] LABS: C Reactive Protein 12.27 mg/dL (< or = 0.50)
[2025-03-17 14:51] LABS: SLIDE REVIEW VERIFIED
[2025-03-17 14:58] LABS: Lactic Acid 1.4 mmol/L (0.5-2.0)
[2025-03-17 15:12] LABS: Erythrocyte Sedimentation Rate 44 MM/HR (0-20)
[2025-03-17 15:21] LABS: Influenza A PCR NEGATIVE (Negative); Influenza B PCR NEGATIVE (Negative); Resp Syncy Virus RNA Qual PCR NEGATIVE (Negative); SARS COV2 PCR INHOUSE NEGATIVE (Negative)
[2025-03-17 15:31] VITALS: BP 148/31; PULSE 61; RESP 18; O2SAT 99
--- OUTSIDE RECORDS SUMMARY | 2025-03-17 15:34 | XMS_ITS | Clinical Summary ---
Author Organization [facility] Address [address] [facility] [address] [place] [address] Phone Care Team Providers Care Tension Machine Operator Name Role Phone Kalina Osei MD Primary [...] Bladder normal in configuration. Pre void bladder cc, and post void could not be [...] overnight, within normal limits this morning 84. -[id number] checks with meals and nightly -Low-dose insulin sliding scale -Diabetic diet -Up titrate insulin as needed with long-acting or mealtime insulin if appropriate Resolved Problems Problem Noted Date Diagnosed Date Resolved Date Chronic kidney disease, stage 3 (moderate) 05/21/2020 10/08/2020 Acute kidney failure 020 Immunizations Immunization Administration Dates Next Due Influenza Split High [...] Diabetes: Visual Foot Exam 05/03/2020 Pneumococcal Vaccine: 50+ Years (2 of 2 - PPSV23, PCV20, or PCV21) 07/30/2020 06/04/2020 Influenza Vaccine (Season Ended) 2025 07/11/2015, 07/11/2015 Pneumococcal Vaccine: Peds ( 0 to 5 Years) and At-Risk Patients (6 to 49 Years) Discontinued 06/04/2020 Hepatitis B Vaccine Aged Out No longe r eligible based on patient's age to complete this topic Insurance Medicare [facility] Care Teams Tension Machine Operator Relationship Specialty Start Date End Date Kalina Osei MD [address] [place] [id number] PCP - General Family Medicine 05/03/20
[2025-03-17] MEDS: cefTRIAXone sodium 1 GM VIAL IVPUSH (15:44)
--- NOTE | 2025-03-17 16:07 | PC.NURSE ---
turned and repositioned. incont of urine. Purewick placed. Patient repositioned off buttocks eith pillow under back bilateral hearing aids placed in denture cup and placed in bag with patients personal belonings bilateral heal dressings placed foam dressing to buttocks wound placed
--- NOTE | 2025-03-17 16:57 | P.HPHOSP_ITS ---
History of Present Illness Date of Service: 03/17/25 Chief Complaint: Multiple complaints, failing to thrive Pt is an 89-year-old female with a PMH significant for?paroxysmal AFib on coumadin, PVD, DVT, HTN, hypothyroidism, bullous pemphigoid, chronic normocytic anemia, and hx of spinal tumor excision 20 years ago was advised to come to ED by VNA do to patient having being doing poorly at home. She reports not eating for 5 days due to poor apetite, she has no abdominal pain but has nausea, she has been having congested cough and reportedly had an O2 sat of 88% on room air on arrival, CXR shows ncreased interstitial markings. Possible superimposed pneumonia at the left lung base. , WBC is normal, BNP is 694 which is within her baseline, AST and ALT are elevated whicn is new 407/342. She's also concern of buttock ulcer, and multiple heel ulcer. US of legs show no DVT, xray of ankle foot show no osteomylitis. She has been given IV ceftriaxone for possible PNA. Her O2 saturation has improved on oxygen. Patient is bedbound, has VNA overy other day. Review of Systems 2 Review of Systems: Gen: no fever, not feeling, poor apetite Resp: congested cough, poo CV: no chest, no ESTRELLA, + leg edema GI: No n/v, no abd pain Neuro: No confusion [facility] Medical History Hypothyroidism Spinal cord tumor Chronic indwelling Velez catheter Frequent falls UTI (urinary tract infection) Muscular atrophy Kidney failure Paroxysmal atrial fibrillation PVD (peripheral vascular disease) Surgical History History of hysterectomy History of appendectomy Social History Household Members: None Housing: House Do you presently have visiting nurse or other home services: Yes ([employer] help) Alcohol intake: former Comment: Pt. sleeping Patient Tobacco Use Status: Never used Tobacco Smoked in Last 30 Days: No Second Hand Smoke Exposure: No Use of substances other than those prescribed or required for medical reasons: No Currently Displaying Signs/Symptoms of Drug Intoxication Withdrawal: No Do you feel safe in your current relationship?: No Current Relationship Advance Directives: No Advance Directives Information Provided: Yes Advance Directives Date on File: 10/14/03 Do you have a plan to hurt others: No Plan Recently lost weight without trying: Yes How much weight loss: Unsure Eating poorly because of decreased appetite: No Nutrition screen score: 4 Nutrition Risks: No Nutritional Risk Patient : No : No Poor oral hygiene: No service: No Meds Allergies Allergy/AdvReac Type Severity Reaction Status Date / Time No Known Allergies Allergy Unverified 03/17/25 13:36 Home Medications ?Medication ?Instructions ?Recorded ?Confirmed ?Last Taken ?Type cyanocobalamin (vitamin B-12) 1,000 mcg PO DAILY 07/11/20 03/17/25 03/17/25 History 1,000 mcg tablet (Vitamin B-12) docusate sodium 100 mg capsule 100 mg PO DAILY PRN Constipation 07/11/20 03/17/25 Unknown History (Colace) carvedilol 3.125 mg tablet 3.125 mg PO BID blood pressure 12/04/24 03/17/25 03/17/25 History levothyroxine 175 mcg tablet 175 mcg PO DAILY@0600 12/04/24 03/17/25 03/17/25 History olmesartan 40 mg tablet 40 mg PO DAILY blood pressure 12/04/24 03/17/25 03/17/25 History prednisone 5 mg tablet 20 mg PO Q48H 12/04/24 03/17/25 03/16/25 History verapamil 120 mg tablet,extended 120 mg PO DAILY 12/04/24 03/17/25 03/17/25 History release cholecalciferol (vitamin D3) 50 50 mcg PO DAILY 12/17/24 03/17/25 03/17/25 History mcg (2,000 unit) capsule (Vitamin D3) doxycycline hyclate 100 mg tablet 100 mg PO BID 12/17/24 03/17/25 03/17/25 History furosemide 40 mg tablet 40 mg PO DAILY 12/17/24 03/17/25 03/17/25 History azathioprine 50 mg tablet 100 mg PO DAILY 03/17/25 03/17/25 03/17/25 History citalopram 20 mg tablet 20 mg PO DAILY 03/17/25 03/17/25 03/17/25 History furosemide 20 mg tablet 40 mg PO BEDTIME PRN Swelling 03/17/25 03/17/25 Unknown History pantoprazole 40 mg tablet,delayed 40 mg PO DAILY@0630 03/17/25 03/17/25 03/17/25 History release polyethylene glycol 3350 17 17 g PO DAILY PRN Constipation 03/17/25 03/17/25 Unknown History gram/dose oral powder (Miralax) prednisone 5 mg tablet 5 mg PO Q48H 03/17/25 03/17/25 03/17/25 History warfarin 1 mg tablet 1 mg PO DAILY@1800 03/17/25 03/17/25 03/16/25 History Physical Exam 2 Vital Signs and Narrative: Vital Signs: Last Vital Signs Pulse 61 03/17/25 15:31 Resp 18 03/17/25 15:31 BP 148/31 H 03/17/25 15:31 Pulse Ox 99 03/17/25 15:31 O2 Del Method Nasal Cannula 03/17/25 15:31 O2 Flow Rate 2 03/17/25 15:31 Oxygen Flow Rate 4 03/17/25 13:36 BMI result Body Mass Index 38.2 Const: Other: General: AO X 3, no acute distress Resp: CTA bilateral CVS: S1,S2,RRR GI: +BS, NT, no distention Neuro: motor grossly intact Psych: appropriate affect Skin: No rash Results Labs 03/17/25 14:16 03/18/25 05:55 Labs: Laboratory Results - last 24 hr 03/17/25 03/17/25 03/17/25 13:38 14:16 14:19 MCV 91.2 MCH 30.2 MCHC 33.1 RDW 19.4 H Plt Count 204 MPV 9.8 Immature Gran % (Auto) 0.7 H Neut % (Auto) 90.2 H Lymph % (Auto) 4.2 L Dodge % (Auto) 4.7 Eos % (Auto) 0.1 Baso % (Auto) 0.1 Lymph # (Auto) 0.3 L Dodge # (Auto) 0.4 Eos # (Auto) 0.0 Baso # (Auto) 0.0 Abs Immat Gran (auto) 0.06 H Absolute Neuts (auto) 7.4 Absolute Nucleated RBC 0.040 H Nucleated RBC % (auto) 0.5 H Smear Tech's Comments VERIFIED ESR 44 H PT 22.2 H D INR 1.9 H VBG pH 7.48 H VBG pCO2 44 VBG pO2 49 VBG HCO3 32 H VBG O2 Saturation 75.0 VBG Base Excess 8.7 Anion Gap 11 L Estim Creat Clear Calc 38.6 Estimated GFR 45 POC Glucose 126 H Random Glucose 90 Lactic Acid 1.4 Calcium 8.3 L Magnesium 1.7 Total Bilirubin 1.2 H AST 407 H ALT 342 H Alkaline Phosphatase 100 Troponin I High Sens 18.7 H C-Reactive Protein 12.27 H B-Natriuretic Peptide 694 H Total Protein 5.8 L Albumin 2.9 L Lipase 10 Beta-Hydroxybutyrate 0.36 H Influenza Type A (PCR) NEGATIVE Influenza Type B (PCR) NEGATIVE RSV RNA Qual (PCR) NEGATIVE SARS-CoV-2 RNA (RT-PCR) NEGATIVE Imaging Radiologist's Impressions: Impressions Chest X-Ray 03/17/25 14:33 IMPRESSION: Increased interstitial markings. Possible superimposed pneumonia at the left lung base. Follow-up is recommended. Electronically signed by: Tucker Pickering MD 03/17/2025 03:58 PM EDT RP Ankle X-Ray 03/17/25 14:35 IMPRESSION: No definite fracture right ankle. Diffuse osteopenia. Electronically signed by: Cam Rivas MD 03/17/2025 03:57 PM EDT RP Foot X-Ray 03/17/25 14:50 IMPRESSION: There is diffuse osteopenia which the limits the exam. If there is clinical concern for osteomyelitis, follow-up with MRI of the hindfoot. Overlap of posterior tibial plafond and distal fibula on the lateral projection probably results in lucency from Mach effect simulating the appearance of a fracture. If there is trauma or concern for fracture, follow-up 3 view right ankle. Ankylosis first MTP joint. Electronically signed by: Ghassan Sousa MD 03/17/2025 03:10 PM EDT RP Duplex Scan Lower Extremity Artery 03/17/25 14:56 IMPRESSION: Limited exam due to patient habitus and inward contraction of the right leg. 1. Atheromatous plaque present. 2. Findings suggesting significant peripheral vascular disease of the right lower extremity, with a severe stenosis suggested in the right distal superficial femoral artery. Electronically signed by: Cam Rivas MD 03/17/2025 03:31 PM EDT RP Assessment and Plan (1) Acute hypoxic respiratory failure: Status: Acute Plan Pt is an 89-year-old female with a PMH significant for?paroxysmal AFib on coumadin, PVD, DVT, HTN, hypothyroidism, bullous pemphigoid, chronic normocytic anemia, and hx of spinal tumor excision 20 years ago presenting failure to thriove, poor apetite, congestion, heel an buttock ulcer, acute hepatitis. Acute hypoxic respiratory failure, xray showing interstital markings, ? PNA, has no fever and normlal WBC, BNP within baseline continue Ceftriaxone and doxy for possible PNA. There is concern of amio toxicity involving liver and lungs and will try corticosteroid and consider pulmonology consulation chest CT to further assess Elevated LFTs, which is new, again concern for amio toxicyt stop amio, and ask cardio for alternate meds for afib US of liver pending Poor apetite/malnutririon, likely related to amio toxicity Feet ulcer, buttock ulcer, don't appear acute infected and no xray do not suggest osteo wound care consult Chronic Atrial fibrillation Stop amio metoprolol for afib, and consider cardio consult Eliquis Mood disorder resume home meds Chronc anemia anemia h/h at baseline chronic pain on gabapendin home pain meds on hold while on IV narcotics continue bowel regimen Hypothyroidism Continue Synthroid chronic constipatin constipation bowel regime DVT prophylaxis coumadin DNR/DNI discussed with her Quality Stroke Does the patient have a stroke diagnosis?: No VTE Prior VTE?: No VTE Risk Level:: Medical - moderate - high VTE Device Contraindication: N/A - Device Ordered VTE Drug Contraindication: N/A - Med Ordered
[2025-03-17 18:27] VITALS: BP 144/39; PULSE 59; RESP 18; TEMP 37.2; O2SAT 96
[2025-03-17 18:30] LABS: Thyroid Stimulating Hormone 0.39 uIU/mL (0.32-4.0)
--- NOTE | 2025-03-17 18:37 | PHA.MEDREC ---
Addendum entered by Monae Montejo [facility] 03/17/25 19:11: REVIEWED BY PHARMACIST Original Note: Pharmacy Consult ? Medication Reconciliation Pharmacy has completed the medication reconciliation. Spoke with pt and she had a list on hand we were able to utilize and confirm the med rec. Pt confirmed she is not taking Eliquis anymore but is taking Warfarin and taking 1mg tab once daily at this time until her next INR testing. Pt confirmed she takes Prednisone 5mg tabs taking 4 tabs (20mg) q48h and 1 tab (5mg) q48h stating her provider is weaning her off of that regimen. She confirmed her Furosemide 20mg tabs and confirmed she takes 2 tabs (40mg) in the AM and if absolutely needed will take 2 more in the afternoon/night for swelling. Pt no longer taking the Iron tablet due to it making her constipated.
[2025-03-17 18:43] LABS: Appearance Urine Clear; Color Urine Yellow; Glucose Urine UA Negative (Negative); Leukocyte Esterase Urine Trace (Negative); Nitrite Urine Positive (Negative); PH 6.5 (5.0-9.0); UMIC TRIGGER UACC YES; Urine Blood Negative (Negative); Urine Ketones Negative (Negative); Urine Protein Negative (Neg-Trace)
[2025-03-17 18:45] LABS: Bacteria Urine 2+ (None Seen); Hyaline Casts Urine 0-2 /LPF (0-2); RBC Urine 0-2 /HPF (0-2); Squamous Epithelial Cell Urine 0-2 /HPF (0-2); UACC Culture Trigger YES; WBC Urine 0-5 /HPF (0-5)
[2025-03-17 19:30] VITALS: PULSE 60; RESP 17; TEMP 37.3; O2SAT 96
[2025-03-17 20:36] VITALS: BMI 32.9
[2025-03-17 21:08] VITALS: BP 115/56; PULSE 55; RESP 20; TEMP 36.5; O2SAT 96
[2025-03-17] MEDS: Warfarin Sodium 1 MG TABLET PO (21:24)
[2025-03-17] MEDS: Valsartan 160 MG TABLET PO (21:24)
[2025-03-17] MEDS: Escitalopram Oxalate 10 MG TABLET PO (21:24)
[2025-03-17] MEDS: Doxycycline Monohydrate 100 MG CAPSULE PO (21:24)
[2025-03-17] MEDS: Sennosides 8.6 MG TABLET 17.2 MG PO (21:24)
[2025-03-17] MEDS: methylPREDNISolone Sod Succ 40 MG/ML VIAL IVPUSH (21:25)
--- NOTE | 2025-03-17 22:46 | HO.SKINPHOTO ---
left buttock left heel right buttock right heel/lower leg right leg right lower leg
[2025-03-18] MEDS: 0.9 % Sodium Chloride Flush 3 ML SYRINGE IVFLUSH ×4 (00:29→20:17)
[2025-03-18 03:47] VITALS: BP 131/55; PULSE 55; RESP 19; TEMP 36.2; O2SAT 97
[2025-03-18] MEDS: Levothyroxine Sodium 175 MCG TABLET PO (05:46)
[2025-03-18] MEDS: Omeprazole 20 MG CAPSULE.DR PO (05:46)
[2025-03-18 07:03] LABS: Alanine Aminotransferase 304 U/L (0-31); Albumin Level 2.6 g/dL (3.5-5.0); Alkaline Phosphatase 86 U/L (39-117); Anion Gap 12 (12-20); Aspartate Amino Transferase 316 U/L (5-31); Bilirubin Direct 0.6 mg/dL (0.0-0.5); Bilirubin Total 1.1 mg/dL (0.0-1.0); Blood Urea Nitrogen 20 mg/dL (9-16); Calcium 8.2 mg/dL (8.4-10.2); Carbon Dioxide 31 mmol/L (22-29); Chloride 95 mmol/L (96-108); Creatinine Clr Calc Pharmacy 42.6; Estimated Glomerular Filt Rate 49; Glucose Random 96 mg/dL (60-115); Potassium 3.4 mmol/L (3.3-5.1); Sodium 135 mmol/L (135-145); Total Protein 5.2 g/dL (6.5-8.0)
[2025-03-18 07:06] LABS: INTERNATIONAL NORM RATIO 2.2 (0.9-1.1); Prothrombin Time 25.4 SEC (10.9-12.4)
[2025-03-18 07:55] VITALS: BP 145/65; PULSE 58; RESP 18; TEMP 36.4; O2SAT 97
[2025-03-18] MEDS: methylPREDNISolone Sod Succ 40 MG/ML VIAL IVPUSH ×2 (08:27→20:08)
[2025-03-18] MEDS: azaTHIOprine 50 MG TABLET 100 MG PO (08:30)
[2025-03-18] MEDS: VerapamiL HCL SR 120 MG TABLET.ER PO (08:30)
[2025-03-18] MEDS: Furosemide 40 MG TABLET PO (08:30)
[2025-03-18] MEDS: Escitalopram Oxalate 10 MG TABLET PO (08:31)
[2025-03-18] MEDS: Doxycycline Monohydrate 100 MG CAPSULE PO ×2 (08:31→20:08)
[2025-03-18] MEDS: Valsartan 160 MG TABLET PO (08:31)
[2025-03-18] MEDS: carvediloL 3.125 MG TABLET PO (08:31)
[2025-03-18] MEDS: Cholecalciferol (Vitamin D3) 25 MCG TABLET 50 MCG PO (08:31)
[2025-03-18] MEDS: Cyanocobalamin (Vitamin B-12) 1,000 MCG TABLET 1000 MCG PO (08:31)
--- NOTE | 2025-03-18 09:07 | P.PNIM_ITS ---
Subjective Subjective Date of Service: 03/18/25 Interval History: f/u on acute hypoxic respiratory failure, concern for pulmonary amio toxicity, pna still with congested cough, otherwise feels the same Physical Exam 2 Vital Signs: Vital Signs: Last Vital Signs Temp 97.5 F 03/18/25 07:55 Pulse 58 03/18/25 07:55 Resp 18 03/18/25 07:55 BP 145/65 H 03/18/25 07:55 Pulse Ox 97 03/18/25 07:55 O2 Del Method Nasal Cannula 03/18/25 07:55 O2 Flow Rate 2 03/18/25 07:55 Oxygen Flow Rate 4 03/17/25 13:36 BMI result Body Mass Index 32.9 see exam from 03/17, essentially unchanged lungs are congested, hard of hearing Const: Other: General: AO X 3, no acute distress Resp: CTA bilateral CVS: S1,S2,RRR GI: +BS, NT, no distention Neuro: motor grossly intact Psych: appropriate affect Skin: No rash Objective Data Active Medications Acetaminophen (Acetaminophen 325 Mg Tablet) 650 mg PO Q6H PRN PRN Reason: Pain, Mild 1-3,fever,headache Albuterol/Ipratropium (Albuterol/Iprat 2.5/0.5mg 3 Ml Ampul.Neb) 3 ml INHALE Q4H PRN PRN Reason: Shortness of Breath/Wheezing Azathioprine (Azathioprine 50 Mg Tablet) 100 mg PO DAILY [facility] Last Admin: 03/18/25 08:30 Dose: 100 mg Documented By: JOSIAH Calcium Carbonate (Calcium Carbonate 750 Mg Tab.Chew) 750 mg PO Q4H PRN PRN Reason: Heartburn Carvedilol (Carvedilol 3.125 Mg Tablet) 3.125 mg PO BID [facility]; Protocol Last Admin: 03/18/25 08:31 Dose: 3.125 mg Documented By: JOSIAH Ceftriaxone Sodium (Ceftriaxone Sodium 1 Gm Vial) 1 gm IVPUSH Q24H [facility] Cyanocobalamin (Cyanocobalamin (Vitamin B-12) 1,000 Mcg Tablet) 1,000 mcg PO DAILY [facility] Last Admin: 03/18/25 08:31 Dose: 1,000 mcg Documented By: JOSIAH Docusate Sodium (Docusate Sodium 100 Mg Capsule) 100 mg PO DAILY PRN PRN Reason: Constipation Doxycycline Monohydrate (Doxycycline Monohydrate 100 Mg Capsule) 100 mg PO BID [facility] Last Admin: 03/18/25 08:31 Dose: 100 mg Documented By: JOSIAH Escitalopram Oxalate (Escitalopram Oxalate 10 Mg Tablet) 10 mg PO DAILY [facility] Last Admin: 03/18/25 08:31 Dose: 10 mg Documented By: JOSIAH Furosemide (Furosemide 40 Mg Tablet) 40 mg PO DAILY [facility]; Protocol Last Admin: 03/18/25 08:30 Dose: 40 mg Documented By: JOSIAH Levothyroxine Sodium (Levothyroxine Sodium 175 Mcg Tablet) 175 mcg PO DAILY@0600 [facility] Last Admin: 03/18/25 05:46 Dose: 175 mcg Documented By: ALFONSO Magnesium Hydroxide (Milk Of Magnesia 30 Ml Oral.Susp) 30 ml PO DAILY PRN PRN Reason: Constipation Melatonin (Melatonin 3 Mg Tablet) 6 mg PO BEDTIME PRN PRN Reason: Insomnia Methylprednisolone Sodium Succinate (Methylprednisolone Sod Succ 40 Mg/Ml Vial) 40 mg IVPUSH BID [facility] Last Admin: 03/18/25 08:27 Dose: 40 mg Documented By: JOSIAH Omeprazole (Omeprazole 20 Mg Capsule.Dr) 20 mg PO DAILY@0630 [facility] Last Admin: 03/18/25 05:46 Dose: 20 mg Documented By: ALFONSO Ondansetron HCl (Ondansetron Hcl 4 Mg/2 Ml Vial) 4 mg IVPUSH Q8H PRN PRN Reason: Nausea and Vomiting Polyethylene Glycol (Polyethylene Glycol 3350 17 Gm Powd.Pack) 17 gm PO DAILY PRN PRN Reason: Constipation Senna (Sennosides 8.6 Mg Tablet) 17.2 mg PO BEDTIME [facility] Last Admin: 03/17/25 21:24 Dose: 17.2 mg Documented By: SCOTTIE Sodium Chloride (0.9 % Sodium Chloride Flush 3 Ml Syringe) [address] [facility] Last Admin: 03/18/25 08:39 Dose: 3 ml Documented By: JOSIAH Valsartan (Valsartan 160 Mg Tablet) 160 mg PO DAILY [facility] Last Admin: 03/18/25 08:31 Dose: 160 mg Documented By: JOSIAH Verapamil HCl (Verapamil Hcl Sr 120 Mg Tablet.Er) 120 mg PO DAILY [facility]; Protocol Last Admin: 03/18/25 08:30 Dose: 120 mg Documented By: JOSIAH Vitamin D (Cholecalciferol (Vitamin D3) 25 Mcg Tablet) 50 mcg PO DAILY [facility] Last Admin: 03/18/25 08:31 Dose: 50 mcg Documented By: JOSIAH Warfarin Sodium (Warfarin Sodium 1 Mg Tablet) 1 mg PO DAILY@1800 [facility] Last Admin: 03/17/25 21:24 Dose: 1 mg Documented By: SCOTTIE Labs 03/17/25 14:16 03/18/25 05:55 Labs: Laboratory Results - last 24 hr 03/17/25 03/17/25 03/17/25 13:38 14:16 14:19 MCV 91.2 MCH 30.2 MCHC 33.1 RDW 19.4 H Plt Count 204 MPV 9.8 Immature Gran % (Auto) 0.7 H Neut % (Auto) 90.2 H Lymph % (Auto) 4.2 L [place] % (Auto) 4.7 Eos % (Auto) 0.1 Baso % (Auto) 0.1 Lymph # (Auto) 0.3 L [place] # (Auto) 0.4 Eos # (Auto) 0.0 Baso # (Auto) 0.0 Abs Immat Gran (auto) 0.06 H Absolute Neuts (auto) 7.4 Absolute Nucleated RBC 0.040 H Nucleated RBC % (auto) 0.5 H Smear Tech's Comments VERIFIED ESR 44 H Hold Purple Top PT 22.2 H D INR 1.9 H VBG pH 7.48 H VBG pCO2 44 VBG pO2 49 VBG HCO3 32 H VBG O2 Saturation 75.0 VBG Base Excess 8.7 Anion Gap 11 L Estim Creat Clear Calc 38.6 Estimated GFR 45 POC Glucose 126 H Random Glucose 90 Lactic Acid 1.4 Calcium 8.3 L Magnesium 1.7 Total Bilirubin 1.2 H Direct Bilirubin AST 407 H ALT 342 H Alkaline Phosphatase 100 Troponin I High Sens 18.7 H C-Reactive Protein 12.27 H B-Natriuretic Peptide 694 H Total Protein 5.8 L Albumin 2.9 L Lipase 10 Beta-Hydroxybutyrate 0.36 H TSH 0.39 Urine Color Urine Appearance Urine pH Ur Specific [place] Urine Protein Urine Glucose (UA) Urine Ketones Urine Blood Urine Nitrite Ur Leukocyte Esterase Urine RBC Urine WBC Ur Squamous Epith Cells Urine Bacteria Hyaline Casts Influenza Type A (PCR) NEGATIVE Influenza Type B (PCR) NEGATIVE RSV RNA Qual (PCR) NEGATIVE SARS-CoV-2 RNA (RT-PCR) NEGATIVE 03/17/25 03/18/25 18:30 05:55 MCV MCH MCHC RDW Plt Count MPV Immature Gran % (Auto) Neut % (Auto) Lymph % (Auto) [place] % (Auto) Eos % (Auto) Baso % (Auto) Lymph # (Auto) [place] # (Auto) Eos # (Auto) Baso # (Auto) Abs Immat Gran (auto) Absolute Neuts (auto) Absolute Nucleated RBC Nucleated RBC % (auto) Smear Tech's Comments ESR Hold Purple Top SEE NOTE PT 25.4 H INR 2.2 H VBG pH VBG pCO2 VBG pO2 VBG HCO3 VBG O2 Saturation VBG Base Excess Anion Gap 12 Estim Creat Clear Calc 42.6 Estimated GFR 49 POC Glucose Random Glucose 96 Lactic Acid Calcium 8.2 L Magnesium Total Bilirubin 1.1 H Direct Bilirubin 0.6 H AST 316 H ALT 304 H Alkaline Phosphatase 86 Troponin I High Sens C-Reactive Protein B-Natriuretic Peptide Total Protein 5.2 L Albumin 2.6 L Lipase Beta-Hydroxybutyrate TSH Urine Color Yellow Urine Appearance Clear Urine pH 6.5 Ur Specific [place] 1.010 Urine Protein Negative Urine Glucose (UA) Negative Urine Ketones Negative Urine Blood Negative Urine Nitrite Positive H Ur Leukocyte Esterase Trace H Urine RBC 0-2 Urine WBC 0-5 Ur Squamous Epith Cells 0-2 Urine Bacteria 2+ Hyaline Casts 0-2 Influenza Type A (PCR) Influenza Type B (PCR) RSV RNA Qual (PCR) SARS-CoV-2 RNA (RT-PCR) Assessment and Plan (1) Paroxysmal atrial fibrillation: Status: Acute (2) Acute hypoxic respiratory failure: Status: Acute Plan Pt is an 89-year-old female with a PMH significant for?paroxysmal AFib on coumadin, PVD, DVT, HTN, hypothyroidism, bullous pemphigoid, chronic normocytic anemia, and hx of spinal tumor excision 20 years ago presenting failure to thriove, poor apetite, congestion, heel an buttock ulcer, acute hepatitis. Acute hypoxic respiratory failure, xray showing interstital markings, ? PNA, has no fever and normlal WBC, BNP within baseline continue Ceftriaxone and and doxy for possible PNA. There is concern of amio toxicity involving liver and lungs and will try corticosteroid and consider pulmonology consulation chest CT to further assess Elevated LFTs, which is new, again concern for amio toxicyt stop amio, and ask cardio for alternate meds for afib US of liver show fatty liver Poor apetite/malnutririon, likely related to amio toxicity supportive care Feet ulcer, buttock ulcer, don't appear acute infected and no xray do not suggest osteo wound care consult, pressure ulcer preventive measure, frequent turning, local wound care Paroxysm Atrial fibrillation Stop amio metoprolol for afib cardio consult continue coumadin not eliquis Mood disorder resume home meds Chronc anemia anemia h/h at baseline chronic pain on gabapendin home pain meds on hold while on IV narcotics continue bowel regimen Hypothyroidism Continue Synthroid chronic constipatin constipation bowel regime DVT prophylaxis coumadin DNR/DNI discussed with her Will likely need placement at dc Quality Stroke Does the patient have a stroke diagnosis?: No VTE Prior VTE?: No VTE Risk Level:: Medical - moderate - high VTE Device Contraindication: N/A - Device Ordered VTE Drug Contraindication: N/A - Med Ordered
--- NOTE | 2025-03-18 11:01 | PM.CNCAR ---
History of Present Illness History of Present Illness Date of Service: 03/18/25 Chief complaint: Pneumonia w/hypoxia Narrative: This is a cardiology consultation regarding question of amiodarone use and atrial fibrillation. Per history, she has paroxysmal atrial fibrillation on Coumadin, peripheral vascular disease, many comorbidities. She has been brought because of doing poorly at home. Not beating for 5 days, poor appetite. Congested cough, hypoxia. Chest x-ray had shown interstitial markings. Possible superimposed pneumonia. Increase LL liver enzymes. From the cardiac standpoint, there is a question if amiodarone is causing this chest x-ray finding or not. With regard to further history, not entirely clear how long she has been taking it. Patient really does not know much. The last few EKGs actually showed just sinus rhythm. In her med list, amiodarone goes back as much as 2019. Hence been on it at least for 5 years. She offers no clear-cut cardiac complaints like chest pains. Review of Systems Review of Systems: Yes all other systems are reviewed and are negative Constitutional: Constitutional: Reports as per HPI and Reports no additional constitutional complaints Eyes: Eyes: Reports as per HPI and Denies no additional eye complaints ENT: Denies system reviewed and no additional complaints, except as documented and Reports as per HPI Cardiovascular: Cardiovascular: Reports as per HPI, Reports no additional cardiovascular complaints, Denies acrocyanosis, Denies cool extremities, Denies chest pain, Denies leg edema, Denies lightheadedness, Denies palpitations and Denies dyspnea Respiratory: Respiratory: Reports as per HPI, Denies no additional respiratory complaints and Denies dyspnea Gastrointestinal: Gastrointestinal: Reports as per HPI and Denies no additional gastrointestinal complaints Genitourinary: Genitourinary: Reports as per HPI Musculoskeletal: Musculoskeletal: Reports no additional musculoskeletal complaints and Reports as per HPI Integumentary/Breasts: Skin/Breast: Reports system reviewed and no additional complaints, except as docu Neurologic: Reports system reviewed and no additional complaints, except as documented and Reports as per HPI Psychiatric: Psychiatric: Reports no additional psychiatric complaints and Reports as per HPI Endocrine: Endocrine: Reports no additional endocrine complaints, Reports as per HPI and Denies palpitations Hematologic/Lymphatic: Hematologic/Lymphatic: Reports no additional hematologic/lymphatic complaints and Reports as per HPI Allergic/Immunologic: Allergic/Immunologic: Reports no additional allergic/immunologic complaints and Reports as per HPI [facility] Past Medical History Medical History Hypothyroidism Spinal cord tumor Chronic indwelling Velez catheter Frequent falls UTI (urinary tract infection) Muscular atrophy Kidney failure Paroxysmal atrial fibrillation PVD (peripheral vascular disease) Family History Pertinent family history: No pertinent family history Surgical History Surgical History History of hysterectomy History of appendectomy Social History Social History Household Members: None Housing: House Do you presently have visiting nurse or other home services: Yes ([employer] help) Alcohol intake: former Comment: Pt. sleeping Patient Tobacco Use Status: Never used Tobacco Smoked in Last 30 Days: No Second Hand Smoke Exposure: No Use of substances other than those prescribed or required for medical reasons: No Currently Displaying Signs/Symptoms of Drug Intoxication Withdrawal: No Do you feel safe in your current relationship?: No Current Relationship Advance Directives: No Advance Directives Information Provided: Yes Advance Directives Date on File: 10/14/03 Do you have a plan to hurt others: No Plan Recently lost weight without trying: Yes How much weight loss: Unsure Eating poorly because of decreased appetite: No Nutrition screen score: 4 Nutrition Risks: No Nutritional Risk Patient : No : No Poor oral hygiene: No service: No Meds Allergies Allergy/AdvReac Type Severity Reaction Status Date / Time No Known Allergies Allergy Unverified 03/17/25 13:36 Active Medications: Current Medications Acetaminophen (Acetaminophen 325 Mg Tablet) 650 mg PO Q6H PRN PRN Reason: Pain, Mild 1-3,fever,headache Albuterol/Ipratropium (Albuterol/Iprat 2.5/0.5mg 3 Ml Ampul.Neb) 3 ml INHALE Q4H PRN PRN Reason: Shortness of Breath/Wheezing Azathioprine (Azathioprine 50 Mg Tablet) 100 mg PO DAILY [facility] Last Admin: 03/18/25 08:30 Dose: 100 mg Calcium Carbonate (Calcium Carbonate 750 Mg Tab.Chew) 750 mg PO Q4H PRN PRN Reason: Heartburn Carvedilol (Carvedilol 3.125 Mg Tablet) 3.125 mg PO BID [facility]; Protocol Last Admin: 03/18/25 08:31 Dose: 3.125 mg Ceftriaxone Sodium (Ceftriaxone Sodium 1 Gm Vial) 1 gm IVPUSH Q24H [facility] Cyanocobalamin (Cyanocobalamin (Vitamin B-12) 1,000 Mcg Tablet) 1,000 mcg PO DAILY [facility] Last Admin: 03/18/25 08:31 Dose: 1,000 mcg Docusate Sodium (Docusate Sodium 100 Mg Capsule) 100 mg PO DAILY PRN PRN Reason: Constipation Doxycycline Monohydrate (Doxycycline Monohydrate 100 Mg Capsule) 100 mg PO BID [facility] Last Admin: 03/18/25 08:31 Dose: 100 mg Escitalopram Oxalate (Escitalopram Oxalate 10 Mg Tablet) 10 mg PO DAILY [facility] Last Admin: 03/18/25 08:31 Dose: 10 mg Furosemide (Furosemide 40 Mg Tablet) 40 mg PO DAILY [facility]; Protocol Last Admin: 03/18/25 08:30 Dose: 40 mg Levothyroxine Sodium (Levothyroxine Sodium 175 Mcg Tablet) 175 mcg PO DAILY@0600 [facility] Last Admin: 03/18/25 05:46 Dose: 175 mcg Magnesium Hydroxide (Milk Of Magnesia 30 Ml Oral.Susp) 30 ml PO DAILY PRN PRN Reason: Constipation Melatonin (Melatonin 3 Mg Tablet) 6 mg PO BEDTIME PRN PRN Reason: Insomnia Methylprednisolone Sodium Succinate (Methylprednisolone Sod Succ 40 Mg/Ml Vial) 40 mg IVPUSH BID [facility] Last Admin: 03/18/25 08:27 Dose: 40 mg Omeprazole (Omeprazole 20 Mg Capsule.Dr) 20 mg PO DAILY@0630 [facility] Last Admin: 03/18/25 05:46 Dose: 20 mg Ondansetron HCl (Ondansetron Hcl 4 Mg/2 Ml Vial) 4 mg IVPUSH Q8H PRN PRN Reason: Nausea and Vomiting Polyethylene Glycol (Polyethylene Glycol 3350 17 Gm Powd.Pack) 17 gm PO DAILY PRN PRN Reason: Constipation Senna (Sennosides 8.6 Mg Tablet) 17.2 mg PO BEDTIME [facility] Last Admin: 03/17/25 21:24 Dose: 17.2 mg Sodium Chloride (0.9 % Sodium Chloride Flush 3 Ml Syringe) 3 ml IVFLUSH QSHIFT [facility] Last Admin: 03/18/25 08:39 Dose: 3 ml Valsartan (Valsartan 160 Mg Tablet) 160 mg PO DAILY [facility] Last Admin: 03/18/25 08:31 Dose: 160 mg Verapamil HCl (Verapamil Hcl Sr 120 Mg Tablet.Er) 120 mg PO DAILY [facility]; Protocol Last Admin: 03/18/25 08:30 Dose: 120 mg Vitamin D (Cholecalciferol (Vitamin D3) 25 Mcg Tablet) 50 mcg PO DAILY [facility] Last Admin: 03/18/25 08:31 Dose: 50 mcg Warfarin Sodium (Warfarin Sodium 1 Mg Tablet) 1 mg PO DAILY@1800 [facility] Last Admin: 03/17/25 21:24 Dose: 1 mg Home Medications ?Medication ?Instructions ?Recorded ?Confirmed ?Last Taken ?Type cyanocobalamin (vitamin B-12) 1,000 mcg PO DAILY 07/11/20 03/17/25 03/17/25 History 1,000 mcg tablet (Vitamin B-12) docusate sodium 100 mg capsule 100 mg PO DAILY PRN Constipation 07/11/20 03/17/25 Unknown History (Colace) carvedilol 3.125 mg tablet 3.125 mg PO BID blood pressure 12/04/24 03/17/25 03/17/25 History levothyroxine 175 mcg tablet 175 mcg PO DAILY@0600 12/04/24 03/17/25 03/17/25 History olmesartan 40 mg tablet 40 mg PO DAILY blood pressure 12/04/24 03/17/25 03/17/25 History prednisone 5 mg tablet 20 mg PO Q48H 12/04/24 03/17/25 03/16/25 History verapamil 120 mg tablet,extended 120 mg PO DAILY 12/04/24 03/17/25 03/17/25 History release cholecalciferol (vitamin D3) 50 50 mcg PO DAILY 12/17/24 03/17/25 03/17/25 History mcg (2,000 unit) capsule (Vitamin D3) doxycycline hyclate 100 mg tablet 100 mg PO BID 12/17/24 03/17/25 03/17/25 History furosemide 40 mg tablet 40 mg PO DAILY 12/17/24 03/17/25 03/17/25 History azathioprine 50 mg tablet 100 mg PO DAILY 03/17/25 03/17/25 03/17/25 History citalopram 20 mg tablet 20 mg PO DAILY 03/17/25 03/17/25 03/17/25 History furosemide 20 mg tablet 40 mg PO BEDTIME PRN Swelling 03/17/25 03/17/25 Unknown History pantoprazole 40 mg tablet,delayed 40 mg PO DAILY@0630 03/17/25 03/17/25 03/17/25 History release polyethylene glycol 3350 17 17 g PO DAILY PRN Constipation 03/17/25 03/17/25 Unknown History gram/dose oral powder (Miralax) prednisone 5 mg tablet 5 mg PO Q48H 03/17/25 03/17/25 03/17/25 History warfarin 1 mg tablet 1 mg PO DAILY@1800 03/17/25 03/17/25 03/16/25 History Physical Exam Vital Signs: Vital Signs: Last Vital Signs Temp 97.5 F 03/18/25 07:55 Pulse 58 03/18/25 07:55 Resp 18 03/18/25 07:55 BP 145/65 H 03/18/25 07:55 Pulse Ox 97 03/18/25 07:55 O2 Del Method Nasal Cannula 03/18/25 07:55 O2 Flow Rate 2 03/18/25 07:55 Oxygen Flow Rate 4 03/17/25 13:36 BMI result Body Mass Index 32.9 Const: General: comfortable, no acute distress and ill appearing Orientation/consciousness: patient oriented x3 HEENT: Other: Unremarkable Head: Yes normal to inspection Neck: Neck: Yes normal visual inspection Chest: Chest palpation & inspection: normal inspection of the chest Resp: Auscultation: clear to auscultation bilaterally, crackles, rhonchi and diminished lung sounds Cardio: Palpation: normal PMI Heart sounds: S1 normal heart sound present, S2 normal heart sound present, no gallops, no murmurs and no rubs GI: Palpation (GI): Soft to palpation Back/Spine/Pelvis: Other: unremarkable Skin: General skin exam: no rashes or lesions noted Neuro: General: patient oriented x3 Extrem: Other: Chronic changes Psych: Mental Status: mental status grossly normal Objective Labs and Meds 03/17/25 14:16 03/18/25 05:55 Lab results: Laboratory Results - last 24 hr 03/17/25 03/17/25 03/17/25 13:38 14:16 14:19 WBC 8.2 RBC 3.18 L Hgb 9.6 L Hct 29.0 L MCV 91.2 MCH 30.2 MCHC 33.1 RDW 19.4 H Plt Count 204 MPV 9.8 Immature Gran % (Auto) 0.7 H Neut % (Auto) 90.2 H Lymph % (Auto) 4.2 L [place] % (Auto) 4.7 Eos % (Auto) 0.1 Baso % (Auto) 0.1 Lymph # (Auto) 0.3 L [place] # (Auto) 0.4 Eos # (Auto) 0.0 Baso # (Auto) 0.0 Abs Immat Gran (auto) 0.06 H Absolute Neuts (auto) 7.4 Absolute Nucleated RBC 0.040 H Nucleated RBC % (auto) 0.5 H Smear Tech's Comments VERIFIED ESR 44 H Hold Purple Top PT 22.2 H D INR 1.9 H VBG pH 7.48 H VBG pCO2 44 VBG pO2 49 VBG HCO3 32 H VBG O2 Saturation 75.0 VBG Base Excess 8.7 Sodium 132 L Potassium 3.5 D Chloride 94 L Carbon Dioxide 31 H Anion Gap 11 L BUN 24 H Creatinine 1.14 Estim Creat Clear Calc 38.6 Estimated GFR 45 POC Glucose 126 H Random Glucose 90 Lactic Acid 1.4 Calcium 8.3 L Magnesium 1.7 Total Bilirubin 1.2 H Direct Bilirubin AST 407 H ALT 342 H Alkaline Phosphatase 100 Troponin I High Sens 18.7 H C-Reactive Protein 12.27 H B-Natriuretic Peptide 694 H Total Protein 5.8 L Albumin 2.9 L Lipase 10 Beta-Hydroxybutyrate 0.36 H TSH 0.39 Urine Color Urine Appearance Urine pH Ur Specific [place] Urine Protein Urine Glucose (UA) Urine Ketones Urine Blood Urine Nitrite Ur Leukocyte Esterase Urine RBC Urine WBC Ur Squamous Epith Cells Urine Bacteria Hyaline Casts Influenza Type A (PCR) NEGATIVE Influenza Type B (PCR) NEGATIVE RSV RNA Qual (PCR) NEGATIVE SARS-CoV-2 RNA (RT-PCR) NEGATIVE 03/17/25 03/18/25 18:30 05:55 WBC RBC Hgb Hct MCV MCH MCHC RDW Plt Count MPV Immature Gran % (Auto) Neut % (Auto) Lymph % (Auto) [place] % (Auto) Eos % (Auto) Baso % (Auto) Lymph # (Auto) [place] # (Auto) Eos # (Auto) Baso # (Auto) Abs Immat Gran (auto) Absolute Neuts (auto) Absolute Nucleated RBC Nucleated RBC % (auto) Smear Tech's Comments ESR Hold Purple Top SEE NOTE PT 25.4 H INR 2.2 H VBG pH VBG pCO2 VBG pO2 VBG HCO3 VBG O2 Saturation VBG Base Excess Sodium 135 Potassium 3.4 Chloride 95 L Carbon Dioxide 31 H Anion Gap 12 BUN 20 H Creatinine 1.06 Estim Creat Clear Calc 42.6 Estimated GFR 49 POC Glucose Random Glucose 96 Lactic Acid Calcium 8.2 L Magnesium Total Bilirubin 1.1 H Direct Bilirubin 0.6 H AST 316 H ALT 304 H Alkaline Phosphatase 86 Troponin I High Sens C-Reactive Protein B-Natriuretic Peptide Total Protein 5.2 L Albumin 2.6 L Lipase Beta-Hydroxybutyrate TSH Urine Color Yellow Urine Appearance Clear Urine pH 6.5 Ur Specific [place] 1.010 Urine Protein Negative Urine Glucose (UA) Negative Urine Ketones Negative Urine Blood Negative Urine Nitrite Positive H Ur Leukocyte Esterase Trace H Urine RBC 0-2 Urine WBC 0-5 Ur Squamous Epith Cells 0-2 Urine Bacteria 2+ Hyaline Casts 0-2 Influenza Type A (PCR) Influenza Type B (PCR) RSV RNA Qual (PCR) SARS-CoV-2 RNA (RT-PCR) ECG Interpretation: EKG with underlying sinus rhythm at 61/Min; cannot exclude old anterior infarct; normal NH and corrected QT. Imaging Radiologist's impression: Impressions Chest X-Ray 03/17/25 14:33 IMPRESSION: Increased interstitial markings. Possible superimposed pneumonia at the left lung base. Follow-up is recommended. Electronically signed by: Tucker Pickering MD 03/17/2025 03:58 PM EDT Ankle X-Ray 03/17/25 14:35 IMPRESSION: No definite fracture right ankle. Diffuse osteopenia. Electronically signed by: Cam Rivas MD 03/17/2025 03:57 PM EDT Foot X-Ray 03/17/25 14:50 IMPRESSION: There is diffuse osteopenia which the limits the exam. If there is clinical concern for osteomyelitis, follow-up with MRI of the hindfoot. Overlap of posterior tibial plafond and distal fibula on the lateral projection probably results in lucency from Mach effect simulating the appearance of a fracture. If there is trauma or concern for fracture, follow-up 3 view right ankle. Ankylosis first MTP joint. Electronically signed by: Ghassan Sousa MD 03/17/2025 03:10 PM EDT RP Duplex Scan Lower Extremity Artery 03/17/25 14:56 IMPRESSION: Limited exam due to patient habitus and inward contraction of the right leg. 1. Atheromatous plaque present. 2. Findings suggesting significant peripheral vascular disease of the right lower extremity, with a severe stenosis suggested in the right distal superficial femoral artery. Electronically signed by: Cam Rivas MD 03/17/2025 03:31 PM EDT Assessment and Plan (1) Paroxysmal atrial fibrillation: Status: Acute (2) On amiodarone therapy: Status: Acute (3) Acute hypoxic respiratory failure: Status: Acute Plan In the current EKG, underlying sinus rhythm. Going back to 2019, there is one EKG which shows atrial fibrillation at a rate of 112/Min. Even prior to that, possibly junctional bradycardia at 33/Min. Last echocardiogram with LVEF of 57%. No significant valvular findings. Doubt if chest x-ray findings are truly related to amiodarone toxicity but contribute either. Await CT scan. As she has generally been maintaining sinus rhythm for the last 3-4 years, it is probably reasonable to just stop the amiodarone and keep her on just the carvedilol/verapamil. As the blood pressure is on the higher side, we do have room to increase these medications. Procedures Date of Service Date of Service: 03/18/25
[2025-03-18] MEDS: cefTRIAXone sodium 1 GM VIAL IVPUSH (13:17)
[2025-03-18] MEDS: Acetaminophen 325 MG TABLET 650 MG PO (13:20)
[2025-03-18 15:31] VITALS: BP 150/66; PULSE 60; RESP 17; TEMP 36.6; O2SAT 95
[2025-03-18] MEDS: guaiFENesin DM 600/30 1 TAB TAB.ER.12H PO (15:38)
--- NOTE | 2025-03-18 16:24 | MHC.CM.PN ---
PT REPORTS SHE LIVES ALONE AND HAS [employer]SEM[employer]Y MECHAN[employer] SERVICES 3X/DAY SHE IS ALSO ACTIVE WITH [facility] FOR SN 3X/WEEK SHE USES A WHEEL CHAIR AND [employer] AT HOME HCP ON FILE PCP: JERONIMO BRYANT IMM DELIVERED PT STATES SHE WOULD LIKE TO GO TO [facility], SHE SAYS SHE WAS AT [facility] NOT LONG AGO AND THE THERAPY HELPED WITH SOME OF THE PAIN SHE WILL NEED BLS TRANSPORT WHETHER SHE GOES TO [facility] OR HOME WITH RESUMPTION OF ASSEMBLY MECHANIC AND [facility] SERVICES
[2025-03-18] MEDS: Warfarin Sodium 1 MG TABLET PO (17:29)
[2025-03-18 19:57] VITALS: BP 123/56; PULSE 56; RESP 20; TEMP 36.8; O2SAT 95
[2025-03-18] MEDS: Sennosides 8.6 MG TABLET 17.2 MG PO (20:07)
[2025-03-18 20:11] VITALS: PULSE 55
[2025-03-19 03:16] VITALS: BP 132/65; PULSE 56; RESP 20; TEMP 36.3; O2SAT 96
[2025-03-19] MEDS: guaiFENesin DM 600/30 1 TAB TAB.ER.12H PO (05:24)
[2025-03-19] MEDS: Omeprazole 20 MG CAPSULE.DR PO (05:24)
[2025-03-19] MEDS: Levothyroxine Sodium 175 MCG TABLET PO (05:24)
[2025-03-19 06:28] LABS: INTERNATIONAL NORM RATIO 2.7 (0.9-1.1); Prothrombin Time 30.6 SEC (10.9-12.4)
[2025-03-19 07:47] VITALS: BP 134/63; PULSE 56; RESP 18; TEMP 36.2; O2SAT 99
[2025-03-19] MEDS: methylPREDNISolone Sod Succ 40 MG/ML VIAL IVPUSH ×2 (08:15→21:05)
[2025-03-19] MEDS: azaTHIOprine 50 MG TABLET 100 MG PO (08:16)
[2025-03-19] MEDS: Furosemide 40 MG TABLET PO (08:17)
[2025-03-19] MEDS: Cyanocobalamin (Vitamin B-12) 1,000 MCG TABLET 1000 MCG PO (08:17)
[2025-03-19] MEDS: Valsartan 160 MG TABLET PO (08:17)
[2025-03-19] MEDS: Escitalopram Oxalate 10 MG TABLET PO (08:17)
[2025-03-19] MEDS: Doxycycline Monohydrate 100 MG CAPSULE PO ×2 (08:17→21:05)
[2025-03-19] MEDS: VerapamiL HCL SR 120 MG TABLET.ER PO (08:18)
[2025-03-19] MEDS: carvediloL 3.125 MG TABLET PO (08:18)
[2025-03-19] MEDS: Cholecalciferol (Vitamin D3) 25 MCG TABLET 50 MCG PO (08:20)
[2025-03-19] MEDS: 0.9 % Sodium Chloride Flush 3 ML SYRINGE IVFLUSH ×3 (08:21→21:05)
--- NOTE | 2025-03-19 09:33 | HO.PM.IMPN ---
Subjective Subjective Date of Service: 03/19/25 Interval History: f/u on acute hypoxic respiratory failure, concern for pulmonary amio toxicity, pna still with congested cough, otherwise feels the same Physical Exam Vital Signs: Vital Signs: Last Vital Signs Temp 97.1 F 03/19/25 07:47 Pulse 56 03/19/25 07:47 Resp 18 03/19/25 07:47 BP 134/63 03/19/25 07:47 Pulse Ox 99 03/19/25 07:47 O2 Del Method Nasal Cannula 03/19/25 07:47 O2 Flow Rate 1 03/19/25 07:47 Oxygen Flow Rate 4 03/17/25 13:36 BMI result Body Mass Index 32.9 Objective Data Active Medications Acetaminophen (Acetaminophen 325 Mg Tablet) 650 mg PO Q6H PRN PRN Reason: Pain, Mild 1-3,fever,headache Last Admin: 03/18/25 13:20 Dose: 650 mg Documented By: JOSIAH Albuterol/Ipratropium (Albuterol/Iprat 2.5/0.5mg 3 Ml Ampul.Neb) 3 ml INHALE Q4H PRN PRN Reason: Shortness of Breath/Wheezing Azathioprine (Azathioprine 50 Mg Tablet) 100 mg PO DAILY [facility] Last Admin: 03/19/25 08:16 Dose: 100 mg Documented By: JOSIAH Calcium Carbonate (Calcium Carbonate 750 Mg Tab.Chew) 750 mg PO Q4H PRN PRN Reason: Heartburn Carvedilol (Carvedilol 3.125 Mg Tablet) 3.125 mg PO BID [facility]; Protocol Last Admin: 03/19/25 08:18 Dose: 3.125 mg Documented By: JOSIAH Ceftriaxone Sodium (Ceftriaxone Sodium 1 Gm Vial) 1 gm IVPUSH Q24H [facility] Last Admin: 03/18/25 13:17 Dose: 1 gm Documented By: JOSIAH Cyanocobalamin (Cyanocobalamin (Vitamin B-12) 1,000 Mcg Tablet) 1,000 mcg PO DAILY [facility] Last Admin: 03/19/25 08:17 Dose: 1,000 mcg Documented By: JOSIAH Docusate Sodium (Docusate Sodium 100 Mg Capsule) 100 mg PO DAILY PRN PRN Reason: Constipation Doxycycline Monohydrate (Doxycycline Monohydrate 100 Mg Capsule) 100 mg PO BID [facility] Last Admin: 03/19/25 08:17 Dose: 100 mg Documented By: JOSIAH Escitalopram Oxalate (Escitalopram Oxalate 10 Mg Tablet) 10 mg PO DAILY [facility] Last Admin: 03/19/25 08:17 Dose: 10 mg Documented By: JOSIAH Furosemide (Furosemide 40 Mg Tablet) 40 mg PO DAILY [facility]; Protocol Last Admin: 03/19/25 08:17 Dose: 40 mg Documented By: JOSIAH Guaifenesin/Dextromethorphan (Guaifenesin Dm 600/30 1 Tab Tab.Er.12h) 1 tab PO BID PRN PRN Reason: Cough Last Admin: 03/19/25 05:24 Dose: 1 tab Documented By: ALFONSO Levothyroxine Sodium (Levothyroxine Sodium 175 Mcg Tablet) 175 mcg PO DAILY@0600 [facility] Last Admin: 03/19/25 05:24 Dose: 175 mcg Documented By: ALFONSO Magnesium Hydroxide (Milk Of Magnesia 30 Ml Oral.Susp) 30 ml PO DAILY PRN PRN Reason: Constipation Melatonin (Melatonin 3 Mg Tablet) 6 mg PO BEDTIME PRN PRN Reason: Insomnia Methylprednisolone Sodium Succinate (Methylprednisolone Sod Succ 40 Mg/Ml Vial) 40 mg IVPUSH BID [facility] Last Admin: 03/19/25 08:15 Dose: 40 mg Documented By: JOSIAH Omeprazole (Omeprazole 20 Mg Capsule.Dr) 20 mg PO DAILY@0630 [facility] Last Admin: 03/19/25 05:24 Dose: 20 mg Documented By: ALFONSO Ondansetron HCl (Ondansetron Hcl 4 Mg/2 Ml Vial) 4 mg IVPUSH Q8H PRN PRN Reason: Nausea and Vomiting Polyethylene Glycol (Polyethylene Glycol 3350 17 Gm Powd.Pack) 17 gm PO DAILY PRN PRN Reason: Constipation Senna (Sennosides 8.6 Mg Tablet) 17.2 mg PO BEDTIME [facility] Last Admin: 03/18/25 20:07 Dose: 17.2 mg Documented By: ALFONSO Sodium Chloride (0.9 % Sodium Chloride Flush 3 Ml Syringe) 3 ml IVFLUSH QSHIFT [facility] Last Admin: 03/19/25 08:21 Dose: 3 ml Documented By: JOSIAH Valsartan (Valsartan 160 Mg Tablet) 160 mg PO DAILY [facility] Last Admin: 03/19/25 08:17 Dose: 160 mg Documented By: OJSIAH Verapamil HCl (Verapamil Hcl Sr 120 Mg Tablet.Er) 120 mg PO DAILY [facility]; Protocol Last Admin: 03/19/25 08:18 Dose: 120 mg Documented By: JOSIAH Vitamin D (Cholecalciferol (Vitamin D3) 25 Mcg Tablet) 50 mcg PO DAILY [facility] Last Admin: 03/19/25 08:20 Dose: 50 mcg Documented By: JOSIAH Warfarin Sodium (Warfarin Sodium 1 Mg Tablet) 1 mg PO DAILY@1800 [facility] Last Admin: 03/18/25 17:29 Dose: 1 mg Documented By: JOSIAH Labs 03/19/25 10:48 03/19/25 10:48 Labs: Laboratory Results - last 24 hr 03/19/25 06:08 PT 30.6 H D INR 2.7 H Microbiology Microbiology Results: Microbiology 03/17/25 14:16 Blood Culture - Preliminary Blood - Venous No growth after 24 hours. 03/17/25 14:16 Blood Culture - Preliminary Blood - Venous No growth after 24 hours. Assessment and Plan (1) Paroxysmal atrial fibrillation: Status: Acute (2) Acute hypoxic respiratory failure: Status: Acute Plan Pt is an 89-year-old female with a PMH significant for?paroxysmal AFib on coumadin, PVD, DVT, HTN, hypothyroidism, bullous pemphigoid, chronic normocytic anemia, and hx of spinal tumor excision 20 years ago presenting failure to thriove, poor apetite, congestion, heel an buttock ulcer, acute hepatitis. Acute hypoxic respiratory failure, xray showing interstital markings, ? PNA, has no fever and normlal WBC, BNP within baseline continue Ceftriaxone and and doxy for possible PNA. There is concern of amio toxicity involving liver and lungs and will try corticosteroid and consider pulmonology consulation chest CT to further assess Elevated LFTs, which is new, again concern for amio toxicyt stop amio, and ask cardio for alternate meds for afib US of liver show fatty liver Poor apetite/malnutririon, likely related to amio toxicity supportive care Feet ulcer, buttock ulcer, don't appear acute infected and no xray do not suggest osteo wound care consult, pressure ulcer preventive measure, frequent turning, local wound care Paroxysm Atrial fibrillation Stop amio metoprolol for afib cardio consult continue coumadin not eliquis Mood disorder resume home meds Chronc anemia anemia h/h at baseline chronic pain on gabapendin home pain meds on hold while on IV narcotics continue bowel regimen Hypothyroidism Continue Synthroid chronic constipatin constipation bowel regime DVT prophylaxis coumadin DNR/DNI discussed with her [place] [facility] Stroke Does the patient have a stroke diagnosis?: No VTE Prior VTE?: No VTE Risk Level:: Medical - moderate - high VTE Device Contraindication: N/A - Device Ordered VTE Drug Contraindication: N/A - Med Ordered
[2025-03-19 10:14] VITALS: PULSE 88; RESP 23; O2SAT 99
[2025-03-19] MEDS: Acetaminophen 325 MG TABLET 650 MG PO (10:34)
[2025-03-19] MEDS: oxyCODONE HCl Immed Release 5 MG TABLET PO (10:34)
[2025-03-19 11:05] LABS: Hematocrit 27.1 % (37.0-47.0); Hemoglobin 8.7 g/dl (12.0-16.0); Mean Corpuscular HGB Conc 32.1 g/dl (31.0-35.0); Mean Corpuscular Hemoglobin 29.7 pg (27.0-33.0); Mean Corpuscular Volume 92.5 fL (80.0-98.0); Mean Platelet Volume 9.7 fL (9.4-12.3); NRBC Pct Auto 0.4 /100WBC (0.0-0.2); Platelet Count 261 X10*3/uL (160-400); Red Blood Count 2.93 X10*6/uL (4.20-5.50); Red Cell Distribution Width 19.9 % (11.0-16.0); White Blood Count 8.5 X10*3/uL (4.8-10.8)
[2025-03-19 11:16] LABS: Alanine Aminotransferase 294 U/L (0-31); Albumin Level 2.6 g/dL (3.5-5.0); Alkaline Phosphatase 95 U/L (39-117); Anion Gap 12 (12-20); Aspartate Amino Transferase 234 U/L (5-31); Bilirubin Direct 0.4 mg/dL (0.0-0.5); Bilirubin Total 0.6 mg/dL (0.0-1.0); Blood Urea Nitrogen 26 mg/dL (9-16); Calcium 8.1 mg/dL (8.4-10.2); Carbon Dioxide 32 mmol/L (22-29); Chloride 93 mmol/L (96-108); Creatinine Clr Calc Pharmacy 33.9; Estimated Glomerular Filt Rate 38; Glucose Random 156 mg/dL (60-115); Potassium 3.6 mmol/L (3.3-5.1); Sodium 133 mmol/L (135-145); Total Protein 5.3 g/dL (6.5-8.0)
[2025-03-19] MEDS: cefTRIAXone sodium 1 GM VIAL IVPUSH (14:08)
[2025-03-19 15:31] VITALS: BP 142/67; PULSE 58; RESP 18; TEMP 36.3; O2SAT 98
[2025-03-19] MEDS: Warfarin Sodium 1 MG TABLET PO (17:47)
[2025-03-19 20:00] VITALS: BP 129/60; PULSE 56; RESP 18; TEMP 37.2; O2SAT 98
[2025-03-19] MEDS: Sennosides 8.6 MG TABLET 17.2 MG PO (21:05)
[2025-03-19 21:06] VITALS: PULSE 58
[2025-03-20] VITALS (8 sets, daily range): BP systolic 137–169; BP diastolic 63–73; PULSE 54–62; RESP 16; TEMP 36.3–36.4; O2SAT 97–99; BMI 32.9
[2025-03-20] MEDS: Levothyroxine Sodium 175 MCG TABLET PO (06:02)
[2025-03-20] MEDS: Omeprazole 20 MG CAPSULE.DR PO (06:02)
[2025-03-20 07:20] LABS: INTERNATIONAL NORM RATIO 2.6 (0.9-1.1); Prothrombin Time 30.3 SEC (10.9-12.4)
--- NOTE | 2025-03-20 07:56 | HO.PM.IMPN ---
Subjective Subjective Date of Service: 03/20/25 Interval History: f/u on acute hypoxic respiratory failure, concern for pulmonary amio toxicity, pna She is still feeling congested but overall better and coughing less. Physical Exam Vital Signs: Vital Signs: Last Vital Signs Temp 97.6 F 03/20/25 07:19 Pulse 55 03/20/25 07:19 Resp 16 03/20/25 07:19 BP 137/67 03/20/25 07:19 Pulse Ox 99 03/20/25 07:19 O2 Del Method Nasal Cannula 03/20/25 07:19 O2 Flow Rate 1 03/20/25 07:19 Oxygen Flow Rate 4 03/17/25 13:36 BMI result Body Mass Index 32.9 see exam from 03/17, essentially unchanged lungs are congested, hard of hearing Const: Other: General: AO X 3, no acute distress Resp: bilateral rhonchi CVS: S1,S2,RRR GI: +BS, NT, no distention Neuro: motor grossly intact Psych: appropriate affect Skin: No rash Objective Data Active Medications Acetaminophen (Acetaminophen 325 Mg Tablet) 650 mg PO Q6H PRN PRN Reason: Pain, Mild 1-3,fever,headache Last Admin: 03/19/25 10:34 Dose: 650 mg Documented By: JOSIAH Albuterol/Ipratropium (Albuterol/Iprat 2.5/0.5mg 3 Ml Ampul.Neb) 3 ml INHALE Q4H PRN PRN Reason: Shortness of Breath/Wheezing Azathioprine (Azathioprine 50 Mg Tablet) 100 mg PO DAILY [facility] Last Admin: 03/19/25 08:16 Dose: 100 mg Documented By: JOSIAH Calcium Carbonate (Calcium Carbonate 750 Mg Tab.Chew) 750 mg PO Q4H PRN PRN Reason: Heartburn Carvedilol (Carvedilol 3.125 Mg Tablet) 3.125 mg PO BID [facility]; Protocol Last Admin: 03/19/25 21:06 Dose: Not Given Documented By: JOSE LUIS Non-Admin Reason: AP=58 Ceftriaxone Sodium (Ceftriaxone Sodium 1 Gm Vial) 1 gm IVPUSH Q24H [facility] Last Admin: 03/19/25 14:08 Dose: 1 gm Documented By: JOSIAH Cyanocobalamin (Cyanocobalamin (Vitamin B-12) 1,000 Mcg Tablet) 1,000 mcg PO DAILY [facility] Last Admin: 03/19/25 08:17 Dose: 1,000 mcg Documented By: JOSIAH Docusate Sodium (Docusate Sodium 100 Mg Capsule) 100 mg PO DAILY PRN PRN Reason: Constipation Doxycycline Monohydrate (Doxycycline Monohydrate 100 Mg Capsule) 100 mg PO BID [facility] Last Admin: 03/19/25 21:05 Dose: 100 mg Documented By: JOSE LUIS Escitalopram Oxalate (Escitalopram Oxalate 10 Mg Tablet) 10 mg PO DAILY [facility] Last Admin: 03/19/25 08:17 Dose: 10 mg Documented By: JOSIAH Furosemide (Furosemide 40 Mg Tablet) 40 mg PO DAILY [facility]; Protocol Last Admin: 03/19/25 08:17 Dose: 40 mg Documented By: JOSIAH Guaifenesin/Dextromethorphan (Guaifenesin Dm 600/30 1 Tab Tab.Er.12h) 1 tab PO BID PRN PRN Reason: Cough Last Admin: 03/19/25 05:24 Dose: 1 tab Documented By: ALFONSO Levothyroxine Sodium (Levothyroxine Sodium 175 Mcg Tablet) 175 mcg PO DAILY@0600 [facility] Last Admin: 03/20/25 06:02 Dose: 175 mcg Documented By: JOSE LIUS Magnesium Hydroxide (Milk Of Magnesia 30 Ml Oral.Susp) 30 ml PO DAILY PRN PRN Reason: Constipation Melatonin (Melatonin 3 Mg Tablet) 6 mg PO BEDTIME PRN PRN Reason: Insomnia Methylprednisolone Sodium Succinate (Methylprednisolone Sod Succ 40 Mg/Ml Vial) 40 mg IVPUSH BID [facility] Last Admin: 03/19/25 21:05 Dose: 40 mg Documented By: JOSE LUIS Omeprazole (Omeprazole 20 Mg Capsule.) 20 mg PO DAILY@0630 [facility] Last Admin: 03/20/25 06:02 Dose: 20 mg Documented By: JOSE LUIS Ondansetron HCl (Ondansetron Hcl 4 Mg/2 Ml Vial) 4 mg IVPUSH Q8H PRN PRN Reason: Nausea and Vomiting Oxycodone HCl (Oxycodone Hcl Immed Release 5 Mg Tablet) 5 mg PO Q6H PRN PRN Reason: Pain, Severe (Pain Scale 7-10) Last Admin: 03/19/25 10:34 Dose: 5 mg Documented By: JOSIAH Polyethylene Glycol (Polyethylene Glycol 3350 17 Gm Powd.Pack) 17 gm PO DAILY PRN PRN Reason: Constipation Senna (Sennosides 8.6 Mg Tablet) 17.2 mg PO BEDTIME [facility] Last Admin: 03/19/25 21:05 Dose: 17.2 mg Documented By: JOSE LUIS Sodium Chloride (0.9 % Sodium Chloride Flush 3 Ml Syringe) 3 ml IVFLUSH QSHIFT [facility] Last Admin: 03/19/25 21:05 Dose: 3 ml Documented By: JOSE LUIS Valsartan (Valsartan 160 Mg Tablet) 160 mg PO DAILY [facility] Last Admin: 03/19/25 08:17 Dose: 160 mg Documented By: JOSIAH Verapamil HCl (Verapamil Hcl Sr 120 Mg Tablet.Er) 120 mg PO DAILY [facility]; Protocol Last Admin: 03/19/25 08:18 Dose: 120 mg Documented By: JOSIAH Vitamin D (Cholecalciferol (Vitamin D3) 25 Mcg Tablet) 50 mcg PO DAILY [facility] Last Admin: 03/19/25 08:20 Dose: 50 mcg Documented By: JOSIAH Warfarin Sodium (Warfarin Sodium 1 Mg Tablet) 1 mg PO DAILY@1800 [facility] Last Admin: 03/19/25 17:47 Dose: 1 mg Documented By: JOSIAH Labs 03/19/25 10:48 03/19/25 10:48 Labs: Laboratory Results - last 24 hr 03/19/25 03/20/25 10:48 06:56 MCV 92.5 MCH 29.7 MCHC 32.1 RDW 19.9 H Plt Count 261 D MPV 9.7 Absolute Nucleated RBC 0.030 H Nucleated RBC % (auto) 0.4 H PT 30.3 H INR 2.6 H Anion Gap 12 Estim Creat Clear Calc 33.9 Estimated GFR 38 Random Glucose 156 H Calcium 8.1 L Total Bilirubin 0.6 Direct Bilirubin 0.4 AST 234 H ALT 294 H Alkaline Phosphatase 95 Total Protein 5.3 L Albumin 2.6 L Microbiology Microbiology Results: Microbiology 03/17/25 14:16 Blood Culture - Preliminary Blood - Venous No growth after 48 hours. 03/17/25 14:16 Blood Culture - Preliminary Blood - Venous No growth after 48 hours. 03/17/25 Unknown Urine Culture - Final Urine clean catch - Clean Catch Midstream Assessment and Plan (1) Paroxysmal atrial fibrillation: Status: Acute (2) Acute hypoxic respiratory failure: Status: Acute Plan Pt is an 89-year-old female with a PMH significant for?paroxysmal AFib on coumadin, PVD, DVT, HTN, hypothyroidism, bullous pemphigoid, chronic normocytic anemia, and hx of spinal tumor excision 20 years ago presenting failure to thriove, poor apetite, congestion, heel an buttock ulcer, acute hepatitis. Acute hypoxic respiratory failure, xray showing interstital markings, ? PNA, has no fever and normlal WBC, BNP within baseline continue Ceftriaxone and and doxy for possible PNA. There is concern of amio toxicity involving liver and lungs continue corticosteroid, get pulmonology consultation CT chest 03/18:1. There are scattered reticular opacities most significantly in the right upper lobe and bilateral lung bases likely chronic. There is no evidence of honeycombing. 2. There is some mosaic attenuation most suggestive of small airways disease. 3. There is some peribronchial consolidation at both lung bases suggestive of pneumonia. Elevated LFTs, which is new, again concern for amio toxicyt stop amio, and ask cardio for alternate meds for afib US of liver show fatty liver, Poor apetite/malnutririon, likely related to amio toxicity supportive care Feet ulcer, buttock ulcer, don't appear acute infected and no xray do not suggest osteo wound care consult, pressure ulcer preventive measure, frequent turning, local wound care Paroxysm Atrial fibrillation Stopped amio metoprolol for afib seen by cardio, essentially agree with present plan continue coumadin not eliquis Mood disorder resume home meds Chronc anemia anemia h/h at baseline chronic pain on gabapendin home pain meds on hold while on IV narcotics continue bowel regimen Hypothyroidism Continue Synthroid chronic constipatin constipation bowel regime DVT prophylaxis coumadin DNR/DNI discussed with her [place] likely need [facility] [place] [facility] Stroke Does the patient have a stroke diagnosis?: No VTE Prior VTE?: No VTE Risk Level:: Medical - moderate - high VTE Device Contraindication: N/A - Device Ordered VTE Drug Contraindication: N/A - Med Ordered
[2025-03-20] MEDS: Cyanocobalamin (Vitamin B-12) 1,000 MCG TABLET 1000 MCG PO (08:46)
[2025-03-20] MEDS: Furosemide 40 MG TABLET PO (08:47)
[2025-03-20] MEDS: Doxycycline Monohydrate 100 MG CAPSULE PO ×2 (08:48→20:56)
[2025-03-20] MEDS: azaTHIOprine 50 MG TABLET 100 MG PO (08:48)
[2025-03-20] MEDS: Escitalopram Oxalate 10 MG TABLET PO (08:48)
[2025-03-20] MEDS: guaiFENesin DM 600/30 1 TAB TAB.ER.12H PO (08:48)
[2025-03-20] MEDS: Cholecalciferol (Vitamin D3) 25 MCG TABLET 50 MCG PO (08:48)
[2025-03-20] MEDS: Acetaminophen 325 MG TABLET 650 MG PO (08:49)
[2025-03-20] MEDS: Valsartan 160 MG TABLET PO (08:50)
[2025-03-20] MEDS: methylPREDNISolone Sod Succ 40 MG/ML VIAL IVPUSH ×2 (08:55→20:57)
[2025-03-20] MEDS: 0.9 % Sodium Chloride Flush 3 ML SYRINGE IVFLUSH ×3 (08:55→20:58)
[2025-03-20 09:43] LABS: Anion Gap 13 (12-20); Blood Urea Nitrogen 32 mg/dL (9-16); Calcium 8.4 mg/dL (8.4-10.2); Carbon Dioxide 33 mmol/L (22-29); Chloride 91 mmol/L (96-108); Creatinine Clr Calc Pharmacy 35.8; Estimated Glomerular Filt Rate 40; Glucose Random 128 mg/dL (60-115); Potassium 3.6 mmol/L (3.3-5.1); Sodium 133 mmol/L (135-145)
--- NOTE | 2025-03-20 10:16 | MHC.CLN ---
NUTRITION CONSULT DIET=REGULAR. REPORTS THAT ATE POORLY X 5 DAYS PRIOR TO ADM. CURRENT PO VARIABLE, 0-75%. SKIN WITH MULTIPLE PRESSURE INJURIES. ADDING ENSURE MAX BID TO PROMOTE WOUND HEALING. SUPPLEMENT PROVIDES 300 KCALS, 60 G PROTEIN. PATIENT DOES NOT APPEAR TO BE MALNOURISHED. REVIEW OF WEIGHT HX SHOWS SIGNIFICANT WEIGHT LOSS X 4 MONTHS. CONTINUE REGULAR DIET WITH HIGH PROTEIN SUPPLEMENT. SEE CLINICAL NUTRITION ASSESSMENT 03/20/25.
--- NOTE | 2025-03-20 10:41 | HO.WOUND ---
Wound Consult: Initial 89yr old?female admitted to [facility] [place] on 03[place]17/25 - See progress notes and H&P for detailed history.? Wound consult placed for Bilateral Heels, Right ischium and Sacrum.? Patient agreeable to assessment and photo documentation.? Patient reports she lives at home alone with services. She reports she is no longer able to care for herself with help at home - she reports she understands she needs more advanced care. Sacrum Etiology: Resurfacing Stage 2 Pressure Injury ??Present on Admission Wound Bed: red pink wound bed moist tissue Drainage / Odor: none noted Edges: ?irregular Hanny wound: MASD ? No Induration, Fluctuance or Warmth noted Pain: pain reported Goals of Treatment: ? Off load pressure with Foam dressing Right Ischium Etiology:Unstageable Pressure injury ??Present on Admission Wound Bed: adherent yellow slough Drainage / Odor: schafer moderate amount no odor Edges: ? irregular Hanny wound: MASD with friction ? No Induration, Fluctuance or Warmth noted Pain: denies Goals of Treatment: ?Durafiber AG Left heel Etiology: Resurfacing Previously staged Stage 4 pressure injury -??Present on Admission Wound Bed: pale pink with yellow slough noted Drainage / Odor: scant yellow schafer no odor Edges: ? rolled and irregular Hanny wound: ?pink tissue No Induration, Fluctuance or Warmth noted Pain: pain reported Goals of Treatment: ? Durafiber for moisture management Right Heel Etiology: Previously staged - Stage 4 pressure injury -??Present on Admission Wound Bed: yellow slough noted necrotic areas and black nonblanchable tissue Drainage / Odor: schafer drainage No odor Edges: irregular and unattached Hanny wound: ?dry tissue No Induration, Fluctuance or Warmth noted Pain: pain reported Goals of Treatment: ? Durafiber for moisture management Skin folds noted for fungal dermatitis - red macular papular rash with mirrored edges and satellite lesions noted. Provider to order topical anti-fungal powder. Left Ischium noted - for redness - remains intact and blanchable - however due to significant pain to right ischium patient is not currently able to tolerate repositions to right side - the areas was padded with pillows recommend adding foam dressing to aid in protection and pressure redistribution. Agility Pulsate MITCH bed ordered. Right Posterior Lower Leg - Abrasions - red clean dry wound beds - unclear etiology - treated with Triad and gauze dressing and wrap. Wedges in use - not able to tolerate turn to right side due to pain in Ischium - will continue to offer reposition and padding with pillows. Speciality bed ordered. Heel boot protectors in use. Recommendations: 1. Turn and Reposition every 2 hours and as needed for patient comfort.? Use pillows or wedges to support off loading positions. 2. Off Load all bony prominences with use of pillows and heel boots if needed.? Apply Preventative foams where needed. ? 3. Monitor for incontinence and moisture control, use barrier creams when needed for prevention and treatment. 4. Provide adequate and supplemental nutrition.? 5. Order low air loss mattress. 6. When applicable maintain blood glucose levels per Providers order. Bilateral Heels and Right lower anterior leg - Elevate heels off of bed surface with heel protector boots. Cleanse with Ns moist gauze, Pat dry. Apply barrier cream to periwound. Cover wound bed with Durafiber AG, dry gauze, ABD pad and wrap. Change every other day. Right Ischium - Off Load Pressure with Q2 hr turns and use of pillows - Cleanse and irrigate with NS, pat dry. ?Apply thin layer of Triad to wound bed. Lightly pack wound bed with Durafiber AG fill space cover with foam dressing change daily. Left Ischium and Sacrum - Off Load Pressure with Q2 hr turns and use of pillows Routine cleansing, pat dry. Apply skin prep allow to dry. Apply Foam dressing - peel back and assess Q shift and Change every 5 days and PRN. Re-consult wound care Nurse for wound deterioration or wound changes.
--- NOTE | 2025-03-20 10:45 | P.CONPL_ITS ---
History of Present Illness History of Present Illness Consult date: 03/20/25 Chief complaint: Pneumonia w/hypoxia Narrative: 89-year-old lady with underlying AFib on amiodarone and Coumadin, PVD, DVT admitted on 03/17/2025 with failure to strive, also noted to be hypoxic and empirically treated for pneumonia. Her CT chest showed multifocal small infiltrates and asymmetric reticulation. Patient was empirically treated for community-acquired pneumonia and COPD with no changes in her respiratory status. She is currently on 1 L supplemental oxygen with O2 saturation at 97-99%. Review of Systems 2 Cardiovascular: Cardiovascular: Reports pedal edema, Denies dyspnea and Denies dyspnea on exertion Respiratory: Respiratory: Denies cough, Denies excessive phlegm production, Denies dyspnea and Denies dyspnea on exertion PMFSH Past Medical History Medical History Hypothyroidism Spinal cord tumor Chronic indwelling Velez catheter Frequent falls UTI (urinary tract infection) Muscular atrophy Kidney failure Paroxysmal atrial fibrillation PVD (peripheral vascular disease) Surgical History Surgical History History of hysterectomy History of appendectomy Social History Social History Household Members: None Housing: House Do you presently have visiting nurse or other home services: Yes (STAFFING RN help) Alcohol intake: former Comment: bedbound Patient Tobacco Use Status: Never used Tobacco Smoked in Last 30 Days: No Second Hand Smoke Exposure: No Use of substances other than those prescribed or required for medical reasons: No Currently Displaying Signs/Symptoms of Drug Intoxication Withdrawal: No Do you feel safe in your current relationship?: No Current Relationship Advance Directives: No Advance Directives Information Provided: Yes Advance Directives Date on File: 10/14/03 Do you have a plan to hurt others: No Plan Recently lost weight without trying: Yes How much weight loss: Unsure Eating poorly because of decreased appetite: No Nutrition screen score: 4 Nutrition Risks: No Nutritional Risk Patient : No : No Poor oral hygiene: No service: No Meds Allergies Allergy/AdvReac Type Severity Reaction Status Date / Time No Known Allergies Allergy Unverified 03/17/25 13:36 Active Medications: Current Medications Acetaminophen (Acetaminophen 325 Mg Tablet) 650 mg PO Q6H PRN PRN Reason: Pain, Mild 1-3,fever,headache Last Admin: 03/20/25 08:49 Dose: 650 mg Albuterol/Ipratropium (Albuterol/Iprat 2.5/0.5mg 3 Ml Ampul.Neb) 3 ml INHALE Q4H PRN PRN Reason: Shortness of Breath/Wheezing Azathioprine (Azathioprine 50 Mg Tablet) 100 mg PO DAILY [facility] [place] Last Admin: 03/20/25 08:48 Dose: 100 mg Calcium Carbonate (Calcium Carbonate 750 Mg Tab.Chew) 750 mg PO Q4H PRN PRN Reason: Heartburn Carvedilol (Carvedilol 3.125 Mg Tablet) 3.125 mg PO BID [facility] [place]; Protocol Last Admin: 03/20/25 08:47 Dose: Not Given Ceftriaxone Sodium (Ceftriaxone Sodium 1 Gm Vial) 1 gm IVPUSH Q24H [facility] [place] Last Admin: 03/19/25 14:08 Dose: 1 gm Cyanocobalamin (Cyanocobalamin (Vitamin B-12) 1,000 Mcg Tablet) 1,000 mcg PO DAILY [facility] [place] Last Admin: 03/20/25 08:46 Dose: 1,000 mcg Docusate Sodium (Docusate Sodium 100 Mg Capsule) 100 mg PO DAILY PRN PRN Reason: Constipation Doxycycline Monohydrate (Doxycycline Monohydrate 100 Mg Capsule) 100 mg PO BID [facility] [place] Last Admin: 03/20/25 08:48 Dose: 100 mg Escitalopram Oxalate (Escitalopram Oxalate 10 Mg Tablet) 10 mg PO DAILY [facility] Last Admin: 03/20/25 08:48 Dose: 10 mg Furosemide (Furosemide 40 Mg Tablet) 40 mg PO DAILY [facility] [place]; Protocol Last Admin: 03/20/25 08:47 Dose: 40 mg Guaifenesin/Dextromethorphan (Guaifenesin Dm 600/30 1 Tab Tab.Er.12h) 1 tab PO BID PRN PRN Reason: Cough Last Admin: 03/20/25 08:48 Dose: 1 tab Levothyroxine Sodium (Levothyroxine Sodium 175 Mcg Tablet) 175 mcg PO DAILY@0600 [facility] [place] Last Admin: 03/20/25 06:02 Dose: 175 mcg Magnesium Hydroxide (Milk Of Magnesia 30 Ml Oral.Susp) 30 ml PO DAILY PRN PRN Reason: Constipation Melatonin (Melatonin 3 Mg Tablet) 6 mg PO BEDTIME PRN PRN Reason: Insomnia Methylprednisolone Sodium Succinate (Methylprednisolone Sod Succ 40 Mg/Ml Vial) 40 mg IVPUSH BID [facility] [place] Last Admin: 03/20/25 08:55 Dose: 40 mg Omeprazole (Omeprazole 20 Mg Capsule.Dr) 20 mg PO DAILY@0630 [facility] Last Admin: 03/20/25 06:02 Dose: 20 mg Ondansetron HCl (Ondansetron Hcl 4 Mg/2 Ml Vial) 4 mg IVPUSH Q8H PRN PRN Reason: Nausea and Vomiting Oxycodone HCl (Oxycodone Hcl Immed Release 5 Mg Tablet) 5 mg PO Q6H PRN PRN Reason: Pain, Severe (Pain Scale 7-10) Last Admin: 03/19/25 10:34 Dose: 5 mg Polyethylene Glycol (Polyethylene Glycol 3350 17 Gm Powd.Pack) 17 gm PO DAILY PRN PRN Reason: Constipation Senna (Sennosides 8.6 Mg Tablet) 17.2 mg PO BEDTIME [facility] Last Admin: 03/19/25 21:05 Dose: 17.2 mg Sodium Chloride (0.9 % Sodium Chloride Flush 3 Ml Syringe) [facility] Admin: 03/20/25 08:55 Dose: 3 ml Valsartan (Valsartan 160 Mg Tablet) 160 mg PO DAILY [facility] [place] Last Admin: 03/20/25 08:50 Dose: 160 mg Verapamil HCl (Verapamil Hcl Sr 120 Mg Tablet.Er) 120 mg PO DAILY [facility] [place]; Protocol Last Admin: 03/20/25 08:46 Dose: Not Given Vitamin D (Cholecalciferol (Vitamin D3) 25 Mcg Tablet) 50 mcg PO DAILY [facility] [place] Last Admin: 03/20/25 08:48 Dose: 50 mcg Warfarin Sodium (Warfarin Sodium 1 Mg Tablet) 1 mg PO DAILY@1800 [facility] [place] Last Admin: 03/19/25 17:47 Dose: 1 mg Home Medications ?Medication ?Instructions ?Recorded ?Confirmed ?Last Taken ?Type cyanocobalamin (vitamin B-12) 1,000 mcg PO DAILY 07/11/20 03/17/25 03/17/25 History 1,000 mcg tablet (Vitamin B-12) docusate sodium 100 mg capsule 100 mg PO DAILY PRN Constipation 07/11/20 03/17/25 Unknown History (Colace) carvedilol 3.125 mg tablet 3.125 mg PO BID blood pressure 12/04/24 03/17/25 03/17/25 History levothyroxine 175 mcg tablet 175 mcg PO DAILY@0600 12/04/24 03/17/25 03/17/25 History olmesartan 40 mg tablet 40 mg PO DAILY blood pressure 12/04/24 03/17/25 03/17/25 History prednisone 5 mg tablet 20 mg PO Q48H 12/04/24 03/17/25 03/16/25 History verapamil 120 mg tablet,extended 120 mg PO DAILY 12/04/24 03/17/25 03/17/25 History release cholecalciferol (vitamin D3) 50 50 mcg PO DAILY 12/17/24 03/17/25 03/17/25 History mcg (2,000 unit) capsule (Vitamin D3) doxycycline hyclate 100 mg tablet 100 mg PO BID 12/17/24 03/17/25 03/17/25 History furosemide 40 mg tablet 40 mg PO DAILY 12/17/24 03/17/25 03/17/25 History azathioprine 50 mg tablet 100 mg PO DAILY 03/17/25 03/17/25 03/17/25 History citalopram 20 mg tablet 20 mg PO DAILY 03/17/25 03/17/25 03/17/25 History furosemide 20 mg tablet 40 mg PO BEDTIME PRN Swelling 03/17/25 03/17/25 Unknown History pantoprazole 40 mg tablet,delayed 40 mg PO DAILY@0630 03/17/25 03/17/25 03/17/25 History release polyethylene glycol 3350 17 17 g PO DAILY PRN Constipation 03/17/25 03/17/25 Unknown History gram/dose oral powder (Miralax) prednisone 5 mg tablet 5 mg PO Q48H 03/17/25 03/17/25 03/17/25 History warfarin 1 mg tablet 1 mg PO DAILY@1800 03/17/25 03/17/25 03/16/25 History Physical Exam 2 Vital Signs: Vital Signs: Last Vital Signs Temp 97.6 F 03/20/25 07:19 Pulse 59 03/20/25 08:47 Resp 16 03/20/25 07:19 BP 142/63 H 03/20/25 08:50 Pulse Ox 99 03/20/25 07:19 O2 Del Method Nasal Cannula 03/20/25 07:19 O2 Flow Rate 1 03/20/25 07:19 Oxygen Flow Rate 4 03/17/25 13:36 BMI result Body Mass Index 32.9 Const: General: no acute distress, alert and awake Nutritional Appearance: obese Eyes: Sclerae: sclerae normal EOM: EOMs intact bilaterally Neck: Neck: Yes no lymphadenopathy, Yes trachea midline and Yes supple Resp: Effort & Inspection: normal respiratory effort and no respiratory distress Auscultation: clear to auscultation bilaterally Cardio: Rate: regular rate Rhythm: regular rhythm Heart sounds: no gallops, no murmurs and no rubs GI: Palpation (GI): Soft to palpation and Other GI palpation findings present ( Nontender) Auscultation: normal bowel sounds Extrem: General: No clubbing, No cyanosis and Yes edema (Trace bilateral) Results Laboratory Findings 03/19/25 10:48 03/20/25 08:33 ABG, PT/INR, D-dimer: PT/INR, D-dimer PT 30.3 SEC (10.9-12.4) H 03/20/25 06:56 INR 2.6 (0.9-1.1) H 03/20/25 06:56 Abnormal lab findings: Abnormal Labs 03/17/25 03/17/25 03/17/25 13:38 14:16 14:19 RBC 3.18 L Hgb 9.6 L Hct 29.0 L RDW 19.4 H Immature Gran % (Auto) 0.7 H Neut % (Auto) 90.2 H Lymph % (Auto) 4.2 L Lymph # (Auto) 0.3 L Abs Immat Gran (auto) 0.06 H Absolute Nucleated RBC 0.040 H Nucleated RBC % (auto) 0.5 H ESR 44 H PT 22.2 H D INR 1.9 H VBG pH 7.48 H VBG HCO3 32 H Sodium 132 L Chloride 94 L Carbon Dioxide 31 H Anion Gap 11 L BUN 24 H POC Glucose 126 H Random Glucose Calcium 8.3 L Total Bilirubin 1.2 H Direct Bilirubin AST 407 H ALT 342 H Troponin I High Sens 18.7 H C-Reactive Protein 12.27 H B-Natriuretic Peptide 694 H Total Protein 5.8 L Albumin 2.9 L Beta-Hydroxybutyrate 0.36 H Urine Nitrite Ur Leukocyte Esterase 03/17/25 03/18/25 03/19/25 18:30 05:55 06:08 RBC Hgb Hct RDW Immature Gran % (Auto) Neut % (Auto) Lymph % (Auto) Lymph # (Auto) Abs Immat Gran (auto) Absolute Nucleated RBC Nucleated RBC % (auto) ESR PT 25.4 H 30.6 H D INR 2.2 H 2.7 H VBG pH VBG HCO3 Sodium Chloride 95 L Carbon Dioxide 31 H Anion Gap BUN 20 H POC Glucose Random Glucose Calcium 8.2 L Total Bilirubin 1.1 H Direct Bilirubin 0.6 H AST 316 H ALT 304 H Troponin I High Sens C-Reactive Protein B-Natriuretic Peptide Total Protein 5.2 L Albumin 2.6 L Beta-Hydroxybutyrate Urine Nitrite Positive H Ur Leukocyte Esterase Trace H 03/19/25 03/20/25 03/20/25 10:48 06:56 08:33 RBC 2.93 L Hgb 8.7 L Hct 27.1 L RDW 19.9 H Immature Gran % (Auto) Neut % (Auto) Lymph % (Auto) Lymph # (Auto) Abs Immat Gran (auto) Absolute Nucleated RBC 0.030 H Nucleated RBC % (auto) 0.4 H ESR PT 30.3 H INR 2.6 H VBG pH VBG HCO3 Sodium 133 L 133 L Chloride 93 L 91 L Carbon Dioxide 32 H 33 H Anion Gap BUN 26 H 32 H POC Glucose Random Glucose 156 H 128 H Calcium 8.1 L Total Bilirubin Direct Bilirubin AST 234 H ALT 294 H Troponin I High Sens C-Reactive Protein B-Natriuretic Peptide Total Protein 5.3 L Albumin 2.6 L Beta-Hydroxybutyrate Urine Nitrite Ur Leukocyte Esterase Microbiology: Microbiology 03/17/25 14:16 Blood - Venous Blood Culture - Preliminary No growth after 48 hours. 03/17/25 14:16 Blood - Venous Blood Culture - Preliminary No growth after 48 hours. 03/17/25 Unknown Urine clean catch - Clean Catch Midstream Urine Culture - Final Assessment and Plan (1) Acute hypoxic respiratory failure: Status: Acute (2) Pulmonary edema: Status: Acute Plan Impression: 89-year-old lady admitted with failure to thrive and hypoxemia. At this time with no evidence of COPD exacerbation or amiodarone induced interstitial lung disease. Does appear to have that least some degree of pulmonary edema, and likely overlying aspiration versus community-acquired pneumonia. Also appears to be hyper oxygenated at this time. Recommendation: Titrate off supplemental oxygen as tolerated. Agree with finishing a course for community-acquired pneumonia. Consider discontinuation of systemic glucocorticoids. Consider additional diuresis. Procedures Date of Service Date of Service: 03/20/25
[2025-03-20] MEDS: cefTRIAXone sodium 1 GM VIAL IVPUSH (14:52)
[2025-03-20] MEDS: carvediloL 3.125 MG TABLET PO (20:56)
[2025-03-20] MEDS: Sennosides 8.6 MG TABLET 17.2 MG PO (20:56)
[2025-03-21] VITALS (8 sets, daily range): BP systolic 155–176; BP diastolic 62–76; PULSE 59–64; RESP 12–20; TEMP 36–36.8; O2SAT 92–98
[2025-03-21] MEDS: Omeprazole 20 MG CAPSULE.DR PO (05:50)
[2025-03-21] MEDS: Levothyroxine Sodium 175 MCG TABLET PO (05:50)
[2025-03-21 06:15] LABS: INTERNATIONAL NORM RATIO 2.8 (0.9-1.1); Prothrombin Time 31.6 SEC (10.9-12.4)
[2025-03-21 06:16] LABS: Hematocrit 28.4 % (37.0-47.0); Mean Corpuscular HGB Conc 31.7 g/dl (31.0-35.0); Mean Corpuscular Hemoglobin 29.3 pg (27.0-33.0); Mean Corpuscular Volume 92.5 fL (80.0-98.0); Mean Platelet Volume 9.7 fL (9.4-12.3); NRBC Pct Auto 0.3 /100WBC (0.0-0.2); Platelet Count 290 X10*3/uL (160-400); Red Blood Count 3.07 X10*6/uL (4.20-5.50); Red Cell Distribution Width 19.8 % (11.0-16.0)
[2025-03-21 06:24] LABS: Anion Gap 13 (12-20); Blood Urea Nitrogen 35 mg/dL (9-16); Calcium 8.3 mg/dL (8.4-10.2); Carbon Dioxide 33 mmol/L (22-29); Chloride 92 mmol/L (96-108); Creatinine Clr Calc Pharmacy 35.8; Estimated Glomerular Filt Rate 40; Glucose Random 137 mg/dL (60-115); Potassium 3.8 mmol/L (3.3-5.1); Sodium 134 mmol/L (135-145)
[2025-03-21] MEDS: azaTHIOprine 50 MG TABLET 100 MG PO (08:17)
[2025-03-21] MEDS: Cholecalciferol (Vitamin D3) 25 MCG TABLET 50 MCG PO (08:17)
[2025-03-21] MEDS: guaiFENesin DM 600/30 1 TAB TAB.ER.12H PO ×2 (08:17→19:45)
[2025-03-21] MEDS: carvediloL 3.125 MG TABLET PO ×2 (08:22→19:44)
[2025-03-21] MEDS: Furosemide 40 MG TABLET PO (08:24)
[2025-03-21] MEDS: Doxycycline Monohydrate 100 MG CAPSULE PO ×2 (08:24→19:45)
[2025-03-21] MEDS: Valsartan 160 MG TABLET PO (08:24)
[2025-03-21] MEDS: Escitalopram Oxalate 10 MG TABLET PO (08:24)
[2025-03-21] MEDS: Cyanocobalamin (Vitamin B-12) 1,000 MCG TABLET 1000 MCG PO (08:24)
[2025-03-21] MEDS: Acetaminophen 325 MG TABLET 650 MG PO ×2 (08:25→19:45)
[2025-03-21] MEDS: VerapamiL HCL SR 120 MG TABLET.ER PO (08:25)
[2025-03-21] MEDS: 0.9 % Sodium Chloride Flush 3 ML SYRINGE IVFLUSH ×2 (08:33→14:52)
[2025-03-21] MEDS: methylPREDNISolone Sod Succ 40 MG/ML VIAL IVPUSH ×2 (08:33→20:01)
[2025-03-21] MEDS: Nystatin Cream 15 GM TUBE 1 APPL TOPICAL ×2 (10:21→19:56)
--- NOTE | 2025-03-21 10:59 | P.PNIM_ITS ---
Subjective Subjective Date of Service: 03/21/25 Interval History: f/u on acute hypoxic respiratory failure, concern for pulmonary amio toxicity, pna She is still feeling congested but overall better and coughing less. Physical Exam 2 Vital Signs: Vital Signs: Last Vital Signs Temp 96.8 F 03/21/25 07:18 Pulse 62 03/21/25 09:11 Resp 18 03/21/25 09:11 BP 155/67 H 03/21/25 09:11 Pulse Ox 94 03/21/25 09:11 O2 Del Method Nasal Cannula 03/21/25 09:11 O2 Flow Rate 0.5 03/21/25 09:11 Oxygen Flow Rate 4 03/17/25 13:36 BMI result Body Mass Index 32.9 Const: General: no acute distress, alert and awake Nutritional Appearance: obese Eyes: Sclerae: sclerae normal EOM: EOMs intact bilaterally Neck: Neck: Yes no lymphadenopathy, Yes trachea midline and Yes supple Resp: Effort & Inspection: normal respiratory effort and no respiratory distress Auscultation: clear to auscultation bilaterally Cardio: Rate: regular rate Rhythm: regular rhythm Heart sounds: no gallops, no murmurs and no rubs GI: Palpation (GI): Soft to palpation and Other GI palpation findings present ( Nontender) Auscultation: normal bowel sounds Extrem: General: No clubbing, No cyanosis and Yes edema (Trace bilateral) Objective Data Active Medications Acetaminophen (Acetaminophen 325 Mg Tablet) 650 mg PO Q6H PRN PRN Reason: Pain, Mild 1-3,fever,headache Last Admin: 03/21/25 08:25 Dose: 650 mg Documented By: CORI Albuterol/Ipratropium (Albuterol/Iprat 2.5/0.5mg 3 Ml Ampul.Neb) 3 ml INHALE Q4H PRN PRN Reason: Shortness of Breath/Wheezing Azathioprine (Azathioprine 50 Mg Tablet) 100 mg PO DAILY [facility] Last Admin: 03/21/25 08:17 Dose: 100 mg Documented By: CORI Calcium Carbonate (Calcium Carbonate 750 Mg Tab.Chew) 750 mg PO Q4H PRN PRN Reason: Heartburn Carvedilol (Carvedilol 3.125 Mg Tablet) 3.125 mg PO BID [facility]; Protocol Last Admin: 03/21/25 08:22 Dose: 3.125 mg Documented By: CORI Ceftriaxone Sodium (Ceftriaxone Sodium 1 Gm Vial) 1 gm IVPUSH Q24H [facility] Last Admin: 03/20/25 14:52 Dose: 1 gm Documented By: CORI Cyanocobalamin (Cyanocobalamin (Vitamin B-12) 1,000 Mcg Tablet) 1,000 mcg PO DAILY [facility] Last Admin: 03/21/25 08:24 Dose: 1,000 mcg Documented By: CORI Docusate Sodium (Docusate Sodium 100 Mg Capsule) 100 mg PO DAILY PRN PRN Reason: Constipation Doxycycline Monohydrate (Doxycycline Monohydrate 100 Mg Capsule) 100 mg PO BID [facility] Last Admin: 03/21/25 08:24 Dose: 100 mg Documented By: CORI Escitalopram Oxalate (Escitalopram Oxalate 10 Mg Tablet) 10 mg PO DAILY [facility] Last Admin: 03/21/25 08:24 Dose: 10 mg Documented By: CORI Furosemide (Furosemide 40 Mg Tablet) 40 mg PO DAILY [facility]; Protocol Last Admin: 03/21/25 08:24 Dose: 40 mg Documented By: CORI Guaifenesin/Dextromethorphan (Guaifenesin Dm 600/30 1 Tab Tab.Er.12h) 1 tab PO BID PRN PRN Reason: Cough Last Admin: 03/21/25 08:17 Dose: 1 tab Documented By: CORI Levothyroxine Sodium (Levothyroxine Sodium 175 Mcg Tablet) 175 mcg PO DAILY@0600 [facility] Last Admin: 03/21/25 05:50 Dose: 175 mcg Documented By: JOSE LUIS Magnesium Hydroxide (Milk Of Magnesia 30 Ml Oral.Susp) 30 ml PO DAILY PRN PRN Reason: Constipation Melatonin (Melatonin 3 Mg Tablet) 6 mg PO BEDTIME PRN PRN Reason: Insomnia Methylprednisolone Sodium Succinate (Methylprednisolone Sod Succ 40 Mg/Ml Vial) 40 mg IVPUSH BID [facility] Last Admin: 03/21/25 08:33 Dose: 40 mg Documented By: CORI Nystatin (Nystatin Cream 15 Gm Tube) 1 appl TOPICAL BID [facility]; Protocol Last Admin: 03/21/25 10:21 Dose: 1 appl Documented By: CORI Omeprazole (Omeprazole 20 Mg Capsule.) 20 mg PO DAILY@0630 [facility] Last Admin: 03/21/25 05:50 Dose: 20 mg Documented By: JOSE LUIS Ondansetron HCl (Ondansetron Hcl 4 Mg/2 Ml Vial) 4 mg IVPUSH Q8H PRN PRN Reason: Nausea and Vomiting Oxycodone HCl (Oxycodone Hcl Immed Release 5 Mg Tablet) 5 mg PO Q6H PRN PRN Reason: Pain, Severe (Pain Scale 7-10) Last Admin: 03/19/25 10:34 Dose: 5 mg Documented By: JOSIAH Polyethylene Glycol (Polyethylene Glycol 3350 17 Gm Powd.Pack) 17 gm PO DAILY PRN PRN Reason: Constipation Senna (Sennosides 8.6 Mg Tablet) 17.2 mg PO BEDTIME [facility] Last Admin: 03/20/25 20:56 Dose: 17.2 mg Documented By: JOSE LUIS Sodium Chloride (0.9 % Sodium Chloride Flush 3 Ml Syringe) 3 ml IVFLUSH QSHIFT [facility] Last Admin: 03/21/25 08:33 Dose: 3 ml Documented By: CORI Valsartan (Valsartan 160 Mg Tablet) 160 mg PO DAILY [facility] Last Admin: 03/21/25 08:24 Dose: 160 mg Documented By: CORI Verapamil HCl (Verapamil Hcl Sr 120 Mg Tablet.Er) 120 mg PO DAILY [facility]; Protocol Last Admin: 03/21/25 08:25 Dose: 120 mg Documented By: CORI Vitamin D (Cholecalciferol (Vitamin D3) 25 Mcg Tablet) 50 mcg PO DAILY [facility] Last Admin: 03/21/25 08:17 Dose: 50 mcg Documented By: CORI Warfarin Sodium (Warfarin Sodium 1 Mg Tablet) 1 mg PO DAILY@1800 [facility] Last Admin: 03/20/25 18:11 Dose: Not Given Documented By: CORI Non-Admin Reason: Physician Held Med Labs 03/21/25 05:54 03/21/25 05:54 Labs: Laboratory Results - last 24 hr 03/21/25 05:54 MCV 92.5 MCH 29.3 MCHC 31.7 RDW 19.8 H Plt Count 290 MPV 9.7 Absolute Nucleated RBC 0.020 H Nucleated RBC % (auto) 0.3 H PT 31.6 H INR 2.8 H Anion Gap 13 Estim Creat Clear Calc 35.8 Estimated GFR 40 Random Glucose 137 H Calcium 8.3 L Assessment and Plan (1) Paroxysmal atrial fibrillation: Status: Acute (2) Acute hypoxic respiratory failure: Status: Acute Plan 89F PMH ?paroxysmal AFib on coumadin, PVD, DVT, HTN, hypothyroidism, bullous pemphigoid, chronic normocytic anemia, and hx of spinal tumor excision 20 years ago presented 03/17/25 with failure to thrive, poor appetite, congestion, heel and buttock ulcer, acute hepatitis. Acute hypoxic respiratory failure, xray showing interstitial markings, ? PNA, has no fever and normal WBC, BNP within baseline continue Ceftriaxone and and doxy for possible PNA. There is concern of amio toxicity involving liver and lungs continue corticosteroid CT chest 03/18:1. There are scattered reticular opacities most significantly in the right upper lobe and bilateral lung bases likely chronic. There is no evidence of honeycombing. 2. There is some mosaic attenuation most suggestive of small airways disease. 3. There is some peribronchial consolidation at both lung bases suggestive of pneumonia. Elevated LFTs, which is new, again concern for amio toxicity stopped amio, cotninue coreg US of liver show fatty liver Poor appetite/moderate protein calorie malnutrition, likely related to amio toxicity supportive care Feet ulcer, buttock ulcer, don't appear acutely infected and xray do not suggest osteo wound care appreciated pressure ulcer preventive measure, frequent turning, local wound care Paroxysm Atrial fibrillation Stopped amio continue coreg and coumadin Mood disorder lexapro Chronc anemia anemia h/h at baseline chronic pain on gabapentin oxycodone Hypothyroidism Continue Synthroid bullous pemphigoid imuran chronic constipation bowel regime DVT prophylaxis coumadin DNR/DNI Will likely need placement at md Quality Stroke Does the patient have a stroke diagnosis?: No VTE Prior VTE?: No VTE Risk Level:: Medical - moderate - high VTE Device Contraindication: N/A - Device Ordered VTE Drug Contraindication: N/A - Med Ordered
--- NOTE | 2025-03-21 12:18 | P.CDIM_ITS ---
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 Please review below and update the documentation accordingly. 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 Durafiber for moisture management. Progress notes: Feet ulcer, don't appear acutely infected. frequent turning, local wound care. Based on the above, could you please provide further information regarding the ulcer/wound/injury for this admission: Pressure injury bilateral heels, Stage 4 possible, probable, suspected, resolved, etc. Other specified Other (explain) Clinically unable to determine (explain) Thank you, Carrol Vogel, CCS, CDIS Use of terms such as suspected, likely, concern for, or probable (associated with a specific diagnosi s that is being evaluated, monitored, or treated as if it exists) are acceptable and can be coded in the inpatient se tting, when documented at the time of discharge. Please use your independent medical judgment in providing your response. THIS QUERY IS PART OF THE PERMANENT MEDICAL RECORD
--- NOTE | 2025-03-21 12:23 | P.CDIM_ITS ---
PROVIDER RESPONSE TEXT: To clarify, the appropriate diagnosis supported by the clinical indicators: Pressure injury right Ischium unstageable: possible QUERY TEXT: PHYSICIAN'S DOCUMENTATION REQUEST Date of Query: 03/21/2025 12:13 PM EDT Patient Name: Niru Baird Admit Date: 03/17/2025 Dear Ankit Vigil MD, A review of the medical record indicates additional documentation may be needed. Please review below and update the documentation accordingly. Clinical Indicators: Wound care consultation notes 03/20/25 - Unstageable pressure injury right ischium, Present on Admissio n. Adherent yellow slough. Durafiber AG. Based on the above, could you please provide further information regarding the ulcer/wound/injury: Pressure injury right Ischium unstageable possible, resolved, suspected, cannot rule out etc. Other specified Other (explain) Clinically unable to determine (explain) Thank you, Carrol Vogel, CCS, CDIS Use of terms such as suspected, likely, concern for, or probable (associated with a specific diagnosi s that is being evaluated, monitored, or treated as if it exists) are acceptable and can be coded in the inpatient se tting, when documented at the time of discharge. Please use your independent medical judgment in providing your response. THIS QUERY IS PART OF THE PERMANENT MEDICAL RECORD
[2025-03-21] MEDS: cefTRIAXone sodium 1 GM VIAL IVPUSH (14:52)
[2025-03-21] MEDS: Mag&Al/Sim/Diphenhyd/Lidocaine 10 ML ORAL.SUSP PO ×2 (14:56→19:45)
[2025-03-21] MEDS: Sennosides 8.6 MG TABLET 17.2 MG PO (19:44)
[2025-03-22] VITALS (9 sets, daily range): BP systolic 140–196; BP diastolic 68–88; PULSE 62–66; RESP 12–18; TEMP 36.1–37.1; O2SAT 92–93
[2025-03-22] MEDS: 0.9 % Sodium Chloride Flush 3 ML SYRINGE IVFLUSH ×4 (00:09→20:30)
[2025-03-22 06:04] LABS: Hematocrit 29.7 % (37.0-47.0); Hemoglobin 9.6 g/dl (12.0-16.0); Mean Corpuscular HGB Conc 32.3 g/dl (31.0-35.0); Mean Corpuscular Hemoglobin 29.7 pg (27.0-33.0); Mean Platelet Volume 9.4 fL (9.4-12.3); NRBC Pct Auto 0.3 /100WBC (0.0-0.2); Platelet Count 284 X10*3/uL (160-400); Red Blood Count 3.23 X10*6/uL (4.20-5.50); Red Cell Distribution Width 19.4 % (11.0-16.0); White Blood Count 6.8 X10*3/uL (4.8-10.8)
[2025-03-22 06:16] LABS: Prothrombin Time 23.3 SEC (10.9-12.4)
[2025-03-22] MEDS: guaiFENesin DM 600/30 1 TAB TAB.ER.12H PO (06:17)
[2025-03-22] MEDS: Levothyroxine Sodium 175 MCG TABLET PO (06:17)
[2025-03-22] MEDS: Omeprazole 20 MG CAPSULE.DR PO (06:17)
[2025-03-22 06:24] LABS: Anion Gap 12 (12-20); Blood Urea Nitrogen 35 mg/dL (9-16); Calcium 8.4 mg/dL (8.4-10.2); Carbon Dioxide 34 mmol/L (22-29); Chloride 93 mmol/L (96-108); Creatinine Clr Calc Pharmacy 35.5; Estimated Glomerular Filt Rate 40; Glucose Random 138 mg/dL (60-115); Potassium 3.9 mmol/L (3.3-5.1); Sodium 135 mmol/L (135-145)
[2025-03-22] MEDS: methylPREDNISolone Sod Succ 40 MG/ML VIAL IVPUSH ×2 (08:39→20:30)
[2025-03-22] MEDS: Furosemide 40 MG TABLET PO (08:39)
[2025-03-22] MEDS: Doxycycline Monohydrate 100 MG CAPSULE PO ×2 (08:39→20:30)
[2025-03-22] MEDS: Cholecalciferol (Vitamin D3) 25 MCG TABLET 50 MCG PO (08:39)
[2025-03-22] MEDS: Valsartan 160 MG TABLET PO (08:40)
[2025-03-22] MEDS: carvediloL 3.125 MG TABLET PO ×2 (08:40→20:30)
[2025-03-22] MEDS: Cyanocobalamin (Vitamin B-12) 1,000 MCG TABLET 1000 MCG PO (08:40)
[2025-03-22] MEDS: Escitalopram Oxalate 10 MG TABLET PO (08:41)
[2025-03-22] MEDS: azaTHIOprine 50 MG TABLET 100 MG PO (08:41)
[2025-03-22] MEDS: VerapamiL HCL SR 120 MG TABLET.ER PO (08:42)
--- NOTE | 2025-03-22 08:54 | HO.PM.IMPN ---
Subjective Subjective Date of Service: 03/22/25 Interval History: no new complaints Physical Exam Vital Signs: Vital Signs: Last Vital Signs Temp 98.7 F 03/22/25 07:11 Pulse 63 03/22/25 08:42 Resp 16 03/22/25 07:11 BP 190/86 H 03/22/25 08:42 Pulse Ox 92 03/22/25 07:11 O2 Del Method Room Air 03/22/25 07:11 O2 Flow Rate 0.5 03/21/25 09:11 Oxygen Flow Rate 4 03/17/25 13:36 BMI result Body Mass Index 32.9 Const: General: no acute distress, alert and awake Nutritional Appearance: obese Eyes: Sclerae: sclerae normal EOM: EOMs intact bilaterally Neck: Neck: Yes no lymphadenopathy, Yes trachea midline and Yes supple Resp: Effort & Inspection: normal respiratory effort and no respiratory distress Auscultation: clear to auscultation bilaterally Cardio: Rate: regular rate Rhythm: regular rhythm Heart sounds: no gallops, no murmurs and no rubs GI: Palpation (GI): Soft to palpation and Other GI palpation findings present ( Nontender) Auscultation: normal bowel sounds Extrem: General: No clubbing, No cyanosis and Yes edema (Trace bilateral) Objective Data Active Medications Acetaminophen (Acetaminophen 325 Mg Tablet) 650 mg PO Q6H PRN PRN Reason: Pain, Mild 1-3,fever,headache Last Admin: 03/21/25 19:45 Dose: 650 mg Documented By: CORI Albuterol/Ipratropium (Albuterol/Iprat 2.5/0.5mg 3 Ml Ampul.Neb) 3 ml INHALE Q4H PRN PRN Reason: Shortness of Breath/Wheezing Azathioprine (Azathioprine 50 Mg Tablet) 100 mg PO DAILY [facility] Last Admin: 03/22/25 08:41 Dose: 100 mg Documented By: ALEX Calcium Carbonate (Calcium Carbonate 750 Mg Tab.Chew) 750 mg PO Q4H PRN PRN Reason: Heartburn Carvedilol (Carvedilol 3.125 Mg Tablet) 3.125 mg PO BID [facility]; Protocol Last Admin: 03/22/25 08:40 Dose: 3.125 mg Documented By: ALEX Ceftriaxone Sodium (Ceftriaxone Sodium 1 Gm Vial) 1 gm IVPUSH Q24H [facility] Last Admin: 03/21/25 14:52 Dose: 1 gm Documented By: CORI Cyanocobalamin (Cyanocobalamin (Vitamin B-12) 1,000 Mcg Tablet) 1,000 mcg PO DAILY [facility] Last Admin: 03/22/25 08:40 Dose: 1,000 mcg Documented By: ALEX Docusate Sodium (Docusate Sodium 100 Mg Capsule) 100 mg PO DAILY PRN PRN Reason: Constipation Doxycycline Monohydrate (Doxycycline Monohydrate 100 Mg Capsule) 100 mg PO BID [facility] Last Admin: 03/22/25 08:39 Dose: 100 mg Documented By: ALEX Escitalopram Oxalate (Escitalopram Oxalate 10 Mg Tablet) 10 mg PO DAILY [facility] Last Admin: 03/22/25 08:41 Dose: 10 mg Documented By: ALEX Furosemide (Furosemide 40 Mg Tablet) 40 mg PO DAILY [facility]; Protocol Last Admin: 03/22/25 08:39 Dose: 40 mg Documented By: ALEX Guaifenesin/Dextromethorphan (Guaifenesin Dm 600/30 1 Tab Tab.Er.12h) 1 tab PO BID PRN PRN Reason: Cough Last Admin: 03/22/25 06:17 Dose: 1 tab Documented By: RISHI Levothyroxine Sodium (Levothyroxine Sodium 175 Mcg Tablet) 175 mcg PO DAILY@0600 [facility] Last Admin: 03/22/25 06:17 Dose: 175 mcg Documented By: RISHI Lidocaine/Diphenhydr/Alum/Mg/Simeth (Mag&Al/Sim/Diphenhyd/Lidocaine 10 Ml Oral.Susp) 10 ml PO Q4H PRN; Protocol PRN Reason: mouth pain Last Admin: 03/21/25 19:45 Dose: 10 ml Documented By: CORI Magnesium Hydroxide (Milk Of Magnesia 30 Ml Oral.Susp) 30 ml PO DAILY PRN PRN Reason: Constipation Melatonin (Melatonin 3 Mg Tablet) 6 mg PO BEDTIME PRN PRN Reason: Insomnia Methylprednisolone Sodium Succinate (Methylprednisolone Sod Succ 40 Mg/Ml Vial) 40 mg IVPUSH BID [facility] Last Admin: 03/22/25 08:39 Dose: 40 mg Documented By: ALEX Nystatin (Nystatin Cream 15 Gm Tube) 1 appl TOPICAL BID [facility]; Protocol Last Admin: 03/21/25 19:56 Dose: 1 appl Documented By: CORI Omeprazole (Omeprazole 20 Mg Capsule.Dr) 20 mg PO DAILY@0630 [facility] Last Admin: 03/22/25 06:17 Dose: 20 mg Documented By: RISHI Ondansetron HCl (Ondansetron Hcl 4 Mg/2 Ml Vial) 4 mg IVPUSH Q8H PRN PRN Reason: Nausea and Vomiting Oxycodone HCl (Oxycodone Hcl Immed Release 5 Mg Tablet) 5 mg PO Q6H PRN PRN Reason: Pain, Severe (Pain Scale 7-10) Last Admin: 03/19/25 10:34 Dose: 5 mg Documented By: JOSIAH Polyethylene Glycol (Polyethylene Glycol 3350 17 Gm Powd.Pack) 17 gm PO DAILY PRN PRN Reason: Constipation Senna (Sennosides 8.6 Mg Tablet) 17.2 mg PO BEDTIME [facility] Last Admin: 03/21/25 19:44 Dose: 17.2 mg Documented By: CORI Sodium Chloride (0.9 % Sodium Chloride Flush 3 Ml Syringe) 3 ml IVFLUSH QSHIFT [facility] Last Admin: 03/22/25 08:44 Dose: 3 ml Documented By: ALEX Valsartan (Valsartan 160 Mg Tablet) 160 mg PO DAILY [facility] Last Admin: 03/22/25 08:40 Dose: 160 mg Documented By: ALEX Verapamil HCl (Verapamil Hcl Sr 120 Mg Tablet.Er) 120 mg PO DAILY [facility]; Protocol Last Admin: 03/22/25 08:42 Dose: 120 mg Documented By: ALEX Vitamin D (Cholecalciferol (Vitamin D3) 25 Mcg Tablet) 50 mcg PO DAILY [facility] Last Admin: 03/22/25 08:39 Dose: 50 mcg Documented By: ALEX Warfarin Sodium (Warfarin Sodium 1 Mg Tablet) 1 mg PO DAILY@1800 [facility] Last Admin: 03/21/25 17:29 Dose: Not Given Documented By: CORI Non-Admin Reason: Physician Held Med Labs 03/22/25 05:49 03/22/25 05:49 Labs: Laboratory Results - last 24 hr 03/22/25 05:49 MCV 92.0 MCH 29.7 MCHC 32.3 RDW 19.4 H Plt Count 284 MPV 9.4 Absolute Nucleated RBC 0.020 H Nucleated RBC % (auto) 0.3 H PT 23.3 H D INR 2.0 H Anion Gap 12 Estim Creat Clear Calc 35.5 Estimated GFR 40 Random Glucose 138 H Calcium 8.4 Assessment and Plan (1) Paroxysmal atrial fibrillation: Status: Acute (2) Acute hypoxic respiratory failure: Status: Acute Plan 89F PMH ?paroxysmal AFib on coumadin, PVD, DVT, HTN, hypothyroidism, bullous pemphigoid, chronic normocytic anemia, and hx of spinal tumor excision 20 years ago presented 03/17/25 with failure to thrive, poor appetite, congestion, heel and buttock ulcer, acute hepatitis. Acute hypoxic respiratory failure, xray showing interstitial markings, ? PNA, has no fever and normal WBC, BNP within baseline continue Ceftriaxone and and doxy for possible PNA. There is concern of amio toxicity involving liver and lungs continue corticosteroid CT chest 03/18:1. There are scattered reticular opacities most significantly in the right upper lobe and bilateral lung bases likely chronic. There is no evidence of honeycombing. 2. There is some mosaic attenuation most suggestive of small airways disease. 3. There is some peribronchial consolidation at both lung bases suggestive of pneumonia. Elevated LFTs, which is new, again concern for amio toxicity stopped amio, cotninue coreg US of liver show fatty liver Poor appetite/moderate protein calorie malnutrition, likely related to amio toxicity supportive care Feet ulcer, buttock ulcer, don't appear acutely infected and xray do not suggest osteo wound care appreciated pressure ulcer preventive measure, frequent turning, local wound care Paroxysm Atrial fibrillation Stopped amio continue coreg and coumadin Mood disorder lexapro Chronc anemia anemia h/h at baseline chronic pain on gabapentin oxycodone Hypothyroidism Continue Synthroid bullous pemphigoid imuran chronic constipation bowel regime DVT prophylaxis coumadin DNR/DNI Will likely need placement at dc Quality Stroke Does the patient have a stroke diagnosis?: No VTE Prior VTE?: No VTE Risk Level:: Medical - moderate - high VTE Device Contraindication: N/A - Device Ordered VTE Drug Contraindication: N/A - Med Ordered
--- NOTE | 2025-03-22 08:57 | P.CDIM_ITS ---
PROVIDER RESPONSE TEXT: To clarify, the appropriate diagnosis supported by the clinical indicators: Diastolic: acute on chronic QUERY TEXT: PHYSICIAN'S DOCUMENTATION REQUEST Date of Query: 03/22/2025 08:15 AM EDT Patient Name: Niru Baird Admit Date: 03/17/2025 Dear Ankit Vigil MD, A review of the medical record indicates additional documentation may be needed. Please review below and update the documentation accordingly. Clinical Indicators: Ed 03/17/25 - Patient presents to Ed for evaluation, over past 5 days feeling increasingly more short o f breath. History of Congestive heart failure evidently today she decided to take double dose of her Lasix; 40 mg. Admits to orthopnea. BNP 694 which is her baseline. Home medication: 40 mg PO Daily. History of Echo performed. Please provide further specificity regarding the most likely type and acuity of CHF: Systolic Please specify if Acute, Chronic, or Acute on chronic, or Unable to determine Diastolic Please specify if Acute, Chronic, or Acute on chronic, or Unable to determine Combined Systolic/Diastolic Please specify if Acute, Chronic, or Acute on chronic, or Unable to determine CHF ruled out Other (explain) Clinically unable to determine (explain) Thank you, Carrol Vogel, CCS, CDIS Use of terms such as suspected, likely, concern for, or probable (associated with a specific diagnosi s that is being evaluated, monitored, or treated as if it exists) are acceptable and can be coded in the inpatient se tting, when documented at the time of discharge. Please use your independent medical judgment in providing your response. THIS QUERY IS PART OF THE PERMANENT MEDICAL RECORD
[2025-03-22] MEDS: Nystatin Cream 15 GM TUBE 1 APPL TOPICAL ×2 (09:08→20:34)
--- NOTE | 2025-03-22 11:16 | MHC.CLN ---
F/U DIET=REGULAR. REPORTS THAT ATE POORLY X 5 DAYS PRIOR TO ADM. MOST RECENT PO 50-100%. SKIN WITH MULTIPLE PRESSURE INJURIES. SEE WOUND RN NOTE. ENSURE MAX BID TO PROMOTE WOUND HEALING. SUPPLEMENT PROVIDES 300 KCALS, 60 G PROTEIN. CONTINUE REGULAR DIET WITH HIGH PROTEIN SUPPLEMENT. FOLLOW FOR PO INTAKE AND SKIN INTEGRITY.
[2025-03-22] MEDS: oxyCODONE HCl Immed Release 5 MG TABLET PO (14:10)
[2025-03-22] MEDS: cefTRIAXone sodium 1 GM VIAL IVPUSH (14:18)
[2025-03-22] MEDS: Warfarin Sodium 1 MG TABLET PO (17:42)
[2025-03-22] MEDS: Mag&Al/Sim/Diphenhyd/Lidocaine 10 ML ORAL.SUSP PO (18:13)
[2025-03-22] MEDS: Sennosides 8.6 MG TABLET 17.2 MG PO (20:30)
[2025-03-23 03:06] VITALS: BP 168/71; PULSE 65; RESP 20; TEMP 36.3; O2SAT 95
[2025-03-23] MEDS: Omeprazole 20 MG CAPSULE.DR PO (05:52)
[2025-03-23] MEDS: Levothyroxine Sodium 175 MCG TABLET PO (05:52)
[2025-03-23 06:49] LABS: INTERNATIONAL NORM RATIO 1.3 (0.9-1.1); Prothrombin Time 14.8 SEC (10.9-12.4)
[2025-03-23 07:02] LABS: Anion Gap 13 (12-20); Blood Urea Nitrogen 37 mg/dL (9-16); Calcium 8.2 mg/dL (8.4-10.2); Carbon Dioxide 34 mmol/L (22-29); Chloride 93 mmol/L (96-108); Creatinine Clr Calc Pharmacy 41.4; Estimated Glomerular Filt Rate 47; Glucose Random 149 mg/dL (60-115); Magnesium 1.8 mg/dL (1.6-2.6); Potassium 3.9 mmol/L (3.3-5.1); Sodium 136 mmol/L (135-145)
[2025-03-23 07:06] LABS: Hematocrit 29.5 % (37.0-47.0); Hemoglobin 9.4 g/dl (12.0-16.0); Mean Corpuscular HGB Conc 31.9 g/dl (31.0-35.0); Mean Corpuscular Hemoglobin 29.5 pg (27.0-33.0); Mean Corpuscular Volume 92.5 fL (80.0-98.0); Mean Platelet Volume 9.5 fL (9.4-12.3); NRBC Pct Auto 0.3 /100WBC (0.0-0.2); Platelet Count 249 X10*3/uL (160-400); Red Blood Count 3.19 X10*6/uL (4.20-5.50); Red Cell Distribution Width 19.6 % (11.0-16.0); White Blood Count 7.1 X10*3/uL (4.8-10.8)
[2025-03-23 07:08] LABS: B Type Natriuretic Peptide 807 pg/mL (<100)
[2025-03-23 07:29] VITALS: BP 142/63; PULSE 63; RESP 16; TEMP 36.2; O2SAT 100
[2025-03-23] MEDS: methylPREDNISolone Sod Succ 40 MG/ML VIAL IVPUSH (08:03)
[2025-03-23] MEDS: Valsartan 160 MG TABLET PO (08:03)
[2025-03-23] MEDS: Cyanocobalamin (Vitamin B-12) 1,000 MCG TABLET 1000 MCG PO (08:04)
[2025-03-23] MEDS: Escitalopram Oxalate 10 MG TABLET PO (08:04)
[2025-03-23] MEDS: Furosemide 40 MG TABLET PO (08:04)
[2025-03-23] MEDS: carvediloL 3.125 MG TABLET PO ×2 (08:04→20:02)
[2025-03-23] MEDS: Cholecalciferol (Vitamin D3) 25 MCG TABLET 50 MCG PO (08:04)
[2025-03-23] MEDS: VerapamiL HCL SR 120 MG TABLET.ER PO (08:04)
[2025-03-23] MEDS: Doxycycline Monohydrate 100 MG CAPSULE PO ×2 (08:05→20:02)
[2025-03-23] MEDS: azaTHIOprine 50 MG TABLET 100 MG PO (08:05)
[2025-03-23] MEDS: 0.9 % Sodium Chloride Flush 3 ML SYRINGE IVFLUSH ×3 (08:07→20:02)
[2025-03-23] MEDS: Nystatin Cream 15 GM TUBE 1 APPL TOPICAL ×2 (08:11→20:05)
[2025-03-23] MEDS: predniSONE 20 MG TABLET 40 MG PO (09:15)
--- NOTE | 2025-03-23 10:06 | P.PNIM_ITS ---
Subjective Subjective Date of Service: 03/23/25 Interval History: feeling better Physical Exam 2 Vital Signs: Vital Signs: Last Vital Signs Temp 97.2 F 03/23/25 07:29 Pulse 63 03/23/25 07:29 Resp 16 03/23/25 07:29 BP 142/63 H 03/23/25 07:29 Pulse Ox 100 03/23/25 07:29 O2 Del Method Nasal Cannula 03/23/25 07:29 O2 Flow Rate 2 03/23/25 07:29 Oxygen Flow Rate 4 03/17/25 13:36 BMI result Body Mass Index 32.9 Const: General: no acute distress, alert and awake Nutritional Appearance: obese Eyes: Sclerae: sclerae normal EOM: EOMs intact bilaterally Neck: Neck: Yes no lymphadenopathy, Yes trachea midline and Yes supple Resp: Effort & Inspection: normal respiratory effort and no respiratory distress Auscultation: clear to auscultation bilaterally Cardio: Rate: regular rate Rhythm: regular rhythm Heart sounds: no gallops, no murmurs and no rubs GI: Palpation (GI): Soft to palpation and Other GI palpation findings present ( Nontender) Auscultation: normal bowel sounds Extrem: General: No clubbing, No cyanosis and Yes edema (Trace bilateral) Objective Data Active Medications Acetaminophen (Acetaminophen 325 Mg Tablet) 650 mg PO Q6H PRN PRN Reason: Pain, Mild 1-3,fever,headache Last Admin: 03/21/25 19:45 Dose: 650 mg Documented By: CORI Albuterol/Ipratropium (Albuterol/Iprat 2.5/0.5mg 3 Ml Ampul.Neb) 3 ml INHALE Q4H PRN PRN Reason: Shortness of Breath/Wheezing Azathioprine (Azathioprine 50 Mg Tablet) 100 mg PO DAILY [facility] Last Admin: 03/23/25 08:05 Dose: 100 mg Documented By: JOSIAH Calcium Carbonate (Calcium Carbonate 750 Mg Tab.Chew) 750 mg PO Q4H PRN PRN Reason: Heartburn Carvedilol (Carvedilol 3.125 Mg Tablet) 3.125 mg PO BID [facility]; Protocol Last Admin: 03/23/25 08:04 Dose: 3.125 mg Documented By: JOSIAH Ceftriaxone Sodium (Ceftriaxone Sodium 1 Gm Vial) 1 gm IVPUSH Q24H COUNT [facility] Last Admin: 03/22/25 14:18 Dose: 1 gm Documented By: JOSIAH Cyanocobalamin (Cyanocobalamin (Vitamin B-12) 1,000 Mcg Tablet) 1,000 mcg PO DAILY COUNT [facility] Last Admin: 03/23/25 08:04 Dose: 1,000 mcg Documented By: JOSIAH Docusate Sodium (Docusate Sodium 100 Mg Capsule) 100 mg PO DAILY PRN PRN Reason: Constipation Doxycycline Monohydrate (Doxycycline Monohydrate 100 Mg Capsule) 100 mg PO BID [facility] Last Admin: 03/23/25 08:05 Dose: 100 mg Documented By: JOSIAH Escitalopram Oxalate (Escitalopram Oxalate 10 Mg Tablet) 10 mg PO DAILY [facility] Last Admin: 03/23/25 08:04 Dose: 10 mg Documented By: JOSIAH Furosemide (Furosemide 40 Mg Tablet) 40 mg PO DAILY [facility]; Protocol Last Admin: 03/23/25 08:04 Dose: 40 mg Documented By: JOSIAH Guaifenesin/Dextromethorphan (Guaifenesin Dm 600/30 1 Tab Tab.Er.12h) 1 tab PO BID PRN PRN Reason: Cough Last Admin: 03/22/25 06:17 Dose: 1 tab Documented By: RISHI Levothyroxine Sodium (Levothyroxine Sodium 175 Mcg Tablet) 175 mcg PO DAILY@0600 [facility] Last Admin: 03/23/25 05:52 Dose: 175 mcg Documented By: JOSE Lidocaine/Diphenhydr/Alum/Mg/Simeth (Mag&Al/Sim/Diphenhyd/Lidocaine 10 Ml Oral.Susp) 10 ml PO Q4H PRN; Protocol PRN Reason: mouth pain Last Admin: 03/22/25 18:13 Dose: 10 ml Documented By: JOSIAH Magnesium Hydroxide (Milk Of Magnesia 30 Ml Oral.Susp) 30 ml PO DAILY PRN PRN Reason: Constipation Melatonin (Melatonin 3 Mg Tablet) 6 mg PO BEDTIME PRN PRN Reason: Insomnia Nystatin (Nystatin Cream 15 Gm Tube) 1 appl TOPICAL BID [facility]; Protocol Last Admin: 03/23/25 08:11 Dose: 1 appl Documented By: JOSIAH Omeprazole (Omeprazole 20 Mg Capsule.) 20 mg PO DAILY@0630 [facility] Last Admin: 03/23/25 05:52 Dose: 20 mg Documented By: JOSE Ondansetron HCl (Ondansetron Hcl 4 Mg/2 Ml Vial) 4 mg IVPUSH Q8H PRN PRN Reason: Nausea and Vomiting Oxycodone HCl (Oxycodone Hcl Immed Release 5 Mg Tablet) 5 mg PO Q6H PRN PRN Reason: Pain, Severe (Pain Scale 7-10) Last Admin: 03/22/25 14:10 Dose: 5 mg Documented By: JOSIAH Polyethylene Glycol (Polyethylene Glycol 3350 17 Gm Powd.Pack) 17 gm PO DAILY PRN PRN Reason: Constipation Prednisone (Prednisone 20 Mg Tablet) 40 mg PO DAILY [facility] Last Admin: 03/23/25 09:15 Dose: 40 mg Documented By: JOSIAH Senna (Sennosides 8.6 Mg Tablet) 17.2 mg PO BEDTIME [facility] Last Admin: 03/22/25 20:30 Dose: 17.2 mg Documented By: JOSE Sodium Chloride (0.9 % Sodium Chloride Flush 3 Ml Syringe) 3 ml IVFLUSH QSHIFT COUNT [facility] Last Admin: 03/23/25 08:07 Dose: 3 ml Documented By: JOSIAH Valsartan (Valsartan 160 Mg Tablet) 160 mg PO DAILY [facility] Last Admin: 03/23/25 08:03 Dose: 160 mg Documented By: JOSIAH Verapamil HCl (Verapamil Hcl Sr 120 Mg Tablet.Er) 120 mg PO DAILY [facility]; Protocol Last Admin: 03/23/25 08:04 Dose: 120 mg Documented By: JOSIAH Vitamin D (Cholecalciferol (Vitamin D3) 25 Mcg Tablet) 50 mcg PO DAILY [facility] Last Admin: 03/23/25 08:04 Dose: 50 mcg Documented By: JOSIAH Warfarin Sodium (Warfarin Sodium 1 Mg Tablet) 1 mg PO DAILY@1800 [facility] Last Admin: 03/22/25 17:42 Dose: 1 mg Documented By: JOSIAH Labs 03/23/25 06:07 03/23/25 06:07 Labs: Laboratory Results - last 24 hr 03/23/25 03/23/25 06:07 06:08 MCV 92.5 MCH 29.5 MCHC 31.9 RDW 19.6 H Plt Count 249 MPV 9.5 Absolute Nucleated RBC 0.020 H Nucleated RBC % (auto) 0.3 H PT 14.8 H D INR 1.3 H Anion Gap 13 Estim Creat Clear Calc 41.4 Estimated GFR 47 Random Glucose 149 H Calcium 8.2 L Magnesium 1.8 B-Natriuretic Peptide 807 H Microbiology Microbiology Results: Microbiology 03/17/25 14:16 Blood Culture - Final Blood - Venous No growth after 5 days. 03/17/25 14:16 Blood Culture - Final Blood - Venous No growth after 5 days. Assessment and Plan (1) Paroxysmal atrial fibrillation: Status: Acute (2) Acute hypoxic respiratory failure: Status: Acute Plan 89F PMH ?paroxysmal AFib on coumadin, PVD, DVT, HTN, hypothyroidism, bullous pemphigoid, chronic normocytic anemia, and hx of spinal tumor excision 20 years ago presented 03/17/25 with failure to thrive, poor appetite, congestion, heel and buttock ulcer, acute hepatitis. Acute hypoxic respiratory failure, xray showing interstitial markings, ? PNA, has no fever and normal WBC, BNP within baseline continue Ceftriaxone and and doxy for possible PNA. There is concern of amio toxicity involving liver and lungs continue corticosteroid CT chest 03/18:1. There are scattered reticular opacities most significantly in the right upper lobe and bilateral lung bases likely chronic. There is no evidence of honeycombing. 2. There is some mosaic attenuation most suggestive of small airways disease. 3. There is some peribronchial consolidation at both lung bases suggestive of pneumonia. Elevated LFTs, which is new, again concern for amio toxicity stopped amio, continue coreg US of liver show fatty liver Poor appetite/moderate protein calorie malnutrition, likely related to amio toxicity supportive care Feet ulcer, buttock ulcer, don't appear acutely infected and xray do not suggest osteo wound care appreciated pressure ulcer preventive measure, frequent turning, local wound care Paroxysm Atrial fibrillation Stopped amio continue coreg and coumadin Mood disorder lexapro Chronc anemia anemia h/h at baseline chronic pain on gabapentin oxycodone Hypothyroidism Continue Synthroid bullous pemphigoid imuran chronic constipation bowel regime DVT prophylaxis coumadin DNR/DNI reason for continued hospitalization:dispo planning, needs snf vs 24hr care Quality Stroke Does the patient have a stroke diagnosis?: No VTE Prior VTE?: No VTE Risk Level:: Medical - moderate - high VTE Device Contraindication: N/A - Device Ordered VTE Drug Contraindication: N/A - Med Ordered
[2025-03-23] MEDS: oxyCODONE HCl Immed Release 5 MG TABLET PO (12:38)
[2025-03-23] MEDS: cefTRIAXone sodium 1 GM VIAL IVPUSH (14:06)
[2025-03-23] MEDS: Mag&Al/Sim/Diphenhyd/Lidocaine 10 ML ORAL.SUSP PO ×2 (14:11→19:15)
[2025-03-23] MEDS: guaiFENesin DM 600/30 1 TAB TAB.ER.12H PO (14:11)
[2025-03-23 15:12] VITALS: BP 150/68; PULSE 66; RESP 18; TEMP 36.9; O2SAT 94
--- NOTE | 2025-03-23 15:26 | MHC.CM.PN ---
PT AWARE [facility] NOT [facility], SHE REQUESTED A REFERRAL TO [facility], THEY ARE ABLE TO TAKE PT TOMORROW MORNING AT 1100 BLS TRANSPORT BOOKED WITH [facility]
[2025-03-23] MEDS: Warfarin Sodium 1 MG TABLET PO (17:35)
[2025-03-23 19:37] VITALS: BP 152/60; PULSE 66; RESP 18; TEMP 36.8; O2SAT 92
[2025-03-23] MEDS: Sennosides 8.6 MG TABLET 17.2 MG PO (20:02)
[2025-03-23 22:15] VITALS: O2SAT 92
[2025-03-24 04:00] VITALS: BP 158/82; PULSE 62; RESP 20; TEMP 36.2; O2SAT 93
[2025-03-24] MEDS: Levothyroxine Sodium 175 MCG TABLET PO (05:57)
[2025-03-24] MEDS: Omeprazole 20 MG CAPSULE.DR PO (05:57)
[2025-03-24 06:33] LABS: INTERNATIONAL NORM RATIO 1.2 (0.9-1.1); Prothrombin Time 13.2 SEC (10.9-12.4)
[2025-03-24] MEDS: oxyCODONE HCl Immed Release 5 MG TABLET PO ×2 (07:11→10:23)
[2025-03-24] MEDS: Valsartan 160 MG TABLET PO (07:12)
[2025-03-24] MEDS: azaTHIOprine 50 MG TABLET 100 MG PO (07:12)
[2025-03-24] MEDS: 0.9 % Sodium Chloride Flush 3 ML SYRINGE IVFLUSH (07:12)
[2025-03-24] MEDS: Cholecalciferol (Vitamin D3) 25 MCG TABLET 50 MCG PO (07:12)
[2025-03-24] MEDS: Cyanocobalamin (Vitamin B-12) 1,000 MCG TABLET 1000 MCG PO (07:13)
[2025-03-24] MEDS: Furosemide 40 MG TABLET PO (07:13)
[2025-03-24] MEDS: VerapamiL HCL SR 120 MG TABLET.ER PO (07:13)
[2025-03-24] MEDS: Nystatin Cream 15 GM TUBE 1 APPL TOPICAL (07:13)
[2025-03-24] MEDS: Doxycycline Monohydrate 100 MG CAPSULE PO (07:13)
[2025-03-24] MEDS: carvediloL 3.125 MG TABLET PO (07:13)
[2025-03-24] MEDS: Escitalopram Oxalate 10 MG TABLET PO (07:13)
[2025-03-24] MEDS: predniSONE 20 MG TABLET 40 MG PO (07:13)
[2025-03-24 08:00] VITALS: BP 138/72; PULSE 77; RESP 18; TEMP 36.8; O2SAT 91
--- NOTE | 2025-03-24 09:10 | PM.DS ---
DS: Providers Provider Date of Service: 03/24/25 Date of admission: 03/17/25 16:54 Date of discharge: 03/24/25 Primary care physician: Kalina Colon MD Consults: 03/17/25 17:53 Consult to Wound Care Routine Reason for consultation: buttock, heel ulcers 03/17/25 17:54 Consult to Cardiology Stat Consulting Provider: [facility] Reason for consultation: amio toxicity, history of afib Has provider been notified: Yes 03/20/25 08:01 Consult to Pulmonology Routine Consulting Provider: [facility] Reason for consultation: Pneumonia, interstitial disease ? amio toxicity DS: Diagnosis Discharge Diagnosis (1) Paroxysmal atrial fibrillation: Status: Acute (2) Acute hypoxic respiratory failure: Status: Acute DS: Summary Hospital Course Hospital Course: from initial hpi: 89-year-old female with a PMH significant for?paroxysmal AFib on coumadin, PVD, DVT, HTN, hypothyroidism, bullous pemphigoid, chronic normocytic anemia, and hx of spinal tumor excision 20 years ago complicated by significant weakness, bedbound/[place] lift, was advised to come to ED by VNA do to patient having being doing poorly at home. She reports not eating for 5 days due to poor apetite, she has no abdominal pain but has nausea, she has been having congested cough and reportedly had an O2 sat of 88% on room air on arrival, CXR shows ncreased interstitial markings. Possible superimposed pneumonia at the left lung base. , WBC is normal, BNP is 694 which is within her baseline, AST and ALT are elevated whicn is new 407/342. She's also concern of buttock ulcer, and multiple heel ulcer. US of legs show no DVT, xray of ankle foot show no osteomylitis. She has been given IV ceftriaxone for possible PNA. Her O2 saturation has improved on oxygen. Patient is bedbound, has VNA overy other day. hospital course: Patient was admitted for acute hypoxic respiratory failure suspected to be due to amiodarone toxicity versus possible pneumonia. Was treated for pneumonia with course of ceftriaxone and doxycycline. For amiodarone toxicity amiodarone was discontinued and was treated with prednisone. Patient was eventually weaned off oxygen. Also noted to have transaminitis which was also attributed to amiodarone. For moderate protein calorie malnutrition increased p.o. intake was recommended. For foot ulcer on buttock ulcer was seen by wound care who recommended frequent turning and local care. For paroxysmal AFib amiodarone was discontinued and was continued on Coreg and Coumadin. For mood disorder was continued on Lexapro. For hypothyroidism continued on levothyroxine. 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 For history of DVT was continued on warfarin. [facility] Time Attestation Discharge Coordination Time (in mins): 32 Quality: Safe Use of Opioids Does Pt have an Active Cancer Diagnosis on the Problem List?: No Quality: Stroke Does the patient have a stroke diagnosis?: No Physical Exam Vital Signs: Vital Signs: Last Vital Signs Temp 98.3 F 03/24/25 08:00 Pulse 77 03/24/25 08:00 Resp 18 03/24/25 08:00 BP 138/72 03/24/25 08:00 Pulse Ox 91 L 03/24/25 08:00 O2 Del Method Room Air 03/24/25 08:00 O2 Flow Rate 2 03/23/25 07:29 Oxygen Flow Rate 4 03/17/25 13:36 BMI result Body Mass Index 32.9 Const: General: no acute distress, alert and awake Nutritional Appearance: obese Eyes: Sclerae: sclerae normal EOM: EOMs intact bilaterally Neck: Neck: Yes no lymphadenopathy, Yes trachea midline and Yes supple Resp: Effort & Inspection: normal respiratory effort and no respiratory distress Auscultation: clear to auscultation bilaterally Cardio: Rate: regular rate Rhythm: regular rhythm Heart sounds: no gallops, no murmurs and no rubs GI: Palpation (GI): Soft to palpation and Other GI palpation findings present ( Nontender) Auscultation: normal bowel sounds Extrem: General: No clubbing, No cyanosis and Yes edema (Trace bilateral) DS: Data Data Completed and Pending Completed studies during hospitalization [Text1]: Procedures Control Bleeding in Nasal Mucosa and Soft Tissue, Via Natural or Artificial Opening (12/04/24) Dilation of Right Popliteal Artery using Drug-Coated Balloon, Percutaneous Approach (11/05/20) Excision of Right Foot Muscle, Open Approach (11/05/20) Insertion of Infusion Device into Superior Vena Cava, Percutaneous Approach (07/05/20) Introduction of Vasopressor into Peripheral Vein, Percutaneous Approach (07/05/20) Packing of Nasal Region using Packing Material (12/04/24) Performance of Urinary Filtration, Intermittent, Less than 6 Hours Per Day (07/05/20) Transfusion of Nonautologous Red Blood Cells into Peripheral Vein, Percutaneous Approach (12/17/24) Ultrasonography of Superior Vena Cava, Guidance (07/05/20) Labs on day of discharge: Laboratory Results - last 24 hr 03/24/25 05:38 Hold Purple Top SEE NOTE PT 13.2 H INR 1.2 H Discharge Plan Discharge Anticipated Discharge Date/Time: 03/24/25 09:08 Patient Disposition: Xfer SNF Discharge Diagnosis: amio tox Referrals: [facility] [Outside] Kalina Moore MD [Primary Care Provider] - 1 Week Discharge Medications: New ipratropium-albuterol 0.5 mg-3 mg(2.5 mg base)/3 mL Solution For Nebulization 3 ml inhalation Q4H PRN (Reason: Shortness Of Breath/Wheezing) Qty: 0 0RF Continued cyanocobalamin (vitamin B-12) [Vitamin B-12] 1,000 mcg Tablet 1,000 mcg PO DAILY docusate sodium [Colace] 100 mg Capsule 100 mg PO DAILY PRN (Reason: Constipation) cholecalciferol (vitamin D3) [Vitamin D3] 50 mcg (2,000 unit) Capsule 50 mcg PO DAILY furosemide 40 mg Tablet 40 mg PO DAILY azathioprine 50 mg tablet 100 mg PO DAILY citalopram 20 mg tablet 20 mg PO DAILY warfarin 1 mg tablet 1 mg PO DAILY@1800 pantoprazole 40 mg tablet,delayed release (DR/EC) 40 mg PO DAILY@0630 prednisone 5 mg tablet 5 mg PO Q48H furosemide 20 mg tablet 40 mg PO BEDTIME PRN (Reason: Swelling) polyethylene glycol 3350 [Miralax] 17 gram/dose Powder 17 g PO DAILY PRN (Reason: Constipation) verapamil 120 mg tablet extended release 120 mg PO DAILY levothyroxine 175 mcg tablet 175 mcg PO DAILY@0600 prednisone 5 mg tablet 20 mg PO Q48H carvedilol 3.125 mg tablet 3.125 mg PO BID olmesartan 40 mg tablet 40 mg PO DAILY Discontinued amiodarone 200 mg Tablet 200 mg PO DAILY Qty: 30 0RF doxycycline hyclate 100 mg tablet 100 mg PO BID Discharge Orders: Discharge Order (Routine); Ordered 03/24/25 Ordered By: Ankit Vigil Diet: Advance to usual diet Activity on Discharge: As tolerated Stand Alone Forms: Patient Portal Discharge page Print Language: Unable To Collect Care Plan Goals: Recovery Health Concerns: Amiodarone toxicity Plan of Treatment: Amiodarone discontinued Assessment: See above
--- NOTE | 2025-03-24 11:05 | MHC.CM.PN ---
PT IS INDEPEDENT LIVING WITH AND FAMILY HAS OWN RIDE HOME DC PLAN HOME N/S
== END 2025-03-24 11:30 | disposition skilled nursing facility (03) | DRG 205 ==
LOC: HO.ED 15:33 → HO.EDOVER 16:58 → HO.S3 19:05
PROVIDERS: Internal Medicine; Nurse Practitioner Family; Admitting Provider Student in an Organized Health Care Education/Training Program; Emergency Provider Emergency Medicine; PCP Family Medicine; Visit Provider Internal Medicine
DX: J70.4 Drug-induced interstitial lung disorders, unspecified (principal); I50.33 Acute on chronic diastolic (congestive) heart failure; J96.01 Acute respiratory failure with hypoxia; L89.624 Pressure ulcer of left heel, stage 4; L89.614 Pressure ulcer of right heel, stage 4; J44.0 Chronic obstructive pulmonary disease with (acute) lower respiratory infection; E44.0 Moderate protein-calorie malnutrition; L12.0 Bullous pemphigoid; L89.310 Pressure ulcer of right buttock, unstageable; I48.0 Paroxysmal atrial fibrillation; E03.9 Hypothyroidism, unspecified; F39 Unspecified mood [affective] disorder; T46.2X5A Adverse effect of other antidysrhythmic drugs, initial encounter; K71.9 Toxic liver disease, unspecified; Z66 Do not resuscitate; D64.9 Anemia, unspecified; Z68.32 Body mass index [BMI] 32.0-32.9, adult; I11.0 Hypertensive heart disease with heart failure; K76.0 Fatty (change of) liver, not elsewhere classified; G89.29 Other chronic pain; K59.09 Other constipation; Z74.01 Bed confinement status; Z20.822 Contact with and (suspected) exposure to COVID-19; Z86.718 Personal history of other venous thrombosis and embolism; Z79.01 Long term (current) use of anticoagulants; Z79.52 Long term (current) use of systemic steroids; Z79.899 Other long term (current) drug therapy
CPT/HCPCS: 0241U; 36415; 71045; 71250; 73610; 73620; 76705; 80048; 80053; 80076; 81001; 82010; 82248; 82803; 82947; 83605; 83690; 83735; 83880; 84443; 84484; 85025; 85027; 85610; 85652; 86140; 87040; 87086; 93005; 93926; 94640; 97166; 99285; J0696; J2919

== ENCOUNTER → 2025-03-17 14:08 | Outpatient (BNV) | payer MEDICARE, SELFPAY | PROVIDERS: Emergency Provider Emergency Medicine; PCP Family Medicine; Visit Provider Radiology Diagnostic Radiology | DX: K80.20 Calculus of gallbladder without cholecystitis without obstruction (principal); I70.201 Unspecified atherosclerosis of native arteries of extremities, right leg; R06.02 Shortness of breath; M85.871 Other specified disorders of bone density and structure, right ankle and foot; M19.071 Primary osteoarthritis, right ankle and foot | CPT/HCPCS: 73610; 93926 ==

== ENCOUNTER → 2025-03-17 16:54 | Outpatient (BNV) | payer MEDICARE, SELFPAY | PROVIDERS: Admitting Provider Student in an Organized Health Care Education/Training Program; Emergency Provider Emergency Medicine; PCP Family Medicine; Visit Provider Internal Medicine Pulmonary Disease | DX: J96.01 Acute respiratory failure with hypoxia (principal); J81.1 Chronic pulmonary edema; R62.7 Adult failure to thrive | CPT/HCPCS: 99223 ==

== ENCOUNTER → 2025-03-17 16:54 | Outpatient (BNV) | payer MEDICARE, SELFPAY | PROVIDERS: Admitting Provider Student in an Organized Health Care Education/Training Program; Emergency Provider Emergency Medicine; PCP Family Medicine; Visit Provider Internal Medicine | DX: I48.0 Paroxysmal atrial fibrillation (principal); Z79.899 Other long term (current) drug therapy; J96.01 Acute respiratory failure with hypoxia; R94.31 Abnormal electrocardiogram [ECG] [EKG] | CPT/HCPCS: 93010; 99223 ==

== ENCOUNTER → 2025-03-17 16:54 | Outpatient (BNV) | payer MEDICARE, SELFPAY | PROVIDERS: Admitting Provider Student in an Organized Health Care Education/Training Program; Emergency Provider Emergency Medicine; PCP Family Medicine; Visit Provider Internal Medicine | DX: I48.0 Paroxysmal atrial fibrillation (principal); J96.01 Acute respiratory failure with hypoxia | CPT/HCPCS: 99231; 99232; 99233 ==